=== PATIENT | female | born 1950 | race Caucasian/White ===

== ENCOUNTER 2016-07-24 15:13 | Observation (INO) | payer MEDICARE ==
[2016-07-24] VITALS (8 sets, daily range): BP systolic 108–165; BP diastolic 59–91; PULSE 78–93; RESP 14–20; TEMP 97.7–98.4; O2SAT 95–97
[~2016-07-24] VITALS: Ht 162.6 cm; Wt 77.2 kg
[~2016-07-24 15:13] MED LIST: AMAR2TAB PO; CALC1TAB30 PO; CART180C PO; CHOL50008 PO; COUM5TAB PO; CYAN50002 SL; GLIM4TAB PO; HYDR25TA5 PO; IMDU30TA PO; LANO0.1212 PO; LEVO100T5 PO; LISI-515 PO; MAGN400T2 PO; METF500T PO; OMEP20CA2 PO; PRAV20TA2 PO; SODI325T PO; SULF500T3 PO; TOVI4TAB PO; VENL150C39 PO
[2016-07-24] MEDS ORDERED: SODIUM CHLOR 0.9% 1000 ML INJ 1,000 ML IV SCH (15:36)
[2016-07-24] MEDS ORDERED: SODIUM CHLORIDE 0.9% FLUSH 10 ML FLUSH IVF PRN (15:45)
--- NOTE | 2016-07-24 15:45 | PD ---
HPI Chief Complaint: Syncope/Near-Syncope Time Seen by Provider: 15:31 Travel History International Travel<30 days: No Contact w/Intl Traveler<30days: No Traveled to known affect area: No History of Present Illness HPI 66-year-old female with history of A. fib on Coumadin, brought in by ambulance from home for evaluation after syncopal episode. The patient was using the restroom when she syncopized. She did not injure herself. She is not complaining of diffuse abdominal cramping which is intermittent. No chest pain or dyspnea. She reports having upper respiratory symptoms for last couple of weeks. No fevers. No urinary symptoms. No melena or hematochezia. History of several abdominal surgeries including hysterectomy, appendectomy, cholecystectomy. PFSH Past Medical History Hx Anticoagulant Therapy: Yes Arthritis: Yes Atrial Fibrillation: Yes Blood Disorders: No Anxiety: Yes Depression: Yes Heart Rhythm Problems: Yes (MURMUR) Cancer: No Cardiovascular Problems: Yes (AFIB) High Cholesterol: Yes Chest Pain: Yes Congestive Heart Failure: No COPD: No Cerebrovascular Accident: No Diabetes: Yes Patient Takes Glucophage: Yes Diminished Hearing: No Endocrine: Yes Gastrointestinal Disorders: Yes (COLITIS,GERD, HIATAL HERNIA, PROBLEMS WITH N/V , DIARRHEA) GERD: Yes Genitourinary: No Hepatitis: No Hiatal Hernia: Yes Hypertension: Yes Immune Disorder: No Implanted Vascular Access Dvce: Yes Musculoskeletal: Yes Neurologic: Yes Psychiatric: No Reproductive: No Respiratory: Yes Migraines: Yes Pneumonia: Yes Seizures: Yes ("PAIN SEIZURES WHEN I HAD SHINGLES ON MY RIGHT EYE") Shingles: Yes Thyroid Disease: Yes Tetanus Vaccination: < 5 Years Influenza Vaccination: Yes ?: Not Menopausal: Yes Past Surgical History Abdominal Surgery: No AICD: No Appendectomy: Yes Body Medical Devices: BLADDER SLING REPLACED 5 TIMES Cardiac Surgery: No Cholecystectomy: Yes Ear Surgery: No Endocrine Surgery: No Eye Surgery: No Genitourinary Surgery: Yes Gynecologic Surgery: Yes Hysterectomy: Yes (PARTIAL) Joint Replacement: Yes (FROILAN. KNEE) Oral Surgery: Yes (JAW REPLACEMENT) Pacemaker: No Thoracic Surgery: No Other Surgery: Yes Social History Alcohol Use: Yes (ON OCCASION) Tobacco Use: No Substance Use: No Allergies-Medications (Allergen,Severity, Reaction): Coded Allergies: No Known Allergies (Verified , 4/2/17) Reported Meds & Prescriptions Reported Meds & Active Scripts Active Metformin (Metformin HCl) 500 Mg Tab 500 Mg PO BIDPC With meals Reported Jardiance (Empagliflozin) 25 Mg Tab 25 Mg PO DAILY Isosorbide Mononitrate ER (Isosorbide Mononitrate) 30 Mg Demetrio 30 Mg PO DAILY Fibercon (Calcium Polycarbophil) 625 Mg Tab 625 Mg PO DAILY Omeprazole 20 Mg Cap 20 Mg PO BID Toviaz ER (Fesoterodine Fumarate) 4 mg Demetrio 4 Mg PO DAILY Levothyroxine (Levothyroxine Sodium) 100 Mcg Tab 100 Mcg PO DAILY Hydrochlorothiazide 25 Mg Tab 25 Mg PO DAILY Glimepiride 4 Mg Tab 4 Mg PO BID Take with breakfast or first main meal Magnesium Oxide 400 Mg Tab 800 Mg PO DAILY Lisinopril 20 Mg Tab 40 Mg PO DAILY Lanoxin (Digoxin) 0.125 Mg Tab 0.125 Mg PO DAILY Cartia Xt (Diltiazem ER 24 HR) 180 Mg Caper 360 Mg PO DAILY Calcium 600 + D (Calcium Carbonate-Cholecalciferol) 600-200 Mg-Unit Tab 1 Tab PO DAILY Coumadin (Warfarin) 5 Mg Tab 2.5 Mg PO Take 1/2 tablet (2.5mg) on daily on Monday,Monday,Monday, and Monday Coumadin (Warfarin) 5 Mg Tab 5 Mg PO Take 1 tablet (5mg) daily on Monday and Monday Vitamin D3 (Cholecalciferol) 5,000 Unit Tab 5,000 Units PO DAILY Vitamin B-12 (Cyanocobalamin) 5,000 Mcg Subl 5,000 Mcg SL DAILY Venlafaxine ER 24 HR (Venlafaxine HCl) 150 Mg Cap 150 Mg PO DAILY Sulfasalazine 500 Mg Tab 1,000 Mg PO BID Sodium Bicarbonate 325 Mg Tab 650 Mg PO DAILY Pravastatin 20 Mg Tab 20 Mg PO HS Review of Systems Except as stated in HPI: all other systems reviewed are Neg Physical Exam Narrative GENERAL: Well-developed, well-nourished, awake, alert, GCS 15, no acute distress. SKIN: Focused skin assessment warm/dry. No lacerations, abrasions, or ecchymosis. HEAD: Atraumatic. Normocephalic. EYES: Pupils equal and round. No scleral icterus. No injection or drainage. ENT: No nasal bleeding or discharge. Mucous membranes pink and moist. NECK: Trachea midline. No JVD. No midline cervical spine step-off or tenderness. CARDIOVASCULAR: Regular rate and rhythm. RESPIRATORY: No accessory muscle use. Clear to auscultation. Breath sounds equal bilaterally. GASTROINTESTINAL: Abdomen soft, non-tender, nondistended. No pulsatile mass. MUSCULOSKELETAL: No obvious deformities. No clubbing. No cyanosis. No edema. NEUROLOGICAL: Awake and alert. No obvious cranial nerve deficits. Motor grossly within normal limits. Normal speech. No focal deficit. PSYCHIATRIC: Appropriate mood and affect; insight and judgment normal. Data Data Last Documented VS Vital Signs Date Time Temp Pulse Resp B/P Pulse Ox O2 Delivery O2 Flow Rate FiO2 07/24/16 17:00 88 18 121/66 95 Room Air 07/24/16 15:18 97.7 Orders Electrocardiogram (07/24/16 ) Complete Blood Count With Diff (07/24/16 15:36) Comprehensive Metabolic Panel (07/24/16 15:36) Magnesium (Mg) (07/24/16 15:36) Ckmb (Isoenzyme) Profile (07/24/16 15:36) Troponin I (07/24/16 15:36) Act Partial Throm Time (Ptt) (07/24/16 15:36) Prothrombin Time / Inr (Pt) (07/24/16 15:36) Urinalysis - C+S If Indicated (07/24/16 15:36) Chest, Single Ap (07/24/16 15:36) Ct Brain W/O Iv Contrast(Rout) (07/24/16 15:36) Ecg Monitoring (07/24/16 15:36) Iv Access Insert/Monitor (07/24/16 15:36) Oximetry (07/24/16 15:36) Sodium Chloride 0.9% Flush (Ns Flush) (07/24/16 15:45) Ct Abd/Pel W Iv Contrast(Rout) (07/24/16 15:36) Sodium Chlor 0.9% 1000 Ml Inj (Ns 1000 M (07/24/16 15:36) Iohexol 350 Inj (Omnipaque 350 Inj) (07/24/16 17:10) Labs Laboratory Tests Test 07/24/16 07/24/16 15:45 17:25 White Blood Count 15.8 TH/MM3 Red Blood Count 4.24 MIL/MM3 Hemoglobin 13.4 GM/DL Hematocrit 39.8 % Mean Corpuscular Volume 93.8 FL Mean Corpuscular Hemoglobin 31.5 PG Mean Corpuscular Hemoglobin 33.6 % Concent Red Cell Distribution Width 13.8 % Platelet Count 397 TH/MM3 Mean Platelet Volume 8.4 FL Neutrophils (%) (Auto) 81.0 % Lymphocytes (%) (Auto) 10.3 % Monocytes (%) (Auto) 7.1 % Eosinophils (%) (Auto) 1.2 % Basophils (%) (Auto) 0.4 % Neutrophils # (Auto) 12.8 TH/MM3 Lymphocytes # (Auto) 1.6 TH/MM3 Monocytes # (Auto) 1.1 TH/MM3 Eosinophils # (Auto) 0.2 TH/MM3 Basophils # (Auto) 0.1 TH/MM3 CBC Comment DIFF FINAL Differential Comment Prothrombin Time 16.1 SEC Prothromb Time International 1.4 RATIO Ratio Activated Partial 36.2 SEC Thromboplast Time Sodium Level 138 MEQ/L Potassium Level 4.3 MEQ/L Chloride Level 104 MEQ/L Carbon Dioxide Level 25.7 MEQ/L Anion Gap 8 MEQ/L Blood Urea Nitrogen 50 MG/DL Creatinine 1.26 MG/DL Estimat Glomerular Filtration 42 ML/MIN Rate Random Glucose 110 MG/DL Calcium Level 9.1 MG/DL Magnesium Level 1.7 MG/DL Total Bilirubin 0.4 MG/DL Aspartate Amino Transf 14 U/L (AST/SGOT) Alanine Aminotransferase 17 U/L (ALT/SGPT) Alkaline Phosphatase 89 U/L Total Creatine Kinase 32 U/L Troponin I LESS THAN 0.02 NG/ML Total Protein 7.4 GM/DL Albumin 3.5 GM/DL Urine Color YELLOW Urine Turbidity CLEAR Urine pH 5.5 Urine Specific [place] 1.020 Urine Protein NEG mg/dL Urine Glucose (UA) 1000 mg/dL Urine Ketones NEG mg/dL Urine Occult Blood TRACE Urine Nitrite NEG Urine Bilirubin NEG Urine Urobilinogen LESS THAN 2.0 MG/DL Urine Leukocyte Esterase NEG Urine RBC 2 /hpf Urine WBC 1 /hpf Urine Squamous Epithelial 1 /hpf Cells Urine Hyaline Casts 2 /lpf Microscopic Urinalysis Comment CULT NOT INDICATED MDM Medical Decision Making Medical Screen Exam Complete: Yes Emergency Medical Condition: Yes Interpretation(s) EKG: A. fib, rate 74, normal axis, low voltage in precordial leads, no acute ischemic abnormality. Differential Diagnosis Syncope, dysrhythmia, metabolic abnormality, intracranial abnormality, AAA, intra-abdominal infection, UTI, cystitis Narrative Course Initial vital signs show heart rate 92, blood pressure 108/59, pulse ox 96% on room air, oral temp of 97.7F. Stool is heme negative and brown. CBC shows WBC 15.8, hemoglobin 13.4, hematocrit 39.8, platelets 297, neutrophils 81%. CMP is remarkable for BUN 50, creatinine 1.26, GFR 42, otherwise unremarkable. Cardiac enzymes are negative. INR is 1.4. UA shows 1000 glucose, trace occult blood, not suggestive of UTI. CT brain: CONCLUSION: 1. No acute intracranial abnormalities. Chest x-ray: CONCLUSION: 1. Minimal subsegmental atelectasis or scarring at the bases. No focal consolidation or significant effusion. CT abdomen pelvis: CONCLUSION: 1. Mild to moderate constipation. Colonic diverticulosis without diverticulitis. 2. Moderate coronary artery calcifications. Previous cholecystectomy and ventral hernia repair. Patient was made aware of all findings. She is resting comfortably. She states she is feeling better. She is nervous about being discharged home. Given her significant medical history, I believe she should be admitted for overnight observation for telemetry monitoring for her syncopal episode. Case discussed with [facility] hospitalist Dr. Suarez. Even though this is likely a vasovagal episode, the patient is high risk given her significant cardiac and medical history, social be admitted for overnight observation for telemetry monitoring. [facility] Point of Care Internal Pos. & Neg. Controls: Passed Fecal Specimen Occult Blood: Negative Comment Heme-negative brown stool. Diagnosis Primary Impression: Syncope Qualified Code: R55 - Syncope, unspecified syncope type Admitting Information Admitting Physician Requests: Observation Christiano Strickland MD Jul 24, 2016 15:45
[2016-07-24 16:13] LABS: AUTOMATED NEUTROPHIL # 12.8 TH/MM3 (1.8-7.7); BASOPHIL # 0.1 TH/MM3 (0-0.2); BASOPHIL % 0.4 % (0.0-2.0); EOSINOPHIL # 0.2 TH/MM3 (0-0.4); EOSINOPHIL % 1.2 % (0.0-4.0); HEMATOCRIT 39.8 % (35.0-46.0); HEMO FLAGS DIFF FINAL; LYMPH % 10.3 % (9.0-44.0); LYMPHOCYTE # 1.6 TH/MM3 (1.0-4.8); MEAN CELL VOLUME 93.8 FL (80.0-100.0); MEAN CORPUSCULAR HEMOGLOBIN 31.5 PG (27.0-34.0); MEAN CORPUSCULAR HGB CONC 33.6 % (32.0-36.0); MONO % 7.1 % (0.0-8.0); PLATELET COUNT 397 TH/MM3 (150-450); RED BLOOD COUNT 4.24 MIL/MM3 (4.00-5.30); RED CELL DISTRIBUTION WIDTH 13.8 % (11.6-17.2); WHITE BLOOD COUNT 15.8 TH/MM3 (4.0-11.0)
[2016-07-24] MEDS ORDERED: ISOS30TA3 PO (16:23)
[2016-07-24] MEDS ORDERED: FIBE625T PO (16:23)
[2016-07-24] MEDS ORDERED: EMPA1TAB3 PO (16:23)
[2016-07-24 16:26] LABS: ALT (GPT) 17 U/L (10-53); ANION GAP 8 MEQ/L (5-15); AST (GOT) 14 U/L (15-37); BICARBONATE 25.7 MEQ/L (21.0-32.0); BLOOD UREA NITROGEN 50 MG/DL (7-18); CHLORIDE 104 MEQ/L (98-107); GLOMERULAR FILTRATION RATE 42 ML/MIN (>89); MAGNESIUM 1.7 MG/DL (1.5-2.5); POTASSIUM 4.3 MEQ/L (3.5-5.1); SODIUM (NA) 138 MEQ/L (136-145)
[2016-07-24 16:28] LABS: APTT (PATIENT) 36.2 SEC (24.3-30.1); INTERNATIONAL NORMALIZED RATIO 1.4 RATIO; PROTHROMBIN TIME - PATIENT 16.1 SEC (9.8-11.6)
[2016-07-24 16:29] LABS: ALKALINE PHOSPHATASE 89 U/L (45-117); TOTAL BILIRUBIN ADULT 0.4 MG/DL (0.2-1.0)
[2016-07-24 16:30] LABS: CREATINE KINASE 32 U/L (26-192)
--- NOTE | 2016-07-24 16:51 | RADRPT ---
EXAM DATE/TIME: 07/24/2016 15:50 [facility] COMPARISON: No previous studies available for comparison. INDICATIONS : Syncope. Weakness. MEDICAL HISTORY : Diabetes mellitus type II. Atrial fibrillation. SURGICAL HISTORY : None. ENCOUNTER: Initial ACUITY: 1 day PAIN SCORE: 0/10 LOCATION: Bilateral Chest FINDINGS: A single view of the chest demonstrates the lungs to be symmetrically aerated without evidence of mas s, infiltrate or effusion. Minimal subsegmental atelectasis or scarring. The cardiomediastinal contou rs are unremarkable. Osseous structures are intact. CONCLUSION: 1. Minimal subsegmental atelectasis or scarring at the bases. No focal consolidation or significant e ffusion. Daniel Leon MD on July 24, 2016 at 16:48 Board Certified Radiologist. This report was verified electronically.
[2016-07-24] MEDS ORDERED: IOHEXOL 350 MG/ML 10 ML VIAL (for RAD DIAG) IV ONE (17:10)
--- NOTE | 2016-07-24 17:49 | RADRPT ---
EXAM DATE/TIME: 07/24/2016 16:44 [facility] COMPARISON: CT BRAIN W/O CONTRAST, March 01, 2016, 11:54. INDICATIONS : Syncope today. RADIATION DOSE: 56.35 CTDIvol (mGy) MEDICAL HISTORY : diabetes SURGICAL HISTORY : jaw surgery ENCOUNTER: Initial ACUITY: 1 day PAIN SCALE: 0/10 LOCATION: Bilateral head TECHNIQUE: Multiple contiguous axial images were obtained of the head. Using automated exposure control and adj ustment of the mA and/or kV according to patient size, radiation dose was kept as low as reasonably a chievable to obtain optimal diagnostic quality images. FINDINGS: CEREBRUM: The ventricles are normal for age. No evidence of midline shift, mass lesion, hemorrhage or acute in farction. No extra-axial fluid collections are seen. POSTERIOR FOSSA: The cerebellum and brainstem are intact. The 4th ventricle is midline. The cerebellopontine angle i s unremarkable. EXTRACRANIAL: The visualized portion of the orbits is intact. SKULL: The calvaria is intact. No evidence of skull fracture. There is postop change around the left TMJ wi th joint replacement. CONCLUSION: 1. No acute intracranial abnormalities. Daniel Leon MD on July 24, 2016 at 17:45 Board Certified Radiologist. This report was verified electronically.
[2016-07-24 17:50] LABS: BLOOD, URINE TRACE (NEG); GLUCOSE,URINE 1000 mg/dL (NEG); HYALINE CAST, URINE 2 /lpf (RARE); KETONE, URINE NEG (NEG); NITRITE,URINE NEG (NEG); PH, URINE 5.5 (5.0-8.5); SQUAMOUS EPITHELIAL CELL URINE 1 /hpf (0-5); URINE COLOR YELLOW (YELLW/STRAW)
[2016-07-24 17:51] LABS: COMMENT (UR) CULT NOT INDICATED; CULTURE IF INDICATED CULT NOT INDICATED
--- NOTE | 2016-07-24 17:53 | RADRPT ---
EXAM DATE/TIME: 07/24/2016 16:47 [facility] COMPARISON: No previous studies available for comparison. INDICATIONS : Lower abdominal pain today. IV CONTRAST: 80 cc Omnipaque 350 (iohexol) IV ORAL CONTRAST: No oral contrast ingested. RADIATION DOSE: 9.96 CTDIvol (mGy) MEDICAL HISTORY : diabetes SURGICAL HISTORY : Cholecystectomy. ENCOUNTER: Initial ACUITY: 1 day PAIN SCALE: 6/10 LOCATION: Bilateral abdomen TECHNIQUE: Volumetric scanning of the abdomen and pelvis was performed. Using automated exposure control and ad justment of the mA and/or kV according to patient size, radiation dose was kept as low as reasonably achievable to obtain optimal diagnostic quality images. FINDINGS: Lung bases are clear except minimal dependent atelectasis. Mild fatty liver. Spleen, adrenals, kidney s and pancreas unremarkable. Previous cholecystectomy. Previous ventral hernia repair. No bowel obstruction. No free air or free fluid. Mild constipation. Colonic diverticula without diver ticulitis. CONCLUSION: 1. Mild to moderate constipation. Colonic diverticulosis without diverticulitis. 2. Moderate coronary artery calcifications. Previous cholecystectomy and ventral hernia repair. Daniel Leon MD on July 24, 2016 at 17:47 Board Certified Radiologist. This report was verified electronically.
[2016-07-24] MEDS ORDERED: NALOXONE HCL 0.4 MG/ML AMP IV PRN (20:15)
[2016-07-24] MEDS ORDERED: ONDANSETRON HCL 4 MG/2 ML VIAL IVP PRN (20:15)
[2016-07-24] MEDS ORDERED: WARFARIN SOD 5 MG TAB PO SCH (20:15)
[2016-07-24] MEDS ORDERED: BISACODYL 10 MG SUPP RECTAL PRN (20:15)
[2016-07-24] MEDS ORDERED: SODIUM CHLORIDE 0.9% FLUSH 10 ML FLUSH IV FLUSH PRN (20:15)
[2016-07-24] MEDS ORDERED: ACETAMINOPHEN 325 MG TAB PO PRN (20:15)
--- NOTE | 2016-07-24 20:41 | HHI.HP ---
HPI Service [facility] Hospitalists Primary Care Physician Urban Carrera MD Admission Diagnosis syncope Chief Complaint: syncopal episode earlier today Travel History International Travel<30 Days: No Contact w/Intl Traveler <30 Da: No Traveled to Known Affected Are: No History of Present Illness HPI 66-year-old female with history of A. fib on Coumadin, brought in by ambulance from home for evaluation after syncopal episode. The patient was using the restroom when she syncopized. Patient not sure whether it was after straining or not .She did not injure herself. She is complaining of diffuse abdominal cramping which is intermittent and this symptoms she has had before . Denies chest pain SOB,diaphoresis . Work up in er showed slight elevation of WBC count and patient is on coumadin and is subtherapeutic. Review of Systems Other syncope Past Family Social History Past Medical History afib,djd,hernia,hyperlipidemia,htn,dm,shingles hypothyroid,colitis,GERD,N and V diarrhea Past Surgical History appendix gallbladder,hysterectomy,bladder suspension, sanjuanita knee surgery Reported Medications Metformin (Metformin HCl) 500 Mg Tab 500 Mg PO BIDPC With meals Reported Jardiance (Empagliflozin) 25 Mg Tab 25 Mg PO DAILY Isosorbide Mononitrate ER (Isosorbide Mononitrate) 30 Mg Demetrio 30 Mg PO DAILY Fibercon (Calcium Polycarbophil) 625 Mg Tab 625 Mg PO DAILY Omeprazole 20 Mg Cap 20 Mg PO BID Toviaz ER (Fesoterodine Fumarate) 4 mg Demetrio 4 Mg PO DAILY Levothyroxine (Levothyroxine Sodium) 100 Mcg Tab 100 Mcg PO DAILY Hydrochlorothiazide 25 Mg Tab 25 Mg PO DAILY Glimepiride 4 Mg Tab 4 Mg PO BID Take with breakfast or first main meal Magnesium Oxide 400 Mg Tab 800 Mg PO DAILY Lisinopril 20 Mg Tab 40 Mg PO DAILY Lanoxin (Digoxin) 0.125 Mg Tab 0.125 Mg PO DAILY Cartia Xt (Diltiazem ER 24 HR) 180 Mg Caper 360 Mg PO DAILY Calcium 600 + D (Calcium Carbonate-Cholecalciferol) 600-200 Mg-Unit Tab 1 Tab PO DAILY Coumadin (Warfarin) 5 Mg Tab 2.5 Mg PO SUMOWETHFR Take 1/2 tablet (2.5mg) on daily on Monday,Monday,Monday, and Monday Coumadin (Warfarin) 5 Mg Tab 5 Mg PO Take 1 tablet (5mg) daily on Monday and Monday Vitamin D3 (Cholecalciferol) 5,000 Unit Tab 5,000 Units PO DAILY Vitamin B-12 (Cyanocobalamin) 5,000 Mcg Subl 5,000 Mcg SL DAILY Venlafaxine ER 24 HR (Venlafaxine HCl) 150 Mg Cap 150 Mg PO DAILY Sulfasalazine 500 Mg Tab 1,000 Mg PO BID Sodium Bicarbonate 325 Mg Tab 650 Mg PO DAILY Pravastatin 20 Mg Tab 20 Mg P Allergies: Coded Allergies: No Known Allergies (Verified , 07/24/16) Social History occ etoh,NS Physical Exam Vital Signs Vital Signs Date Time Temp Pulse Resp B/P Pulse Ox O2 Delivery O2 Flow Rate FiO2 07/24/16 18:00 78 20 143/91 95 Room Air 07/24/16 17:00 88 18 121/66 95 Room Air 07/24/16 15:48 97 Room Air 07/24/16 15:24 20 97 Room Air 07/24/16 15:18 97.7 92 20 108/59 96 Physical Exam GENERAL: This is a well-nourished, well-developed patient, in no apparent distress. SKIN: No rashes, ecchymoses or lesions. Cool and dry. HEAD: Atraumatic. Normocephalic. No temporal or scalp tenderness. EYES: Pupils equal round and reactive. Extraocular motions intact. No scleral icterus. No injection or drainage. ENT: Nose without bleeding, purulent drainage or septal hematoma. Throat without erythema, tonsillar hypertrophy or exudate. Uvula midline. Airway patent. NECK: Trachea midline. No JVD or lymphadenopathy. Supple, nontender, no meningeal signs. CARDIOVASCULAR: IRREG rate and rhythm with 2/6 systolic murmur, gallops, or rubs. RESPIRATORY: Clear to auscultation. Breath sounds equal bilaterally. No wheezes , rales, or rhonchi. GASTROINTESTINAL: Abdomen soft, non-tender, nondistended. No hepato-splenomegaly , or palpable masses. No guarding. MUSCULOSKELETAL: Extremities without clubbing, cyanosis, or edema. No joint tenderness, effusion, or edema noted. No calf tenderness. Negative Homans sign bilaterally. NEUROLOGICAL: Awake and alert. Cranial nerves II through XII intact. Motor and sensory grossly within normal limits. Five out of 5 muscle strength in all muscle groups. Normal speech. Laboratory Laboratory Tests Test 07/24/16 07/24/16 15:45 17:25 White Blood Count 15.8 Red Blood Count 4.24 Hemoglobin 13.4 Hematocrit 39.8 Mean Corpuscular Volume 93.8 Mean Corpuscular Hemoglobin 31.5 Mean Corpuscular Hemoglobin 33.6 Concent Red Cell Distribution Width 13.8 Platelet Count 397 Mean Platelet Volume 8.4 Neutrophils (%) (Auto) 81.0 Lymphocytes (%) (Auto) 10.3 Monocytes (%) (Auto) 7.1 Eosinophils (%) (Auto) 1.2 Basophils (%) (Auto) 0.4 Neutrophils # (Auto) 12.8 Lymphocytes # (Auto) 1.6 Monocytes # (Auto) 1.1 Eosinophils # (Auto) 0.2 Basophils # (Auto) 0.1 CBC Comment DIFF FINAL Differential Comment Prothrombin Time 16.1 Prothromb Time International 1.4 Ratio Activated Partial 36.2 Thromboplast Time Sodium Level 138 Potassium Level 4.3 Chloride Level 104 Carbon Dioxide Level 25.7 Anion Gap 8 Blood Urea Nitrogen 50 Creatinine 1.26 Estimat Glomerular Filtration 42 Rate Random Glucose 110 Calcium Level 9.1 Magnesium Level 1.7 Total Bilirubin 0.4 Aspartate Amino Transf 14 (AST/SGOT) Alanine Aminotransferase 17 (ALT/SGPT) Alkaline Phosphatase 89 Total Creatine Kinase 32 Troponin I LESS THAN 0.02 Total Protein 7.4 Albumin 3.5 Urine Color YELLOW Urine Turbidity CLEAR Urine pH 5.5 Urine Specific [place] 1.020 Urine Protein NEG Urine Glucose (UA) 1000 Urine Ketones NEG Urine Occult Blood TRACE Urine Nitrite NEG Urine Bilirubin NEG Urine Urobilinogen LESS THAN 2.0 Urine Leukocyte Esterase NEG Urine RBC 2 Urine WBC 1 Urine Squamous Epithelial 1 Cells Urine Hyaline Casts 2 Microscopic Urinalysis Comment CULT NOT INDICATED Result Diagram: 07/24/16 1545 07/24/16 1545 Imaging Last [address] 07/24/16 153 Signed Impressions: Service Date/Time: Sunday, July 24, 2016 16:44 - CONCLUSION: 1. No acute intracranial abnormalities. Daniel Leon MD Chest X-Ray 07/24/16 1536 Signed Impressions: Service Date/Time: Sunday, July 24, 2016 15:50 - CONCLUSION: 1. Minimal subsegmental atelectasis or scarring at the bases. No focal consolidation or significant effusion. Daniel Leon MD Abdomen/Pelvis CT 07/24/16 1536 Signed Impressions: Service Date/Time: Sunday, July 24, 2016 16:47 - CONCLUSION: 1. Mild to moderate constipation. Colonic diverticulosis without diverticulitis. 2. Moderate coronary artery calcifications. Previous cholecystectomy and ventral hernia repair. Daniel Leon MD Course ekg a fib with controlled ventricular response Blood pressure was initially low on arrival in er given fluid and back to baseline Assessment and Plan Problem List: (1) Syncope Status: Acute Plan: most likely was vasovagal will observe in telemetry if normal probable D/ C tomorrow (2) Leukocytosis Status: Acute Plan: no signs of infection will recheck in am (3) Atrial fibrillation Status: Chronic Plan: INR was a little low was on 2.5 coumadin for monday will recheck in am and if still low will increase to 5 mg on monday. Assessment and Plan continue home meds Code Status full Discussed Condition With patient Problem Qualifiers (1) Syncope: Qualified Code: R55 - Syncope, unspecified syncope type Valeriano Sanford MD Jul 24, 2016 20:41
[2016-07-24] MEDS: DOCUSATE SODIUM 100 MG CAP PO SCH (21:00)
[2016-07-24] MEDS: SODIUM CHLORIDE 0.9% FLUSH 10 ML FLUSH IV FLUSH SCH (21:21)
[2016-07-24] MEDS: sulfaSALAzine 500 MG TAB PO SCH (22:09)
[2016-07-24] MEDS: PRAVASTATIN SOD 20 MG TAB PO SCH (22:10)
[2016-07-24] MEDS: PANTOPRAZOLE SOD 20 MG DELAYED RELEASE TAB PO SCH (22:10)
[2016-07-24] MEDS: GLIMEPIRIDE 4 MG TAB PO SCH (22:10)
[2016-07-25] VITALS (8 sets, daily range): BP systolic 99–136; BP diastolic 56–74; PULSE 54–109; RESP 16–18; TEMP 95.5–98.8; O2SAT 92–97
[2016-07-25 03:57] LABS: AUTOMATED NEUTROPHIL # 12.8 TH/MM3 (1.8-7.7); BASOPHIL # 0.1 TH/MM3 (0-0.2); BASOPHIL % 0.5 % (0.0-2.0); EOSINOPHIL # 0.2 TH/MM3 (0-0.4); EOSINOPHIL % 1.4 % (0.0-4.0); HEMATOCRIT 38.6 % (35.0-46.0); HEMO FLAGS DIFF FINAL; LYMPHOCYTE # 3.1 TH/MM3 (1.0-4.8); MEAN CELL VOLUME 94.1 FL (80.0-100.0); MEAN CORPUSCULAR HEMOGLOBIN 31.2 PG (27.0-34.0); MEAN CORPUSCULAR HGB CONC 33.1 % (32.0-36.0); NEUT % 73.1 % (16.0-70.0); PLATELET COUNT 356 TH/MM3 (150-450); RED CELL DISTRIBUTION WIDTH 13.8 % (11.6-17.2); WHITE BLOOD COUNT 17.5 TH/MM3 (4.0-11.0)
[2016-07-25 04:03] LABS: INTERNATIONAL NORMALIZED RATIO 1.3 RATIO; PROTHROMBIN TIME - PATIENT 14.7 SEC (9.8-11.6)
[2016-07-25 04:25] LABS: BICARBONATE 27.3 MEQ/L (21.0-32.0); POTASSIUM 3.8 MEQ/L (3.5-5.1)
[2016-07-25] MEDS: LEVOTHYROXINE SODIUM 100 MCG TAB PO SCH (05:50)
[2016-07-25] MEDS: metFORMIN HCL 500 MG TAB PO SCH ×2 (09:00→18:00)
[2016-07-25] MEDS ORDERED: HYDROCHLOROTHIAZIDE 25 MG TAB PO SCH (09:00)
[2016-07-25] MEDS ORDERED: FESOTERODINE 4 MG PO SCH (09:00)
[2016-07-25] MEDS: VENLAFAXINE HCL XR 75 MG CAP PO SCH (09:00)
[2016-07-25] MEDS: CYANOCOBALAMIN 1,000 MCG TAB PO SCH (09:36)
[2016-07-25] MEDS: DILTIAZEM-CD 180 MG CAP ER PO SCH (09:37)
[2016-07-25] MEDS: CALCIUM/VITAMIN D 250 MG/125 U TAB PO SCH (09:37)
[2016-07-25] MEDS: LISINOPRIL 20 MG TAB PO SCH (09:38)
--- NOTE | 2016-07-25 09:40 | HHI.PR ---
Subjective Remarks Pt reports that yesterday she was straining to have a BM on the commode and was having abd cramping and broke out into a cold sweat. After a small BM she was trying to make her way to the kitchen to get some water and became very lightheaded and dizzy and collapsed to the ground. She did not have any LOC. She was able to crawl to her room to call 911. Pt states that for the last 2years she has had issues with constipation but prior to that she had had diarrhea which began around 30 years ago. Pt reports that she has not had any further cramping since last night. Pt is very diaphoretic at the time of my exam and she reports that for the last few weeks she has been getting intermittent night sweats. For the last week and a half she has had a productive cough. She had family members who had been sick with similar symptoms as well. Pt took Amoxicillin for 6 days, which she had at home already. Pt did not find that she had much improvement with the antibiotics. Objective Vitals Vital Signs Date Time Temp Pulse Resp B/P Pulse Ox O2 Delivery O2 Flow Rate FiO2 07/25/16 07:26 97.3 85 16 134/74 94 07/25/16 06:50 16 07/25/16 05:21 97.8 109 18 119/74 92 07/25/16 01:24 98.8 87 18 136/68 93 07/24/16 22:23 83 07/24/16 22:18 98.3 84 18 137/84 97 07/24/16 22:06 98.4 89 18 165/77 97 07/24/16 21:00 93 14 129/74 95 Room Air 07/24/16 18:00 78 20 143/91 95 Room Air 07/24/16 17:00 88 18 121/66 95 Room Air 07/24/16 15:48 97 Room Air 07/24/16 15:24 20 97 Room Air 07/24/16 15:18 97.7 92 20 108/59 96 07/24/16 07/24/16 07/25/16 15:00 23:00 07:00 # Voids 1 1 # Bowel Movements 2 Result Diagram: 07/25/16 0316 07/25/16 0316 Other Results Laboratory Tests Test 07/24/16 07/24/16 07/25/16 15:45 17:25 03:16 White Blood Count 15.8 TH/MM3 17.5 TH/MM3 Red Blood Count 4.24 MIL/MM3 4.10 MIL/MM3 Hemoglobin 13.4 GM/DL 12.8 GM/DL Hematocrit 39.8 % 38.6 % Mean Corpuscular Volume 93.8 FL 94.1 FL Mean Corpuscular Hemoglobin 31.5 PG 31.2 PG Mean Corpuscular Hemoglobin 33.6 % 33.1 % Concent Red Cell Distribution Width 13.8 % 13.8 % Platelet Count 397 TH/MM3 356 TH/MM3 Mean Platelet Volume 8.4 FL 8.4 FL Neutrophils (%) (Auto) 81.0 % 73.1 % Lymphocytes (%) (Auto) 10.3 % 18.0 % Monocytes (%) (Auto) 7.1 % 7.0 % Eosinophils (%) (Auto) 1.2 % 1.4 % Basophils (%) (Auto) 0.4 % 0.5 % Neutrophils # (Auto) 12.8 TH/MM3 12.8 TH/MM3 Lymphocytes # (Auto) 1.6 TH/MM3 3.1 TH/MM3 Monocytes # (Auto) 1.1 TH/MM3 1.2 TH/MM3 Eosinophils # (Auto) 0.2 TH/MM3 0.2 TH/MM3 Basophils # (Auto) 0.1 TH/MM3 0.1 TH/MM3 CBC Comment DIFF FINAL DIFF FINAL Differential Comment Prothrombin Time 16.1 SEC 14.7 SEC Prothromb Time International 1.4 RATIO 1.3 RATIO Ratio Activated Partial 36.2 SEC Thromboplast Time Sodium Level 138 MEQ/L 137 MEQ/L Potassium Level 4.3 MEQ/L 3.8 MEQ/L Chloride Level 104 MEQ/L 104 MEQ/L Carbon Dioxide Level 25.7 MEQ/L 27.3 MEQ/L Anion Gap 8 MEQ/L 6 MEQ/L Blood Urea Nitrogen 50 MG/DL 39 MG/DL Creatinine 1.26 MG/DL 1.17 MG/DL Estimat Glomerular Filtration 42 ML/MIN 46 ML/MIN Rate Random Glucose 110 MG/DL 182 MG/DL Calcium Level 9.1 MG/DL 9.0 MG/DL Magnesium Level 1.7 MG/DL Total Bilirubin 0.4 MG/DL Aspartate Amino Transf 14 U/L (AST/SGOT) Alanine Aminotransferase 17 U/L (ALT/SGPT) Alkaline Phosphatase 89 U/L Total Creatine Kinase 32 U/L Troponin I LESS THAN 0.02 NG/ML Total Protein 7.4 GM/DL Albumin 3.5 GM/DL Urine Color YELLOW Urine Turbidity CLEAR Urine pH 5.5 Urine Specific [place] 1.020 Urine Protein NEG mg/dL Urine Glucose (UA) 1000 mg/dL Urine Ketones NEG mg/dL Urine Occult Blood TRACE Urine Nitrite NEG Urine Bilirubin NEG Urine Urobilinogen LESS THAN 2.0 MG/DL Urine Leukocyte Esterase NEG Urine RBC 2 /hpf Urine WBC 1 /hpf Urine Squamous Epithelial 1 /hpf Cells Urine Hyaline Casts 2 /lpf Microscopic Urinalysis Comment CULT NOT INDICATED Imaging Last [address] 07/24/16 1536 Signed Impressions: Service Date/Time: Sunday, July 24, 2016 16:44 - CONCLUSION: 1. No acute intracranial abnormalities. Daniel Leon MD Chest X-Ray 07/24/166 Signed Impressions: Service Date/Time: Sunday, July 24, 2016 15:50 - CONCLUSION: 1. Minimal subsegmental atelectasis or scarring at the bases. No focal consolidation or significant effusion. Daniel Leon MD Abdomen/Pelvis CT 07/24/166 Signed Impressions: Service Date/Time: Sunday, July 24, 2016 16:47 - CONCLUSION: 1. Mild to moderate constipation. Colonic diverticulosis without diverticulitis. 2. Moderate coronary artery calcifications. Previous cholecystectomy and ventral hernia repair. Daniel Leon MD Objective Remarks General: NAD, AAOx3 Chest: CTA Cardiac: Irregular Abd: +BS, soft ND/NT Ext: No edema A/P Problem List: (1) Pre-syncope Status: Acute Plan: - Pt was admitted for a presyncopal episode, likely vasovagal - Pt reports that yesterday she was straining to have a BM on the commode and was having abd cramping and broke out into a cold sweat. After a small BM she was trying to make her way to the kitchen to get some water and became very lightheaded and dizzy and collapsed to the ground. She did not have any LOC. - Pt states that for the last 2years she has had issues with constipation but prior to that she had had diarrhea which began around 30 years ago. Pt reports that she has not had any further cramping since last night. - CT Abd/pelvis noted moderate stool throughout the colon. - Given laxatives today to try to relieve the stool burden. (2) Cough Status: Acute Plan: - Pt was noted to have a leukocytosis at admission and repeat labs today with increased WBC count of 17 with left shift. - For the last week and a half she has had a productive cough. She had family members who had been sick with similar symptoms as well. Pt took Amoxicillin for 6 days, which she had at home already. Pt did not find that she had much improvement with the antibiotics. - CXR at admission noted minimal subsegmental atelectasis or scarring at the bases. No focal consolidation or significant effusion. - Pt is very diaphoretic at the time of my exam and she reports that for the last few weeks she has been getting intermittent night sweats. She was afebrile during this diaphoretic episode. No complaints of any chest pain. - She has been afebrile since admission. - Pt is noted to have lost weight since 02/2016 when she was previously admitted. - We will get an accurate weight on the pt today (3) Leukocytosis Status: Acute Plan: - See above. (4) Atrial fibrillation Status: Chronic Plan: - Pt with chronic A. fib on Coumadin. - Her INR was 1.4 at admission and repeat this morning was 1.3 - Increase dose of Coumadin to 5mg daily. - She was noted on telemetry to periodically go into RVR with HR into the 130- 140's - She is on Digoxin, check Dig level - Pt is also on Cardizem 360mg po daily (5) Acute worsening of stage 3 chronic kidney disease Status: Acute Plan: - Pts renal function was acutely worse at the time of admission, possibly secondary to dehydration. - labs improved slightly with IVF - Cont. some IVF today - Monitor labs - Encourage oral intake. (6) Hyperlipidemia Status: Chronic Plan: - Home meds continued (7) Hypothyroidism Status: Chronic Plan: - Home meds continued (8) HTN (hypertension), benign Status: Chronic Plan: - Home meds continued (9) Diabetes mellitus type 2, noninsulin dependent Status: Chronic Plan: - Metformin and Amaryl continued - Novolog SSI - Accu checks Assessment and Plan Patient examined. Assessment and plan formulated with Marlene Nuñez PA-C. I agree with the above. near syncope. cough x 2 weeks with resp infection exposure from grandkids months of "nights." poor po intake. admitted with dehydration/zane iv hydration. hold hctz. PT eval. recheck labs in AM. Marlene Nuñez Jul 25, 2016 09:40 Oscar Langford MD Jul 25, 2016 14:38
[2016-07-25] MEDS: PANTOPRAZOLE SOD 20 MG DELAYED RELEASE TAB PO SCH ×2 (09:41→19:54)
[2016-07-25] MEDS: DOCUSATE SODIUM 100 MG CAP PO SCH ×2 (09:41→19:55)
[2016-07-25] MEDS: CHOLECALCIFEROL (VIT D3) 5000 UNIT CAP PO SCH (09:42)
[2016-07-25] MEDS: ISOSORBIDE MONONITRATE 30 MG TAB PO SCH (09:42)
[2016-07-25] MEDS: MAGNESIUM OXIDE 400 MG TAB PO SCH (09:42)
[2016-07-25] MEDS: DIGOXIN 0.125 MG TAB PO SCH (09:44)
[2016-07-25] MEDS ORDERED: SODIUM CHLOR 0.9% 1000 ML INJ 1,000 ML IV SCH (09:45)
[2016-07-25] MEDS ORDERED: LACTULOSE SYRUP 20 GM/30 ML CUP PO ONE (10:00)
[2016-07-25] MEDS: CALCIUM POLYCARBOPHIL 625 MG TAB PO SCH (10:11)
[2016-07-25] MEDS: sulfaSALAzine 500 MG TAB PO SCH ×2 (10:12→19:55)
[2016-07-25] MEDS: SODIUM BICARBONATE 325 MG TAB PO SCH (10:12)
[2016-07-25] MEDS: GLIMEPIRIDE 4 MG TAB PO SCH ×2 (10:13→19:55)
[2016-07-25] MEDS: SODIUM CHLORIDE 0.9% FLUSH 10 ML FLUSH IV FLUSH SCH ×2 (10:14→19:54)
--- NOTE | 2016-07-25 10:42 | EKG ---
Date Performed: 07/24/2016 Time Performed: 15:26:27 PTAGE: 66 years EKG: ATRIAL FIBRILLATION LOW QRS VOLTAGE IN PRECORDIAL LEADS ABNORMAL RHYTHM ECG PREVIOUS TRACING : 10/02/2015 18.17 DOCTOR: Jakub Chiang Interpretating Date/Time 07/25/2016 10:37:53
[2016-07-25] MEDS: INSULIN ASPART SUPPLEMENTAL SCALE SQ SCH ×3 (12:25→19:54)
[2016-07-25] MEDS: WARFARIN SOD 5 MG TAB PO SCH (17:38)
[2016-07-25] MEDS: PRAVASTATIN SOD 20 MG TAB PO SCH (19:54)
[2016-07-26] MEDS: LEVOTHYROXINE SODIUM 100 MCG TAB PO SCH (05:08)
[2016-07-26] MEDS: INSULIN ASPART SUPPLEMENTAL SCALE SQ SCH ×2 (06:06→12:53)
[2016-07-26 06:08] VITALS: BP 122/59; PULSE 67; RESP 18; O2SAT 96
[2016-07-26 07:26] VITALS: BP 127/79; PULSE 64; RESP 18; TEMP 97.9; O2SAT 94
[2016-07-26 07:57] VITALS: PULSE 68
[2016-07-26 08:05] LABS: BASOPHIL # 0.1 TH/MM3 (0-0.2); BASOPHIL % 0.6 % (0.0-2.0); EOSINOPHIL # 0.2 TH/MM3 (0-0.4); EOSINOPHIL % 1.6 % (0.0-4.0); HEMO FLAGS DIFF FINAL; LYMPH % 18.5 % (9.0-44.0); LYMPHOCYTE # 2.6 TH/MM3 (1.0-4.8); MEAN CELL VOLUME 95.2 FL (80.0-100.0); MEAN CORPUSCULAR HEMOGLOBIN 30.2 PG (27.0-34.0); MEAN CORPUSCULAR HGB CONC 31.7 % (32.0-36.0); MONO % 7.8 % (0.0-8.0); NEUT % 71.5 % (16.0-70.0); PLATELET COUNT 319 TH/MM3 (150-450); RED BLOOD COUNT 3.89 MIL/MM3 (4.00-5.30); RED CELL DISTRIBUTION WIDTH 13.4 % (11.6-17.2); WHITE BLOOD COUNT 13.9 TH/MM3 (4.0-11.0)
[2016-07-26 08:10] LABS: INTERNATIONAL NORMALIZED RATIO 1.7 RATIO; PROTHROMBIN TIME - PATIENT 19.3 SEC (9.8-11.6)
[2016-07-26 08:35] LABS: BICARBONATE 27.1 MEQ/L (21.0-32.0); MAGNESIUM 1.7 MG/DL (1.5-2.5)
--- NOTE | 2016-07-26 08:36 | HHI.PR ---
Subjective Remarks Pt is overall feeling better today She states that she had two large BMs yesterday and denies any abd pain. She is eating and drinking well. She reports that her 50+lb weight loss since 02/2016 is secondary to dietary changes She is still having the profuse sweating periodically at night and during the day. Pt woke up this morning and her left eye was crusted over and is very itchy and irritated today Objective Vitals Vital Signs Date Time Temp Pulse Resp B/P Pulse Ox O2 Delivery O2 Flow Rate FiO2 07/26/16 07:57 68 07/26/16 07:26 97.9 64 18 127/79 94 07/26/16 06:08 67 18 122/59 96 07/25/16 19:51 97.9 54 18 112/56 97 07/25/16 19:12 70 07/25/16 15:22 95.5 66 18 99/61 93 07/25/16 11:15 95.6 90 16 108/64 94 07/25/16 08:50 88 07/25/16 07/25/16 07/26/16 15:00 23:00 07:00 Output Total 600 ml Balance -600 ml Output Urine Total 600 ml # Bowel Movements 2 Result Diagram: 07/26/16 0645 07/25/16 0316 Other Results Laboratory Tests Test 07/24/16 07/24/16 07/25/16 07/25/16 15:45 17:25 03:16 10:55 White Blood Count 15.8 TH/MM3 17.5 TH/MM3 Red Blood Count 4.24 MIL/MM3 4.10 MIL/MM3 Hemoglobin 13.4 GM/DL 12.8 GM/DL Hematocrit 39.8 % 38.6 % Mean Corpuscular Volume 93.8 FL 94.1 FL Mean Corpuscular Hemoglobin 31.5 PG 31.2 PG Mean Corpuscular Hemoglobin 33.6 % 33.1 % Concent Red Cell Distribution Width 13.8 % 13.8 % Platelet Count 397 TH/MM3 356 TH/MM3 Mean Platelet Volume 8.4 FL 8.4 FL Neutrophils (%) (Auto) 81.0 % 73.1 % Lymphocytes (%) (Auto) 10.3 % 18.0 % Monocytes (%) (Auto) 7.1 % 7.0 % Eosinophils (%) (Auto) 1.2 % 1.4 % Basophils (%) (Auto) 0.4 % 0.5 % Neutrophils # (Auto) 12.8 TH/MM3 12.8 TH/MM3 Lymphocytes # (Auto) 1.6 TH/MM3 3.1 TH/MM3 Monocytes # (Auto) 1.1 TH/MM3 1.2 TH/MM3 Eosinophils # (Auto) 0.2 TH/MM3 0.2 TH/MM3 Basophils # (Auto) 0.1 TH/MM3 0.1 TH/MM3 CBC Comment DIFF FINAL DIFF FINAL Differential Comment Prothrombin Time 16.1 SEC 14.7 SEC Prothromb Time International 1.4 RATIO 1.3 RATIO Ratio Activated Partial 36.2 SEC Thromboplast Time Sodium Level 138 MEQ/L 137 MEQ/L Potassium Level 4.3 MEQ/L 3.8 MEQ/L Chloride Level 104 MEQ/L 104 MEQ/L Carbon Dioxide Level 25.7 MEQ/L 27.3 MEQ/L Anion Gap 8 MEQ/L 6 MEQ/L Blood Urea Nitrogen 50 MG/DL 39 MG/DL Creatinine 1.26 MG/DL 1.17 MG/DL Estimat Glomerular Filtration 42 ML/MIN 46 ML/MIN Rate Random Glucose 110 MG/DL 182 MG/DL Calcium Level 9.1 MG/DL 9.0 MG/DL Magnesium Level 1.7 MG/DL Total Bilirubin 0.4 MG/DL Aspartate Amino Transf 14 U/L (AST/SGOT) Alanine Aminotransferase 17 U/L (ALT/SGPT) Alkaline Phosphatase 89 U/L Total Creatine Kinase 32 U/L Troponin I LESS THAN 0.02 NG/ML Total Protein 7.4 GM/DL Albumin 3.5 GM/DL Urine Color YELLOW Urine Turbidity CLEAR Urine pH 5.5 Urine Specific [place] 1.020 Urine Protein NEG mg/dL Urine Glucose (UA) 1000 mg/dL Urine Ketones NEG mg/dL Urine Occult Blood TRACE Urine Nitrite NEG Urine Bilirubin NEG Urine Urobilinogen LESS THAN 2.0 MG/DL Urine Leukocyte Esterase NEG Urine RBC 2 /hpf Urine WBC 1 /hpf Urine Squamous Epithelial 1 /hpf Cells Urine Hyaline Casts 2 /lpf Microscopic Urinalysis Comment CULT NOT INDICATED Digoxin Level 0.6 NG/ML Test 07/26/16 06:45 White Blood Count 13.9 TH/MM3 Red Blood Count 3.89 MIL/MM3 Hemoglobin 11.7 GM/DL Hematocrit 37.0 % Mean Corpuscular Volume 95.2 FL Mean Corpuscular Hemoglobin 30.2 PG Mean Corpuscular Hemoglobin 31.7 % Concent Red Cell Distribution Width 13.4 % Platelet Count 319 TH/MM3 Mean Platelet Volume 8.3 FL Neutrophils (%) (Auto) 71.5 % Lymphocytes (%) (Auto) 18.5 % Monocytes (%) (Auto) 7.8 % Eosinophils (%) (Auto) 1.6 % Basophils (%) (Auto) 0.6 % Neutrophils # (Auto) 10.0 TH/MM3 Lymphocytes # (Auto) 2.6 TH/MM3 Monocytes # (Auto) 1.1 TH/MM3 Eosinophils # (Auto) 0.2 TH/MM3 Basophils # (Auto) 0.1 TH/MM3 CBC Comment DIFF FINAL Differential Comment Prothrombin Time 19.3 SEC Prothromb Time International 1.7 RATIO Ratio Imaging Last Impressions Chest CT 07/26/16 0000 Signed Impressions: Service Date/Time: Tuesday, July 26, 2016 13:29 - CONCLUSION: 1. Nonspecific , 2-3 mm subpleural nodular density in the right base are probably postinflammatory. If there is no smoking history, I do not believe followup is necessary. The patient does have a smoking history, recommend repeat three- month noncontrasted CT scan of the chest. 2. Lungs are otherwise clear. 3. Postsurgical changes including cholecystectomy and probable anterior abdominal wall hernia mesh repair Prosper Wolfe MD Head CT 07/24/166 Signed Impressions: Service Date/Time: Sunday, July 24, 2016 16:44 - CONCLUSION: 1. No acute intracranial abnormalities. Daniel Leon MD Chest X-Ray 07/24/[id number] Signed Impressions: Service Date/Time: Sunday, July 24, 2016 15:50 - CONCLUSION: 1. Minimal subsegmental atelectasis or scarring at the bases. No focal consolidation or significant effusion. Daniel Leon MD Abdomen/Pelvis CT 07/24/[id number] Signed Impressions: Service Date/Time: Sunday, July 24, 2016 16:47 - CONCLUSION: 1. Mild to moderate constipation. Colonic diverticulosis without diverticulitis. 2. Moderate coronary artery calcifications. Previous cholecystectomy and ventral hernia repair. Daniel Leon MD Objective Remarks General: NAD, AAOx3 ENT: Left eye with yellow crust along the eyelashes and red/injected conjunctiva and sclera Chest: CTA Cardiac: Irregular Abd: +BS, soft ND/NT Ext: No edema A/P Problem List: (1) Pre-syncope Status: Acute Plan: - Pt was admitted for a presyncopal episode, likely vasovagal - Pt reports that prior to admission she was straining to have a BM on the commode and was having abd cramping and broke out into a cold sweat. After a small BM she was trying to make her way to the kitchen to get some water and became very lightheaded and dizzy and collapsed to the ground. She did not have any LOC. - Pt states that for the last 2years she has had issues with constipation but prior to that she had had diarrhea which began around 30 years ago. Pt reports that she has not had any further cramping since last night. - CT Abd/pelvis noted moderate stool throughout the colon. - Pt seems to be dehydrated and has not been eating as well since she has had this cough. She had similar issues with dehydration during a previous admission. - We have held her HCTZ and will not resume this at admission. Her BP has been stable. - Pt has been afebrile. - Give laxatives yesterday and did have relief of the stool burden. - Recommended that she continue on stool softeners - pt is overall feeling better and is anxious to go home. (2) Cough Status: Acute Plan: - Pt was noted to have a leukocytosis at admission and repeat labs today with increased WBC count of 17 with left shift. - For the last week and a half she has had a productive cough. She had family members who had been sick with similar symptoms as well. Pt took Amoxicillin for 6 days, which she had at home already. Pt did not find that she had much improvement with the antibiotics. - CXR at admission noted minimal subsegmental atelectasis or scarring at the bases. No focal consolidation or significant effusion. - Trial of Claritin - Pt has been afebrile. (3) Leukocytosis Status: Acute Plan: - Improving. - See above. (4) Atrial fibrillation Status: Chronic Plan: - Pt with chronic A. fib on Coumadin. - Her INR was 1.4 at admission - Coumadin increased to 5mg daily on 07/25/16 and repeat this morning was 1.7 - HR has been stable today - She is on Digoxin, Dig level is low at 0.6 - Pt is also on Cardizem 360mg po daily - Change Coumadin dose to 5mg on , , and 2.5mg on , , We, Fr - Recheck INR on Monday with results to her PCP (5) Weight loss Status: Acute Plan: - Pt was very diaphoretic at the time of my initial exam and she reports that for the last few weeks she has been getting intermittent night sweats and sweating during the day. She was afebrile during this diaphoretic episode. No complaints of any chest pain. - She has been afebrile since admission. - Pt is noted to have lost weight since 02/2016 when she was previously admitted but she states that this is due to dietary changes and her PCP is aware of this. - Chest CT (07/26/16) --> Nonspecific, 2-3 mm subpleural nodular density in the right base are probably postinflammatory. If there is no smoking history, I do not believe followup is necessary. The patient does have a smoking history, recommend repeat three-month noncontrasted CT scan of the chest. Lungs are otherwise clear. Postsurgical changes including cholecystectomy and probable anterior abdominal wall hernia mesh repair - Pt will need to followup with her PCP for any repeat imaging. (6) Acute worsening of stage 3 chronic kidney disease Status: Acute Plan: - Pts renal function was acutely worse at the time of admission, possibly secondary to dehydration. - IVF continued and renal function continues to improve. - Monitor labs - Encourage oral intake. - HCTZ held at discharge (7) Acute bacterial conjunctivitis of left eye Status: Acute Plan: - Pt woke up with morning with her eye crusted shut with yellow crust along the lashes and her conjunctiva and sclera are red/injected. - Start Ofloxacin - Discussed the importance of good hand washing and discussed that this is quite contagious. (8) Hyperlipidemia Status: Chronic Plan: - Home meds continued (9) Hypothyroidism Status: Chronic Plan: - Home meds continued (10) HTN (hypertension), benign Status: Chronic Plan: - Home meds continued (11) Diabetes mellitus type 2, noninsulin dependent Status: Chronic Plan: - Metformin geld post CT scan and Amaryl continued - Novolog SSI - Accu checks Assessment and Plan Patient examined. Assessment and plan formulated with Marlene Nuñez PA-C. I agree with the above. dehydration improved ambulating well. mild cough. bowels moving. coumadin increased with inr Monday stop hctz and pcp f/u for reeval c/o night sweat for months and pcp aware. no obvious malignancy on CT but small nodules noted and discussed ct 3 months with pcp. mammogram next month. utd on c-scope. dc home Marlene Nuñez Jul 26, 2016 08:36 Oscar Langford MD Jul 26, 2016 15:03
[2016-07-26] MEDS ORDERED: LACTULOSE SYRUP 20 GM/30 ML CUP PO SCH (09:00)
[2016-07-26] MEDS ORDERED: LORATADINE 10 MG TAB PO SCH (09:00)
[2016-07-26] MEDS: DILTIAZEM-CD 180 MG CAP ER PO SCH (09:20)
[2016-07-26] MEDS: sulfaSALAzine 500 MG TAB PO SCH (09:20)
[2016-07-26] MEDS: CALCIUM POLYCARBOPHIL 625 MG TAB PO SCH (09:20)
[2016-07-26] MEDS: ISOSORBIDE MONONITRATE 30 MG TAB PO SCH (09:20)
[2016-07-26] MEDS: metFORMIN HCL 500 MG TAB PO SCH (09:20)
[2016-07-26] MEDS: MAGNESIUM OXIDE 400 MG TAB PO SCH (09:20)
[2016-07-26] MEDS: DIGOXIN 0.125 MG TAB PO SCH (09:21)
[2016-07-26] MEDS: CYANOCOBALAMIN 1,000 MCG TAB PO SCH (09:21)
[2016-07-26] MEDS: CHOLECALCIFEROL (VIT D3) 5000 UNIT CAP PO SCH (09:21)
[2016-07-26] MEDS: DOCUSATE SODIUM 100 MG CAP PO SCH (09:22)
[2016-07-26] MEDS: VENLAFAXINE HCL XR 75 MG CAP PO SCH (09:22)
[2016-07-26] MEDS: LISINOPRIL 20 MG TAB PO SCH (09:22)
[2016-07-26] MEDS: SODIUM BICARBONATE 325 MG TAB PO SCH (09:22)
[2016-07-26] MEDS: PANTOPRAZOLE SOD 20 MG DELAYED RELEASE TAB PO SCH (09:22)
[2016-07-26] MEDS: CALCIUM/VITAMIN D 250 MG/125 U TAB PO SCH (09:22)
[2016-07-26] MEDS: GLIMEPIRIDE 4 MG TAB PO SCH (09:22)
[2016-07-26] MEDS: SODIUM CHLORIDE 0.9% FLUSH 10 ML FLUSH IV FLUSH SCH (09:23)
[2016-07-26] MEDS ORDERED: OFLOXACIN 0.3% OPTH SOLN 5 ML BTL LEFT EYE ONE (10:00)
[2016-07-26] MEDS ORDERED: OFLO0.3D5 LEFT EYE (10:08)
--- NOTE | 2016-07-26 10:09 | HHI.DCPOC ---
Discharge Care Plan Diagnosis: (1) Pre-syncope (2) Acute bacterial conjunctivitis of left eye (3) Acute worsening of stage 3 chronic kidney disease (4) Diabetes mellitus type 2, noninsulin dependent (5) HTN (hypertension), benign (6) Hypothyroidism (7) Hyperlipidemia (8) Cough Goals to Promote Your Health * To prevent worsening of your condition and complications * To maintain your health at the optimal level Directions to Meet Your Goals Take your medications as prescribed Follow your dietary instruction Follow activity as directed Keep your appointments as scheduled Take your immunizations and boosters as scheduled If your symptoms worsen call your PCP, if no PCP go to Urgent Care Center or Emergency Room Smoking is Dangerous to Your Health. Avoid second hand smoke Call the 24-hour hour crisis hotline for domestic abuse at Marlene Nuñez Jul 26, 2016 10:09
[2016-07-26 11:25] VITALS: BP 123/63; PULSE 71; RESP 18; TEMP 98.4; O2SAT 92
[2016-07-26] MEDS ORDERED: COUM5TAB PO (11:55)
[2016-07-26] MEDS ORDERED: OFLOXACIN 0.3% OPTH SOLN 5 ML BTL LEFT EYE SCH (12:00)
--- NOTE | 2016-07-26 14:15 | RADRPT ---
EXAM DATE/TIME: 07/26/2016 13:29 [facility] COMPARISON: No previous studies available for comparison. INDICATIONS : Weight loss, night sweats. Cough. RADIATION DOSE: 3.68 CTDIvol (mGy) MEDICAL HISTORY : Seizures. Cardiovascular disease Hypertension. SURGICAL HISTORY : Appendectomy. Hysterectomy.Cholecystectomy. ENCOUNTER: Initial ACUITY: 2 weeks PAIN SCALE: 0/10 LOCATION: chest TECHNIQUE: Volumetric scanning of the chest was performed. Using automated exposure control and adjustment of t he mA and/or kV according to patient size, radiation dose was kept as low as reasonably achievable to obtain optimal diagnostic quality images. FINDINGS: LUNGS: 2 punctate, less than 3 mm pleural-based nodules are seen posterolaterally in the right lung base. Christina ng bases are otherwise clear. PLEURAE: There is no pleural thickening or pleural effusion. MEDIASTINUM: The heart and great vessels demonstrate no acute abnormality. There is no mediastinal or hilar lymph adenopathy. AXILLAE: Within normal limits. No lymphadenopathy. MUSCULOSKELETAL: Within normal limits for patient age. MISCELLANEOUS: The visualized upper abdominal organs demonstrate no acute abnormality. Patient is status post cholec ystectomy. Coiled densities subjacent to the upper rectus abdominis aponeurosis suggest prior mesh an terior hernia repair CONCLUSION: 1. Nonspecific, 2-3 mm subpleural nodular density in the right base are probably postinflammatory. If there is no smoking history, I do not believe followup is necessary. The patient does have a smoking history, recommend repeat three-month noncontrasted CT scan of the chest. 2. Lungs are otherwise clear. 3. Postsurgical changes including cholecystectomy and probable anterior abdominal wall hernia mesh re pair Prosper Wolfe MD on July 26, 2016 at 14:10 Board Certified Radiologist. This report was verified electronically.
[2016-07-26] MEDS ORDERED: WARFARIN SOD 5 MG TAB PO SCH (16:00)
[2016-07-26] MEDS: WARFARIN SOD 5 MG TAB PO SCH (16:11)
== END 2016-07-26 17:04 | disposition home or self-care (01) ==
LOC: NEPA 15:13 → NEDA 18:36 → NEPHCDU 21:54
PROVIDERS: ADMIT Hospitalist; ATTEND Hospitalist
DX: R55 Syncope and collapse (principal); R05 Cough; D72.829 Elevated white blood cell count, unspecified; R61 Generalized hyperhidrosis; E86.0 Dehydration; I12.9 Hypertensive chronic kidney disease with stage 1 through stage 4 chronic kidney disease, or unspecified chronic kidney disease; N18.3 Chronic kidney disease, stage 3 (moderate); E11.22 Type 2 diabetes mellitus with diabetic chronic kidney disease; H10.89 Other conjunctivitis; I48.91 Unspecified atrial fibrillation; E78.5 Hyperlipidemia, unspecified; E03.9 Hypothyroidism, unspecified; R63.4 Abnormal weight loss; K21.9 Gastro-esophageal reflux disease without esophagitis; F41.9 Anxiety disorder, unspecified; F32.9 Major depressive disorder, single episode, unspecified; Z96.653 Presence of artificial knee joint, bilateral; Z79.84 Long term (current) use of oral hypoglycemic drugs; Z79.01 Long term (current) use of anticoagulants
CPT/HCPCS: 70450; 71010; 71250; 74177; 80048; 80053; 80162; 81001; 82550; 82948; 83735; 84484; 85025; 85610; 85730; 93005; 96360; 97162; 99285; G0378; G8987; G8988; G8989; J1815; J7030; Q9967

== ENCOUNTER 2016-11-09 06:20 | Inpatient (IN) | payer MEDICARE ==
[~2016-11-09] VITALS: Ht 167.6 cm; Wt 85.4 kg
[2016-11-09] VITALS (14 sets, daily range): BP systolic 111–137; BP diastolic 59–75; PULSE 80–123; RESP 15–22; TEMP 96–99.1; O2SAT 96–100
[~2016-11-09 06:20] MED LIST changes: -AMAR2TAB PO; +EMPA1TAB3 PO; +FIBE625T PO; -HYDR25TA5 PO; -IMDU30TA PO; +ISOS30TA3 PO; +OFLO0.3D5 LEFT EYE
[2016-11-09] MEDS ORDERED: SODIUM CHLOR 0.9% 1000 ML INJ 1,000 ML IV SCH ×2 (06:27→06:45)
--- NOTE | 2016-11-09 06:29 | PD ---
HPI Chief Complaint: Cardiac Complaint Time Seen by Provider: 06:27 Travel History International Travel<30 days: No Contact w/Intl Traveler<30days: No History of Present Illness HPI This is a 66-year-old female who presents to the emergency department having woken up in the middle the night feeling nauseous. She went to the bathroom and vomited multiple times. She felt dizzy and lightheaded and very sweaty. She laid down on the floor and subsequently she had several episodes of diarrhea. She also developed left-sided chest tightness, moderate severity, lasting for about 20 minutes and then subsiding. She denies any recent antibiotic use. She's not been sick prior to this evening. He says she used of chronic diarrhea but over the past 2 years she has had more constipation. PFSH Past Medical History Hx Anticoagulant Therapy: Yes Arthritis: Yes Atrial Fibrillation: Yes Blood Disorders: No Anxiety: Yes Depression: Yes Heart Rhythm Problems: Yes (MURMUR) Cancer: No Cardiovascular Problems: Yes (AFIB) High Cholesterol: Yes Chest Pain: Yes Congestive Heart Failure: No COPD: No Cerebrovascular Accident: No Diabetes: Yes Diminished Hearing: No Endocrine: Yes Gastrointestinal Disorders: Yes (COLITIS,GERD, HIATAL HERNIA, PROBLEMS WITH N/V , DIARRHEA) GERD: Yes Genitourinary: No Hepatitis: No Hiatal Hernia: Yes Hypertension: Yes Immune Disorder: No Implanted Vascular Access Dvce: Yes Musculoskeletal: Yes Neurologic: Yes Psychiatric: No Reproductive: No Respiratory: Yes Migraines: Yes Pneumonia: Yes Seizures: Yes ("PAIN 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 KNEE) Oral Surgery: Yes (JAW REPLACEMENT) Pacemaker: No Thoracic Surgery: No Other Surgery: Yes Social History Alcohol Use: Yes (ON OCCASION) Tobacco Use: No Substance Use: No Allergies-Medications (Allergen,Severity, Reaction): Coded Allergies: No Known Allergies (Verified , 07/24/16) Reported Meds & Prescriptions Reported Meds & Active Scripts Active Coumadin (Warfarin) 5 Mg Tab 5 Mg PO TUSA Take 1 tablet (5mg) daily on Monday, and Monday Ofloxacin Opth Drops 0.3 % Drops 1 Drop LEFT EYE Q6HR 7 Days Metformin (Metformin HCl) 500 Mg Tab 500 Mg PO BIDPC With meals Reported Jardiance (Empagliflozin) 25 Mg Tab 25 Mg PO DAILY Isosorbide Mononitrate ER (Isosorbide Mononitrate) 30 Mg Demetrio 30 Mg PO DAILY Fibercon (Calcium Polycarbophil) 625 Mg Tab 625 Mg PO DAILY Omeprazole 20 Mg Cap 20 Mg PO BID Toviaz ER (Fesoterodine Fumarate) 4 mg Demetrio 4 Mg PO DAILY Levothyroxine (Levothyroxine Sodium) 100 Mcg Tab 100 Mcg PO DAILY Glimepiride 4 Mg Tab 4 Mg PO BID Take with breakfast or first main meal Magnesium Oxide 400 Mg Tab 800 Mg PO DAILY Lisinopril 20 Mg Tab 40 Mg PO DAILY Lanoxin (Digoxin) 0.125 Mg Tab 0.125 Mg PO DAILY Cartia Xt (Diltiazem ER 24 HR) 180 Mg Caper 360 Mg PO DAILY Calcium 600 + D (Calcium Carbonate-Cholecalciferol) 600-200 Mg-Unit Tab 1 Tab PO DAILY Coumadin (Warfarin) 5 Mg Tab 2.5 Mg PO SUMOWETHFR Take 1/2 tablet (2.5mg) on daily on Monday,Monday,Monday and Monday Vitamin D3 (Cholecalciferol) 5,000 Unit Tab 5,000 Units PO DAILY Vitamin B-12 (Cyanocobalamin) 5,000 Mcg Subl 5,000 Mcg SL DAILY Venlafaxine ER 24 HR (Venlafaxine HCl) 150 Mg Cap 150 Mg PO DAILY Sulfasalazine 500 Mg Tab 1,000 Mg PO BID Sodium Bicarbonate 325 Mg Tab 650 Mg PO DAILY Pravastatin 20 Mg Tab 20 Mg PO HS Review of Systems Except as stated in HPI: all other systems reviewed are Neg Physical Exam Narrative GENERAL: Frail, unwell-appearing SKIN: Diaphoretic HEAD: Atraumatic. Normocephalic. EYES: Pupils equal and round. No injection or drainage. ENT: Dry mucous membranes. NECK: Trachea midline. CARDIOVASCULAR: Tachycardic, irregularly irregular. No murmur appreciated. RESPIRATORY: Clear to auscultation. Breath sounds equal bilaterally. GASTROINTESTINAL: Abdomen soft, tender to palpation in the lower abdomen with no rebound or guarding. Incontinent of stool. MUSCULOSKELETAL: No obvious deformities. NEUROLOGICAL: Awake and alert. No obvious cranial nerve deficits. Moving all extremities. PSYCHIATRIC: Appropriate mood and affect; insight and judgment normal. Data Data Last Documented VS Vital Signs Date Time Temp Pulse Resp B/P Pulse Ox O2 Delivery O2 Flow Rate FiO2 11/09/16 06:32 114 20 97 Room Air 11/09/16 06:26 111/67 Orders Complete Blood Count With Diff (11/09/16 06:27) Comprehensive Metabolic Panel (11/09/16 06:27) Lipase (11/09/16 06:27) Lactic Acid (11/09/16 06:27) Act Partial Throm Time (Ptt) (11/09/16 06:27) Ct Abd/Pel W Iv Contrast(Rout) (11/09/16 06:27) Iv Access Insert/Monitor (11/09/16 06:27) Ecg Monitoring (11/09/16 06:27) Oximetry (11/09/16 06:27) Sodium Chlor 0.9% 1000 Ml Inj (Ns 1000 M (11/09/16 06:27) Sodium Chloride 0.9% Flush (Ns Flush) (11/09/16 06:30) Urinalysis - C+S If Indicated (11/09/16 06:27) Electrocardiogram (11/09/16 ) Troponin I (11/09/16 06:27) C Diff Toxin Pcr (11/09/16 06:29) Blood Culture (11/09/16 06:36) Sodium Chlor 0.9% 1000 Ml Inj (Ns 1000 M (11/09/16 06:45) MDM Medical Decision Making Medical Screen Exam Complete: Yes Emergency Medical Condition: Yes Interpretation(s) Tachycardic, normotensive Differential Diagnosis Gastroenteritis, colitis, dehydration, acute coronary syndrome, sepsis Narrative Course This is a 66-year-old female who presents to the emergency department with vomiting and diarrhea that started abruptly overnight. She did have some chest discomfort in the setting of her symptoms. She is a history of atrial fibrillation. She was tachycardic in route with EMS and was incontinent of large amount of stool. She is ill-appearing and diaphoretic on exam. She is placed in a monitor and an IV was established. Labs will be obtained including cultures and a CT of the abdomen and pelvis will be ordered area and she was given 2 L of IV fluid. Case will be signed out to oncoming provider for disposition. Ariana Balbuena MD Nov 09, 2016 06:29
[2016-11-09] MEDS ORDERED: SODIUM CHLORIDE 0.9% FLUSH 10 ML FLUSH IV FLUSH PRN ×2 (06:30→09:00)
[2016-11-09 07:04] LABS: AUTOMATED NEUTROPHIL # 27.2 TH/MM3 (1.8-7.7); BASOPHIL % 0.1 % (0.0-2.0); EOSINOPHIL # 0.2 TH/MM3 (0-0.4); EOSINOPHIL % 0.8 % (0.0-4.0); HEMATOCRIT 47.9 % (35.0-46.0); HEMO FLAGS AUTO DIFF; LYMPH % 6.3 % (9.0-44.0); MEAN CELL VOLUME 83.3 FL (80.0-100.0); MEAN CORPUSCULAR HEMOGLOBIN 26.7 PG (27.0-34.0); MEAN CORPUSCULAR HGB CONC 32.1 % (32.0-36.0); MONO % 5.4 % (0.0-8.0); NEUT % 87.4 % (16.0-70.0); PLATELET COUNT 495 TH/MM3 (150-450); RED BLOOD COUNT 5.76 MIL/MM3 (4.00-5.30); RED CELL DISTRIBUTION WIDTH 15.5 % (11.6-17.2); WHITE BLOOD COUNT 31.1 TH/MM3 (4.0-11.0)
[2016-11-09 07:22] LABS: ALT (GPT) 26 U/L (10-53); ANION GAP 13 MEQ/L (5-15); APTT (PATIENT) 39.7 SEC (24.3-30.1); AST (GOT) 17 U/L (15-37); BICARBONATE 24.7 MEQ/L (21.0-32.0); BLOOD UREA NITROGEN 45 MG/DL (7-18); CHLORIDE 97 MEQ/L (98-107); GLOMERULAR FILTRATION RATE 34 ML/MIN (>89); POTASSIUM 3.8 MEQ/L (3.5-5.1); SODIUM (NA) 135 MEQ/L (136-145)
[2016-11-09 07:26] LABS: ALKALINE PHOSPHATASE 133 U/L (45-117); TOTAL BILIRUBIN ADULT 0.3 MG/DL (0.2-1.0)
[2016-11-09] MEDS ORDERED: VANCOMYCIN 500 MG VIAL (FOR ORAL USE ONLY) PO ONE (07:30)
[2016-11-09] MEDS ORDERED: metroNIDAZOLE 500 MG INJ 100 ML IV ONE (07:30)
--- NOTE | 2016-11-09 07:38 | PD ---
Physical Exam Date Seen by Provider: Nov 09, 2016 Time Seen by Provider: 07:35 Narrative 66-year-old female came to the emergency room brought in by EMS for severe diarrhea that was watery and foul smelling that started all of a sudden last night. She was seen by the previous ER physician as soon as the patient came in. Patient was signed out to me to follow-up on the blood test results. I went in and the nurses were busy cleaning her up. Patient has had multiple episodes of watery stool. She has history of atrial fibrillation and her heart rate has been going between 90 to 120s. Blood pressure however has been maintained well. Her core body temperature was 96. Patient has been put under a bear hugger. She is getting IV fluid as per the sepsis protocol. White count was significantly elevated and my suspicion is really high for C. difficile colitis. Patient says that she has had colitis many times but has never been tested for C. difficile. She has not been on antibiotics. About 2- 3 months ago she was hospitalized for dehydration. I have given her IV Flagyl and by mouth vancomycin. Patient will need to be hospitalized. Currently waiting for further hospitalist to call back. Data Data Last Documented VS Vital Signs Date Time Temp Pulse Resp B/P Pulse Ox O2 Delivery O2 Flow Rate FiO2 11/09/16 07:26 96.0 11/09/16 07:18 99 16 133/72 97 Nasal Cannula 2 Orders Complete Blood Count With Diff (11/09/16 06:27) Comprehensive Metabolic Panel (11/09/16 06:27) Lipase (11/09/16 06:27) Lactic Acid (11/09/16 06:27) Act Partial Throm Time (Ptt) (11/09/16 06:27) Ct Abd/Pel W Iv Contrast(Rout) (11/09/16 06:27) Iv Access Insert/Monitor (11/09/16 06:27) Ecg Monitoring (11/09/16 06:27) Oximetry (11/09/16 06:27) Sodium Chlor 0.9% 1000 Ml Inj (Ns 1000 M (11/09/16 06:27) Sodium Chloride 0.9% Flush (Ns Flush) (11/09/16 06:30) Urinalysis - C+S If Indicated (11/09/16 06:27) Electrocardiogram (11/09/16 ) Troponin I (11/09/16 06:27) C Diff Toxin Pcr (11/09/16 06:29) Blood Culture (11/09/16 06:36) Sodium Chlor 0.9% 1000 Ml Inj (Ns 1000 M (11/09/16 06:45) Stool Ova And Parasite Screen (11/09/16 07:10) Metronidazole 500 Mg Inj (Flagyl 500 Mg (11/09/16 07:30) Vancomycin For Oral Use Only (Vancomycin (11/09/16 07:30) Urinary Catheter Insert/Apply (11/09/16 07:34) Prothrombin Time / Inr (Pt) (11/09/16 07:38) Iohexol 350 Inj (Omnipaque 350 Inj) (11/09/16 08:38) Admit Order (Ed Use Only) (11/09/16 08:50) Labs Laboratory Tests Test 11/09/16 11/09/16 11/09/16 11/09/16 06:45 06:48 07:20 07:45 Lactic Acid Level 2.7 mmol/L White Blood Count 31.1 TH/MM3 Red Blood Count 5.76 MIL/MM3 Hemoglobin 15.4 GM/DL Hematocrit 47.9 % Mean Corpuscular Volume 83.3 FL Mean Corpuscular Hemoglobin 26.7 PG Mean Corpuscular Hemoglobin 32.1 % Concent Red Cell Distribution Width 15.5 % Platelet Count 495 TH/MM3 Mean Platelet Volume 8.1 FL Neutrophils (%) (Auto) 87.4 % Lymphocytes (%) (Auto) 6.3 % Monocytes (%) (Auto) 5.4 % Eosinophils (%) (Auto) 0.8 % Basophils (%) (Auto) 0.1 % Neutrophils # (Auto) 27.2 TH/MM3 Lymphocytes # (Auto) 2.0 TH/MM3 Monocytes # (Auto) 1.7 TH/MM3 Eosinophils # (Auto) 0.2 TH/MM3 Basophils # (Auto) 0.0 TH/MM3 CBC Comment AUTO DIFF Differential Total Cells 100 Counted Neutrophils % (Manual) 88 % Band Neutrophils % 5 % Lymphocytes % 5 % Monocytes % 2 % Neutrophils # (Manual) 28.9 TH/MM3 Differential Comment FINAL DIFF MANUAL Platelet Estimate HIGH Platelet Morphology Comment NORMAL Red Cell Morphology Comment NORMAL Prothrombin Time 26.8 SEC Prothromb Time International 2.3 RATIO Ratio Activated Partial 39.7 SEC Thromboplast Time Sodium Level 135 MEQ/L Potassium Level 3.8 MEQ/L Chloride Level 97 MEQ/L Carbon Dioxide Level 24.7 MEQ/L Anion Gap 13 MEQ/L Blood Urea Nitrogen 45 MG/DL Creatinine 1.53 MG/DL Estimat Glomerular Filtration 34 ML/MIN Rate Random Glucose 189 MG/DL Calcium Level 10.2 MG/DL Total Bilirubin 0.3 MG/DL Aspartate Amino Transf 17 U/L (AST/SGOT) Alanine Aminotransferase 26 U/L (ALT/SGPT) Alkaline Phosphatase 133 U/L Troponin I LESS THAN 0.02 NG/ML Total Protein 8.9 GM/DL Albumin 4.1 GM/DL Lipase 221 U/L Urine Color YELLOW Urine Turbidity CLEAR Urine pH 5.5 Urine Specific [place] 1.015 Urine Protein TRACE mg/dL Urine Glucose (UA) 1000 mg/dL Urine Ketones NEG mg/dL Urine Occult Blood TRACE Urine Nitrite NEG Urine Bilirubin NEG Urine Urobilinogen LESS THAN 2.0 MG/DL Urine Leukocyte Esterase NEG Urine RBC 3 /hpf Urine WBC 1 /hpf Urine Squamous Epithelial 1 /hpf Cells Urine Hyaline Casts 18 /lpf Urine Mucus FEW /lpf Microscopic Urinalysis Comment CATH-CULT NOT IND Stool C. difficile Toxin (PCR) NEGATIVE Stl C. difficile Toxin PRESUMPTIVE Epiderm 027 NEGATIVE MDM Supervised Visit with TALI: No Narrative Course 7:53 AM case was discussed with Dr. Nassar from [facility] and he preferred the patient to be admitted to the ICU under the host/hostess head care for at least the first 24 hours which I agree with him. I have put a call out for the host/hostess head. Critical Care Narrative Aggregate critical care time was 45 minutes. Time to perform other separately billable procedures was not included in the critical care time. My time did not include minutes spent treating any other patients simultaneously or on activities that did not directly contribute to the patient's treatment. The services I provided to this patient were to treat and/or prevent clinically significant deterioration that could result in: Severe sepsis, fluid resuscitation I provided critical care services requiring my management, as noted below: Chart data review, documentation time, medication orders and management, vital sign assessments/reviewing monitor data, ordering and reviewing lab tests, ordering and interpreting/reviewing x-rays and diagnostic studies, care of the patient and discussion of the patient with the admitting physicians. Diagnosis Primary Impression: Dehydration Additional Impressions: Diarrhea Qualified Code: A09 - Diarrhea of presumed infectious origin Sepsis Qualified Code: A41.9 - Sepsis, due to unspecified organism possible C. difficile colitis Atrial fibrillation Qualified Code: I48.2 - Chronic atrial fibrillation Admitting Information Admitting Physician Requests: Ramesh Orellana MD Nov 09, 2016 07:38
[2016-11-09 07:40] LABS: BLOOD, URINE TRACE (NEG); COMMENT (UR) CATH-CULT NOT IND; CULTURE IF INDICATED CATH CULTURE NOT IND; GLUCOSE,URINE 1000 mg/dL (NEG); HYALINE CAST, URINE 18 /lpf (RARE); KETONE, URINE NEG (NEG); MUCUS URINE FEW /lpf (OCC); NITRITE,URINE NEG (NEG); PH, URINE 5.5 (5.0-8.5); SQUAMOUS EPITHELIAL CELL URINE 1 /hpf (0-5); URINE COLOR YELLOW (YELLW/STRAW)
[2016-11-09 07:54] LABS: BANDS 5 % (0-6); NEUTROPHIL # MANUAL DIFF 28.9 TH/MM3 (1.8-7.7); POLYS (SEG NEUTROPHILS) 88 % (16-70); WBC DIFF SAMPLE 100
[2016-11-09 07:55] LABS: PLATELET ESTIMATE SMEAR HIGH (NORMAL); PLATELET MORPHOLOGY NORMAL (NORMAL); SCAN/DIFF FINAL DIFF MANUAL
[2016-11-09 08:01] LABS: INTERNATIONAL NORMALIZED RATIO 2.3 RATIO; PROTHROMBIN TIME - PATIENT 26.8 SEC (9.8-11.6)
--- NOTE | 2016-11-09 08:36 | EKG ---
Date Performed: 11/09/2016 Time Performed: 06:28:49 PTAGE: 66 years EKG: ATRIAL FIBRILLATION WITH RAPID VENTRICULAR RESPONSE MODERATE ST DEPRESSION ABNORMAL ECG PREVIOUS TRACING : 07/24/2016 15.26 DOCTOR: Srinivas Rodriguez Interpretating Date/Time 11/09/2016 08:35:15
[2016-11-09] MEDS ORDERED: IOHEXOL 350 MG/ML 10 ML VIAL (for RAD DIAG) IV ONE (08:38)
[2016-11-09] MEDS ORDERED: D 50CAP PO (08:47)
[2016-11-09] MEDS ORDERED: CALC1TAB87 PO (08:47)
[2016-11-09] MEDS ORDERED: GLUCAGON 1 MG/ML VIAL OTHER PRN (08:49)
[2016-11-09] MEDS ORDERED: DEXTROSE 50% IN WATER 50 ML VIAL(D50) IV PRN (08:49)
[2016-11-09] MEDS ORDERED: POTASSIUM PHOSPHATE INJ 30 MMOL in SODIUM CHLOR 0.9% 250 ML INJ 250 ML IV PRN (08:49)
[2016-11-09] MEDS ORDERED: POTASSIUM PHOSPHATE MONOBASIC 500 MG TAB PO/TUBE PRN (08:49)
[2016-11-09] MEDS ORDERED: MISCELLANEOUS NURSING INFORMATION XX SCH (09:00)
[2016-11-09] MEDS ORDERED: SODIUM BICARBONATE 325 MG TAB PO SCH (09:00)
[2016-11-09] MEDS ORDERED: POTASSIUM PHOSPHATE MONOBASIC 500 MG TAB PO PRN (09:00)
[2016-11-09] MEDS ORDERED: RESP: ALBUTEROL 2.5 MG/3 ML NEB (PRN) INH (09:00)
[2016-11-09] MEDS ORDERED: ACETAMINOPHEN 325 MG TAB PO PRN (09:00)
[2016-11-09] MEDS ORDERED: MAGNESIUM OXIDE 400 MG TAB PO PRN (09:00)
[2016-11-09] MEDS ORDERED: MAGNESIUM SULFATE INJ 4 GM in SODIUM CHLORIDE 0.9% INJ 92 ML IV PRN (09:00)
[2016-11-09] MEDS: SODIUM CHLORIDE 0.9% FLUSH 10 ML FLUSH IV FLUSH SCH ×2 (09:00→23:04)
[2016-11-09] MEDS ORDERED: POTASSIUM CHLOR 20 MEQ PREMIX 100 ML IV PRN ×2 (09:00)
[2016-11-09] MEDS ORDERED: SODIUM PHOSPHATE INJ 30 MMOL in SODIUM CHLOR 0.9% 250 ML INJ 240 ML IV PRN (09:00)
[2016-11-09] MEDS ORDERED: POTASSIUM CHLORIDE 25 MEQ EFFERVESCENT TAB PO PRN (09:00)
[2016-11-09] MEDS ORDERED: POTASSIUM CHLOR 40 MEQ PREMIX 100 ML IV PRN ×2 (09:00)
[2016-11-09] MEDS ORDERED: ONDANSETRON HCL 4 MG/2 ML VIAL IV PRN (09:00)
[2016-11-09] MEDS ORDERED: CHLORHEXIDINE GLUCONATE 2 % 1 PACK (2 CLOTHS) TOP PRN (09:00)
--- NOTE | 2016-11-09 09:07 | RADRPT ---
EXAM DATE/TIME: 11/09/2016 08:24 [facility] COMPARISON: CT ABDOMEN & PELVIS W CONTRAST, July 24, 2016, 16:47. INDICATIONS : Nausea, vomiting, and diarrhea. IV CONTRAST: 71 cc Omnipaque 350 (iohexol) IV ORAL CONTRAST: No oral contrast ingested. RADIATION DOSE: 11.09 CTDIvol (mGy) MEDICAL HISTORY : Hypertension. Cardiovascular disease Diabetes SURGICAL HISTORY : Appendectomy. Cholecystectomy.Hysterectomy. ENCOUNTER: Initial ACUITY: 1 day PAIN SCALE: 0/10 LOCATION: abdomen TECHNIQUE: Volumetric scanning of the abdomen and pelvis was performed. Using automated exposure control and adjustment of the mA and/or kV according to patient size, radiation dose was kept as low as reasonably achievable to obtain optimal diagnostic quality images. DICOM format image data is av ailable electronically for review and comparison. FINDINGS: LOWER LUNGS: Minimal bibasilar atelectasis. LIVER: Homogeneous density without lesion. There is no dilation of the biliary tree. Gallbladder is surgically absent. SPLEEN: Normal size without lesion. PANCREAS: Within normal limits. KIDNEYS: Normal in size and shape. There is no mass, stone or hydronephrosis. ADRENAL GLANDS: Within normal limits. VASCULAR: There is no aortic aneurysm. BOWEL/MESENTERY: Mild sigmoid diverticulosis and scattered descending colonic diverticula. No def initive significant inflammatory changes to suggest diverticulitis. Appendix is surgically absent. Toni wel is otherwise unremarkable. No significant bowel wall thickening or pneumatosis. ABDOMINAL WALL: Intra-abdominal wall hernia repair. RETROPERITONEUM: There is no lymphadenopathy. BLADDER: No wall thickening or mass. REPRODUCTIVE: Uterus is surgically absent. INGUINAL: There is no lymphadenopathy or hernia. MUSCULOSKELETAL: Within normal limits for patient age. CONCLUSION: 1. Colonic diverticulosis without definitive evidence for diverticulitis. 2. No acute abnormality or significant change from July CT exam. Pedro Rangel MD on November 09, 2016 at 8:59 Board Certified Radiologist. This report was verified electronically.
--- NOTE | 2016-11-09 09:08 | HHI.HP ---
[facility] Service Critical Care Medicine Primary Care Physician Unknown Admission Diagnosis sepsis, possible C. difficile colitis, sepsis Diagnosis: (1) Severe sepsis Diagnosis: Principal (2) Atrial fibrillation Diagnosis: Secondary (3) Diarrhea Diagnosis: Principal (4) Dehydration Diagnosis: Principal (5) Atrial fibrillation with RVR Diagnosis: Principal (6) Chest pain Diagnosis: Principal (7) Prerenal azotemia Diagnosis: Principal (8) Dizziness Diagnosis: Principal (9) Altered mental status Diagnosis: Principal (10) Leukocytosis Diagnosis: Principal (11) Hyperlipidemia Diagnosis: Principal (12) Hypothyroidism Diagnosis: Principal (13) HTN (hypertension), benign Diagnosis: Principal (14) Diabetes mellitus type 2, noninsulin dependent Diagnosis: Principal (15) Acute worsening of stage 3 chronic kidney disease Diagnosis: Principal (16) Lactic acidosis Diagnosis: Principal (17) Thrombocytosis Diagnosis: Principal (18) Polycythemia Diagnosis: Principal (19) Hyponatremia Diagnosis: Principal (20) Diverticulosis Diagnosis: Principal (21) Inflammatory bowel disease Diagnosis: Principal (22) Warfarin anticoagulation Diagnosis: Principal (23) Osteoarthritis Diagnosis: Principal (24) Gastroesophageal reflux disease Diagnosis: Principal (25) Depression Diagnosis: Secondary (26) Overactive bladder Diagnosis: Principal (27) Vitamin D deficiency Diagnosis: Principal Chief Complaint: Generalized weakness, chest pain, diarrhea Travel History International Travel<30 Days: No Contact w/Intl Traveler <30 Da: No Traveled to Known Affected Are: No Sepsis Criteria SIRS Criteria (2 or more): Heart rate over 90, WBC > 23568, < 4000 or > 10% bands Sepsis Criteria (SIRS+source): Infect source susp/known Severe Sepsis (+one): Lactate >2 Criteria Outcome: Meets severe sepsis criteria History of Present Illness 66-year-old female. Date of admission 11/09/2016. Past medical history includes depression/anxiety, atherosclerotic vascular disease, hepatic steatosis, hypertension, dyslipidemia, gastroesophageal reflux disease, gastroparesis, chronic inflammatory colitis/IBD, diabetes mellitus, hypothyroidism, thrombocytosis, osteoarthritis. Patient was in her normal state of health until present 4:30 AM today patient experienced chest pain and fell to the floor. She was found by her laying of substernal chest pain without radiation that was roughly 20 minutes. This was followed by copious amounts of brown liquidy stool. She is noted be somewhat confused, complaining of nausea and vomiting and tachycardic. EMS was activated patient was transported to [facility] Upon arrival, patient and interfere with RVR. Her laboratories revealed a leukocytosis of 31,000. Creatinine 1.5 previously 1.0. Lactic acidosis 2.7. Patient received crystalloid resuscitation and her heart rate was much improved. She currently denies any chest pain. CT the abdomen/cells revealed diverticulosis without diverticulitis. No acute findings. Patient currently denying abdominal pain. 9 nausea vomiting. No further diarrhea episodes. Patient initially was hypothermic is currently normothermic. Of note, patient is subselect yesterday and chicken for dinner. Patient ate this food with her and her denies any illness/side effects. Patient has not been on antibiotics at all recently. Noted C. difficile and ova and parasites have been sent. Troponins will be cycled. EKGs. Dr. Rodriguez concrete truck driver. Dr. Franco GI physician. Dr. Rutledge is her oncologist. Review of Systems Constitutional: COMPLAINS OF: Fatigue, Chills, Dizziness, DENIES: Fever, Weight gain, Weight loss Endocrine: DENIES: Polydipsia, Polyuria Eyes: DENIES: Blurred vision Ears, nose, mouth, throat: DENIES: Throat pain, Running Nose, Odynophagia Respiratory: DENIES: Apneas Cardiovascular: COMPLAINS OF: Chest pain, DENIES: Lower Extremity Edema Gastrointestinal: COMPLAINS OF: Diarrhea, Nausea, Vomiting, DENIES: Abdominal pain, Difficulty Swallowing Genitourinary: DENIES: Urinary frequency Musculoskeletal: COMPLAINS OF: Joint pain, DENIES: Joint Swelling, Back pain, Neck pain Integumentary: DENIES: Rash Hematologic/lymphatic: DENIES: Bruising Immunologic/allergic: DENIES: Eczema Neurologic: DENIES: Headache Psychiatric: DENIES: Anxiety, Confusion, Depression Past Family Social History Allergies: Coded Allergies: No Known Allergies (Verified , 07/24/16) Past Medical History Anxiety/depression Atherosclerotic vascular disease Hypertension Dyslipidemia Sigmoid diverticulosis Gastroesophageal reflux disease Gastroparesis Chronic inflammatory colitis/IBD Diabetes mellitus Hypothyroidism Osteoarthritis Thrombocytosis History of herpes zoster to the right eye Asymmetric polyarticular inflammation? Overactive bladder Past Surgical History Ventral hernia repair Breast biopsy Appendectomy Cholecystectomy Bilateral total knee arthroplasty Bladder suspension Partial hysterectomy Carpal tunnel release Reported Medications Coumadin (Warfarin) 5 Mg Tab 5 Mg PO TUSA Take 1 tablet (5mg) daily on Monday, and Monday Ofloxacin Opth Drops 0.3 % Drops 1 Drop LEFT EYE Q6HR 7 Days Metformin (Metformin HCl) 500 Mg Tab 500 Mg PO BIDPC With meals Reported Jardiance (Empagliflozin) 25 Mg Tab 25 Mg PO DAILY Isosorbide Mononitrate ER (Isosorbide Mononitrate) 30 Mg Demetrio 30 Mg PO DAILY Fibercon (Calcium Polycarbophil) 625 Mg Tab 625 Mg PO DAILY Omeprazole 20 Mg Cap 20 Mg PO BID Toviaz ER (Fesoterodine Fumarate) 4 mg Demetrio 4 Mg PO DAILY Levothyroxine (Levothyroxine Sodium) 100 Mcg Tab 100 Mcg PO DAILY Glimepiride 4 Mg Tab 4 Mg PO BID Take with breakfast or first main meal Magnesium Oxide 400 Mg Tab 800 Mg PO DAILY Lisinopril 20 Mg Tab 40 Mg PO DAILY Lanoxin (Digoxin) 0.125 Mg Tab 0.125 Mg PO DAILY Cartia Xt (Diltiazem ER 24 HR) 180 Mg Caper 360 Mg PO DAILY Calcium 600 + D (Calcium Carbonate-Cholecalciferol) 600-200 Mg-Unit Tab 1 Tab PO DAILY Coumadin (Warfarin) 5 Mg Tab 2.5 Mg PO SUMOWETHFR Take 1/2 tablet (2.5mg) on daily on Monday,Monday,Monday and Monday Vitamin D3 (Cholecalciferol) 5,000 Unit Tab 5,000 Units PO DAILY Vitamin B-12 (Cyanocobalamin) 5,000 Mcg Subl 5,000 Mcg SL DAILY Venlafaxine ER 24 HR (Venlafaxine HCl) 150 Mg Cap 150 Mg PO DAILY Sulfasalazine 500 Mg Tab 1,000 Mg PO BID Sodium Bicarbonate 325 Mg Tab 650 Mg PO DAILY Pravastatin 20 Mg Tab 20 Mg PO HS Active Ordered Medications Reviewed in EMR Family History Father unknown cause. Mother from CHF. One brother, 3 sisters and 2 children good health. Social History No tobacco, alcohol or IV drug use ever Physical Exam Vital Signs Vital Signs Date Time Temp Pulse Resp B/P Pulse Ox O2 Delivery O2 Flow Rate FiO2 11/09/16 07:26 96.0 11/09/16 07:18 96.0 99 16 133/72 97 Nasal Cannula 2 11/09/16 06:32 114 20 97 Room Air 11/09/16 06:31 16 98 Room Air 11/09/16 06:26 123 20 111/67 98 Physical Exam GENERAL: 66-year-old female, resting in bed in no acute distress SKIN: Warm and dry. No rash. HEAD: Atraumatic. Normocephalic. EYES: Pupils equal and round around 2 mm bilaterally and brisk.. No scleral icterus. No injection or drainage. ENT: No nasal bleeding or discharge. Mucous membranes pink and dry. Oropharynx without erythema access.. NECK: Trachea midline. No JVD. CARDIOVASCULAR: Tachycardia, IR. S1, S2 no S4. Without murmur, clicks, gallops or rubs RESPIRATORY: Clear to auscultation. Breath sounds equal bilaterally. No wheezing, rales or rhonchi GASTROINTESTINAL: Abdomen soft, non-tender, nondistended. Hypoactive bowel sounds are appreciated. MUSCULOSKELETAL: Extremities with trace lower extremity edema. Left fourth medial distal phalanges with ecchymosis NEUROLOGICAL: Awake and alert. No obvious cranial nerve deficits. Motor grossly within normal limits. Five out of 5 muscle strength in the arms and legs. Normal speech. PSYCHIATRIC: Appropriate mood and affect; insight and judgment normal. Laboratory Laboratory Tests Test 11/09/16 11/09/16 11/09/16 06:45 06:48 07:20 Lactic Acid Level 2.7 White Blood Count 31.1 Red Blood Count 5.76 Hemoglobin 15.4 Hematocrit 47.9 Mean Corpuscular Volume 83.3 Mean Corpuscular Hemoglobin 26.7 Mean Corpuscular Hemoglobin 32.1 Concent Red Cell Distribution Width 15.5 Platelet Count 495 Mean Platelet Volume 8.1 Neutrophils (%) (Auto) 87.4 Lymphocytes (%) (Auto) 6.3 Monocytes (%) (Auto) 5.4 Eosinophils (%) (Auto) 0.8 Basophils (%) (Auto) 0.1 Neutrophils # (Auto) 27.2 Lymphocytes # (Auto) 2.0 Monocytes # (Auto) 1.7 Eosinophils # (Auto) 0.2 Basophils # (Auto) 0.0 CBC Comment AUTO DIFF Differential Total Cells 100 Counted Neutrophils % (Manual) 88 Band Neutrophils % 5 Lymphocytes % 5 Monocytes % 2 Neutrophils # (Manual) 28.9 Differential Comment FINAL DIFF MANUAL Platelet Estimate HIGH Platelet Morphology Comment NORMAL Red Cell Morphology Comment NORMAL Prothrombin Time 26.8 Prothromb Time International 2.3 Ratio Activated Partial 39.7 Thromboplast Time Sodium Level 135 Potassium Level 3.8 Chloride Level 97 Carbon Dioxide Level 24.7 Anion Gap 13 Blood Urea Nitrogen 45 Creatinine 1.53 Estimat Glomerular Filtration 34 Rate Random Glucose 189 Calcium Level 10.2 Total Bilirubin 0.3 Aspartate Amino Transf 17 (AST/SGOT) Alanine Aminotransferase 26 (ALT/SGPT) Alkaline Phosphatase 133 Troponin I LESS THAN 0.02 Total Protein 8.9 Albumin 4.1 Lipase 221 Urine Color YELLOW Urine Turbidity CLEAR Urine pH 5.5 Urine Specific [place] 1.015 Urine Protein TRACE Urine Glucose (UA) 1000 Urine Ketones NEG Urine Occult Blood TRACE Urine Nitrite NEG Urine Bilirubin NEG Urine Urobilinogen LESS THAN 2.0 Urine Leukocyte Esterase NEG Urine RBC 3 Urine WBC 1 Urine Squamous Epithelial 1 Cells Urine Hyaline Casts 18 Urine Mucus FEW Microscopic Urinalysis Comment CATH-CULT NOT IND Date/Time Procedure Status Source Growth 11/09/16 07:45 Cryptosporidium Exam Received Stool Stool Pending 11/09/16 07:45 Giardia Antigen (KELLI) Received Stool Stool Pending 11/09/16 06:40 Aerobic Blood Culture Received Blood Peripheral Pending 11/09/16 06:40 Anaerobic Blood Culture Received Blood Peripheral Pending Result Diagram: 11/09/1648 11/09/1648 Imaging Last Impressions Abdomen/Pelvis CT 11/09/16626 Signed Impressions: Service Date/Time: Monday, November 09, 2016 08:24 - CONCLUSION: 1. Colonic diverticulosis without definitive evidence for diverticulitis. 2. No acute abnormality or significant change from July CT exam. Pedro Rangel MD Septic Shock Reassessment Heart: Irregular Lungs: Clear Skin: Warm, Moist Peripheral Pulses: Bounding Right Radial Bounding Left Radial Bounding Right Popliteal Bounding Left Popliteal Bounding Right Dorsalis Pedis Bounding Left Dorsalis Pedis Bounding Right Posterior Tibial Bounding Left Posterior Tibial Capillary Refill: Brisk, <2 seconds Assessment and Plan Assessment and Plan Neuro/Psych: Depression/anxiety Acetaminophen 650 mg by mouth every 6 hours when necessary fever [place] 5/325 one tablet every 4 hours when necessary pain 1-5, morphine sulfate 2 mg every 2 hours IV pain 6-10 Continue Venlafaxine 150 mg by mouth daily for depression CV: Atrial fibrillation with rapid ventricular response Lactic acidosis History of hypertension Chest pain NOS Dyslipidemia Initial EKG showed A. fib with RVR with ST depression throughout. No ST elevation Initial troponin 0.02. Currently denying chest pain Cycle troponins and EKGs every 6 hours 2. Next at noon Holding lisinopril 40 mg by mouth daily in light of initial presentation of hypotension and acute kidney injury. Resume when clinically indicated. Holding isosorbide mononitrate 30 mg by mouth daily for hypertension hypotension Holding pravastatin 20 mg by mouth at night for dyslipidemia. Resume when clinically indicated Patient follows with Dr. Rodriguez/cardiology Resp: Nasal cannula to maintain saturations greater than or equal to 92% Incentive spirometry while awake Chest x-ray revealed no acute cardiopulmonary findings GI: Gastroesophageal reflux disease History of gastroparesis Chronic inflammatory colitis/IBD - Dr. Franco Start on clear liquid diet Consult Dr. Franco/GI regarding diarrhea Infectious workup below Resume sulfasalazine 1000 mg by mouth twice a day for IBD Currently on pantoprazole 40 mg IV daily for gastroesophageal reflux disease/on omeprazole 20 mg daily at home. Holding calcium poly-carbophill 625 mg daily for bowel regimen : Overactive bladder Holding Fesoterodine ER 4 mg by mouth daily for overactive bladder. Resume when clinically indicated Endo: Diabetes mellitus Hypothyroidism Resume levothyroxine 100 g by mouth daily. Check TSH Hold metformin 500 mg by mouth twice a day, Glimepiride 4 milligrams by mouth twice a day and Empagliflozin 25 mg daily for diurese mellitus Sliding scale insulin acute before meals/at bedtime euglycemia/moderate regimen Renal: Acute kidney injury in the setting of chronic kidney disease stage II to 3 likely prerenal Holding sodium bicarbonate 650 mill grams by mouth daily Monitor urine output Accurate I's and O's No signs of hydronephrosis on CT abdomen/pelvis. Check urine electrolytes and eosinophils Avoid nephrotoxic drugs Heme: Thrombocytosis -follows Dr. Rutledge Polycythemia Leukocytosis Chronic warfarin use Holding warfarin 2.5 mill grams every Monday, Monday, Monday, Monday and 5 mg every Monday, and Monday for a fibrillation Follow CBC daily. Follow trends. INR currently 2.3. ID: Monitor for infection Received 250 mg vancomycin oral 1 and Flagyl 500mill grams IV 1 in ED.. Blood cultures 2, ova and parasites and C. difficile all ordered 11/09 FEN: Hyponatremia Chronic magnesium supplementation Holding magnesium oxide 400 mg by mouth daily. Resume when clinically indicated Electrolyte protocol per ICU initiated. Replace as clinically indicated Currently on normal saline at 84 cc an hour. Resume sodium bicarbonate 650 mg daily MSK: Osteoporosis/osteoarthritis Vitamin D deficiency Injury to left fourth phalanx Holding calcium carbonate/cholecalciferol 600 mg/400 units 1 tablet daily Holding cholecalciferol 5000 units by mouth daily. Resume when clinically indicated Access - Utilize peripheral IV. Central line if indicated Prophylaxis - GI - Protonix - DVT - SCD/Lovenox Critical Care: The total critical care time was 55 minutes. Time to perform other separately billable procedures was not included in the critical care time. Code Status Full code Discussed Condition With Patient. . Care plan discussed and all questions answered. Problem Qualifiers (1) Atrial fibrillation: Qualified Code: I48.2 - Chronic atrial fibrillation (2) Diarrhea: Qualified Code: R19.7 - Diarrhea, unspecified type (3) Chest pain: Qualified Code: R07.9 - Chest pain, unspecified type (4) Altered mental status: Qualified Code: R41.82 - Altered mental status, unspecified altered mental status type (5) Leukocytosis: Qualified Code: D72.829 - Leukocytosis, unspecified type (6) Hyperlipidemia: Qualified Code: E78.5 - Hyperlipidemia, unspecified hyperlipidemia type (7) Hypothyroidism: Qualified Code: E03.9 - Hypothyroidism, unspecified type (8) Diverticulosis: Qualified Code: K57.90 - Diverticulosis of intestine without bleeding, unspecified intestinal tract location (9) Osteoarthritis: Qualified Code: M19.90 - Other type of osteoarthritis, unspecified site (10) Gastroesophageal reflux disease: Qualified Code: K21.9 - Gastroesophageal reflux disease without esophagitis (11) Depression: Qualified Code: F32.9 - Depression, unspecified depression type Vitaliy Weiss MD Nov 09, 2016 09:08
[2016-11-09] MEDS ORDERED: LABETALOL HCL 100 MG/20 ML VIAL IV PUSH PRN (10:15)
[2016-11-09] MEDS ORDERED: NITROGLYCERIN 2% OINT 1 GM PACKET TOPICAL PRN (10:15)
[2016-11-09] MEDS ORDERED: hydrALAZINE HCL 20 MG/ML VIAL IV PUSH PRN (10:15)
[2016-11-09] MEDS: INSULIN NovoLIN REGULAR SUPPLEMENTAL SCALE SQ SCH ×3 (11:00→23:03)
[2016-11-09] MEDS: SODIUM CHLOR 0.9% 1000 ML INJ 1,000 ML IV SCH ×2 (11:22→23:05)
[2016-11-09] MEDS: PANTOPRAZOLE SODIUM 40 MG VIAL IV SCH (11:26)
[2016-11-09] MEDS: LEVOTHYROXINE SODIUM 100 MCG TAB PO SCH (11:26)
[2016-11-09] MEDS: VENLAFAXINE HCL XR 75 MG CAP PO SCH (11:39)
[2016-11-09] MEDS: ARTIFICIAL TEARS OPTH SOLN 15 ML BTL EACH EYE SCH ×3 (11:40→17:28)
[2016-11-09] MEDS: HEPARIN SODIUM - SQ 10,000 UNITS/ML VIAL SQ SCH ×2 (11:43→22:59)
--- NOTE | 2016-11-09 12:36 | PD.CONS ---
HPI History of Present Illness This is a 66 year old female with a history of chronic diarrhea. She reports that she was told at age 28, that she had Ulcerative Colitis. She states that she has not had active colitis in many years, but has had chronic diarrhea intermittently up until about a year ago, when she had jaw surgery. She reports that she has been on multiple medications for her diarrhea in the past. At one point she was on cholestyramine, but states she has been off of this for about a year. More recently, she has been taking Sulfasalazine, although she cannot tell me the dosage and there seems to be a discrepancy between office records and the med list here in the hospital. According to the med list here, she is taking Sulfasalazine 1,000mg po BID. According to our office records, she is only on 500mg po daily- this was last filled by our office on October 18, 2016. She has been seen by our office, last in 2014 for chronic diarrhea. She was evaluated at that time with EGD/Colonoscopy (08/14/14)----> gastritis in antrum, gastric body polyps, duodenum normal, irregular z line, large amount of bile suctioned, retroflexion revealed small hiatal hernia; diverticulosis in sigmoid, descending colon, normal colon otherwise, random biopsies from right and left colon to r/o microscopic colitis, small internal hemorrhoids, rectal exam revealed no abnormalities of the anus. Pathology with no pathologic changes of the duodenum, stomach antrum with reactive gastropathy - negative for h. pylori, distal esophagus with benign squamous epithelium with no pathologic changes, right colon biopsy with no pathologic changes (benign viable colonic mucosa with no significant inflammation). The patient tells me that she actually had chronic diarrhea up until about a year ago, at which time she started having more issues with constipation. She states for the past year , she has been having 3-4 formed bowel movements, often hard and small. She was evaluated n July with CT Abdomen and pelvis (07/24/16) mild to moderate constipation, colonic diverticulosis without diverticulitis, moderate coronary artery calcifications, previous cholecystectomy and ventral hernia repair. 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 She states she woke up and had multiple large loose stools and was not able to make it to the restroom. She also had several episodes of nausea/vomiting with nonbloody emesis. She denies any associated fevers or chills and denies any abdominal pain. She cannot quantify how many loose stools she had, but states that she had multiple and continued to have frequent episodes until she was "cleaned out. " She has not had any further episodes. Her appetite has been stable. She did loose 65 lbs after her jaw surgery about a year ago, but states that she is now eating more and has regained 10 of this over the past 1-2 months. Of note she is on Coumadin for atrial fibrillation. (Aarti Emerson) PFSH Past Medical History Anxiety Arthritis Atherosclerosis of aorta Chronic diarrhea CKD Reported hx of Ulcerative Colitis DM Diverticulosis Gastroparesis GERD HTN Hyperlipidemia Hypothyroidism Lumbar degenerative disc disease OA Colon polyps Past Surgical History Appendectomy Arthroscopic left and right knee surgery Bladder surgery Breast biopsy Cholecystectomy EGD Hernia repair Repair of ventral hernia Carpal tunnel surgery Repair for prolapse post hysterectomy Sigmoidoscopy Sinus surgery BRANDON Total knee arthroplasty Vaginal sling Jaw surgery (Aarti Emerson) Coded Allergies: No Known Allergies (Verified , 07/24/16) Medications Allergies Coded Allergies Type Severity Reaction Last Updated Verified No Known Allergies 07/24/16 Yes Active Scripts Medications Dose Route/Sig Days Date Category Dose Instructions D 5000 (Cholecalciferol) 5,000 Unit Cap 1 Cap PO DAILY 11/09/16 Reported Calcium 600 with Vitamin D (Calcium Carbonate-Cholecalciferol) 600-400 mg-Unit Tab 1 Tab PO DAILY 11/09/16 Reported Coumadin (Warfarin) 5 Mg Tab 5 Mg PO 07/26/16 Rx Take 1 tablet (5mg) daily on Monday, and Monday Ofloxacin Opth Drops 0.3 % Drops 1 Drop LEFT EYE Q6HR 7 07/26/16 Rx Jardiance (Empagliflozin) 25 Mg Tab 25 Mg PO DAILY 07/24/16 Reported Isosorbide Mononitrate ER (Isosorbide Mononitrate) 30 Mg Demetrio 30 Mg PO DAILY 07/24/16 Reported Fibercon (Calcium Polycarbophil) 625 Mg Tab 625 Mg PO DAILY 07/24/16 Reported Metformin (Metformin HCl) 500 Mg Tab 500 Mg PO BIDPC 03/05/16 Rx With meals Omeprazole 20 Mg Cap 20 Mg PO BID 03/01/16 Reported Toviaz ER (Fesoterodine Fumarate) 4 mg Demetrio 4 Mg PO DAILY 03/01/16 Reported Levothyroxine (Levothyroxine Sodium) 100 Mcg Tab 100 Mcg PO DAILY 03/01/16 Reported Glimepiride 4 Mg Tab 4 Mg PO BID 03/01/16 Reported Take with breakfast or first main meal Magnesium Oxide 400 Mg Tab 800 Mg PO DAILY 03/01/16 Reported Lisinopril 20 Mg Tab 40 Mg PO DAILY 03/01/16 Reported Coumadin (Warfarin) 5 Mg Tab 2.5 Mg PO SUMOWETHFR 03/01/16 Reported Take 1/2 tablet (2.5mg) on daily on Monday, Monday,Monday and Monday Venlafaxine ER 24 HR (Venlafaxine HCl) 150 Mg Cap 150 Mg PO DAILY 03/01/16 Reported Sulfasalazine 500 Mg Tab 1,000 Mg PO BID 03/01/16 Reported Sodium Bicarbonate 325 Mg Tab 650 Mg PO DAILY 03/01/16 Reported Pravastatin 20 Mg Tab 20 Mg PO HS 03/01/16 Reported Family History Mother had NE, Father had DM Social History Never smoked tobacco No etoh use. (Aarti Emerson) Review of Systems Constitutional: COMPLAINS OF: Fatigue, Weight loss (1 year ago, lost 65 lbs but has regained 10), DENIES: Fever, Chills Respiratory: DENIES: Cough Cardiovascular: DENIES: Chest pain Gastrointestinal: COMPLAINS OF: Constipation, Diarrhea, Nausea, Vomiting, DENIES: Abdominal pain, Black stools, Bloody stools, Swelling of Abdomen, Heartburn Musculoskeletal: COMPLAINS OF: Joint pain, Back pain Integumentary: DENIES: Abnormal pigmentation Neurologic: DENIES: Headache Psychiatric: DENIES: Confusion (Aarti Emerson) GI Exam Vitals I&O Vital Signs Date Time Temp Pulse Resp B/P Pulse Ox O2 Delivery O2 Flow Rate FiO2 11/09/16 11:00 99.1 84 16 121/59 100 Nasal Cannula 2 11/09/16 07:26 96.0 11/09/16 07:18 96.0 99 16 133/72 97 Nasal Cannula 2 11/09/16 06:32 114 20 97 Room Air 11/09/16 06:31 16 98 Room Air 11/09/16 06:26 123 20 111/67 98 Imaging Last Impressions Abdomen/Pelvis CT 11/09/16 0627 Signed Impressions: Service Date/Time: Wednesday, November 09, 2016 08:24 - CONCLUSION: 1. Colonic diverticulosis without definitive evidence for diverticulitis. 2. No acute abnormality or significant change from July CT exam. Pedro Rangel MD Laboratory Test 11/09/16 11/09/16 11/09/16 06:45 06:48 07:20 Lactic Acid Level 2.7 mmol/L White Blood Count 31.1 TH/MM3 Red Blood Count 5.76 MIL/MM3 Hemoglobin 15.4 GM/DL Hematocrit 47.9 % Mean Corpuscular Volume 83.3 FL Mean Corpuscular Hemoglobin 26.7 PG Mean Corpuscular Hemoglobin 32.1 % Concent Red Cell Distribution Width 15.5 % Platelet Count 495 TH/MM3 Mean Platelet Volume 8.1 FL Neutrophils (%) (Auto) 87.4 % Lymphocytes (%) (Auto) 6.3 % Monocytes (%) (Auto) 5.4 % Eosinophils (%) (Auto) 0.8 % Basophils (%) (Auto) 0.1 % Neutrophils # (Auto) 27.2 TH/MM3 Lymphocytes # (Auto) 2.0 TH/MM3 Monocytes # (Auto) 1.7 TH/MM3 Eosinophils # (Auto) 0.2 TH/MM3 Basophils # (Auto) 0.0 TH/MM3 CBC Comment AUTO DIFF Differential Total Cells 100 Counted Neutrophils % (Manual) 88 % Band Neutrophils % 5 % Lymphocytes % 5 % Monocytes % 2 % Neutrophils # (Manual) 28.9 TH/MM3 Differential Comment FINAL DIFF MANUAL Platelet Estimate HIGH Platelet Morphology Comment NORMAL Red Cell Morphology Comment NORMAL Prothrombin Time 26.8 SEC Prothromb Time International 2.3 RATIO Ratio Activated Partial 39.7 SEC Thromboplast Time Sodium Level 135 MEQ/L Potassium Level 3.8 MEQ/L Chloride Level 97 MEQ/L Carbon Dioxide Level 24.7 MEQ/L Anion Gap 13 MEQ/L Blood Urea Nitrogen 45 MG/DL Creatinine 1.53 MG/DL Estimat Glomerular Filtration 34 ML/MIN Rate Random Glucose 189 MG/DL Calcium Level 10.2 MG/DL Total Bilirubin 0.3 MG/DL Aspartate Amino Transf 17 U/L (AST/SGOT) Alanine Aminotransferase 26 U/L (ALT/SGPT) Alkaline Phosphatase 133 U/L Troponin I LESS THAN 0.02 NG/ML Total Protein 8.9 GM/DL Albumin 4.1 GM/DL Lipase 221 U/L Urine Color YELLOW Urine Turbidity CLEAR Urine pH 5.5 Urine Specific [place] 1.015 Urine Protein TRACE mg/dL Urine Glucose (UA) 1000 mg/dL Urine Ketones NEG mg/dL Urine Occult Blood TRACE Urine Nitrite NEG Urine Bilirubin NEG Urine Urobilinogen LESS THAN 2.0 MG/DL Urine Leukocyte Esterase NEG Urine RBC 3 /hpf Urine WBC 1 /hpf Urine Squamous Epithelial 1 /hpf Cells Urine Hyaline Casts 18 /lpf Urine Mucus FEW /lpf Microscopic Urinalysis Comment CATH-CULT NOT IND Date/Time Procedure Status Source Growth 11/09/16 07:45 Cryptosporidium Exam Received Stool Stool Pending 11/09/16 07:45 Giardia Antigen (KELLI) Received Stool Stool Pending 11/09/16 06:40 Aerobic Blood Culture Received Blood Peripheral Pending 11/09/16 06:40 Anaerobic Blood Culture Received Blood Peripheral Pending Physical Examination HEENT: Normocephalic; atraumatic; no jaundice. CHEST: CTA CARDIAC: Irregular ABDOMEN: Soft, nondistended, nontender; no hepatosplenomegaly; bowel sounds are present in all four quadrants. EXTREMITIES: No clubbing, cyanosis, or edema. SKIN: Normal; no rash; no jaundice. 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 (Aarti Emerson) Assessment and Plan Plan ASSESSMENT: - Acute onset of diarrhea. Pt reports hx of UC at age 28- states she has had issues with chronic diarrhea up until one year ago. She has been seen in our office for chronic diarrhea. Her last EGD/Colonoscopy (08/14/14)----> gastritis in antrum, gastric body polyps, duodenum normal, irregular z line, large amount of bile suctioned, retroflexion revealed small hiatal hernia; diverticulosis in sigmoid, descending colon, normal colon otherwise, random biopsies from right and left colon to r/o microscopic colitis, small internal hemorrhoids, rectal exam revealed no abnormalities of the anus. Pathology with no pathologic changes of the duodenum, stomach antrum with reactive gastropathy- negative for h. pylori, distal esophagus with benign squamous epithelium with no pathologic changes, right colon biopsy with no pathologic changes (benign viable colonic mucosa with no significant inflammation). She reports multiple meds for diarrhea- cholestyramine at one point and more recently Sulfasalazine- She cannot tell me the dosage and there seems to be a discrepancy between office records and the med list here in the hospital. According to the med list here, she is taking Sulfasalazine 1,000mg po BID. According to our office records, she is only on 500mg po daily- this was last filled by our office on October 18, 2016. She has had a change in bowels from chronic diarrhea to constipation- 3-4 small hard bowel movements after her jaw surgery one year ago. Sudden onset of diarrhea yesterday- multiple large loose bowel movements without blood or mucous. Also associated n/v. No further episodes since arrival. WBC 31.1 on admission with [facility] C[facility]. Abdomen/Pelvis CT (11/09/16)----> 1. Colonic diverticulosis without definitive evidence for diverticulitis. 2. No acute abnormality or significant change from July CT exam. No recent travel, suspicious food, sick contacts, or abx use. CDiff pending. Stool studies pending. She was given a dose of oral vanco , Flagyl, but stool studies are now pending. Will await CDiff. If positive, we will treat this. If negative, she will likely need colonoscopy to get random bx's Celiac panel. Will continue flagyl until CDiff excluded. - Leukocytosis. WBC 31.1. Add Flagyl. - Change in bowels. Long hx of diarrhea since age 28, states she has had constipation with 3-4 small hard stools daily for past year. - Gastroparesis. Not on meds for this at home - GERD, PPI - JULIO CESAR on CKD with electrolyte abnormalities. Creat 1.53. IVF - Atrial fibrillation, on coumadin at home. Heparin. WOuld recommend continuing short acting anticoagulation until it is determined if she needs colonoscopy - Anxiety, DM, HTN, Hyperlipidemia, Hypothyroidism per attending. PLAN: - Clear liquids - Await CDiff, Stool studies - Cont. PPI - Flagyl 500mg IV q8h - Please verify Sulfasalazine dose- pt is not sure and there is discrepancy between our office and hospital records - CBC, BMP in am - If CDiff positive, we will treat accordingly. If this is negative, then will likely need colonoscopy with biopsies. - Supportive care - Further recommendations to follow based on results of above - Pt seen and examined by Dr. Franco and myself and this note is written on his behalf (Aarti Emerson) Physician Comments seen, examined agree with above (Jenna Franco MD) Aarti Emerson Nov 09, 2016 12:36 Jenna Franco MD Nov 09, 2016 16:13
--- NOTE | 2016-11-09 14:57 | PD.TRANSFR ---
Transfer Summary Admission Date Nov 09, 2016 at 08:51 Transfer Date: Nov 09, 2016 Admitting Diagnosis sepsis, possible C. difficile colitis, sepsis Diagnoses: (1) Severe sepsis Diagnosis: Principal (2) Atrial fibrillation Diagnosis: Secondary (3) Diarrhea Diagnosis: Principal (4) Dehydration Diagnosis: Principal (5) Atrial fibrillation with RVR Diagnosis: Principal (6) Chest pain Diagnosis: Principal (7) Prerenal azotemia Diagnosis: Principal (8) Dizziness Diagnosis: Principal (9) Altered mental status Diagnosis: Principal (10) Leukocytosis Diagnosis: Principal (11) Hyperlipidemia Diagnosis: Principal (12) Hypothyroidism Diagnosis: Principal (13) HTN (hypertension), benign Diagnosis: Principal (14) Diabetes mellitus type 2, noninsulin dependent Diagnosis: Principal (15) Acute worsening of stage 3 chronic kidney disease Diagnosis: Principal (16) Lactic acidosis Diagnosis: Principal (17) Thrombocytosis Diagnosis: Principal (18) Polycythemia Diagnosis: Principal (19) Hyponatremia Diagnosis: Principal (20) Diverticulosis Diagnosis: Principal (21) Inflammatory bowel disease Diagnosis: Principal (22) Warfarin anticoagulation Diagnosis: Principal (23) Osteoarthritis Diagnosis: Principal (24) Gastroesophageal reflux disease Diagnosis: Principal (25) Depression Diagnosis: Secondary (26) Overactive bladder Diagnosis: Principal (27) Vitamin D deficiency Diagnosis: Principal Significant Findings Sigmoid diverticulosis/lactic acidosis Transfer Summary/Subjective See below Objective Vital Signs Date Time Temp Pulse Resp B/P Pulse Ox O2 Delivery O2 Flow Rate FiO2 11/09/16 13:37 90 16 137/63 96 2 11/09/16 12:25 Nasal Cannula 11/09/16 11:00 99.1 Result Diagram: 11/09/16 0648 11/09/16 0648 Imaging Last Impressions Abdomen/Pelvis CT 11/09/16626 Signed Impressions: Service Date/Time: Wednesday, November 09, 2016 08:24 - CONCLUSION: 1. Colonic diverticulosis without definitive evidence for diverticulitis. 2. No acute abnormality or significant change from July CT exam. Pedro Rangel MD Objective Remarks GENERAL: 66-year-old female, resting in bed in no acute distress SKIN: Warm and dry. No rash. HEAD: Atraumatic. Normocephalic. EYES: Pupils equal and round around 2 mm bilaterally and brisk.. No scleral icterus. No injection or drainage. ENT: No nasal bleeding or discharge. Mucous membranes pink and dry. Oropharynx without erythema access.. NECK: Trachea midline. No JVD. CARDIOVASCULAR: Tachycardia, IR. S1, S2 no S4. Without murmur, clicks, gallops or rubs RESPIRATORY: Clear to auscultation. Breath sounds equal bilaterally. No wheezing, rales or rhonchi GASTROINTESTINAL: Abdomen soft, non-tender, nondistended. Hypoactive bowel sounds are appreciated. MUSCULOSKELETAL: Extremities with trace lower extremity edema. Left fourth medial distal phalanges with ecchymosis NEUROLOGICAL: Awake and alert. No obvious cranial nerve deficits. Motor grossly within normal limits. Five out of 5 muscle strength in the arms and legs. Normal speech. PSYCHIATRIC: Appropriate mood and affect; insight and judgment normal. A/P Assessment and Plan Neuro/Psych: Depression/anxiety Acetaminophen 650 mg by mouth every 6 hours when necessary fever [place] 5/325 one tablet every 4 hours when necessary pain 1-5, morphine sulfate 2 mg every 2 hours IV pain 6-10 Continue Venlafaxine 150 mg by mouth daily for depression CV: Atrial fibrillation with rapid ventricular response Lactic acidosis History of hypertension Chest pain NOS Dyslipidemia Initial EKG showed A. fib with RVR with ST depression throughout. No ST elevation Initial troponin 0.02. Currently denying chest pain Cycle troponins and EKGs every 6 hours 2. Next at noon Holding lisinopril 40 mg by mouth daily in light of initial presentation of hypotension and acute kidney injury. Resume when clinically indicated. Holding isosorbide mononitrate 30 mg by mouth daily for hypertension hypotension Holding pravastatin 20 mg by mouth at night for dyslipidemia. Resume when clinically indicated Patient follows with Dr. Rodriguez/cardiology Resp: Nasal cannula to maintain saturations greater than or equal to 92% Incentive spirometry while awake Chest x-ray revealed no acute cardiopulmonary findings GI: Gastroesophageal reflux disease History of gastroparesis Chronic inflammatory colitis/IBD - Dr. Franco Start on clear liquid diet Consult Dr. Franco/GI regarding diarrhea Infectious workup below Resume sulfasalazine 1000 mg by mouth twice a day for IBD Currently on pantoprazole 40 mg IV daily for gastroesophageal reflux disease/on omeprazole 20 mg daily at home. Holding calcium poly-carbophill 625 mg daily for bowel regimen : Overactive bladder Holding Fesoterodine ER 4 mg by mouth daily for overactive bladder. Resume when clinically indicated Endo: Diabetes mellitus Hypothyroidism Resume levothyroxine 100 g by mouth daily. Check TSH Hold metformin 500 mg by mouth twice a day, Glimepiride 4 milligrams by mouth twice a day and Empagliflozin 25 mg daily for diurese mellitus Sliding scale insulin acute before meals/at bedtime euglycemia/moderate regimen Renal: Acute kidney injury in the setting of chronic kidney disease stage II to 3 likely prerenal Holding sodium bicarbonate 650 mill grams by mouth daily Monitor urine output Accurate I's and O's No signs of hydronephrosis on CT abdomen/pelvis. Check urine electrolytes and eosinophils Avoid nephrotoxic drugs Heme: Thrombocytosis -follows Dr. Rutledge Polycythemia Leukocytosis Chronic warfarin use Holding warfarin 2.5 mill grams every Monday, Monday, Monday, Monday and 5 mg every Monday, and Monday for a fibrillation Follow CBC daily. Follow trends. INR currently 2.3. ID: Monitor for infection Received 250 mg vancomycin oral 1 and Flagyl 500mill grams IV 1 in ED.. Blood cultures 2, ova and parasites and C. difficile all ordered 11/09 FEN: Hyponatremia Chronic magnesium supplementation Holding magnesium oxide 400 mg by mouth daily. Resume when clinically indicated Electrolyte protocol per ICU initiated. Replace as clinically indicated Currently on normal saline at 84 cc an hour. Resume sodium bicarbonate 650 mg daily MSK: Osteoporosis/osteoarthritis Vitamin D deficiency Injury to left fourth phalanx Holding calcium carbonate/cholecalciferol 600 mg/400 units 1 tablet daily Holding cholecalciferol 5000 units by mouth daily. Resume when clinically indicated Access - Utilize peripheral IV. Central line if indicated Prophylaxis - GI - Protonix - DVT - SCD/Lovenox Critical Care: The total critical care time was 55 minutes. Time to perform other separately billable procedures was not included in the critical care time. Vitaliy Weiss MD Nov 09, 2016 14:57
[2016-11-09 16:40] LABS: C. DIFF EPI 027 PRESUMPTIVE NEGATIVE (NEGATIVE); C. DIFF TOXIN PCR NEGATIVE (NEGATIVE)
[2016-11-09] MEDS: metroNIDAZOLE 500 MG INJ 100 ML IV SCH ×2 (17:26→23:04)
[2016-11-09] MEDS: sulfaSALAzine 500 MG TAB PO SCH (22:59)
[2016-11-10] VITALS (16 sets, daily range): BP systolic 139–170; BP diastolic 69–107; PULSE 65–89; RESP 12–23; TEMP 97.9–98.8; O2SAT 95–99
[2016-11-10] MEDS: CHLORHEXIDINE GLUCONATE 2 % 1 PACK (2 CLOTHS) TOP SCH ×2 (04:00→21:40)
[2016-11-10 04:24] LABS: AUTOMATED NEUTROPHIL # 6.7 TH/MM3 (1.8-7.7); BASOPHIL % 0.2 % (0.0-2.0); EOSINOPHIL # 0.2 TH/MM3 (0-0.4); EOSINOPHIL % 2.1 % (0.0-4.0); HEMATOCRIT 34.8 % (35.0-46.0); HEMO FLAGS DIFF FINAL; LYMPH % 24.7 % (9.0-44.0); LYMPHOCYTE # 2.6 TH/MM3 (1.0-4.8); MEAN CELL VOLUME 84.9 FL (80.0-100.0); MEAN CORPUSCULAR HEMOGLOBIN 27.4 PG (27.0-34.0); MEAN CORPUSCULAR HGB CONC 32.2 % (32.0-36.0); MONO % 8.4 % (0.0-8.0); NEUT % 64.6 % (16.0-70.0); PLATELET COUNT 288 TH/MM3 (150-450); RED BLOOD COUNT 4.09 MIL/MM3 (4.00-5.30); RED CELL DISTRIBUTION WIDTH 15.7 % (11.6-17.2); WHITE BLOOD COUNT 10.4 TH/MM3 (4.0-11.0)
[2016-11-10 04:44] LABS: APTT (PATIENT) 50.8 SEC (24.3-30.1)
[2016-11-10 05:36] LABS: ALKALINE PHOSPHATASE 84 U/L (45-117); ALT (GPT) 22 U/L (10-53); ANION GAP 7 MEQ/L (5-15); AST (GOT) 16 U/L (15-37); BICARBONATE 25.4 MEQ/L (21.0-32.0); BLOOD UREA NITROGEN 24 MG/DL (7-18); CHLORIDE 110 MEQ/L (98-107); GLOMERULAR FILTRATION RATE 66 ML/MIN (>89); MAGNESIUM 1.4 MG/DL (1.5-2.5); POTASSIUM 3.7 MEQ/L (3.5-5.1); SODIUM (NA) 142 MEQ/L (136-145); TOTAL BILIRUBIN ADULT 0.3 MG/DL (0.2-1.0)
[2016-11-10] MEDS: LEVOTHYROXINE SODIUM 100 MCG TAB PO SCH (06:06)
[2016-11-10] MEDS: INSULIN NovoLIN REGULAR SUPPLEMENTAL SCALE SQ SCH ×4 (06:07→21:00)
[2016-11-10] MEDS: SODIUM CHLOR 0.9% 1000 ML INJ 1,000 ML IV SCH ×2 (08:39→17:58)
[2016-11-10] MEDS: ARTIFICIAL TEARS OPTH SOLN 15 ML BTL EACH EYE SCH ×3 (09:00→17:57)
--- NOTE | 2016-11-10 10:49 | HHI.PR ---
Subjective Remarks Pt is a pleasant 66 y/o F admitted to [facility] ICU d/t diarrhea, dehydration, A. Fib with RVR, and hypothermia. Pt's diarrhea has improved. C.Dif PCR is negative. Pt is tolerating PO intake. HR is now controlled. Pt states that while she was having her echocardiogram, she had moderate left sided chest pain lasting approximately 5 minutes. Pt denies associated SOB, N/V, or diaphoresis. Objective Vitals Vital Signs Date Time Temp Pulse Resp B/P Pulse Ox O2 Delivery O2 Flow Rate FiO2 11/10/16 06:00 87 11/10/16 04:00 80 11/10/16 04:00 98.2 80 14 151/71 97 11/10/16 02:00 81 11/10/16 00:00 82 11/10/16 00:00 98.2 82 14 150/70 97 11/09/16 22:00 87 11/09/16 21:25 97 Nasal Cannula 2.00 11/09/16 20:00 81 11/09/16 20:00 97.7 81 15 134/70 97 11/09/16 18:00 80 11/09/16 17:17 98 Nasal Cannula 2.00 11/09/16 16:00 83 11/09/16 16:00 98.8 83 22 133/75 96 11/09/16 14:55 98.6 82 20 132/72 98 11/09/16 13:37 90 16 137/63 96 2 11/09/16 12:25 82 18 133/67 100 Nasal Cannula 2 11/09/16 11:00 99.1 84 16 121/59 100 Nasal Cannula 2 11/09/16 11/09/16 11/10/16 15:00 23:00 07:00 Intake Total 2500 ml 1643 ml 937 ml Output Total 1000 ml 1900 ml 850 ml Balance 1500 ml -257 ml 87 ml Intake Oral 900 ml 400 ml IV Total 2500 ml 743 ml 537 ml Output Urine Total 1000 ml 1900 ml 850 ml Result Diagram: 11/10/16 0400 11/10/16 0400 A/P Problem List: (1) Diarrhea Status: Acute Plan: - improved - Pt is tolerating PO intake - C. 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 Rodriguez. (6) Altered mental status Status: Acute Plan: - resolved to baseline (7) Hypothyroidism Status: Chronic Plan: - continue synthroid (8) HTN (hypertension), benign Status: Chronic (9) Diabetes mellitus type 2, noninsulin dependent Status: Chronic Plan: - stable - SSI (10) Polycythemia Status: Acute Plan: - Pt follows with Hematology (11) Hyponatremia Status: Acute (12) Diverticulosis Status: Chronic (13) Inflammatory bowel disease Status: Chronic Plan: - Sulfasalazine (14) Warfarin anticoagulation Status: Chronic Plan: - repeat INR in AM Problem Qualifiers (1) Diarrhea: Qualified Code: A09 - Diarrhea of presumed infectious origin (2) Atrial fibrillation: Qualified Code: I48.2 - Chronic atrial fibrillation (3) Chest pain: Qualified Code: R07.9 - Chest pain, unspecified type (4) Altered mental status: Qualified Code: R41.82 - Altered mental status, unspecified altered mental status type (5) Hypothyroidism: Qualified Code: E03.9 - Hypothyroidism, unspecified type (6) Diverticulosis: Qualified Code: K57.90 - Diverticulosis of intestine without bleeding, unspecified intestinal tract location Rolo Nassar DO Nov 10, 2016 10:49
[2016-11-10] MEDS: PANTOPRAZOLE SODIUM 40 MG VIAL IV SCH (11:45)
[2016-11-10] MEDS: SODIUM CHLORIDE 0.9% FLUSH 10 ML FLUSH IV FLUSH SCH ×2 (11:45→21:40)
[2016-11-10] MEDS: VENLAFAXINE HCL XR 75 MG CAP PO SCH (11:46)
[2016-11-10] MEDS: SODIUM BICARBONATE 650 MG TAB PO SCH (11:46)
[2016-11-10] MEDS: sulfaSALAzine 500 MG TAB PO SCH ×2 (11:46→21:40)
[2016-11-10] MEDS: HEPARIN SODIUM - SQ 10,000 UNITS/ML VIAL SQ SCH ×2 (11:46→21:39)
[2016-11-10] MEDS: MAGNESIUM SULFATE INJ 2 GM in SODIUM CHLORIDE 0.9% INJ 96 ML IV PRN (12:01)
--- NOTE | 2016-11-10 12:58 | MB ---
cc: RADHA AMOR DATE OF CONSULTATION 11/10/2016 INDICATION Chest pain. HISTORY OF PRESENT ILLNESS This very nice 66-year-old female who I follow in the outpatient setting. She has a history of hypertension, hyperlipidemia, diabetes, atrial fibrillation on anticoagulation. She presented on 11/09/2016 with a episode of acute mental status change. Apparently she had developed some chest pain and diaphoresis, was found lying on the floor by her in her stool. She was confused. She came in. She was in atrial fibrillation with rapid ventricular rate. She had significantly elevated white blood cell count and lactate. She was admitted to the intensive. Initial electrocardiogram as mentioned showed A-fib with some nonspecific ST abnormality. Troponin negative. GI was consulted for this patient, started on Flagyl, treated for C-diff initially but the PCR came back negative. She is now symptomatically doing well. Again she had another episode of chest pain today, seemed to be slightly worse with deep inspiration. She denies any exertional symptoms. We are consulted for further recommendations. PAST MEDICAL HISTORY 1. Hypertension. 2. Dyslipidemia. 3. Diverticulosis. 4. Gastroesophageal reflux disease. 5. Gastroparesis. 6. INFLAMMATORY BOWEL DISEASE. 7. Diabetes. 8. Hypothyroidism. 9. Osteoarthritis. REPORTED MEDICATIONS 1. Coumadin. 2. Metformin. 3. Jardiance. 4. Isosorbide. 5. FiberCon. 6. Omeprazole. 7. Toviaz. 8. Levothyroxine. 9. Glimepiride. 10. Lisinopril. 11. Lanoxin. 12. Cardiac . 13. Calcium. 14. Vitamin D. 15. Sulfasalzine. 16. Venlafaxine. 17. Pravastatin. FAMILY HISTORY Denies any family history of early coronary artery disease or sudden cardiac . SOCIAL HISTORY Denies any alcohol, tobacco or drug use. REVIEW OF SYSTEMS A 12-point review of systems was performed, negative unless otherwise noted in the History of Present Illness. PHYSICAL EXAMINATION VITAL SIGNS: Temperature 98, pulse 80, blood pressure 151/71 mmHg. GENERAL: Alert and oriented x 3, in no acute distress. HEENT: Exam shows pupils reactive to light and accommodation. Extraocular movements intact. NECK: No elevation in venous distension. No thyromegaly, no lymphadenopathy, no carotid bruits. LUNGS: Clear to auscultation bilaterally. CARDIOVASCULAR EXAM: Irregular irregular rhythm. A 1/6 systolic murmur. No rubs or gallops. ABDOMINAL EXAM: Nontender, not distended. Good bowel sounds. No hepatosplenomegaly. EXTREMITIES: No clubbing, cyanosis or edema. Good peripheral pulses. NEUROLOGIC: Cranial nerves intact. Motor and sensory grossly intact. LABORATORY DATA WBC 10.4, hemoglobin 11.2, platelet count is 288. INR is 2.3. Sodium 142, potassium 3.7. Troponin negative x 2. ELECTROCARDIOGRAM Atrial fibrillation. some ST depression anterolaterally. ASSESSMENT 1. Chest pain. 2. Atrial fibrillation. 3. Hypertension. 4. Hyperlipidemia. 5. Diabetes. PLAN Symptomatically she seems to be doing much better now. She still had some intermittent chest pain. She has typical and atypical features. Troponins has been negative. Electrocardiogram does show some subtle ST depression which is concerning. I agree with stress test in the morning. Her INR is currently therapeutic at 2.3 so we will have to see how the stress test results come back and then make a determination whether or not we need to do anything more invasive. Continue current medical therapy. MD MARK Peoples/SSB /11:51 AM /12:42 PM
--- NOTE | 2016-11-10 15:00 | EKG ---
Date Performed: 11/09/2016 Time Performed: 12:02:42 PTAGE: 66 years EKG: ATRIAL FIBRILLATION NONSPECIFIC ST & T-WAVE ABNORMALITY ABNORMAL RHYTHM ECG Compared to maria victoria or tracing no significant change PREVIOUS TRACING : 11/09/16@06:28 DOCTOR: Azalea Jeter Interpretating Date/Time 11/10/2016 14:56:48
--- NOTE | 2016-11-10 15:00 | EKG ---
Date Performed: 11/09/2016 Time Performed: 18:34:56 PTAGE: 66 years EKG: ATRIAL FIBRILLATION ABNORMAL RHYTHM ECG Compared to prior tracing no significant change PREVIOUS TRACING : 11/09/2016 12.02 DOCTOR: Azalea Jeter Interpretating Date/Time 11/10/2016 14:56:56
[2016-11-10] MEDS: metroNIDAZOLE 500 MG TAB PO SCH ×2 (15:21→21:39)
--- NOTE | 2016-11-10 17:52 | HHI.GIFU ---
Subjective Remarks Resting in bed. Feeling much better today. No further episodes of diarrhea. No pain. No n/v. Possilbe stress test tomorrow (Aarti Emerson) Objective Vitals I&O Vital Signs Date Time Temp Pulse Resp B/P Pulse Ox O2 Delivery O2 Flow Rate FiO2 11/10/16 16:00 66 11/10/16 16:00 98.2 80 23 162/107 96 11/10/16 15:00 99.1 77 14 162/88 95 11/10/16 14:00 79 11/10/16 14:00 99.0 78 16 143/79 97 11/10/16 13:00 98.8 80 17 170/89 96 11/10/16 12:00 98.6 79 17 141/79 97 11/10/16 12:00 79 11/10/16 11:00 98.4 83 17 139/79 99 11/10/16 10:00 86 11/10/16 10:00 98.4 86 18 162/78 98 11/10/16 09:01 98.1 84 16 156/69 97 11/10/16 08:00 81 11/10/16 08:00 98.8 81 12 143/72 97 11/10/16 06:00 87 11/10/16 04:00 80 11/10/16 04:00 98.2 80 14 151/71 97 11/10/16 02:00 81 11/10/16 00:00 82 11/10/16 00:00 98.2 82 14 150/70 97 11/09/16 22:00 87 11/09/16 21:25 97 Nasal Cannula 2.00 11/09/16 20:00 81 11/09/16 20:00 97.7 81 15 134/70 97 11/09/16 18:00 80 I/O 11/09/16 11/09/16 11/09/16 11/10/16 11/10/16 11/10/16 07:00 15:00 23:00 07:00 15:00 23:00 Intake Total 2500 ml 1643 ml 937 ml 1536 ml Output Total 1000 ml 1900 ml 850 ml 1600 ml Balance 1500 ml -257 ml 87 ml -64 ml Intake Oral 900 ml 400 ml 1000 ml IV Total 2500 ml 743 ml 537 ml 536 ml Output Urine Total 1000 ml 1900 ml 850 ml 1600 ml # Bowel Movements 0 Laboratory Laboratory Tests Test 11/09/16 11/10/16 18:13 04:00 Lactic Acid Level 1.5 1.2 Troponin I LESS THAN 0.02 White Blood Count 10.4 Red Blood Count 4.09 Hemoglobin 11.2 Hematocrit 34.8 Mean Corpuscular Volume 84.9 Mean Corpuscular Hemoglobin 27.4 Mean Corpuscular Hemoglobin 32.2 Concent Red Cell Distribution Width 15.7 Platelet Count 288 Mean Platelet Volume 7.8 Neutrophils (%) (Auto) 64.6 Lymphocytes (%) (Auto) 24.7 Monocytes (%) (Auto) 8.4 Eosinophils (%) (Auto) 2.1 Basophils (%) (Auto) 0.2 Neutrophils # (Auto) 6.7 Lymphocytes # (Auto) 2.6 Monocytes # (Auto) 0.9 Eosinophils # (Auto) 0.2 Basophils # (Auto) 0.0 CBC Comment DIFF FINAL Differential Comment Activated Partial 50.8 Thromboplast Time Sodium Level 142 Potassium Level 3.7 Chloride Level 110 Carbon Dioxide Level 25.4 Anion Gap 7 Blood Urea Nitrogen 24 Creatinine 0.86 Estimat Glomerular Filtration 66 Rate Random Glucose 81 Calcium Level 8.2 Phosphorus Level 2.6 Magnesium Level 1.4 Total Bilirubin 0.3 Aspartate Amino Transf 16 (AST/SGOT) Alanine Aminotransferase 22 (ALT/SGPT) Alkaline Phosphatase 84 Total Protein 5.8 Albumin 2.6 Date/Time Procedure Status Source Growth 11/09/16 07:45 Cryptosporidium Exam - Final Complete Stool Stool NEGATIVE - NO CRYPTOSPORIDIUM ANTIGEN... 11/09/16 07:45 Giardia Antigen (KELLI) - Final Complete Stool Stool NEGATIVE - NO GIARDIA ANTIGEN DETECTE... 11/09/16 07:45 - Final Complete Stool Stool NO ENTERIC PATHOGENS DETECTED BY PCR... 11/09/16 06:40 Aerobic Blood Culture - Preliminary Resulted Blood Peripheral NO GROWTH IN 1 DAY 11/09/16 06:40 Anaerobic Blood Culture - Preliminary Resulted Blood Peripheral NO GROWTH IN 1 DAY Imaging Last Impressions Abdomen/Pelvis CT 11/09/16626 Signed Impressions: Service Date/Time: Monday, November 09, 2016 08:24 - CONCLUSION: 1. Colonic diverticulosis without definitive evidence for diverticulitis. 2. No acute abnormality or significant change from July CT exam. Pedro Rangel MD Physical Exam HEENT: Normocephalic; atraumatic; no jaundice. CHEST: CTA CARDIAC: Irregular ABDOMEN: Soft, nondistended, nontender; no hepatosplenomegaly; bowel sounds are present in all four quadrants. EXTREMITIES: No clubbing, cyanosis, or edema. SKIN: Normal; no rash; no jaundice. 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 (Aarti Emerson [employer]CR[employer]E [employer]ER) Assessment and Plan Plan ASSESSMENT: - Acute onset of diarrhea. Pt reports hx of UC at age 28- states she has had issues with chronic diarrhea up until one year ago. She has been seen in our office for chronic diarrhea. Her last EGD/Colonoscopy (08/14/14)----> gastritis in antrum, gastric body polyps, duodenum normal, irregular z line, large amount of bile suctioned, retroflexion revealed small hiatal hernia; diverticulosis in sigmoid, descending colon, normal colon otherwise, random biopsies from right and left colon to r/o microscopic colitis, small internal hemorrhoids, rectal exam revealed no abnormalities of the anus. Pathology with no pathologic changes of the duodenum, stomach antrum with reactive gastropathy- negative for h. pylori, distal esophagus with benign squamous epithelium with no pathologic changes, right colon biopsy with no pathologic changes (benign viable colonic mucosa with no significant inflammation). She reports multiple meds for diarrhea- cholestyramine at one point and more recently Sulfasalazine- She cannot tell me the dosage and there seems to be a discrepancy between office records and the med list here in the hospital. According to the med list here, she is taking Sulfasalazine 1,000mg po BID. According to our office records, she is only on 500mg po daily- this was last filled by our office on October 18, 2016. She has had a change in bowels from chronic diarrhea to constipation- 3-4 small hard bowel movements after her jaw surgery one year ago. Sudden onset of diarrhea yesterday- multiple large loose bowel movements without blood or mucous. Also associated n/v. No further episodes since arrival. WBC 31.1 on admission with JULIO CESAR. Abdomen/Pelvis CT (11/09/16)----> 1. Colonic diverticulosis without definitive evidence for diverticulitis. 2. No acute abnormality or significant change from July CT exam. No recent travel, suspicious food, sick contacts, or abx use. Stool studies negative. CDiff negative. Celiac panel pending. Will need colonoscopy, but she is being followed by cardiology and they are planning for possible stress test tomorrow. - Leukocytosis. WBC 31.1---> 10.4 Flagyl. - Change in bowels. Long hx of diarrhea since age 28, states she has had constipation with 3-4 small hard stools daily for past year. - Gastroparesis. Not on meds for this at home - GERD, PPI - JULIO CESAR on CKD with electrolyte abnormalities. Improved with IVF - Atrial fibrillation, on coumadin at home. Heparin. Would recommend continuing short acting anticoagulation until it is determined if she needs colonoscopy - Anxiety, DM, HTN, Hyperlipidemia, Hypothyroidism per attending. PLAN: - Heart healthy diet today - NPO after MN for possible stress test tomorrow - Cont. PPI - Cont. Flagyl - Cont. Sulfasalazine - Monitor labs - Supportive care - Further recommendations to follow based on results of above - Pt seen and examined by Dr. Franco and myself and this note is written on his behalf (Aarti Emerson) Aarti Emerson Nov 10, 2016 17:52 Jenna Franco MD Nov 11, 2016 21:18
[2016-11-10] MEDS: metFORMIN HCL 500 MG TAB PO SCH (17:57)
[2016-11-11] VITALS (12 sets, daily range): BP systolic 111–172; BP diastolic 59–89; PULSE 78–106; RESP 15–18; TEMP 97.9–99.2; O2SAT 94–97
[2016-11-11 05:26] LABS: AUTOMATED NEUTROPHIL # 11.4 TH/MM3 (1.8-7.7); BASOPHIL % 0.1 % (0.0-2.0); EOSINOPHIL # 0.2 TH/MM3 (0-0.4); EOSINOPHIL % 1.2 % (0.0-4.0); HEMATOCRIT 36.4 % (35.0-46.0); HEMO FLAGS DIFF FINAL; LYMPH % 14.1 % (9.0-44.0); LYMPHOCYTE # 2.1 TH/MM3 (1.0-4.8); MEAN CELL VOLUME 85.5 FL (80.0-100.0); MEAN CORPUSCULAR HEMOGLOBIN 26.3 PG (27.0-34.0); MEAN CORPUSCULAR HGB CONC 30.8 % (32.0-36.0); MONO % 6.5 % (0.0-8.0); NEUT % 78.1 % (16.0-70.0); PLATELET COUNT 280 TH/MM3 (150-450); RED BLOOD COUNT 4.26 MIL/MM3 (4.00-5.30); RED CELL DISTRIBUTION WIDTH 15.2 % (11.6-17.2); WHITE BLOOD COUNT 14.6 TH/MM3 (4.0-11.0)
[2016-11-11 05:42] LABS: INTERNATIONAL NORMALIZED RATIO 1.9 RATIO; PROTHROMBIN TIME - PATIENT 21.3 SEC (9.8-11.6)
[2016-11-11 05:59] LABS: BICARBONATE 21.7 MEQ/L (21.0-32.0); MAGNESIUM 1.4 MG/DL (1.5-2.5); POTASSIUM 3.9 MEQ/L (3.5-5.1)
[2016-11-11] MEDS: LEVOTHYROXINE SODIUM 100 MCG TAB PO SCH (06:04)
[2016-11-11] MEDS: metroNIDAZOLE 500 MG TAB PO SCH ×3 (06:04→20:42)
[2016-11-11] MEDS: INSULIN NovoLIN REGULAR SUPPLEMENTAL SCALE SQ SCH ×4 (06:08→22:42)
--- NOTE | 2016-11-11 08:10 | PD.CARD.PN ---
Subjective Subjective Remarks denies any chest pain Objective Vital Signs / I&O Vital Signs Date Time Temp Pulse Resp B/P Pulse Ox O2 Delivery O2 Flow Rate FiO2 11/11/16 06:00 84 11/11/16 04:00 99.2 102 15 152/81 94 11/11/16 04:00 102 11/11/16 02:00 97 11/11/16 00:45 96 Nasal Cannula 2.00 11/11/16 00:00 98.8 88 17 162/81 97 11/11/16 00:00 88 11/10/16 22:00 89 11/10/16 20:00 97.9 82 18 164/80 97 11/10/16 20:00 82 11/10/16 18:00 65 11/10/16 16:00 66 11/10/16 16:00 98.2 80 23 162/107 96 11/10/16 15:00 99.1 77 14 162/88 95 11/10/16 14:00 79 11/10/16 14:00 99.0 78 16 143/79 97 11/10/16 13:00 98.8 80 17 170/89 96 11/10/16 12:00 98.6 79 17 141/79 97 11/10/16 12:00 79 11/10/16 11:00 98.4 83 17 139/79 99 11/10/16 10:00 86 11/10/16 10:00 98.4 86 18 162/78 98 11/10/16 09:01 98.1 84 16 156/69 97 I/O 11/10/16 11/10/16 11/10/16 11/11/16 11/11/16 11/11/16 07:00 15:00 23:00 07:00 15:00 23:00 Intake Total 937 ml 1536 ml 1511 ml 1301 ml Output Total 850 ml 1600 ml 3300 ml 2250 ml Balance 87 ml -64 ml -1789 ml -949 ml Intake Oral 400 ml 1000 ml 800 ml 600 ml IV Total 537 ml 536 ml 711 ml 701 ml Output Urine Total 850 ml 1600 ml 3300 ml 2250 ml # Bowel Movements 0 Physical Exam GENERAL: Well-nourished, well-developed patient in no apparent distress. NECK: No JVD. No carotid bruit. CARDIOVASCULAR: Regular rate and rhythm. S1/S2 no murmur, rub, or gallop. RESPIRATORY: No accessory muscle use. Clear to auscultation. Breath sounds equal bilaterally. GASTROINTESTINAL: Abdomen soft, non-tender, nondistended. MUSCULOSKELETAL: Extremities without clubbing, cyanosis, or edema. Laboratory Laboratory Tests Test 11/11/16 03:33 White Blood Count 14.6 TH/MM3 Red Blood Count 4.26 MIL/MM3 Hemoglobin 11.2 GM/DL Hematocrit 36.4 % Mean Corpuscular Volume 85.5 FL Mean Corpuscular Hemoglobin 26.3 PG Mean Corpuscular Hemoglobin 30.8 % Concent Red Cell Distribution Width 15.2 % Platelet Count 280 TH/MM3 Mean Platelet Volume 7.7 FL Neutrophils (%) (Auto) 78.1 % Lymphocytes (%) (Auto) 14.1 % Monocytes (%) (Auto) 6.5 % Eosinophils (%) (Auto) 1.2 % Basophils (%) (Auto) 0.1 % Neutrophils # (Auto) 11.4 TH/MM3 Lymphocytes # (Auto) 2.1 TH/MM3 Monocytes # (Auto) 1.0 TH/MM3 Eosinophils # (Auto) 0.2 TH/MM3 Basophils # (Auto) 0.0 TH/MM3 CBC Comment DIFF FINAL Differential Comment Prothrombin Time 21.3 SEC Prothromb Time International 1.9 RATIO Ratio Sodium Level 138 MEQ/L Potassium Level 3.9 MEQ/L Chloride Level 105 MEQ/L Carbon Dioxide Level 21.7 MEQ/L Anion Gap 11 MEQ/L Blood Urea Nitrogen 15 MG/DL Creatinine 0.89 MG/DL Estimat Glomerular Filtration 63 ML/MIN Rate Random Glucose 168 MG/DL Calcium Level 8.5 MG/DL Magnesium Level 1.4 MG/DL Assessment and Plan Problem List: (1) Syncope (2) Atrial fibrillation (3) HTN (hypertension), benign Assessment and Plan Lexiscan SPECT pending, further recommendation will depend on that outcome. Start lisinopril 10 mg daily for HTN a-fib rate control strategy, well controlled Problem Qualifiers (1) Atrial fibrillation: Qualified Code: I48.2 - Chronic atrial fibrillation Alex Mane Nov 11, 2016 08:10
[2016-11-11] MEDS: PANTOPRAZOLE SODIUM 40 MG VIAL IV SCH (08:40)
[2016-11-11] MEDS: metFORMIN HCL 500 MG TAB PO SCH ×2 (08:40→16:32)
[2016-11-11] MEDS: VENLAFAXINE HCL XR 75 MG CAP PO SCH (08:40)
[2016-11-11] MEDS: ARTIFICIAL TEARS OPTH SOLN 15 ML BTL EACH EYE SCH ×3 (08:41→16:32)
[2016-11-11] MEDS: SODIUM CHLORIDE 0.9% FLUSH 10 ML FLUSH IV FLUSH SCH ×2 (08:41→20:43)
[2016-11-11] MEDS: sulfaSALAzine 500 MG TAB PO SCH ×2 (08:41→20:42)
[2016-11-11] MEDS: SODIUM BICARBONATE 650 MG TAB PO SCH (08:41)
[2016-11-11] MEDS: LISINOPRIL 10 MG TAB PO SCH (08:41)
[2016-11-11] MEDS ORDERED: REGADENOSON INJ 0.4 MG/5 ML SYR ONE (09:59)
[2016-11-11] MEDS ORDERED: FUROSEMIDE 40 MG/4 ML VIAL IV PUSH ONE (10:00)
--- NOTE | 2016-11-11 11:15 | RADRPT ---
EXAM DATE/TIME: 11/11/2016 10:56 [facility] COMPARISON: No previous studies available for comparison. INDICATIONS : Left elbow pain for 3 days, especially posterior elbow, denies trauma, no known injury MEDICAL HISTORY : Sepsis. SURGICAL HISTORY : None. ENCOUNTER: Subsequent ACUITY: 3 days PAIN SCORE: 8/10 LOCATION: Left elbow FINDINGS: 2 views of the left elbow demonstrate no fracture or dislocation. IV tubing overlies the antecubital fossa. Small osteophyte is present on the coronoid process. No joint effusion is visualized. No soft tissue abnormality is seen. CONCLUSION: No acute abnormality is identified. Fred Mcintosh MD on November 11, 2016 at 11:11 Board Certified Radiologist. This report was verified electronically.
--- NOTE | 2016-11-11 11:19 | RADRPT ---
EXAM DATE/TIME: 11/11/2016 09:17 [facility] COMPARISON: MYOCARDIAL PERF PHARM SPECT, GATED W/EF, December 17, 2014, 16:57. INDICATIONS : Chest pain and dyspnea. Angina. Atrial fibrillation. DOSE: 25.4 mCi Tc99m Myoview at stress. 8.5 mCi Tc99m Myoview at rest. 0.4 mg Lexiscan STRESS SYMPTOMS: Lightheaded. EJECTION FRACTION: 68% MEDICAL HISTORY : Hypertension. Diabetes mellitus type 2. SURGICAL HISTORY : Total knee replacement, right. Total knee replacement, left. Hysterectomy. ENCOUNTER: Initial ACUITY: 1 day PAIN SCALE: 3/10 LOCATION: Bilateral chest TECHNIQUE: The patient underwent pharmacologic stress with infusion of prescribed dose. Continuous ECG tracing was monitored during stress. Gated SPECT imaging was performed after stress and conventional SPECT i maging was performed at rest. The examination was performed on a SPECT/CT scanner, both attenuation and non-corrected datasets were reviewed. FINDINGS: DISTRIBUTION: The maximum perfused segment at stress is in the inferolateral wall. PERFUSION STUDY: The pattern of perfusion at stress is within normal limits. No fixed or reversible perfusion defect i s identified. GATED STUDY: There is intact wall motion and thickening without hypokinetic or dyskinetic segments. CONCLUSION: 1. Left ventricle perfusion is within normal limits. No fixed or reversible perfusion defect is ident ified. 2. Normal left ventricular wall motion and ejection fraction. RISK CATEGORY: Low (<1% Annual Mortality Rate) Fred Mcintosh MD on November 11, 2016 at 11:15 Board Certified Radiologist. This report was verified electronically.
[2016-11-11] MEDS: ACETAMINOPHEN/HYDROcodone 325 MG/5 MG TAB PO PRN ×3 (11:29→20:49)
[2016-11-11] MEDS: HEPARIN SODIUM - SQ 10,000 UNITS/ML VIAL SQ SCH ×2 (11:30→20:42)
--- NOTE | 2016-11-11 12:13 | HHI.GIFU ---
Subjective Remarks C/O significant left elbow pain. S/P Xray. Nausea without vomiting. Had stress test. (+) loose stool earlier. (Aarti Emerson) Objective Vitals I&O Vital Signs Date Time Temp Pulse Resp B/P Pulse Ox O2 Delivery O2 Flow Rate FiO2 11/11/16 09:15 97 Nasal Cannula 2.00 11/11/16 08:00 98.0 83 16 172/85 97 11/11/16 08:00 80 11/11/16 06:00 84 11/11/16 04:00 99.2 102 15 152/81 94 11/11/16 04:00 102 11/11/16 02:00 97 11/11/16 00:45 96 Nasal Cannula 2.00 11/11/16 00:00 98.8 88 17 162/81 97 11/11/16 00:00 88 11/10/16 22:00 89 11/10/16 20:00 97.9 82 18 164/80 97 11/10/16 20:00 82 11/10/16 18:00 65 11/10/16 16:00 66 11/10/16 16:00 98.2 80 23 162/107 96 11/10/16 15:00 99.1 77 14 162/88 95 11/10/16 14:00 79 11/10/16 14:00 99.0 78 16 143/79 97 11/10/16 13:00 98.8 80 17 170/89 96 I/O 11/10/16 11/10/16 11/10/16 11/11/16 11/11/16 11/11/16 07:00 15:00 23:00 07:00 15:00 23:00 Intake Total 937 ml 1536 ml 1511 ml 1301 ml Output Total 850 ml 1600 ml 3300 ml 2250 ml Balance 87 ml -64 ml -1789 ml -949 ml Intake Oral 400 ml 1000 ml 800 ml 600 ml IV Total 537 ml 536 ml 711 ml 701 ml Output Urine Total 850 ml 1600 ml 3300 ml 2250 ml # Bowel Movements 0 Laboratory Laboratory Tests Test 11/11/16 03:33 White Blood Count 14.6 Red Blood Count 4.26 Hemoglobin 11.2 Hematocrit 36.4 Mean Corpuscular Volume 85.5 Mean Corpuscular Hemoglobin 26.3 Mean Corpuscular Hemoglobin 30.8 Concent Red Cell Distribution Width 15.2 Platelet Count 280 Mean Platelet Volume 7.7 Neutrophils (%) (Auto) 78.1 Lymphocytes (%) (Auto) 14.1 Monocytes (%) (Auto) 6.5 Eosinophils (%) (Auto) 1.2 Basophils (%) (Auto) 0.1 Neutrophils # (Auto) 11.4 Lymphocytes # (Auto) 2.1 Monocytes # (Auto) 1.0 Eosinophils # (Auto) 0.2 Basophils # (Auto) 0.0 CBC Comment DIFF FINAL Differential Comment Prothrombin Time 21.3 Prothromb Time International 1.9 Ratio Sodium Level 138 Potassium Level 3.9 Chloride Level 105 Carbon Dioxide Level 21.7 Anion Gap 11 Blood Urea Nitrogen 15 Creatinine 0.89 Estimat Glomerular Filtration 63 Rate Random Glucose 168 Calcium Level 8.5 Magnesium Level 1.4 Date/Time Procedure Status Source Growth 11/09/16 07:45 Cryptosporidium Exam - Final Complete Stool Stool NEGATIVE - NO CRYPTOSPORIDIUM ANTIGEN... 11/09/16 07:45 Giardia Antigen (KELLI) - Final Complete Stool Stool NEGATIVE - NO GIARDIA ANTIGEN DETECTE... 11/09/16 07:45 - Final Complete Stool Stool NO ENTERIC PATHOGENS DETECTED BY PCR... 11/09/16 06:40 Aerobic Blood Culture - Preliminary Resulted Blood Peripheral NO GROWTH IN 2 DAYS 11/09/16 06:40 Anaerobic Blood Culture - Preliminary Resulted Blood Peripheral NO GROWTH IN 2 DAYS Imaging Last Impressions Myocardial Perfusion Scan Nuc Med 11/11/16 0600 Signed Impressions: Service Date/Time: Friday, November 11, 2016 09:17 - CONCLUSION: 1. Left ventricle perfusion is within normal limits. No fixed or reversible perfusion defect is identified. 2. Normal left ventricular wall motion and ejection fraction. RISK CATEGORY: Low (<1%% Annual Mortality Rate) Fred Mcintosh MD Elbow X-Ray 11/11/16 0000 Signed Impressions: Service Date/Time: Friday, November 11, 2016 10:56 - CONCLUSION: No acute abnormality is identified. Fred Mcintosh MD Abdomen/Pelvis CT 11/09/16 0627 Signed Impressions: Service Date/Time: Wednesday, November 09, 2016 08:24 - CONCLUSION: 1. Colonic diverticulosis without definitive evidence for diverticulitis. 2. No acute abnormality or significant change from July CT exam. Pedro Rangel MD Physical Exam HEENT: Normocephalic; atraumatic; no jaundice. CHEST: CTA CARDIAC: Irregular ABDOMEN: Soft, nondistended, nontender; no hepatosplenomegaly; bowel sounds are present in all four quadrants. EXTREMITIES: Edema to LUE, significant tenderness to elbow area. SKIN: Normal; no rash; no jaundice. 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 (Aarti Emerson) Assessment and Plan Plan ASSESSMENT: - Acute onset of diarrhea. Pt reports hx of UC at age 28- states she has had issues with chronic diarrhea up until one year ago. She has been seen in our office for chronic diarrhea. Her last EGD/Colonoscopy (08/14/14)----> gastritis in antrum, gastric body polyps, duodenum normal, irregular z line, large amount of bile suctioned, retroflexion revealed small hiatal hernia; diverticulosis in sigmoid, descending colon, normal colon otherwise, random biopsies from right and left colon to r/o microscopic colitis, small internal hemorrhoids, rectal exam revealed no abnormalities of the anus. Pathology with no pathologic changes of the duodenum, stomach antrum with reactive gastropathy- negative for h. pylori, distal esophagus with benign squamous epithelium with no pathologic changes, right colon biopsy with no pathologic changes (benign viable colonic mucosa with no significant inflammation). She reports multiple meds for diarrhea- cholestyramine at one point and more recently Sulfasalazine- She cannot tell me the dosage and there seems to be a discrepancy between office records and the med list here in the hospital. According to the med list here, she is taking Sulfasalazine 1,000mg po BID. According to our office records, she is only on 500mg po daily- this was last filled by our office on October 18, 2016. She has had a change in bowels from chronic diarrhea to constipation- 3-4 small hard bowel movements after her jaw surgery one year ago. Sudden onset of diarrhea yesterday- multiple large loose bowel movements without blood or mucous. Abdomen/Pelvis CT (11/09)----> 1. Colonic diverticulosis without definitive evidence for diverticulitis. 2. No acute abnormality or significant change from July CT exam. No recent travel, suspicious food, sick contacts, or abx use. Stool studies negative. CDiff negative. Celiac panel pending. WBC 14.6. Stress test was unremarkable. 2 loose stools. Nausea without vomiting. Possible EGD/ Colonoscopy Monday. - Leukocytosis. WBC 14.6. Flagyl. - Change in bowels. Long hx of diarrhea since age 28, states she has had constipation with 3-4 small hard stools daily for past year. 2 loose stools today - Gastroparesis. Not on meds for this at home - GERD, PPI - JULIO CESAR on CKD with electrolyte abnormalities. Improved with IVF - Atrial fibrillation, on coumadin at home. Heparin. Would recommend continuing short acting anticoagulation until it is determined if she needs colonoscopy S/P Stress test, unremarkable. Cardiology following - LUE pain. Pt with significant tenderness, swelling to LUE. Xray unremarkable. Will get US. - Anxiety, DM, HTN, Hyperlipidemia, Hypothyroidism per attending. PLAN: - Heart healthy diet - Cont. PPI - Cont. Flagyl - Cont. Sulfasalazine - Monitor labs - Consider LUE Venous doppler - Supportive care - Further recommendations to follow based on results of above - Possible EGD/Colonoscopy Monday - Pt seen and examined by Dr. Franco and myself and this note is written on his behalf (Aarti Emerson) Aarti Emerson Nov 11, 2016 12:13 Jenna Franco MD Nov 11, 2016 21:18
--- NOTE | 2016-11-11 12:27 | HHI.PR ---
Subjective Remarks Pt c/o left elbow pain. Pt c/o stinging pain in feet. Objective Vitals Vital Signs Date Time Temp Pulse Resp B/P Pulse Ox O2 Delivery O2 Flow Rate FiO2 11/11/16 12:00 97.9 106 16 135/89 94 11/11/16 12:00 106 11/11/16 09:15 97 Nasal Cannula 2.00 11/11/16 08:00 98.0 83 16 172/85 97 11/11/16 08:00 80 11/11/16 06:00 84 11/11/16 04:00 99.2 102 15 152/81 94 11/11/16 04:00 102 11/11/16 02:00 97 11/11/16 00:45 96 Nasal Cannula 2.00 11/11/16 00:00 98.8 88 17 162/81 97 11/11/16 00:00 88 11/10/16 22:00 89 11/10/16 20:00 97.9 82 18 164/80 97 11/10/16 20:00 82 11/10/16 18:00 65 11/10/16 16:00 66 11/10/16 16:00 98.2 80 23 162/107 96 11/10/16 15:00 99.1 77 14 162/88 95 11/10/16 14:00 79 11/10/16 14:00 99.0 78 16 143/79 97 11/10/16 13:00 98.8 80 17 170/89 96 11/10/16 11/10/16 11/11/16 14:59 22:59 06:59 Intake Total 1536 ml 1511 ml 1301 ml Output Total 1600 ml 3300 ml 2250 ml Balance -64 ml -1789 ml -949 ml Intake Oral 1000 ml 800 ml 600 ml IV Total 536 ml 711 ml 701 ml Output Urine Total 1600 ml 3300 ml 2250 ml # Bowel Movements 0 Result Diagram: 11/11/16 0333 11/11/16 033 Imaging Last Impressions Myocardial Perfusion Scan Nuc Med 11/11/16 0600 Signed Impressions: Service Date/Time: Friday, November 11, 2016 09:17 - CONCLUSION: 1. Left ventricle perfusion is within normal limits. No fixed or reversible perfusion defect is identified. 2. Normal left ventricular wall motion and ejection fraction. RISK CATEGORY: Low (<1%% Annual Mortality Rate) Fred Mcintosh MD Elbow X-Ray 11/11/16 0000 Signed Impressions: Service Date/Time: Friday, November 11, 2016 10:56 - CONCLUSION: No acute abnormality is identified. Frde Mcintosh MD Abdomen/Pelvis CT 11/09/16 0627 Signed Impressions: Service Date/Time: Wednesday, November 09, 2016 08:24 - CONCLUSION: 1. Colonic diverticulosis without definitive evidence for diverticulitis. 2. No acute abnormality or significant change from July CT exam. Pedro Rangel MD Objective Remarks GENERAL: This is a well-nourished, well-developed patient, in no apparent distress. CARDIOVASCULAR: Regular rate and rhythm without murmurs, gallops, or rubs. RESPIRATORY: Clear to auscultation. Breath sounds equal bilaterally. No wheezes , rales, or rhonchi. GASTROINTESTINAL: Abdomen soft, non-tender, nondistended. Normal active bowel sounds MUSCULOSKELETAL: Extremities without clubbing, cyanosis, or edema. NEURO: Alert & Oriented x4 to person, place, time, situation. Moves all ext x4 A/P Problem List: (1) Diarrhea Status: Acute Plan: - improved - Pt is tolerating PO intake - C. Dif PCR is negative - stool studies negative - PO flagyl - transfer to general medical floor - repeat CBC, BMP, Mag in AM (2) Severe sepsis Status: Acute Plan: - resolved see above - continue to closely observe (3) Elbow pain, left Status: Acute Plan: - acute - obtain Left elbow x-ray series - OT (4) Atrial fibrillation Status: Chronic Plan: - now NSR - observe on telemetry (5) Dehydration Status: Acute Plan: - improved - IVF - repeat BMP in AM (6) Chest pain Status: Acute Plan: - comgmt with Cardiology - serial cardiac enzymes negative - serial EKGs showed NO acute ischemic changes - echocardiogram done, results pending - lexiscan (11/11/16) --> NO fixed or reversible perfusion defects (7) Altered mental status Status: Acute Plan: - resolved to baseline (8) Hypothyroidism Status: Chronic Plan: - continue synthroid (9) HTN (hypertension), benign Status: Chronic Plan: - lisinopril - observe (10) Diabetes mellitus type 2, noninsulin dependent Status: Chronic Plan: - stable - SSI (11) Polycythemia Status: Acute Plan: - Pt follows with Hematology (12) Diverticulosis Status: Chronic (13) Inflammatory bowel disease Status: Chronic Plan: - Sulfasalazine (14) Warfarin anticoagulation Status: Chronic Plan: - repeat INR in AM (15) Peripheral neuropathy Status: Acute Plan: - trial of gabapentin 100mg BID, titrate gradually if pt able to tolerate Problem Qualifiers (1) Diarrhea: Qualified Code: A09 - Diarrhea of presumed infectious origin (2) Atrial fibrillation: Qualified Code: I48.2 - Chronic atrial fibrillation (3) Chest pain: Qualified Code: R07.9 - Chest pain, unspecified type (4) Altered mental status: Qualified Code: R41.82 - Altered mental status, unspecified altered mental status type (5) Hypothyroidism: Qualified Code: E03.9 - Hypothyroidism, unspecified type (6) Diverticulosis: Qualified Code: K57.90 - Diverticulosis of intestine without bleeding, unspecified intestinal tract location (7) Peripheral neuropathy: Qualified Code: G62.9 - Peripheral polyneuropathy Rolo Nassar DO Nov 11, 2016 12:27
[2016-11-11] MEDS: GABAPENTIN 100 MG CAP PO SCH ×2 (13:45→20:42)
[2016-11-11] MEDS ORDERED: MAGNESIUM SULFATE 1 GM PREMIX 100 ML ONE (16:05)
[2016-11-11] MEDS: MAGNESIUM SULFATE INJ 2 GM in SODIUM CHLORIDE 0.9% INJ 96 ML IV PRN (16:08)
[2016-11-11] MEDS: MORPHINE SULFATE 4 MG/ML INJ IV PRN (19:44)
[2016-11-12] VITALS (8 sets, daily range): BP systolic 105–132; BP diastolic 56–70; PULSE 76–117; RESP 16–18; TEMP 97.7–99.9; O2SAT 90–95
[2016-11-12] MEDS: MORPHINE SULFATE 4 MG/ML INJ IV PRN ×2 (00:26→08:42)
[2016-11-12 03:51] LABS: IGA SERUM 377 mg/dL (81-463); TISSUE TRANSGLUTAMINASE AB IGG ND U/mL (())
[2016-11-12] MEDS: CHLORHEXIDINE GLUCONATE 2 % 1 PACK (2 CLOTHS) TOP SCH ×2 (04:00→19:56)
[2016-11-12 06:06] LABS: AUTOMATED NEUTROPHIL # 12.3 TH/MM3 (1.8-7.7); BASOPHIL # 0.1 TH/MM3 (0-0.2); BASOPHIL % 0.5 % (0.0-2.0); EOSINOPHIL # 0.1 TH/MM3 (0-0.4); EOSINOPHIL % 0.4 % (0.0-4.0); HEMO FLAGS DIFF FINAL; LYMPH % 13.9 % (9.0-44.0); LYMPHOCYTE # 2.3 TH/MM3 (1.0-4.8); MEAN CELL VOLUME 83.6 FL (80.0-100.0); MEAN CORPUSCULAR HEMOGLOBIN 26.2 PG (27.0-34.0); MEAN CORPUSCULAR HGB CONC 31.4 % (32.0-36.0); MONO % 10.2 % (0.0-8.0); PLATELET COUNT 315 TH/MM3 (150-450); RED BLOOD COUNT 4.43 MIL/MM3 (4.00-5.30); RED CELL DISTRIBUTION WIDTH 15.5 % (11.6-17.2); WHITE BLOOD COUNT 16.4 TH/MM3 (4.0-11.0)
[2016-11-12 06:08] LABS: INTERNATIONAL NORMALIZED RATIO 1.2 RATIO; PROTHROMBIN TIME - PATIENT 13.7 SEC (9.8-11.6)
[2016-11-12 06:13] LABS: BICARBONATE 28.9 MEQ/L (21.0-32.0); MAGNESIUM 1.4 MG/DL (1.5-2.5); POTASSIUM 3.2 MEQ/L (3.5-5.1)
[2016-11-12] MEDS: metroNIDAZOLE 500 MG TAB PO SCH ×3 (06:25→23:37)
[2016-11-12] MEDS: LEVOTHYROXINE SODIUM 100 MCG TAB PO SCH (06:25)
[2016-11-12] MEDS: ACETAMINOPHEN/HYDROcodone 325 MG/5 MG TAB PO PRN ×3 (06:26→15:15)
[2016-11-12] MEDS: INSULIN NovoLIN REGULAR SUPPLEMENTAL SCALE SQ SCH ×4 (06:33→21:00)
[2016-11-12] MEDS: GABAPENTIN 100 MG CAP PO SCH ×2 (08:39→21:15)
[2016-11-12] MEDS: SODIUM BICARBONATE 650 MG TAB PO SCH (08:39)
[2016-11-12] MEDS: sulfaSALAzine 500 MG TAB PO SCH ×2 (08:39→23:37)
[2016-11-12] MEDS: metFORMIN HCL 500 MG TAB PO SCH ×2 (08:39→17:23)
[2016-11-12] MEDS: LISINOPRIL 10 MG TAB PO SCH (08:39)
[2016-11-12] MEDS: VENLAFAXINE HCL XR 75 MG CAP PO SCH (08:40)
[2016-11-12] MEDS: PANTOPRAZOLE SODIUM 40 MG VIAL IV SCH (08:40)
[2016-11-12] MEDS: HEPARIN SODIUM - SQ 10,000 UNITS/ML VIAL SQ SCH ×3 (08:41→21:27)
[2016-11-12] MEDS: ARTIFICIAL TEARS OPTH SOLN 15 ML BTL EACH EYE SCH ×3 (08:41→17:23)
[2016-11-12] MEDS: SODIUM CHLORIDE 0.9% FLUSH 10 ML FLUSH IV FLUSH SCH ×2 (08:42→21:00)
--- NOTE | 2016-11-12 14:51 | HHI.GIFU ---
GI Follow-up Note Consult Follow-up Subjective: Patient laying in bed comfortably, feeling better.No nausea, vomiting, diarrhea.Tolerating diet well. She complains of pain if left elbow and wrist along with swelling . She also complains of pain in her feet-not new Objective: PHYSICAL EXAMINATION: Vitals signs stable No fever Vital Signs Date Time Temp Pulse Resp B/P Pulse Ox O2 Delivery O2 Flow Rate FiO2 11/12/16 12:00 98.1 98 17 123/60 93 11/12/16 09:01 92 21 11/12/16 08:00 97.7 110 16 115/58 94 HEENT: Pupils round and reactive to light; normocephalic; atraumatic; no jaundice. Throat is clear. NECK: Neck is supple, no JVD, no lymphadenopathy. CHEST: Chest is clear to auscultation and percussion. CARDIAC: Regular rate and rhythm with no murmur gallop or rubs. ABDOMEN: Soft, nondistended, nontender; no hepatosplenomegaly; bowel sounds are present in all four quadrants. EXTREMITIES: No clubbing, cyanosis, edema 1 plus, swelling of left wrist and elbow , very painful on palpation SKIN: Normal; no rash; no jaundice. [employer]: No focal deficits; alert and oriented times three. Available Data (labs, X- Rays, Procedues) : Laboratory Tests Test 11/11/16 11/12/16 03:33 05:17 White Blood Count 14.6 TH/MM3 16.4 TH/MM3 Red Blood Count 4.26 MIL/MM3 4.43 MIL/MM3 Hemoglobin 11.2 GM/DL 11.6 GM/DL Hematocrit 36.4 % 37.0 % Mean Corpuscular Volume 85.5 FL 83.6 FL Mean Corpuscular Hemoglobin 26.3 PG 26.2 PG Mean Corpuscular Hemoglobin 30.8 % 31.4 % Concent Red Cell Distribution Width 15.2 % 15.5 % Platelet Count 280 TH/MM3 315 TH/MM3 Mean Platelet Volume 7.7 FL 7.6 FL Neutrophils (%) (Auto) 78.1 % 75.0 % Lymphocytes (%) (Auto) 14.1 % 13.9 % Monocytes (%) (Auto) 6.5 % 10.2 % Eosinophils (%) (Auto) 1.2 % 0.4 % Basophils (%) (Auto) 0.1 % 0.5 % Neutrophils # (Auto) 11.4 TH/MM3 12.3 TH/MM3 Lymphocytes # (Auto) 2.1 TH/MM3 2.3 TH/MM3 Monocytes # (Auto) 1.0 TH/MM3 1.7 TH/MM3 Eosinophils # (Auto) 0.2 TH/MM3 0.1 TH/MM3 Basophils # (Auto) 0.0 TH/MM3 0.1 TH/MM3 CBC Comment DIFF FINAL DIFF FINAL Differential Comment Prothrombin Time 21.3 SEC 13.7 SEC Prothromb Time International 1.9 RATIO 1.2 RATIO Ratio Sodium Level 138 MEQ/L 137 MEQ/L Potassium Level 3.9 MEQ/L 3.2 MEQ/L Chloride Level 105 MEQ/L 98 MEQ/L Carbon Dioxide Level 21.7 MEQ/L 28.9 MEQ/L Anion Gap 11 MEQ/L 10 MEQ/L Blood Urea Nitrogen 15 MG/DL 12 MG/DL Creatinine 0.89 MG/DL 0.95 MG/DL Estimat Glomerular Filtration 63 ML/MIN 58 ML/MIN Rate Random Glucose 168 MG/DL 164 MG/DL Calcium Level 8.5 MG/DL 8.8 MG/DL Magnesium Level 1.4 MG/DL 1.4 MG/DL ASSESSMENT/PLAN: remote history of uc-chronic diarrhea patient reports that she did not take any medications fora long time as her symptoms were controlled acute diarrhea possible gastroenteritis, food poisoning-stool studies negative so far nausea, vomiting resolved Recommendations fu office as scheduled further investigations of non gi issues as per primary sed rate , c reactive protein gi will sign off It was a pleasure seeing Renay Bueno. Thank you for this consult. Entered by: Jenna Cabrera MD Nov 12, 2016 14:51
--- NOTE | 2016-11-12 16:07 | PD.CARD.PN ---
Subjective Subjective Remarks Pt c/o left arm pain Objective Medications Current Medications Medications (Trade) Dose Ordered Sig/Silvestre Route Start Time Stop Time Status Last Admin (NS Flush) 2 ml UNSCH PRN IV FLUSH 11/09/16 09:00 (NS Flush) 2 ml BID IV FLUSH 11/09/16 09:00 11/12/16 08:42 (Tylenol) 650 mg Q6H PRN PO 11/09/16 09:00 11/11/16 01:20 (Nesbit 5-325 Mg) 1 tab Q4H PRN PO 11/09/16 09:00 11/12/16 15:15 (Morphine Inj) 2 mg Q2H PRN IV 11/09/16 09:00 11/12/16 08:42 (Protonix Inj) 40 mg DAILY IV 11/09/16 09:00 11/12/16 08:40 (Tears Naturale Opth Soln) 1 drop TID EACH EYE 11/09/16 09:00 11/12/16 08:41 (Zofran Inj) 4 mg Q6H PRN IV 11/09/16 09:00 11/11/16 20:42 (Heparin Inj) 5,000 units Q12H SQ 11/09/16 10:00 11/12/16 08:41 Miscellaneous Information 1 Q361D XX 11/09/16 09:00 (Chlorhexidine 2% Cloth) 3 pack Taper DAILY@04 TOP 11/10/16 04:00 11/06/17 03:59 11/10/16 21:40 (Chlorhexidine 2% Cloth) 3 pack UNSCH PRN TOP 11/09/16 09:00 (D50w (Vial) Inj) 50 ml UNSCH PRN IV 11/09/16 08:49 (Glucagon Inj) 1 mg UNSCH PRN OTHER 11/09/16 08:49 (Synthroid) 100 mcg DAILY@06 PO 11/09/16 09:00 11/12/16 06:25 (Effexor Xr) 150 mg DAILY PO 11/09/16 09:00 11/12/16 08:40 (Azulfidine) 1,000 mg BID PO 11/09/16 21:00 11/12/16 08:39 (Nitroglycerin 2% Oint) 2 inch Q6HR PRN TOPICAL 11/09/16 10:15 (Sodium Bicarbonate) 650 mg DAILY PO 11/10/16 09:00 11/12/16 08:39 (Flagyl) 500 mg Q8HR PO 11/10/16 14:00 11/12/16 15:15 (Glucophage) 500 mg BIDPC PO 11/10/16 18:00 11/12/16 08:39 (Prinivil) 10 mg DAILY PO 11/11/16 09:00 11/12/16 08:39 (Neurontin) 100 mg BID PO 11/11/16 13:15 11/12/16 08:39 Vital Signs / I&O Vital Signs Date Time Temp Pulse Resp B/P Pulse Ox O2 Delivery O2 Flow Rate FiO2 11/12/16 12:00 98.1 98 17 123/60 93 11/12/16 09:01 92 21 11/12/16 08:00 97.7 110 16 115/58 94 11/12/16 04:00 98.5 80 18 111/56 91 11/12/16 00:00 99.9 76 18 105/59 95 11/11/16 20:37 95 Nasal Cannula 2.00 11/11/16 20:00 98.0 78 18 111/59 11/11/16 19:49 18 I/O 11/11/16 11/11/16 11/11/16 11/12/16 11/12/16 11/12/16 07:00 15:00 23:00 07:00 15:00 23:00 Intake Total 1301 ml 680 ml 120 ml 500 ml Output Total 2250 ml 2075 ml 800 ml Balance -949 ml -2075 ml -120 ml 120 ml 500 ml Intake Oral 600 ml 480 ml 120 ml 500 ml IV Total 701 ml 200 ml Output Urine Total 2250 ml 2075 ml 800 ml # Voids 2 3 3 # Bowel Movements 0 Physical Exam GENERAL: Well developed, well nourished. No acute distress. HEENT: Jugular venous pressure is normal. CHEST: Lungs clear to auscultation bilaterally. Unlabored respiratory effort. CARDIAC: irregular rate and rhythm without S3, S4, or murmur. ABDOMEN: Soft, nontender, no hepatosplenomegaly. Bowel sounds present. EXTREMITIES: No clubbing, cyanosis, or edema. Laboratory Laboratory Tests Test 11/12/16 05:17 White Blood Count 16.4 TH/MM3 Red Blood Count 4.43 MIL/MM3 Hemoglobin 11.6 GM/DL Hematocrit 37.0 % Mean Corpuscular Volume 83.6 FL Mean Corpuscular Hemoglobin 26.2 PG Mean Corpuscular Hemoglobin 31.4 % Concent Red Cell Distribution Width 15.5 % Platelet Count 315 TH/MM3 Mean Platelet Volume 7.6 FL Neutrophils (%) (Auto) 75.0 % Lymphocytes (%) (Auto) 13.9 % Monocytes (%) (Auto) 10.2 % Eosinophils (%) (Auto) 0.4 % Basophils (%) (Auto) 0.5 % Neutrophils # (Auto) 12.3 TH/MM3 Lymphocytes # (Auto) 2.3 TH/MM3 Monocytes # (Auto) 1.7 TH/MM3 Eosinophils # (Auto) 0.1 TH/MM3 Basophils # (Auto) 0.1 TH/MM3 CBC Comment DIFF FINAL Differential Comment Prothrombin Time 13.7 SEC Prothromb Time International 1.2 RATIO Ratio Sodium Level 137 MEQ/L Potassium Level 3.2 MEQ/L Chloride Level 98 MEQ/L Carbon Dioxide Level 28.9 MEQ/L Anion Gap 10 MEQ/L Blood Urea Nitrogen 12 MG/DL Creatinine 0.95 MG/DL Estimat Glomerular Filtration 58 ML/MIN Rate Random Glucose 164 MG/DL Calcium Level 8.8 MG/DL Magnesium Level 1.4 MG/DL Imaging Last 72 hours Impressions Myocardial Perfusion Scan Nuc Med 11/11/16 0600 Signed Impressions: Service Date/Time: Friday, November 11, 2016 09:17 - CONCLUSION: 1. Left ventricle perfusion is within normal limits. No fixed or reversible perfusion defect is identified. 2. Normal left ventricular wall motion and ejection fraction. RISK CATEGORY: Low (<1%% Annual Mortality Rate) Fred Mcintosh MD Elbow X-Ray 11/11/16 0000 Signed Impressions: Service Date/Time: Friday, November 11, 2016 10:56 - CONCLUSION: No acute abnormality is identified. Fred Mcintosh MD Assessment and Plan Problem List: (1) Syncope Assessment and Plan: no overt cardiac etiology (2) Atrial fibrillation Assessment and Plan: normal nuc stress- no further work up rate controlled; ok for coumadin or eliquis (3) HTN (hypertension), benign (4) Sepsis Assessment and Plan Arm pain-- nursing is contacting primary team Problem Qualifiers (1) Atrial fibrillation: Qualified Code: I48.2 - Chronic atrial fibrillation (2) Sepsis: Qualified Code: A41.9 - Sepsis, due to unspecified organism Azalea Jeter MD Nov 12, 2016 16:07
--- NOTE | 2016-11-12 18:18 | HHI.PR ---
Subjective Remarks Pt c/o pain and swelling at left arm, worse with movement. Objective Vitals Vital Signs Date Time Temp Pulse Resp B/P Pulse Ox O2 Delivery O2 Flow Rate FiO2 11/12/16 16:00 99.1 112 18 130/70 92 11/12/16 12:00 98.1 98 17 123/60 93 11/12/16 09:01 92 21 11/12/16 08:00 97.7 110 16 115/58 94 11/12/16 04:00 98.5 80 18 111/56 91 11/12/16 00:00 99.9 76 18 105/59 95 11/11/16 20:37 95 Nasal Cannula 2.00 11/11/16 20:00 98.0 78 18 111/59 11/11/16 19:49 18 11/11/16 11/11/16 11/12/16 15:00 23:00 07:00 Intake Total 680 ml 120 ml Output Total 2075 ml 800 ml Balance -2075 ml -120 ml 120 ml Intake Oral 480 ml 120 ml IV Total 200 ml Output Urine Total 2075 ml 800 ml # Voids 2 3 Result Diagram: 11/12/16 0517 11/12/16 0517 Imaging Last Impressions Myocardial Perfusion Scan Nuc Med 11/11/16 0600 Signed Impressions: Service Date/Time: Friday, November 11, 2016 09:17 - CONCLUSION: 1. Left ventricle perfusion is within normal limits. No fixed or reversible perfusion defect is identified. 2. Normal left ventricular wall motion and ejection fraction. RISK CATEGORY: Low (<1%% Annual Mortality Rate) Fred Mcintosh MD Elbow X-Ray 11/11/16 0000 Signed Impressions: Service Date/Time: Friday, November 11, 2016 10:56 - CONCLUSION: No acute abnormality is identified. Fred Mcintosh MD Abdomen/Pelvis CT 11/09/16 0627 Signed Impressions: Service Date/Time: Wednesday, November 09, 2016 08:24 - CONCLUSION: 1. Colonic diverticulosis without definitive evidence for diverticulitis. 2. No acute abnormality or significant change from July CT exam. Pedro Rangel MD Objective Remarks GENERAL: This is a well-nourished, well-developed patient, in no apparent distress. CARDIOVASCULAR: Regular rate and rhythm without murmurs, gallops, or rubs. RESPIRATORY: Clear to auscultation. Breath sounds equal bilaterally. No wheezes , rales, or rhonchi. GASTROINTESTINAL: Abdomen soft, non-tender, nondistended. Normal active bowel sounds MUSCULOSKELETAL: Extremities without clubbing, cyanosis, or edema. NEURO: Alert & Oriented x4 to person, place, time, situation. Moves all ext x4 EXT: LUE with increased warmth and edema, NO erythema. A/P Problem List: (1) Elbow pain, left Status: Acute Plan: - acute - elbow x-ray series (11/11/16) --> NO acute findings - OT - obtain UE US --> r/o DVT (2) Diarrhea Status: Acute Plan: - improved - Pt is tolerating PO intake - C. Dif PCR is negative - stool studies negative - PO flagyl - transfer to general medical floor - repeat CBC, BMP, Mag in AM (3) Severe sepsis Status: Acute Plan: - resolved see above - continue to closely observe (4) Atrial fibrillation Status: Chronic Plan: - now NSR - observe on telemetry (5) Dehydration Status: Acute Plan: - improved - IVF - repeat BMP in AM (6) Chest pain Status: Acute Plan: - comgmt with Cardiology - serial cardiac enzymes negative - serial EKGs showed NO acute ischemic changes - echocardiogram done, results pending - lexiscan (11/11/16) --> NO fixed or reversible perfusion defects (7) Altered mental status Status: Acute Plan: - resolved to baseline (8) Hypothyroidism Status: Chronic Plan: - continue synthroid (9) HTN (hypertension), benign Status: Chronic Plan: - lisinopril - observe (10) Diabetes mellitus type 2, noninsulin dependent Status: Chronic Plan: - stable - SSI (11) Polycythemia Status: Acute Plan: - Pt follows with Hematology (12) Diverticulosis Status: Chronic (13) Inflammatory bowel disease Status: Chronic Plan: - Sulfasalazine (14) Warfarin anticoagulation Status: Chronic Plan: - repeat INR in AM (15) Peripheral neuropathy Status: Acute Plan: - trial of gabapentin 100mg BID, titrate gradually if pt able to tolerate Problem Qualifiers (1) Diarrhea: Qualified Code: A09 - Diarrhea of presumed infectious origin (2) Atrial fibrillation: Qualified Code: I48.2 - Chronic atrial fibrillation (3) Chest pain: Qualified Code: R07.9 - Chest pain, unspecified type (4) Altered mental status: Qualified Code: R41.82 - Altered mental status, unspecified altered mental status type (5) Hypothyroidism: Qualified Code: E03.9 - Hypothyroidism, unspecified type (6) Diverticulosis: Qualified Code: K57.90 - Diverticulosis of intestine without bleeding, unspecified intestinal tract location (7) Peripheral neuropathy: Qualified Code: G62.9 - Peripheral polyneuropathy Rolo Nassar DO Nov 12, 2016 18:18
[2016-11-12] MEDS: MAGNESIUM SULFATE 1 GM PREMIX 100 ML IV SCH ×2 (18:52→20:58)
[2016-11-12] MEDS: HYDROmorphone HCL PF 1 MG/ML VIAL IV PUSH PRN ×2 (18:52→23:30)
--- NOTE | 2016-11-12 20:24 | RADRPT ---
EXAM DATE/TIME: 11/12/2016 19:49 [facility] COMPARISON: No previous studies available for comparison. INDICATIONS : Left arm sweliing. MEDICAL HISTORY : Hypercholesterolemia. Hypertension. Gastroesophageal reflux disease. Thyroid disease. Seizures. Dizzi ness. Migraine. Left toe numbness. A-fib. Anticoagulant therapy. Chest pain. Irregular heartbeat. Hia aviva hernia. Arthritis. Diabetes. Bladder infection. SURGICAL HISTORY : Cholecystectomy. Appendectomy. Jaw replacement. Partial hysterectomy. Bilateral knee replacement. ENCOUNTER: Initial ACUITY: 1 week PAIN SCORE: 9/10 LOCATION: Left arm. FINDINGS: There is spontaneous flow documented in the brachial, basilic, cephalic, axillary, and subclavian vei ns. The vessels are compressible and augmentation response is documented. No filling defects are se en. The flow is phasic with respiration. Direction of flow in the jugular vein is caudal. CONCLUSION: No DVT left arm. Noe Kohler MD on November 12, 2016 at 20:21 Board Certified Radiologist. This report was verified electronically.
[2016-11-13] VITALS (7 sets, daily range): BP systolic 101–159; BP diastolic 57–88; PULSE 95–110; RESP 15–19; TEMP 97.1–98.7; O2SAT 92–99
[2016-11-13] MEDS: ACETAMINOPHEN/HYDROcodone 325 MG/7.5 MG TAB PO PRN ×4 (02:53→20:21)
[2016-11-13 05:06] LABS: AUTOMATED NEUTROPHIL # 15.6 TH/MM3 (1.8-7.7); BASOPHIL % 0.2 % (0.0-2.0); EOSINOPHIL % 0.2 % (0.0-4.0); HEMATOCRIT 36.1 % (35.0-46.0); HEMO FLAGS DIFF FINAL; LYMPH % 9.2 % (9.0-44.0); LYMPHOCYTE # 1.8 TH/MM3 (1.0-4.8); MEAN CELL VOLUME 82.6 FL (80.0-100.0); MEAN CORPUSCULAR HEMOGLOBIN 26.8 PG (27.0-34.0); MEAN CORPUSCULAR HGB CONC 32.4 % (32.0-36.0); MONO % 10.5 % (0.0-8.0); NEUT % 79.9 % (16.0-70.0); PLATELET COUNT 303 TH/MM3 (150-450); RED BLOOD COUNT 4.37 MIL/MM3 (4.00-5.30); RED CELL DISTRIBUTION WIDTH 15.5 % (11.6-17.2); WHITE BLOOD COUNT 19.6 TH/MM3 (4.0-11.0)
[2016-11-13 05:29] LABS: BICARBONATE 29.4 MEQ/L (21.0-32.0); MAGNESIUM 1.7 MG/DL (1.5-2.5); POTASSIUM 3.5 MEQ/L (3.5-5.1)
[2016-11-13] MEDS: metroNIDAZOLE 500 MG TAB PO SCH ×3 (05:42→22:00)
[2016-11-13] MEDS: LEVOTHYROXINE SODIUM 100 MCG TAB PO SCH (05:42)
[2016-11-13] MEDS: HYDROmorphone HCL PF 1 MG/ML VIAL IV PUSH PRN ×3 (05:43→18:21)
[2016-11-13] MEDS: INSULIN NovoLIN REGULAR SUPPLEMENTAL SCALE SQ SCH ×4 (05:47→20:22)
[2016-11-13] MEDS: GABAPENTIN 100 MG CAP PO SCH ×2 (09:15→20:19)
[2016-11-13] MEDS: VENLAFAXINE HCL XR 75 MG CAP PO SCH (09:15)
[2016-11-13] MEDS: LISINOPRIL 10 MG TAB PO SCH (09:15)
[2016-11-13] MEDS: sulfaSALAzine 500 MG TAB PO SCH ×2 (09:15→20:19)
[2016-11-13] MEDS: ARTIFICIAL TEARS OPTH SOLN 15 ML BTL EACH EYE SCH ×3 (09:16→17:40)
[2016-11-13] MEDS: PANTOPRAZOLE SODIUM 40 MG VIAL IV SCH (09:16)
[2016-11-13] MEDS: metFORMIN HCL 500 MG TAB PO SCH ×2 (09:16→17:38)
[2016-11-13] MEDS: SODIUM BICARBONATE 650 MG TAB PO SCH (09:16)
[2016-11-13] MEDS: SODIUM CHLORIDE 0.9% FLUSH 10 ML FLUSH IV FLUSH SCH ×2 (09:18→20:26)
[2016-11-13] MEDS: CHLORHEXIDINE GLUCONATE 2 % 1 PACK (2 CLOTHS) TOP SCH (19:18)
--- NOTE | 2016-11-13 19:53 | HHI.PR ---
Subjective Remarks left arm remains swollen and painful Objective Vitals Vital Signs Date Time Temp Pulse Resp B/P Pulse Ox O2 Delivery O2 Flow Rate FiO2 11/13/16 16:00 97.1 108 19 118/72 98 11/13/16 12:00 97.3 95 18 101/57 93 11/13/16 08:00 97.1 99 17 117/74 95 11/13/16 00:00 98.6 110 18 138/88 95 11/12/16 22:40 95 Nasal Cannula 2.00 11/12/16 20:00 99.0 117 18 132/69 90 11/12/16 11/12/16 11/13/16 15:00 23:00 07:00 Intake Total 500 ml Balance 500 ml Intake Oral 500 ml # Voids 3 2 2 # Bowel Movements 0 0 Result Diagram: 11/13/16 0425 11/13/16 0425 Imaging Last Impressions Upper Extremity Ultrasound 11/12/16 0000 Signed Impressions: Service Date/Time: Saturday, November 12, 2016 19:49 - CONCLUSION: No DVT left arm. Noe Kohler MD Myocardial Perfusion Scan Nuc Med 11/11/16 0600 Signed Impressions: Service Date/Time: Friday, November 11, 2016 09:17 - CONCLUSION: 1. Left ventricle perfusion is within normal limits. No fixed or reversible perfusion defect is identified. 2. Normal left ventricular wall motion and ejection fraction. RISK CATEGORY: Low (<1%% Annual Mortality Rate) Fred Mcintosh MD Elbow X-Ray 11/11/16 0000 Signed Impressions: Service Date/Time: Friday, November 11, 2016 10:56 - CONCLUSION: No acute abnormality is identified. Fred Mcintosh MD Abdomen/Pelvis CT 11/09/16 0627 Signed Impressions: Service Date/Time: Wednesday, November 09, 2016 08:24 - CONCLUSION: 1. Colonic diverticulosis without definitive evidence for diverticulitis. 2. No acute abnormality or significant change from July CT exam. Pedro Rangel MD Objective Remarks GENERAL: This is a well-nourished, well-developed patient, in no apparent distress. CARDIOVASCULAR: Regular rate and rhythm without murmurs, gallops, or rubs. RESPIRATORY: Clear to auscultation. Breath sounds equal bilaterally. No wheezes , rales, or rhonchi. GASTROINTESTINAL: Abdomen soft, non-tender, nondistended. Normal active bowel sounds MUSCULOSKELETAL: Extremities without clubbing, cyanosis, or edema. NEURO: Alert & Oriented x4 to person, place, time, situation. Moves all ext x4 EXT: LUE with increased warmth and edema, NO erythema. A/P Problem List: (1) Elbow pain, left Status: Acute Plan: - acute - elbow x-ray series (11/11/16) --> NO acute findings - obtain UE US --> NO DVT - OT (2) Diarrhea Status: Acute Plan: - improved - Pt is tolerating PO intake - C. Dif PCR is negative - stool studies negative - PO flagyl (3) Severe sepsis Status: Acute Plan: - resolved see above - WBC remain elevated 19k (11/13/16)? - afebrile, BP readings stable - Pt denies fever, chills, cough, dysuria, or diarrhea - repeat CXR - repeat UA/Cx - continue to closely observe (4) Atrial fibrillation Status: Chronic Plan: - now NSR - observe on telemetry (5) Dehydration Status: Resolved Plan: - resolved (6) Chest pain Status: Acute Plan: - comgmt with Cardiology - serial cardiac enzymes negative - serial EKGs showed NO acute ischemic changes - echocardiogram --> pending - lexiscan (11/11/16) --> NO fixed or reversible perfusion defects (7) Altered mental status Status: Acute Plan: - resolved to baseline (8) Hypothyroidism Status: Chronic Plan: - continue synthroid (9) HTN (hypertension), benign Status: Chronic Plan: - lisinopril - observe (10) Diabetes mellitus type 2, noninsulin dependent Status: Chronic Plan: - stable - SSI (11) Polycythemia Status: Acute Plan: - Pt follows with Hematology (12) Diverticulosis Status: Chronic (13) Inflammatory bowel disease Status: Chronic Plan: - Sulfasalazine (14) Warfarin anticoagulation Status: Chronic Plan: - off coumadin (15) Peripheral neuropathy Status: Acute Plan: - trial of gabapentin 100mg BID, titrate gradually if pt able to tolerate Problem Qualifiers (1) Diarrhea: Qualified Code: A09 - Diarrhea of presumed infectious origin (2) Atrial fibrillation: Qualified Code: I48.2 - Chronic atrial fibrillation (3) Chest pain: Qualified Code: R07.9 - Chest pain, unspecified type (4) Altered mental status: Qualified Code: R41.82 - Altered mental status, unspecified altered mental status type (5) Hypothyroidism: Qualified Code: E03.9 - Hypothyroidism, unspecified type (6) Diverticulosis: Qualified Code: K57.90 - Diverticulosis of intestine without bleeding, unspecified intestinal tract location (7) Peripheral neuropathy: Qualified Code: G62.9 - Peripheral polyneuropathy Rolo Nassar DO Nov 13, 2016 19:52
--- NOTE | 2016-11-13 20:12 | RADRPT ---
EXAM DATE/TIME: 11/13/2016 19:53 [facility] COMPARISON: CHEST SINGLE AP, July 24, 2016, 15:50. INDICATIONS : Cough and left arm pain. MEDICAL HISTORY : Hypercholesterolemia. Hypertension. Gastroesophageal reflux disease. Thyroid disease. A-fib. Hiatal h ernia. SURGICAL HISTORY : None. ENCOUNTER: Initial ACUITY: 1 day PAIN SCORE: 5/10 LOCATION: Left arm. FINDINGS: A single view of the chest demonstrates the lungs to be symmetrically aerated without evidence of mas s, infiltrate or effusion. The cardiomediastinal contours are unremarkable. Osseous structures are intact. CONCLUSION: No acute disease. Noe Kohler MD on November 13, 2016 at 20:10 Board Certified Radiologist. This report was verified electronically.
[2016-11-13] MEDS: HEPARIN SODIUM - SQ 10,000 UNITS/ML VIAL SQ SCH (22:00)
[2016-11-13 22:30] LABS: BACTERIA, URINE MANY /hpf; BLOOD, URINE MOD (NEG); COMMENT (UR) CULTURE INDICATED; CULTURE IF INDICATED CULTURE INDICATED; GLUCOSE,URINE NEG (NEG); KETONE, URINE NEG (NEG); NITRITE,URINE NEG (NEG); SQUAMOUS EPITHELIAL CELL URINE 3 /hpf (0-5); URINE COLOR YELLOW (YELLW/STRAW)
[2016-11-14] VITALS (8 sets, daily range): BP systolic 103–161; BP diastolic 56–83; PULSE 80–122; RESP 16–20; TEMP 96.9–99.7; O2SAT 91–98
[2016-11-14] MEDS: ACETAMINOPHEN/HYDROcodone 325 MG/7.5 MG TAB PO PRN ×4 (03:31→22:14)
[2016-11-14 03:50] LABS: ENDOMYSIAL AB TITER ND (<1:5); TISSUE TRANSGLUTAMINASE AB LESS THAN 1 U/mL (())
[2016-11-14] MEDS: LEVOTHYROXINE SODIUM 100 MCG TAB PO SCH (06:25)
[2016-11-14] MEDS: metroNIDAZOLE 500 MG TAB PO SCH ×3 (06:25→22:14)
[2016-11-14] MEDS: INSULIN NovoLIN REGULAR SUPPLEMENTAL SCALE SQ SCH ×4 (06:36→22:19)
[2016-11-14 07:19] LABS: AUTOMATED NEUTROPHIL # 11.2 TH/MM3 (1.8-7.7); BASOPHIL % 0.3 % (0.0-2.0); EOSINOPHIL # 0.1 TH/MM3 (0-0.4); EOSINOPHIL % 0.8 % (0.0-4.0); HEMO FLAGS DIFF FINAL; LYMPH % 14.9 % (9.0-44.0); LYMPHOCYTE # 2.3 TH/MM3 (1.0-4.8); MEAN CELL VOLUME 83.4 FL (80.0-100.0); MEAN CORPUSCULAR HEMOGLOBIN 27.1 PG (27.0-34.0); MEAN CORPUSCULAR HGB CONC 32.4 % (32.0-36.0); MONO % 9.9 % (0.0-8.0); NEUT % 74.1 % (16.0-70.0); PLATELET COUNT 349 TH/MM3 (150-450); RED BLOOD COUNT 4.19 MIL/MM3 (4.00-5.30); RED CELL DISTRIBUTION WIDTH 15.8 % (11.6-17.2); WHITE BLOOD COUNT 15.2 TH/MM3 (4.0-11.0)
[2016-11-14 07:48] LABS: BICARBONATE 28.7 MEQ/L (21.0-32.0); MAGNESIUM 1.5 MG/DL (1.5-2.5); POTASSIUM 3.8 MEQ/L (3.5-5.1)
[2016-11-14] MEDS: ARTIFICIAL TEARS OPTH SOLN 15 ML BTL EACH EYE SCH ×3 (09:00→16:41)
[2016-11-14] MEDS: sulfaSALAzine 500 MG TAB PO SCH ×2 (09:33→22:13)
[2016-11-14] MEDS: GABAPENTIN 100 MG CAP PO SCH ×2 (09:33→22:13)
[2016-11-14] MEDS: SODIUM BICARBONATE 650 MG TAB PO SCH (09:34)
[2016-11-14] MEDS: VENLAFAXINE HCL XR 75 MG CAP PO SCH (09:34)
[2016-11-14] MEDS: metFORMIN HCL 500 MG TAB PO SCH ×2 (09:34→16:39)
[2016-11-14] MEDS: LISINOPRIL 10 MG TAB PO SCH (09:34)
[2016-11-14] MEDS: HEPARIN SODIUM - SQ 10,000 UNITS/ML VIAL SQ SCH ×2 (09:36→22:14)
[2016-11-14] MEDS: PANTOPRAZOLE SODIUM 40 MG VIAL IV SCH (09:38)
[2016-11-14] MEDS: SODIUM CHLORIDE 0.9% FLUSH 10 ML FLUSH IV FLUSH SCH ×2 (09:39→22:13)
--- NOTE | 2016-11-14 10:12 | ECHRPT ---
Indication: CONCLUSIONS Normal left ventricular size. Wall thickness is normal. The left ventricular systolic function is normal with an estimated ejection fraction in the range of 60-65%. No regional wall motion abnormalities are present. Left ventricular diastolic function parameters are normal. The left atrial size is mildly dilated. There is trace tricuspid valve regurgitation. Normal estimated pulmonary pressures. BP: 133 / 72 HR: Rhythm: Atrial fibrillation MEASUREMENTS (Male / Female) Normal Values Technical Quality:Technically difficult study 2D ECHO LV Diastolic Diameter PLAX 3.0 cm 4.2 - 5.9 / 3.9 - 5.3 cm LV Systolic Diameter PLAX 2.2 cm IVS Diastolic Thickness 1.0 cm 0.6 - 1.0 / 0.6 - 0.9 cm LVPW Diastolic Thickness 1.0 cm 0.6 - 1.0 / 0.6 - 0.9 cm LV Relative Wall Thickness 0.7 LVOT Diameter 1.8 cm Aortic Root Diameter 2.6 cm LA Systolic Diameter LX 3.2 cm 3.0 - 4.0 / 2.7 - 3.8 cm M-MODE AV Cusp Separation MM 1.9 cm DOPPLER AV Peak Velocity 120.0 cm/s AV Peak Gradient 5.8 mmHg AV Mean Gradient 3.3 mmHg AV Velocity Time Integral 23.9 cm LVOT Peak Velocity 73.2 cm/s LVOT Peak Gradient 2.1 mmHg LVOT Velocity Time Integral 14.2 cm AV Area Cont Eq vti 1.5 cm AV Area Cont Eq pk 1.6 cm Mitral E Point Velocity 110.0 cm/s TR Peak Velocity 194.0 cm/s TR Peak Gradient 15.1 mmHg PV Peak Velocity 72.9 cm/s PV Peak Gradient 2.1 mmHg FINDINGS LEFT VENTRICLE Normal left ventricular size. Wall thickness is normal. The left ventricular systolic function is normal with an estimated ejection fraction in the range of 60-65%. No regional wall motion abnormalities are present. Left ventricular diastolic function parameters are normal. RIGHT VENTRICLE Normal right ventricular size and systolic function. LEFT ATRIUM The left atrial size is mildly dilated. RIGHT ATRIUM The right atrial size is normal. ATRIAL SEPTUM Normal atrial septal thickness without atrial level shunting by limited color doppler interrogation. AORTA The aortic root and proximal ascending aorta are normal in size on limited imaging. MITRAL VALVE Structurally normal mitral valve. No mitral valve stenosis or regurgitation. AORTIC VALVE Trileaflet aortic valve. No aortic valve stenosis or regurgitation. TRICUSPID VALVE There is trace tricuspid valve regurgitation. Normal estimated pulmonary pressures. PULMONARY VALVE The pulmonary valve is not well visualized. VESSELS The inferior vena cava is normal in size. PERICARDIUM No pericardial effusion. Srinivas Rodriguez MD, FACC Edited by: [employer] CV Flash Drier Operator (Electronically Signed) Final Date:10 November 2016 16:16 Amended: 14 November 2016 10:11
--- NOTE | 2016-11-14 15:14 | HHI.PR ---
Subjective Remarks Pt reports that her LUE swelling and pain is slightly improved today with application of warm compress Afebrile No diarrhea. Objective Vitals Vital Signs Date Time Temp Pulse Resp B/P Pulse Ox O2 Delivery O2 Flow Rate FiO2 11/14/16 12:00 96.9 111 17 137/76 93 11/14/16 11:12 95 Nasal Cannula 2.00 11/14/16 08:00 98.0 113 20 161/83 93 11/14/16 04:41 98.7 115 16 133/73 92 11/14/16 00:00 99.7 122 16 103/56 91 11/13/16 21:57 95 Nasal Cannula 2.00 11/13/16 20:12 98 11/13/16 20:00 98.7 108 16 130/75 92 11/13/16 16:00 97.1 108 19 118/72 98 11/13/16 11/13/16 11/14/16 14:59 22:59 06:59 Intake Total 425 ml 100 ml Balance 425 ml 100 ml Intake Oral 425 ml IV Total 100 ml # Voids 2 2 1 # Bowel Movements 0 Result Diagram: 11/14/16 0620 11/14/16 06 Other Results Laboratory Tests Test 11/12/16 11/12/16 11/13/16 11/13/16 20:45 20:49 04:25 20:10 Anti-Nuclear Antibody Screen NEG Erythrocyte Sedimentation Rate 46 mm/hr White Blood Count 19.6 TH/MM3 Red Blood Count 4.37 MIL/MM3 Hemoglobin 11.7 GM/DL Hematocrit 36.1 % Mean Corpuscular Volume 82.6 FL Mean Corpuscular Hemoglobin 26.8 PG Mean Corpuscular Hemoglobin 32.4 % Concent Red Cell Distribution Width 15.5 % Platelet Count 303 TH/MM3 Mean Platelet Volume 8.0 FL Neutrophils (%) (Auto) 79.9 % Lymphocytes (%) (Auto) 9.2 % Monocytes (%) (Auto) 10.5 % Eosinophils (%) (Auto) 0.2 % Basophils (%) (Auto) 0.2 % Neutrophils # (Auto) 15.6 TH/MM3 Lymphocytes # (Auto) 1.8 TH/MM3 Monocytes # (Auto) 2.1 TH/MM3 Eosinophils # (Auto) 0.0 TH/MM3 Basophils # (Auto) 0.0 TH/MM3 CBC Comment DIFF FINAL Differential Comment Sodium Level 135 MEQ/L Potassium Level 3.5 MEQ/L Chloride Level 96 MEQ/L Carbon Dioxide Level 29.4 MEQ/L Anion Gap 10 MEQ/L Blood Urea Nitrogen 12 MG/DL Creatinine 0.95 MG/DL Estimat Glomerular Filtration 58 ML/MIN Rate Random Glucose 235 MG/DL Calcium Level 9.1 MG/DL Magnesium Level 1.7 MG/DL Urine Color YELLOW Urine Turbidity HAZY Urine pH 6.0 Urine Specific [place] 1.006 Urine Protein 30 mg/dL Urine Glucose (UA) NEG mg/dL Urine Ketones NEG mg/dL Urine Occult Blood MOD Urine Nitrite NEG Urine Bilirubin NEG Urine Urobilinogen LESS THAN 2.0 MG/DL Urine Leukocyte Esterase LARGE Urine RBC 24 /hpf Urine WBC /hpf Urine Squamous Epithelial 3 /hpf Cells Urine Amorphous Sediment RARE Urine Bacteria MANY /hpf Microscopic Urinalysis Comment CULTURE INDICATED Test 11/14/16 06:20 White Blood Count 15.2 TH/MM3 Red Blood Count 4.19 MIL/MM3 Hemoglobin 11.3 GM/DL Hematocrit 35.0 % Mean Corpuscular Volume 83.4 FL Mean Corpuscular Hemoglobin 27.1 PG Mean Corpuscular Hemoglobin 32.4 % Concent Red Cell Distribution Width 15.8 % Platelet Count 349 TH/MM3 Mean Platelet Volume 7.8 FL Neutrophils (%) (Auto) 74.1 % Lymphocytes (%) (Auto) 14.9 % Monocytes (%) (Auto) 9.9 % Eosinophils (%) (Auto) 0.8 % Basophils (%) (Auto) 0.3 % Neutrophils # (Auto) 11.2 TH/MM3 Lymphocytes # (Auto) 2.3 TH/MM3 Monocytes # (Auto) 1.5 TH/MM3 Eosinophils # (Auto) 0.1 TH/MM3 Basophils # (Auto) 0.0 TH/MM3 CBC Comment DIFF FINAL Differential Comment Sodium Level 134 MEQ/L Potassium Level 3.8 MEQ/L Chloride Level 96 MEQ/L Carbon Dioxide Level 28.7 MEQ/L Anion Gap 9 MEQ/L Blood Urea Nitrogen 15 MG/DL Creatinine 0.92 MG/DL Estimat Glomerular Filtration 61 ML/MIN Rate Random Glucose 219 MG/DL Calcium Level 9.1 MG/DL Magnesium Level 1.5 MG/DL Imaging Last Impressions Upper Extremity Ultrasound 11/12/16 0000 Signed Impressions: Service Date/Time: Saturday, November 12, 2016 19:49 - CONCLUSION: No DVT left arm. Noe Kohler MD Myocardial Perfusion Scan Nuc Med 11/11/16 0600 Signed Impressions: Service Date/Time: Friday, November 11, 2016 09:17 - CONCLUSION: 1. Left ventricle perfusion is within normal limits. No fixed or reversible perfusion defect is identified. 2. Normal left ventricular wall motion and ejection fraction. RISK CATEGORY: Low (<1%% Annual Mortality Rate) Fred Mcintosh MD Elbow X-Ray 11/11/16 0000 Signed Impressions: Service Date/Time: Friday, November 11, 2016 10:56 - CONCLUSION: No acute abnormality is identified. Fred Mcintosh MD Abdomen/Pelvis CT 11/09/16 0627 Signed Impressions: Service Date/Time: Wednesday, November 09, 2016 08:24 - CONCLUSION: 1. Colonic diverticulosis without definitive evidence for diverticulitis. 2. No acute abnormality or significant change from July CT exam. Pedro Rangel MD Objective Remarks General: NAD, AAOx3 Chest: CTA Cardiac: Regular Abd: +BS, soft ND/NT EXT: LUE with increased warmth and edema from elbow to hand, NO erythema. A/P Problem List: (1) Elbow pain, left Status: Acute Plan: - acute, ?thrombophlebitis from previous IV site in left antecubital fossa. - elbow x-ray series (11/11/16) --> NO acute findings - UE US --> NO DVT - OT - Apply K-thermia and elevate arm (2) Diarrhea Status: Acute Plan: - improved - Pt is tolerating PO intake - C. Dif PCR is negative - stool studies negative - PO Flagyl (3) Severe sepsis Status: Acute Plan: - resolved see above - WBC remain elevated 15k (11/14/16) - afebrile, BP readings stable - Pt denies fever, chills, cough, dysuria, or diarrhea - CXR (11/13) --> negative. - UA/Cx (11/13) --> GNR, await final cultures - Start Rocephin - continue to closely observe (4) Atrial fibrillation Status: Chronic Plan: - now NSR - observe on telemetry (5) Dehydration Status: Resolved Plan: - resolved (6) Chest pain Status: Acute Plan: - comgmt with Cardiology - serial cardiac enzymes negative - serial EKGs showed NO acute ischemic changes - echocardiogram --> pending - lexiscan (11/11/16) --> NO fixed or reversible perfusion defects (7) Altered mental status Status: Acute Plan: - resolved to baseline (8) Hypothyroidism Status: Chronic Plan: - continue synthroid (9) HTN (hypertension), benign Status: Chronic Plan: - lisinopril - observe (10) Diabetes mellitus type 2, noninsulin dependent Status: Chronic Plan: - stable - SSI (11) Polycythemia Status: Acute Plan: - Pt follows with Hematology (12) Diverticulosis Status: Chronic (13) Inflammatory bowel disease Status: Chronic Plan: - Sulfasalazine (14) Warfarin anticoagulation Status: Chronic Plan: - off coumadin (15) Peripheral neuropathy Status: Acute Plan: - trial of gabapentin 100mg BID, titrate gradually if pt able to tolerate Assessment and Plan Patient examined. Assessment and plan formulated with Marlene Nuñez PA-C. I agree with the above. no diarrhea. no confusion uti gnr noted. abx started resume anticoagulation c/o left elbow to hand swelling/pain. somewhat better. she had a left antecubital iv at one point. no dvt or fx on imaging could be some thrombophlebitis. place k thermia pad and elevate. reevaluate tomorrow. if no better then will ct the LUE. Problem Qualifiers (1) Diarrhea: Qualified Code: A09 - Diarrhea of presumed infectious origin (2) Atrial fibrillation: Qualified Code: I48.2 - Chronic atrial fibrillation (3) Chest pain: Qualified Code: R07.9 - Chest pain, unspecified type (4) Altered mental status: Qualified Code: R41.82 - Altered mental status, unspecified altered mental status type (5) Hypothyroidism: Qualified Code: E03.9 - Hypothyroidism, unspecified type (6) Diverticulosis: Qualified Code: K57.90 - Diverticulosis of intestine without bleeding, unspecified intestinal tract location (7) Peripheral neuropathy: Qualified Code: G62.9 - Peripheral polyneuropathy Marlene Nuñez Nov 14, 2016 15:14 Oscar Langford MD Nov 14, 2016 21:27
[2016-11-14] MEDS ORDERED: WARFARIN SOD 5 MG TAB PO SCH (16:20)
[2016-11-14] MEDS ORDERED: cefTRIAXone INJ 1,000 MG in SODIUM CHLORIDE 0.9% INJ 100 ML IV SCH (17:00)
[2016-11-14] MEDS: INSULIN DETEMIR 100 UNITS/ML VIAL SQ SCH (22:18)
[2016-11-15] VITALS (7 sets, daily range): BP systolic 120–158; BP diastolic 71–79; PULSE 86–113; RESP 17–20; TEMP 96.3–98.4; O2SAT 91–96
[2016-11-15] MEDS: CHLORHEXIDINE GLUCONATE 2 % 1 PACK (2 CLOTHS) TOP SCH (04:00)
[2016-11-15] MEDS: metroNIDAZOLE 500 MG TAB PO SCH ×3 (05:53→22:43)
[2016-11-15] MEDS: LEVOTHYROXINE SODIUM 100 MCG TAB PO SCH (05:53)
[2016-11-15] MEDS: INSULIN NovoLIN REGULAR SUPPLEMENTAL SCALE SQ SCH ×4 (07:00→21:00)
[2016-11-15 07:40] LABS: AUTOMATED NEUTROPHIL # 8.2 TH/MM3 (1.8-7.7); BASOPHIL # 0.1 TH/MM3 (0-0.2); BASOPHIL % 0.7 % (0.0-2.0); EOSINOPHIL # 0.2 TH/MM3 (0-0.4); EOSINOPHIL % 1.6 % (0.0-4.0); HEMATOCRIT 35.6 % (35.0-46.0); HEMO FLAGS DIFF FINAL; LYMPH % 18.6 % (9.0-44.0); LYMPHOCYTE # 2.2 TH/MM3 (1.0-4.8); MEAN CELL VOLUME 83.6 FL (80.0-100.0); MEAN CORPUSCULAR HEMOGLOBIN 26.6 PG (27.0-34.0); MEAN CORPUSCULAR HGB CONC 31.9 % (32.0-36.0); MONO % 9.6 % (0.0-8.0); NEUT % 69.5 % (16.0-70.0); PLATELET COUNT 339 TH/MM3 (150-450); RED BLOOD COUNT 4.26 MIL/MM3 (4.00-5.30); RED CELL DISTRIBUTION WIDTH 15.8 % (11.6-17.2); WHITE BLOOD COUNT 11.9 TH/MM3 (4.0-11.0)
[2016-11-15 07:50] LABS: PROTHROMBIN TIME - PATIENT 11.6 SEC (9.8-11.6)
[2016-11-15] MEDS: ARTIFICIAL TEARS OPTH SOLN 15 ML BTL EACH EYE SCH ×3 (09:00→16:23)
[2016-11-15] MEDS: SODIUM BICARBONATE 650 MG TAB PO SCH (09:21)
[2016-11-15] MEDS: metFORMIN HCL 500 MG TAB PO SCH ×2 (09:21→16:23)
[2016-11-15] MEDS: VENLAFAXINE HCL XR 75 MG CAP PO SCH (09:22)
[2016-11-15] MEDS: SODIUM CHLORIDE 0.9% FLUSH 10 ML FLUSH IV FLUSH SCH ×2 (09:22→22:44)
[2016-11-15] MEDS: PANTOPRAZOLE SODIUM 40 MG VIAL IV SCH (09:22)
[2016-11-15] MEDS: LISINOPRIL 10 MG TAB PO SCH (09:22)
[2016-11-15] MEDS: GABAPENTIN 100 MG CAP PO SCH ×2 (09:22→22:44)
[2016-11-15] MEDS: HEPARIN SODIUM - SQ 10,000 UNITS/ML VIAL SQ SCH ×2 (09:26→22:43)
[2016-11-15] MEDS: sulfaSALAzine 500 MG TAB PO SCH ×2 (11:09→22:44)
--- NOTE | 2016-11-15 12:10 | HHI.PR ---
Subjective Remarks Pt has been using the heating pad and elevating her arm with improvement in the pain and swelling. Afebrile Pt reports some suprapubic cramping when urinating. Objective Vitals Vital Signs Date Time Temp Pulse Resp B/P Pulse Ox O2 Delivery O2 Flow Rate FiO2 11/15/16 08:00 98.1 111 17 120/78 92 11/15/16 04:00 98.2 92 18 158/71 94 11/15/16 00:00 96.4 104 18 132/79 94 11/14/16 22:29 95 Nasal Cannula 2.00 11/14/16 20:00 98.8 80 19 131/75 98 11/14/16 16:00 97.5 105 20 123/63 95 11/14/16 11/14/16 11/15/16 15:00 23:00 07:00 Intake Total 1000 ml 240 ml 240 ml Output Total 750 ml 400 ml 300 ml Balance 250 ml -160 ml -60 ml Intake Oral 1000 ml 240 ml 240 ml IV Total 0 ml 0 ml Output Urine Total 750 ml 400 ml 300 ml # Voids 2 2 # Bowel Movements 0 0 0 Result Diagram: 11/15/16 0715 11/14/16 0620 Other Results Laboratory Tests Test 11/13/16 11/14/16 11/15/16 20:10 06:20 07:15 Urine Color YELLOW Urine Turbidity HAZY Urine pH 6.0 Urine Specific [place] 1.006 Urine Protein 30 mg/dL Urine Glucose (UA) NEG mg/dL Urine Ketones NEG mg/dL Urine Occult Blood MOD Urine Nitrite NEG Urine Bilirubin NEG Urine Urobilinogen LESS THAN 2.0 MG/DL Urine Leukocyte Esterase LARGE Urine RBC 24 /hpf Urine WBC /hpf Urine Squamous Epithelial 3 /hpf Cells Urine Amorphous Sediment RARE Urine Bacteria MANY /hpf Microscopic Urinalysis Comment CULTURE INDICATED White Blood Count 15.2 TH/MM3 11.9 TH/MM3 Red Blood Count 4.19 MIL/MM3 4.26 MIL/MM3 Hemoglobin 11.3 GM/DL 11.3 GM/DL Hematocrit 35.0 % 35.6 % Mean Corpuscular Volume 83.4 FL 83.6 FL Mean Corpuscular Hemoglobin 27.1 PG 26.6 PG Mean Corpuscular Hemoglobin 32.4 % 31.9 % Concent Red Cell Distribution Width 15.8 % 15.8 % Platelet Count 349 TH/MM3 339 TH/MM3 Mean Platelet Volume 7.8 FL 7.4 FL Neutrophils (%) (Auto) 74.1 % 69.5 % Lymphocytes (%) (Auto) 14.9 % 18.6 % Monocytes (%) (Auto) 9.9 % 9.6 % Eosinophils (%) (Auto) 0.8 % 1.6 % Basophils (%) (Auto) 0.3 % 0.7 % Neutrophils # (Auto) 11.2 TH/MM3 8.2 TH/MM3 Lymphocytes # (Auto) 2.3 TH/MM3 2.2 TH/MM3 Monocytes # (Auto) 1.5 TH/MM3 1.1 TH/MM3 Eosinophils # (Auto) 0.1 TH/MM3 0.2 TH/MM3 Basophils # (Auto) 0.0 TH/MM3 0.1 TH/MM3 CBC Comment DIFF FINAL DIFF FINAL Differential Comment Sodium Level 134 MEQ/L Potassium Level 3.8 MEQ/L Chloride Level 96 MEQ/L Carbon Dioxide Level 28.7 MEQ/L Anion Gap 9 MEQ/L Blood Urea Nitrogen 15 MG/DL Creatinine 0.92 MG/DL Estimat Glomerular Filtration 61 ML/MIN Rate Random Glucose 219 MG/DL Calcium Level 9.1 MG/DL Magnesium Level 1.5 MG/DL Prothrombin Time 11.6 SEC Prothromb Time International 1.0 RATIO Ratio Imaging Last Impressions Upper Extremity Ultrasound 11/12/16 0000 Signed Impressions: Service Date/Time: Saturday, November 12, 2016 19:49 - CONCLUSION: No DVT left arm. Noe Kohler MD Myocardial Perfusion Scan Nuc Med 11/11/16 0600 Signed Impressions: Service Date/Time: Friday, November 11, 2016 09:17 - CONCLUSION: 1. Left ventricle perfusion is within normal limits. No fixed or reversible perfusion defect is identified. 2. Normal left ventricular wall motion and ejection fraction. RISK CATEGORY: Low (<1%% Annual Mortality Rate) Fred Mcintosh MD Elbow X-Ray 11/11/16 0000 Signed Impressions: Service Date/Time: Friday, November 11, 2016 10:56 - CONCLUSION: No acute abnormality is identified. Fred Mcintosh MD Abdomen/Pelvis CT 11/09/16 0627 Signed Impressions: Service Date/Time: Wednesday, November 09, 2016 08:24 - CONCLUSION: 1. Colonic diverticulosis without definitive evidence for diverticulitis. 2. No acute abnormality or significant change from July CT exam. Pedro Rangel MD Objective Remarks General: NAD, AAOx3 Chest: CTA Cardiac: Regular Abd: +BS, soft ND/NT EXT: LUE edema and tenderness from elbow to hand improving, NO erythema. A/P Problem List: (1) Elbow pain, left Status: Acute Plan: - acute, ?thrombophlebitis from previous IV site in left antecubital fossa. - elbow x-ray series (11/11/16) --> NO acute findings - UE US --> NO DVT - OT - Application of K-thermia and elevating the arm has helped the symptoms (2) Diarrhea Status: Acute Plan: - improved - Pt is tolerating PO intake - C. Dif PCR is negative - stool studies negative - Celiac panel negative - PO Flagyl - Pt will need outpt workup with GI for possible EGD/colonoscopy (3) Severe sepsis Status: Acute Plan: - WBC improving to 11k (11/15/16) - afebrile, BP readings stable - Pt denies fever, chills, cough, dysuria, or diarrhea - CXR (11/13) --> negative. - UA/Cx (11/13) --> Klebsiella pneumonia - Pt was started on Rocephin on 11/14, will change to oral Cipro - continue to closely observe (4) Atrial fibrillation Status: Chronic Plan: - now NSR - observe on telemetry (5) Dehydration Status: Resolved Plan: - resolved (6) Chest pain Status: Acute Plan: - comgmt with Cardiology - serial cardiac enzymes negative - serial EKGs showed NO acute ischemic changes - echocardiogram --> pending - Lexiscan (11/11/16) --> NO fixed or reversible perfusion defects (7) Altered mental status Status: Acute Plan: - resolved to baseline (8) Hypothyroidism Status: Chronic Plan: - continue synthroid (9) HTN (hypertension), benign Status: Chronic Plan: - lisinopril - observe (10) Diabetes mellitus type 2, noninsulin dependent Status: Chronic Plan: - stable - SSI (11) Polycythemia Status: Acute Plan: - Pt follows with Hematology (12) Diverticulosis Status: Chronic (13) Inflammatory bowel disease Status: Chronic Plan: - Sulfasalazine (14) Warfarin anticoagulation Status: Chronic Plan: - off coumadin (15) Peripheral neuropathy Status: Acute Plan: - Pt was started on Gabapentin 100mg BID on 11/11, titrate gradually if pt able to tolerate Assessment and Plan Patient examined. Assessment and plan formulated with Marlene Nuñez PA-C. I agree with the above. lue swelling better. cont heating pad and elevation. uti. cont abx if stable and improving then d/c tomorrow. if not the image lue. Problem Qualifiers (1) Diarrhea: Qualified Code: A09 - Diarrhea of presumed infectious origin (2) Atrial fibrillation: Qualified Code: I48.2 - Chronic atrial fibrillation (3) Chest pain: Qualified Code: R07.9 - Chest pain, unspecified type (4) Altered mental status: Qualified Code: R41.82 - Altered mental status, unspecified altered mental status type (5) Hypothyroidism: Qualified Code: E03.9 - Hypothyroidism, unspecified type (6) Diverticulosis: Qualified Code: K57.90 - Diverticulosis of intestine without bleeding, unspecified intestinal tract location (7) Peripheral neuropathy: Qualified Code: G62.9 - Peripheral polyneuropathy Marlene Nuñez Nov 15, 2016 12:10 Oscar Langford MD Nov 15, 2016 15:18
[2016-11-15] MEDS: CIPROFLOXACIN 500 MG TAB PO SCH ×2 (13:20→22:43)
[2016-11-15] MEDS ORDERED: WARFARIN SOD 5 MG TAB PO SCH (16:00)
[2016-11-15] MEDS: ACETAMINOPHEN/HYDROcodone 325 MG/7.5 MG TAB PO PRN (22:44)
[2016-11-15] MEDS: INSULIN DETEMIR 100 UNITS/ML VIAL SQ SCH (22:48)
[2016-11-16] VITALS: BP 128/82; PULSE 101; RESP 19; TEMP 98.6; O2SAT 94
[2016-11-16] MEDS: ACETAMINOPHEN/HYDROcodone 325 MG/7.5 MG TAB PO PRN ×3 (03:46→15:25)
[2016-11-16 04:00] VITALS: BP 126/74; PULSE 104; RESP 18; TEMP 97.4; O2SAT 94
[2016-11-16] MEDS: CHLORHEXIDINE GLUCONATE 2 % 1 PACK (2 CLOTHS) TOP SCH (04:00)
[2016-11-16] MEDS: metroNIDAZOLE 500 MG TAB PO SCH ×2 (05:08→14:34)
[2016-11-16] MEDS: LEVOTHYROXINE SODIUM 100 MCG TAB PO SCH (05:08)
[2016-11-16] MEDS: INSULIN NovoLIN REGULAR SUPPLEMENTAL SCALE SQ SCH ×2 (07:00→11:00)
[2016-11-16 07:15] LABS: AUTOMATED NEUTROPHIL # 7.3 TH/MM3 (1.8-7.7); BASOPHIL # 0.1 TH/MM3 (0-0.2); BASOPHIL % 0.7 % (0.0-2.0); EOSINOPHIL # 0.2 TH/MM3 (0-0.4); EOSINOPHIL % 2.1 % (0.0-4.0); HEMATOCRIT 35.7 % (35.0-46.0); HEMO FLAGS DIFF FINAL; LYMPH % 25.3 % (9.0-44.0); LYMPHOCYTE # 2.9 TH/MM3 (1.0-4.8); MEAN CELL VOLUME 82.7 FL (80.0-100.0); MEAN CORPUSCULAR HEMOGLOBIN 26.9 PG (27.0-34.0); MEAN CORPUSCULAR HGB CONC 32.5 % (32.0-36.0); MONO % 8.8 % (0.0-8.0); NEUT % 63.1 % (16.0-70.0); PLATELET COUNT 362 TH/MM3 (150-450); RED BLOOD COUNT 4.31 MIL/MM3 (4.00-5.30); WHITE BLOOD COUNT 11.6 TH/MM3 (4.0-11.0)
[2016-11-16 07:26] LABS: INTERNATIONAL NORMALIZED RATIO 1.2 RATIO; PROTHROMBIN TIME - PATIENT 13.6 SEC (9.8-11.6)
[2016-11-16 08:00] VITALS: BP 119/71; PULSE 104; RESP 18; TEMP 97; O2SAT 92
[2016-11-16 08:20] VITALS: PULSE 95
[2016-11-16] MEDS: ARTIFICIAL TEARS OPTH SOLN 15 ML BTL EACH EYE SCH ×2 (08:42→12:39)
[2016-11-16] MEDS: VENLAFAXINE HCL XR 75 MG CAP PO SCH (08:43)
[2016-11-16] MEDS: SODIUM CHLORIDE 0.9% FLUSH 10 ML FLUSH IV FLUSH SCH (08:43)
[2016-11-16] MEDS: CIPROFLOXACIN 500 MG TAB PO SCH (08:43)
[2016-11-16] MEDS: SODIUM BICARBONATE 650 MG TAB PO SCH (08:43)
[2016-11-16] MEDS: GABAPENTIN 100 MG CAP PO SCH (08:44)
[2016-11-16] MEDS: sulfaSALAzine 500 MG TAB PO SCH (08:44)
[2016-11-16] MEDS: metFORMIN HCL 500 MG TAB PO SCH (08:44)
[2016-11-16] MEDS: LISINOPRIL 10 MG TAB PO SCH (08:44)
[2016-11-16] MEDS: PANTOPRAZOLE SODIUM 40 MG VIAL IV SCH (08:44)
[2016-11-16 09:52] VITALS: O2SAT 95
[2016-11-16] MEDS: HEPARIN SODIUM - SQ 10,000 UNITS/ML VIAL SQ SCH (10:04)
[2016-11-16] MEDS ORDERED: LISI-515 PO (10:42)
[2016-11-16] MEDS ORDERED: CIPR-9 PO (10:42)
--- NOTE | 2016-11-16 10:46 | HHI.FF ---
Face to Face Verification Diagnosis: (1) Atrial fibrillation with RVR (2) Acute worsening of stage 3 chronic kidney disease (3) Diabetes mellitus type 2, noninsulin dependent (4) HTN (hypertension), benign (5) Thrombocytosis (6) Sepsis (7) Dehydration (8) Inflammatory bowel disease (9) UTI (urinary tract infection) (10) Elbow pain, left Physical Therapy Order: Evaluate and Treat, Improve ambulation, Strength and gait training Home Health Nursing Order: Medical education Nursing assessment with vital signs I have seen patient Renay Bueno on 11/16/16. My clinical findings support the need for the requested home health care services because: Deconditioned w/ increased weakness I certify that my clinical findings support that this patient is homebound because: Unsteady gait/balance Marlene Nuñez Nov 16, 2016 10:46
--- NOTE | 2016-11-16 10:46 | HHI.DCPOC ---
Discharge Care Plan Diagnosis: (1) Elbow pain, left (2) UTI (urinary tract infection) (3) Inflammatory bowel disease (4) Atrial fibrillation (5) Dehydration (6) Sepsis (7) Acute worsening of stage 3 chronic kidney disease (8) Diabetes mellitus type 2, noninsulin dependent (9) HTN (hypertension), benign Goals to Promote Your Health - Continue with heat application to the left arm, 20 minutes on/20 minutes off - Elevate left upper extremity - Followup with her PCP, Dr. Urban Carrera, in 1 week, call for an appt - Followup with GI is scheduled on 11/28/16 @ 2:30PM with Dr. Linares at the Office - Patient will need to followup with Dr. Rodriguez in 2 weeks, call for appt. Directions to Meet Your Goals Take your medications as prescribed Follow your dietary instruction Follow activity as directed Keep your appointments as scheduled Take your immunizations and boosters as scheduled If your symptoms worsen call your PCP, if no PCP go to Urgent Care Center or Emergency Room Smoking is Dangerous to Your Health. Avoid second hand smoke Call the 24-hour hour crisis hotline for domestic abuse at Marlene Nuñez Nov 16, 2016 10:46
--- NOTE | 2016-11-16 11:07 | HHI.DS ---
Discharge Summary Admission Date Nov 09, 2016 at 08:51 Discharge Date: Nov 16, 2016 Admitting Diagnosis sepsis, possible C. difficile colitis, sepsis (1) Elbow pain, left Diagnosis: Secondary (2) Diarrhea Diagnosis: Secondary (3) Severe sepsis Diagnosis: Principal (4) Atrial fibrillation Diagnosis: Secondary (5) Dehydration Diagnosis: Secondary (6) Chest pain Diagnosis: Secondary (7) Altered mental status Diagnosis: Secondary (8) Hypothyroidism Diagnosis: Secondary (9) HTN (hypertension), benign Diagnosis: Secondary (10) Diabetes mellitus type 2, noninsulin dependent Diagnosis: Secondary (11) Polycythemia Diagnosis: Secondary (12) Diverticulosis Diagnosis: Secondary (13) Inflammatory bowel disease Diagnosis: Secondary (14) Warfarin anticoagulation Diagnosis: Secondary (15) Peripheral neuropathy Diagnosis: Secondary Consultants Dr. Jenna Franco - GI Dr. Srinivas Rodriguez - Cardiology Brief History Pt is a 66-year-old female with depression/anxiety, atherosclerotic vascular disease, hepatic steatosis, hypertension, dyslipidemia, gastroesophageal reflux disease, gastroparesis, chronic inflammatory colitis/IBD , diabetes mellitus, hypothyroidism, thrombocytosis, osteoarthritis. She presented to the ED on 11/09/2016 with chest pain around 4:3-AM on the day of admission and was found by her laying on the ground complaining of substernal chest pain without radiation that lasted roughly 20 minutes. This was followed by copious amounts of brown liquid stool. She is noted be somewhat confused, complaining of nausea and vomiting and tachycardia. EMS was called and the pt was transported to [facility]. CBC/BMP: 11/16/16 0647 11/14/16 0620 Significant Findings Laboratory Tests Test 11/13/16 11/14/16 11/15/16 11/16/16 20:10 06:20 07:15 06:47 Urine Turbidity HAZY (CLEAR) Urine Protein 30 mg/dL (NEG-TRACE) Urine Occult Blood MOD (NEG) Urine Leukocyte Esterase LARGE (NEG) Urine RBC 24 /hpf (0-3) Urine Bacteria MANY /hpf (NONE) White Blood Count 15.2 TH/MM3 11.9 TH/MM3 11.6 TH/MM3 (4.0-11.0) (4.0-11.0) (4.0-11.0) Hemoglobin 11.3 GM/DL 11.3 GM/DL (11.6-15.3) (11.6-15.3) Neutrophils (%) (Auto) 74.1 % (16.0-70.0) Monocytes (%) (Auto) 9.9 % (0.0-8.0) 9.6 % (0.0-8.0) 8.8 % (0.0-8.0) Neutrophils # (Auto) 11.2 TH/MM3 8.2 TH/MM3 (1.8-7.7) (1.8-7.7) Monocytes # (Auto) 1.5 TH/MM3 1.1 TH/MM3 1.0 TH/MM3 (0-0.9) (0-0.9) (0-0.9) Sodium Level 134 MEQ/L (136-145) Chloride Level 96 MEQ/L (98-107) Estimat Glomerular Filtration 61 ML/MIN (>89) Rate Random Glucose 219 MG/DL (74-106) Mean Corpuscular Hemoglobin 26.6 PG 26.9 PG (27.0-34.0) (27.0-34.0) Mean Corpuscular Hemoglobin 31.9 % Concent (32.0-36.0) Prothrombin Time 13.6 SEC (9.8-11.6) Imaging Last Impressions Chest X-Ray 11/13/16 0000 Signed Impressions: Service Date/Time: Sunday, November 13, 2016 19:53 - CONCLUSION: No acute disease. Noe Kohler MD Upper Extremity Ultrasound 11/12/16 0000 Signed Impressions: Service Date/Time: Saturday, November 12, 2016 19:49 - CONCLUSION: No DVT left arm. Noe Kohler MD Myocardial Perfusion Scan Nuc Med 11/11/16 0600 Signed Impressions: Service Date/Time: Friday, November 11, 2016 09:17 - CONCLUSION: 1. Left ventricle perfusion is within normal limits. No fixed or reversible perfusion defect is identified. 2. Normal left ventricular wall motion and ejection fraction. RISK CATEGORY: Low (<1%% Annual Mortality Rate) Fred Mcintosh MD Elbow X-Ray 11/11/16 0000 Signed Impressions: Service Date/Time: Friday, November 11, 2016 10:56 - CONCLUSION: No acute abnormality is identified. Fred Mcintosh MD Abdomen/Pelvis CT 11/09/16 0627 Signed Impressions: Service Date/Time: Wednesday, November 09, 2016 08:24 - CONCLUSION: 1. Colonic diverticulosis without definitive evidence for diverticulitis. 2. No acute abnormality or significant change from July CT exam. Pedro Rangel MD PE at Discharge General: NAD, AAOx3 Chest: CTA Cardiac: Regular Abd: +BS, soft ND/NT EXT: LUE edema and tenderness from elbow to hand improving, NO erythema. Hospital Course Upon arrival to the ED she was found to be in A. fib with RVR. Her labs revealed a leukocytosis of 31,000, JULIO CESAR with creatinine 1.5 and Lactic acidosis. Patient received crystalloid resuscitation and her heart rate was much improved. She was admitted to the ICU under the care of the intensivists. CT the abdomen/pelvis revealed diverticulosis without diverticulitis, otherwise no acute findings. GI and Cardiology were consulted at admission. Pt denied fever, chills, cough, dysuria, or diarrhea. Stool for C. difficile, ova and parasites, and culture were all negative. Pt was started on Flagyl and continued on her Sulfasalazine which she takes at home. Celiac panel negative. Pts GI symptoms improved. She will need outpt workup with GI for possible EGD/colonoscopy. CXR (11/13) --> negative. UA/Cx (11/13) --> Klebsiella pneumonia. Pt was started on Rocephin on 11/14, was changed to oral Cipro 500mg BID on 11/15. She will complete 3 more days of Cipro upon discharge. Pt complained of left elbow pain and swelling of the left forearm and hand, felt to possibly be secondary to thrombophlebitis from previous IV site in left antecubital fossa. Elbow x-ray series (11/11/16) --> NO acute findings. UE US --> NO DVT. Pt received OT and application of K-thermia and elevating the arm has helped the symptoms. With regards to her complaints of chest pain prior to admission serial cardiac enzymes were negative, serial EKGs showed NO acute ischemic changes. 2D echocardiogram with EF 60-65%, normal diastolic function, LA mildly dilated, trace tricuspid regurg, normal estimated PA pressure. Lexiscan (11/11/16) --> NO fixed or reversible perfusion defects. Pt with a hx of A. fib and was in RVR at admission but this converted to NSR with IVF resuscitation. Pt takes Coumadin at home and this was held in case any procedures were to be done. Pt was on Heparin SQ during admission. No GI procedures or cardiac procedures performed so home dose of Coumadin was resumed on 11/14/16. INR subtherapeutic at the time of discharge at 1.2. Her Lisinopril dose was decreased to 10mg po daily during this admission and BP remained stable. This medication will be dose adjusted to 10mg po daily at discharge. Pt had complained of tingling/pressure sensation in the bottoms of both feet during admission felt to likely be related to peripheral neuropathy. She was started on Gabapentin 100mg BID on 11/11, she did not feel that this helped at all and did not wish to continue this upon discharge. Pt will need to followup with her PCP, Dr. Urban Carrera, in 1 week She will need to followup with GI on 11/28/16 @ 2:30PM with Dr. Linares at the PO Office She will need to followup with Dr. Rodriguez in 2 weeks. Pt Condition on Discharge: Stable Discharge Disposition: Disch w/ Home Health Serv Discharge Instructions DIET: Follow Instructions for: Heart Healthy Diet, Diabetic Diet Activities you can perform: Regular-No Restrictions Follow up Referrals: Cardiology - [address] Srinivas Rodriguez Gastroenterology - 11/28/16 with Jenna Franco MD PCP Follow-up - [address] Urban Carrera New Medications: Ciprofloxacin (Cipro) 500 Mg Tab 500 MG PO Q12HR UTI #5 TAB Changed Medications: Lisinopril (Lisinopril) 20 Mg Tab 10 MG PO DAILY #30 Ref 0 TAB (Changed from: 40 MG) Continued Medications: Calcium Carbonate-Cholecalciferol (Calcium 600 with Vitamin D) 600-400 mg-Unit Tab 1 TAB PO DAILY Calcium Supplement Ref 0 TAB Calcium Polycarbophil (Fibercon) 625 Mg Tab 625 MG PO DAILY Constipation Ref 0 TAB Cholecalciferol (D 5000) 5,000 Unit Cap 1 CAP PO DAILY Nutritional Supplement Empagliflozin (Jardiance) 25 Mg Tab 25 MG PO DAILY Blood Sugar Management #30 Ref 0 TAB Fesoterodine ER (Toviaz ER) 4 mg Demetrio 4 MG PO DAILY Overactive bladder #30 Ref 0 TAB Glimepiride (Glimepiride) 4 Mg Tab 4 MG PO BID Take with breakfast or first main meal Blood Sugar Management #30 Ref 0 TAB Levothyroxine (Levothyroxine) 100 Mcg Tab 100 MCG PO DAILY Thyroid #30 Ref 0 TAB Magnesium Oxide (Magnesium Oxide) 400 Mg Tab 800 MG PO DAILY Nutritional Supplement Ref 0 TAB Metformin (Metformin) 500 Mg Tab 500 MG PO BIDPC With meals Blood Sugar Management #60 Ref 0 TAB Omeprazole (Omeprazole) 20 Mg Cap 20 MG PO BID Pravastatin (Pravastatin) 20 Mg Tab 20 MG PO HS Cholesterol Management #30 Ref 0 TAB Sodium Bicarbonate (Sodium Bicarbonate) 325 Mg Tab 650 MG PO DAILY #60 Ref 0 TAB Sulfasalazine (Sulfasalazine) 500 Mg Tab 1000 MG PO BID #240 Ref 0 TAB Venlafaxine ER 24 HR (Venlafaxine ER 24 HR) 150 Mg Cap 150 MG PO DAILY #30 Ref 0 CAP Warfarin (Coumadin) 5 Mg Tab 2.5 MG PO SUMOWETHFR Take 1/2 tablet (2.5mg) on daily on Monday,Monday, Monday and Monday Blood Clot Prevention #30 Ref 0 TAB Warfarin (Coumadin) 5 Mg Tab 5 MG PO Take 1 tablet (5mg) daily on Monday, and Monday Blood Clot Prevention #30 Ref 0 TAB Discontinued Medications: Isosorbide Mononitrate ER (Isosorbide Mononitrate ER) 30 Mg Demetrio 30 MG PO DAILY Prevent Chest Pain #30 Ref 0 TAB Ofloxacin Opth Drops (Ofloxacin Opth Drops) 0.3 % Drops 1 DROP LEFT EYE Q6HR conjunctivitis Days 7 BOTTLE Marlene Nuñez Nov 16, 2016 11:07 Oscar Langford MD Nov 16, 2016 22:11
[2016-11-16 12:00] VITALS: BP 109/67; PULSE 97; RESP 17; TEMP 96.8; O2SAT 94
[2016-11-16] MEDS ORDERED: HYDR-3580 PO (13:45)
== END 2016-11-16 15:35 | disposition home or self-care (01) | DRG 872 ==
LOC: NEPE 06:20 → NEDA 08:51 → HIMW 14:05 → N07A 11-11 17:59
PROVIDERS: ADMIT Internal Medicine Critical Care Medicine; ATTEND Internal Medicine Critical Care Medicine
PROC: 0T9B70Z Drainage of Bladder with Drainage Device, Via Natural or Artificial Opening (ICD-10-PCS; principal; 2016-11-09)
DX: A41.9 Sepsis, unspecified organism (principal); N17.9 Acute kidney failure, unspecified; E87.2 Acidosis; E11.22 Type 2 diabetes mellitus with diabetic chronic kidney disease; I80.8 Phlebitis and thrombophlebitis of other sites; E11.43 Type 2 diabetes mellitus with diabetic autonomic (poly)neuropathy; D75.1 Secondary polycythemia; I48.2 Chronic atrial fibrillation; G62.9 Polyneuropathy, unspecified; I12.9 Hypertensive chronic kidney disease with stage 1 through stage 4 chronic kidney disease, or unspecified chronic kidney disease; E87.1 Hypo-osmolality and hyponatremia; A09 Infectious gastroenteritis and colitis, unspecified; N39.0 Urinary tract infection, site not specified; K31.84 Gastroparesis; E86.0 Dehydration; F32.9 Major depressive disorder, single episode, unspecified; R15.9 Full incontinence of feces; G43.909 Migraine, unspecified, not intractable, without status migrainosus; N18.3 Chronic kidney disease, stage 3 (moderate); R00.0 Tachycardia, unspecified; M19.90 Unspecified osteoarthritis, unspecified site; F41.9 Anxiety disorder, unspecified; E78.00 Pure hypercholesterolemia, unspecified; K21.9 Gastro-esophageal reflux disease without esophagitis; K44.9 Diaphragmatic hernia without obstruction or gangrene; E78.5 Hyperlipidemia, unspecified; E03.9 Hypothyroidism, unspecified; D75.89 Other specified diseases of blood and blood-forming organs; K57.30 Diverticulosis of large intestine without perforation or abscess without bleeding; N32.81 Overactive bladder; E55.9 Vitamin D deficiency, unspecified; M81.0 Age-related osteoporosis without current pathological fracture; A41.51 Sepsis due to Escherichia coli [E. coli]; R65.20 Severe sepsis without septic shock; K64.8 Other hemorrhoids; I70.0 Atherosclerosis of aorta; Z86.010 Personal history of colon polyps; M51.36 Other intervertebral disc degeneration, lumbar region; Z79.01 Long term (current) use of anticoagulants; Z96.653 Presence of artificial knee joint, bilateral; M25.522 Pain in left elbow; K76.0 Fatty (change of) liver, not elsewhere classified
CPT/HCPCS: 51702; 71010; 73070; 74177; 76937; 78452; 80048; 80053; 81001; 82784; 82948; 83516; 83605; 83690; 83735; 84100; 84484; 85007; 85025; 85027; 85610; 85652; 85730; 86038; 87040; 87077; 87086; 87186; 87328; 87329; 87493; 87506; 87641; 93005; 93017; 93306; 93971; 94150; 96374; A9502; C9113; J0360; J0696; J1170; J1644; J1940; J2270; J2405; J2785; J3475; J7030; Q9967

== ENCOUNTER 2016-12-10 12:41 | Emergency (ER) | payer MEDICARE ==
[~2016-12-10] VITALS: Ht 162.6 cm; Wt 72.4 kg
[~2016-12-10 12:41] MED LIST changes: -CALC1TAB30 PO; +CALC1TAB87 PO; -CART180C PO; -CHOL50008 PO; +CIPR-9 PO; -CYAN50002 SL; +D 50CAP PO; +HYDR-3580 PO; -ISOS30TA3 PO; -LANO0.1212 PO; -OFLO0.3D5 LEFT EYE
[2016-12-10 12:53] VITALS: BP 154/87; PULSE 90; RESP 18; TEMP 97.5; O2SAT 97
[2016-12-10] MEDS ORDERED: ROSU1TAB8 PO (13:40)
[2016-12-10] MEDS ORDERED: BETH50TA2 PO (13:41)
--- NOTE | 2016-12-10 14:20 | PD ---
HPI Chief Complaint: General Weakness Time Seen by Provider: 14:16 Travel History International Travel<30 days: No Contact w/Intl Traveler<30days: No Traveled to known affect area: No History of Present Illness HPI Patient presents with general weakness. Reports a recent history of urosepsis which she was admitted for. Went to urgent care center today who directed her here to rule out recurrent sepsis. Denies fever. Denies nausea or vomiting. Reports some difficulty with constipation which she is controlled with Maalox. Denies any chest pain or shortness of breath. Denies cough. PFSH Past Medical History Hx Anticoagulant Therapy: Yes Arthritis: Yes Atrial Fibrillation: Yes Blood Disorders: No Anxiety: Yes Depression: Yes Heart Rhythm Problems: Yes (MURMUR) Cancer: No Cardiovascular Problems: Yes (AFIB) High Cholesterol: Yes Chest Pain: Yes Congestive Heart Failure: No COPD: No Cerebrovascular Accident: Yes (A Fib) Diabetes: Yes Patient Takes Glucophage: No Diminished Hearing: No Endocrine: Yes Gastrointestinal Disorders: Yes (COLITIS,GERD, HIATAL HERNIA, PROBLEMS WITH N/V , DIARRHEA) GERD: Yes Genitourinary: No Hepatitis: No Hiatal Hernia: Yes Hypertension: Yes Immune Disorder: No Implanted Vascular Access Dvce: Yes Musculoskeletal: Yes Neurologic: Yes Psychiatric: No Reproductive: No Respiratory: Yes Migraines: Yes Pneumonia: Yes Seizures: Yes ("PAIN SEIZURES WHEN I HAD SHINGLES ON MY RIGHT EYE") Shingles: Yes Thyroid Disease: Yes Tetanus Vaccination: < 5 Years ?: Not Menopausal: Yes Past Surgical History Abdominal Surgery: No AICD: No Appendectomy: Yes Body Medical Devices: BLADDER SLING REPLACED 5 TIMES Cardiac Surgery: No Cholecystectomy: Yes Ear Surgery: No Endocrine Surgery: No Eye Surgery: No Genitourinary Surgery: Yes Gynecologic Surgery: Yes Hysterectomy: Yes (PARTIAL) Joint Replacement: Yes (FROILAN. KNEE) Oral Surgery: Yes (JAW REPLACEMENT) Pacemaker: No Thoracic Surgery: No Other Surgery: Yes Social History Alcohol Use: Yes (ON OCCASION) Tobacco Use: No Substance Use: No Allergies-Medications (Allergen,Severity, Reaction): Coded Allergies: No Known Allergies (Verified , 07/24/16) Reported Meds & Prescriptions Reported Meds & Active Scripts Active Lisinopril 20 Mg Tab 10 Mg PO DAILY Coumadin (Warfarin) 5 Mg Tab 5 Mg PO TUSA Take 1 tablet (5mg) daily on Monday, and Monday Metformin (Metformin HCl) 500 Mg Tab 500 Mg PO BIDPC With meals Reported Bethanechol 50 Mg Tab 50 Mg PO Q8HR Rosuvastatin (Rosuvastatin Calcium) 20 Mg Tab 20 Mg PO DAILY D 5000 (Cholecalciferol) 5,000 Unit Cap 1 Cap PO DAILY Calcium 600 with Vitamin D (Calcium Carbonate-Cholecalciferol) 600-400 mg-Unit Tab 1 Tab PO DAILY Jardiance (Empagliflozin) 25 Mg Tab 25 Mg PO DAILY Fibercon (Calcium Polycarbophil) 625 Mg Tab 625 Mg PO DAILY Omeprazole 20 Mg Cap 20 Mg PO BID Levothyroxine (Levothyroxine Sodium) 100 Mcg Tab 100 Mcg PO DAILY Glimepiride 4 Mg Tab 4 Mg PO BID Take with breakfast or first main meal Magnesium Oxide 400 Mg Tab 800 Mg PO DAILY Coumadin (Warfarin) 5 Mg Tab 2.5 Mg PO SUMOWETHFR Take 1/2 tablet (2.5mg) on daily on Monday,Monday,Monday and Monday Venlafaxine ER 24 HR (Venlafaxine HCl) 150 Mg Cap 150 Mg PO DAILY Sulfasalazine 500 Mg Tab 1,000 Mg PO BID Sodium Bicarbonate 325 Mg Tab 650 Mg PO DAILY Review of Systems General / Constitutional: No: Fever Eyes: No: Visual changes HENT: No: Headaches Cardiovascular: No: Chest Pain or Discomfort Respiratory: No: Shortness of Breath Gastrointestinal: No: Abdominal Pain Genitourinary: No: Dysuria Musculoskeletal: No: Pain Skin: No Rash Neurologic: No: Weakness Psychiatric: No: Depression Endocrine: No: Polydipsia Hematologic/Lymphatic: No: Easy Bruising Physical Exam Narrative GENERAL: Well-nourished, well-developed patient. SKIN: Focused skin assessment warm/dry. HEAD: Normocephalic. EYES: No scleral icterus. No injection or drainage. NECK: Supple, trachea midline. No JVD or lymphadenopathy. CARDIOVASCULAR: Regular rate and rhythm without murmurs, gallops, or rubs. RESPIRATORY: Breath sounds equal bilaterally. No accessory muscle use. GASTROINTESTINAL: Abdomen soft, non-tender, nondistended. MUSCULOSKELETAL: No cyanosis, or edema. BACK: Nontender without obvious deformity. No CVA tenderness. Data Data Last Documented VS Vital Signs Date Time Temp Pulse Resp B/P Pulse Ox O2 Delivery O2 Flow Rate FiO2 8/19/17 12:53 97.5 90 18 154/87 97 Orders Complete Blood Count With Diff (12/10/16 14:16) Urinalysis - C+S If Indicated (12/10/16 14:16) Ceftriaxone Inj (Rocephin Inj) (12/10/16 15:15) Lidocaine 1% Inj (50 Ml) (Xylocaine 1% I (12/10/16 15:15) Labs Laboratory Tests Test 12/10/16 12/10/16 14:29 14:45 Urine Collection Type CLEAN CATCH Urine Color YELLOW Urine Turbidity CLEAR Urine pH 5.5 Urine Specific [place] 1.032 Urine Protein NEG mg/dL Urine Glucose (UA) 1000 OR GREATER mg/dL Urine Ketones TRACE mg/dL Urine Occult Blood MOD Urine Nitrite NEG Urine Bilirubin NEG Urine Leukocyte Esterase NEG Urine RBC 20-24 /hpf Urine WBC 3-5 /hpf Urine Squamous Epithelial 6-8 /hpf Cells Urine Bacteria OCC /hpf Microscopic Urinalysis Comment CULT NOT INDICATED Urine Collection Time 14:29 White Blood Count 17.4 TH/MM3 Red Blood Count 5.02 MIL/MM3 Hemoglobin 13.1 GM/DL Hematocrit 41.0 % Mean Corpuscular Volume 81.7 FL Mean Corpuscular Hemoglobin 26.1 PG Mean Corpuscular Hemoglobin 32.0 % Concent Red Cell Distribution Width 16.0 % Platelet Count 405 TH/MM3 Mean Platelet Volume 7.6 FL Neutrophils (%) (Auto) 72.8 % Lymphocytes (%) (Auto) 16.6 % Monocytes (%) (Auto) 8.2 % Eosinophils (%) (Auto) 1.2 % Basophils (%) (Auto) 1.2 % Neutrophils # (Auto) 12.7 TH/MM3 Lymphocytes # (Auto) 2.9 TH/MM3 Monocytes # (Auto) 1.4 TH/MM3 Eosinophils # (Auto) 0.2 TH/MM3 Basophils # (Auto) 0.2 TH/MM3 CBC Comment DIFF FINAL Differential Comment MDM Medical Decision Making Medical Screen Exam Complete: Yes Emergency Medical Condition: Yes Differential Diagnosis UTI, urosepsis, constipation, generalized weakness Narrative Course Assessment and plan discussed with patient and friend at bedside. Diagnosis Primary Impression: Leukocytosis Qualified Code: D72.829 - Leukocytosis, unspecified type Additional Instructions: Encouraged rest fluids and Motrin, encouraged citrus to acidify the urine. Follow-up with PCP to assess elevated white count. Encouraged to return to emergency room with any onset of new symptoms. Med/Other Pt SpecificInfo: Prescription(s) given Scripts Levofloxacin (Levaquin)500 Mg Fozinx040 Mg PO DAILY #7 TAB Prov:Jesse Garza MD 12/10/16 Disposition: 01 DISCHARGE HOME Condition: Good Jesse Garza MD Dec 10, 2016 14:20
[2016-12-10 14:35] LABS: KETONE, URINE TRACE mg/dL (NEG); NITRITE,URINE NEG (NEG); PH, URINE 5.5 (5.0-8.5)
[2016-12-10 14:41] LABS: BLOOD, URINE MOD (NEG); GLUCOSE,URINE 1000 OR GREATER mg/dL (NEG)
[2016-12-10 14:43] LABS: BACTERIA, URINE OCC /hpf; METHOD OF COLLECTION CLEAN CATCH; URINE COLOR YELLOW (YELLW/STRAW)
[2016-12-10 14:44] LABS: COMMENT (UR) CULT NOT INDICATED; CULTURE IF INDICATED CULT NOT INDICATED
[2016-12-10 14:58] LABS: AUTOMATED NEUTROPHIL # 12.7 TH/MM3 (1.8-7.7); BASOPHIL # 0.2 TH/MM3 (0-0.2); BASOPHIL % 1.2 % (0.0-2.0); EOSINOPHIL # 0.2 TH/MM3 (0-0.4); EOSINOPHIL % 1.2 % (0.0-4.0); LYMPH % 16.6 % (9.0-44.0); LYMPHOCYTE # 2.9 TH/MM3 (1.0-4.8); MEAN CELL VOLUME 81.7 FL (80.0-100.0); MEAN CORPUSCULAR HEMOGLOBIN 26.1 PG (27.0-34.0); MONO % 8.2 % (0.0-8.0); NEUT % 72.8 % (16.0-70.0); PLATELET COUNT 405 TH/MM3 (150-450); RED BLOOD COUNT 5.02 MIL/MM3 (4.00-5.30); WHITE BLOOD COUNT 17.4 TH/MM3 (4.0-11.0)
[2016-12-10 15:00] LABS: HEMO FLAGS DIFF FINAL
[2016-12-10] MEDS ORDERED: LIDOCAINE HCL 1% 50 ML VIAL XX ONE (15:15)
[2016-12-10] MEDS ORDERED: LEVA500T20 PO (15:23)
[2016-12-10 15:39] VITALS: BP 164/84; PULSE 90; O2SAT 94
== END 2016-12-10 16:21 | disposition home or self-care (01) ==
LOC: PHED 12:41
DX: D72.829 Elevated white blood cell count, unspecified (principal)
CPT/HCPCS: 81001; 85025; 96372; 99284; J0696

== ENCOUNTER 2016-12-18 07:12 | Inpatient (IN) | payer MEDICARE ==
[2016-12-18] VITALS (15 sets, daily range): BP systolic 134–170; BP diastolic 65–87; PULSE 96–120; RESP 18–24; TEMP 97.1–99.6; O2SAT 90–98
[~2016-12-18] VITALS: Ht 162.6 cm; Wt 86.3 kg
[~2016-12-18 07:12] MED LIST changes: +BETH50TA2 PO; -CIPR-9 PO; -HYDR-3580 PO; +LEVA500T20 PO; -PRAV20TA2 PO; +ROSU1TAB8 PO; -TOVI4TAB PO
[2016-12-18] MEDS ORDERED: METF500T PO (07:52)
[2016-12-18] MEDS ORDERED: GABA600T PO (07:52)
[2016-12-18] MEDS ORDERED: COUM5TAB PO (07:52)
--- NOTE | 2016-12-18 08:03 | RADRPT ---
EXAM DATE/TIME: 12/18/2016 07:55 [facility] COMPARISON: No previous studies available for comparison. INDICATIONS : Left wrist pain, denies injury MEDICAL HISTORY : Sepsis. SURGICAL HISTORY : None. ENCOUNTER: Initial ACUITY: 1 month PAIN SCORE: 10/10 LOCATION: Left Wrist FINDINGS: Three view examination of the left wrist demonstrates no soft tissue swelling, dislocation, or fractu re. The carpal bones are in normal alignment. The joint spaces are maintained. Bony mineralization is normal. CONCLUSION: Unremarkable examination of the left wrist. Lucia John MD on December 18, 2016 at 8:01 Board Certified Radiologist. This report was verified electronically.
--- NOTE | 2016-12-18 08:04 | RADRPT ---
EXAM DATE/TIME: 12/18/2016 07:54 [facility] COMPARISON: No previous studies available for comparison. INDICATIONS : Left distal forearm pain, denies injury MEDICAL HISTORY : Sepsis. SURGICAL HISTORY : None. ENCOUNTER: Initial ACUITY: 1 month PAIN SCORE: 10/10 LOCATION: Left Forearm FINDINGS: Two view examination of the left forearm demonstrates no evidence of fracture or dislocation. Bony m ineralization is normal. The soft tissue structures are intact. CONCLUSION: Unremarkable examination of the left forearm. Lucia John MD on December 18, 2016 at 8:02 Board Certified Radiologist. This report was verified electronically.
--- NOTE | 2016-12-18 08:27 | RADRPT ---
EXAM DATE/TIME: 12/18/2016 08:16 [facility] COMPARISON: CT BRAIN W/O CONTRAST, July 24, 2016, 16:44. INDICATIONS : Cephalgia for two days. RADIATION DOSE: 33.12 CTDIvol (mGy) MEDICAL HISTORY : Hypertension. Stroke Cardiovascular diseasediabetes SURGICAL HISTORY : Hysterectomy. jaw replacement ENCOUNTER: Initial ACUITY: 2 days PAIN SCALE: 8/10 LOCATION: Bilateral head TECHNIQUE: Multiple contiguous axial images were obtained of the head. Using automated exposure control and adj ustment of the mA and/or kV according to patient size, radiation dose was kept as low as reasonably a chievable to obtain optimal diagnostic quality images. DICOM format image data is available electro nically for review and comparison. FINDINGS: CEREBRUM: The ventricles are normal for age. No evidence of midline shift, mass lesion, hemorrhage or acute in farction. No extra-axial fluid collections are seen. POSTERIOR FOSSA: The cerebellum and brainstem are intact. The 4th ventricle is midline. The cerebellopontine angle i s unremarkable. EXTRACRANIAL: The visualized portion of the orbits is intact. SKULL: The calvaria is intact. No evidence of skull fracture. Partially imaged surgical plate and screws in volving the left mandible. CONCLUSION: No acute disease. Lucia John MD on December 18, 2016 at 8:24 Board Certified Radiologist. This report was verified electronically.
--- NOTE | 2016-12-18 08:47 | PD ---
HPI Chief Complaint: Headache Time Seen by Provider: 07:32 Travel History International Travel<30 days: No Contact w/Intl Traveler<30days: No Traveled to known affect area: No History of Present Illness HPI This is a 66-year-old female who presents to the emergency department with headache that's been going on for 2 days described as pain all over the back of her head and neck, constant, worse with moving her head, severe. She says that over the weekend she was told her INR was supratherapeutic and she's been holding her Coumadin for 3 days. She is on Coumadin for atrial fibrillation. She says she has a history of migraines but she's never had a headache like this before. She denies any fevers or chills and denies any vomiting. She has chronic pain due to diabetic neuropathy. She's also been increasingly weak and lethargic. PFSH Past Medical History Hx Anticoagulant Therapy: Yes (WARFARIN) Arthritis: Yes Atrial Fibrillation: Yes Blood Disorders: No Anxiety: Yes Depression: Yes Heart Rhythm Problems: Yes (MURMUR) Cancer: No Cardiovascular Problems: Yes (AFIB) High Cholesterol: Yes Chest Pain: Yes Congestive Heart Failure: No COPD: No Cerebrovascular Accident: Yes (A Fib) Diabetes: Yes Patient Takes Glucophage: Yes Diminished Hearing: No Endocrine: Yes Gastrointestinal Disorders: Yes (COLITIS,GERD, HIATAL HERNIA, PROBLEMS WITH N/V , DIARRHEA) GERD: Yes Genitourinary: No Hepatitis: No Hiatal Hernia: Yes Hypertension: Yes Immune Disorder: No Implanted Vascular Access Dvce: Yes Musculoskeletal: Yes Neurologic: Yes Psychiatric: No Reproductive: No Respiratory: Yes Migraines: Yes Pneumonia: Yes Seizures: Yes ("PAIN SEIZURES WHEN I HAD SHINGLES ON MY RIGHT EYE") Shingles: Yes Thyroid Disease: Yes ?: Not Menopausal: Yes Past Surgical History Abdominal Surgery: No AICD: No Appendectomy: Yes Body Medical Devices: BLADDER SLING REPLACED 5 TIMES Cardiac Surgery: No Cholecystectomy: Yes Ear Surgery: No Endocrine Surgery: No Eye Surgery: No Genitourinary Surgery: Yes Gynecologic Surgery: Yes Hysterectomy: Yes (PARTIAL) Joint Replacement: Yes (FROILAN. KNEE) Oral Surgery: Yes (JAW REPLACEMENT) Pacemaker: No Thoracic Surgery: No Other Surgery: Yes Social History Alcohol Use: Yes (ON OCCASION) Tobacco Use: No Substance Use: No Allergies-Medications (Allergen,Severity, Reaction): Coded Allergies: No Known Allergies (Verified , 12/18/16) Reported Meds & Prescriptions Reported Meds & Active Scripts Active Lisinopril 20 Mg Tab 10 Mg PO DAILY Reported Coumadin (Warfarin) 5 Mg Tab 5 Mg PO DAILY Gabapentin 600 Mg Tab 600 Mg PO TID Metformin (Metformin HCl) 500 Mg Tab 500 Mg PO HS With a meal Bethanechol 50 Mg Tab 50 Mg PO Q8HR Rosuvastatin (Rosuvastatin Calcium) 20 Mg Tab 20 Mg PO DAILY D 5000 (Cholecalciferol) 5,000 Unit Cap 1 Cap PO DAILY Calcium 600 with Vitamin D (Calcium Carbonate-Cholecalciferol) 600-400 mg-Unit Tab 300 Tab PO DAILY Jardiance (Empagliflozin) 25 Mg Tab 25 Mg PO DAILY Fibercon (Calcium Polycarbophil) 625 Mg Tab 625 Mg PO DAILY Omeprazole 20 Mg Cap 20 Mg PO BID Levothyroxine (Levothyroxine Sodium) 100 Mcg Tab 100 Mcg PO DAILY Glimepiride 4 Mg Tab 4 Mg PO BID Take with breakfast or first main meal Magnesium Oxide 400 Mg Tab 800 Mg PO DAILY Venlafaxine ER 24 HR (Venlafaxine HCl) 150 Mg Cap 150 Mg PO DAILY Sulfasalazine 500 Mg Tab 1,000 Mg PO BID Sodium Bicarbonate 325 Mg Tab 650 Mg PO DAILY Review of Systems Except as stated in HPI: all other systems reviewed are Neg Physical Exam Narrative GENERAL: Unwell-appearing, but awake and answering questions SKIN: Focused skin assessment warm and dry. HEAD: Atraumatic. Normocephalic. EYES: Pupils equal and round. No injection or drainage. ENT: Moist mucous membranes NECK: Trachea midline. Unable to move her neck slightly without severe pain CARDIOVASCULAR: Regular rate and rhythm. No murmur appreciated. RESPIRATORY: Clear to auscultation. Breath sounds equal bilaterally. GASTROINTESTINAL: Abdomen soft, non-tender, nondistended. MUSCULOSKELETAL: Some warmth and erythema around the distal left forearm and wrist with no joint effusion, exquisitely tender to touch NEUROLOGICAL: Awake and alert. No obvious cranial nerve deficits. Moving all extremities. PSYCHIATRIC: Appropriate mood and affect; insight and judgment normal. Data Data Last Documented VS Vital Signs Date Time Temp Pulse Resp B/P (MAP) Pulse Ox O2 Delivery O2 Flow Rate FiO2 12/18/16 10:09 97.8 12/18/16 10:00 18 12/18/16 09:57 100 94 Room Air Orders Orders Vascular Access Team Consult/P PRN (12/18/16 07:36) Vascular Poc Ultrasound (12/18/16 ) Ct Brain W/O Iv Contrast(Rout) (12/18/16 ) Complete Blood Count With Diff (12/18/16 07:41) Comprehensive Metabolic Panel (12/18/16 07:41) Prothrombin Time / Inr (Pt) (12/18/16 07:41) Act Partial Throm Time (Ptt) (12/18/16 07:41) Wrist, Complete ([id number]) (12/18/16 ) Forearm (2vws) (12/18/16 ) Blood Culture (12/18/16 09:22) Lactic Acid (12/18/16 09:22) Vancomycin Inj (Vancomycin Inj) (12/18/16 09:30) Ceftriaxone Inj (Rocephin Inj) (12/18/16 09:30) Ampicillin Inj (Ampicillin Inj) (12/18/16 09:30) Urinalysis - C+S If Indicated (12/18/16 09:29) Chest, Single Ap (12/18/16 ) Lactic Acid Sepsis Protocol (12/18/16 09:29) Morphine Inj (Morphine Inj) (12/18/16 09:45) Admit Order (Ed Use Only) (12/18/16 10:24) Labs Laboratory Tests Test 12/18/16 08:40 12/18/16 10:00 White Blood Count 20.8 TH/MM3 Red Blood Count 4.86 MIL/MM3 Hemoglobin 12.5 GM/DL Hematocrit 40.8 % Mean Corpuscular Volume 84.0 FL Mean Corpuscular Hemoglobin 25.7 PG Mean Corpuscular Hemoglobin Concent 30.6 % Red Cell Distribution Width 17.7 % Platelet Count 507 TH/MM3 Mean Platelet Volume 7.3 FL Neutrophils (%) (Auto) 84.3 % Lymphocytes (%) (Auto) 8.0 % Monocytes (%) (Auto) 7.0 % Eosinophils (%) (Auto) 0.2 % Basophils (%) (Auto) 0.5 % Neutrophils # (Auto) 17.5 TH/MM3 Lymphocytes # (Auto) 1.7 TH/MM3 Monocytes # (Auto) 1.5 TH/MM3 Eosinophils # (Auto) 0.1 TH/MM3 Basophils # (Auto) 0.1 TH/MM3 CBC Comment DIFF FINAL Differential Comment Prothrombin Time 31.1 SEC Prothromb Time International Ratio 2.7 RATIO Activated Partial Thromboplast Time 67.4 SEC Blood Urea Nitrogen 25 MG/DL Creatinine 1.24 MG/DL Random Glucose 254 MG/DL Total Protein 8.0 GM/DL Albumin 3.3 GM/DL Calcium Level 8.9 MG/DL Alkaline Phosphatase 117 U/L Aspartate Amino Transf (AST/SGOT) 7 U/L Alanine Aminotransferase (ALT/SGPT) 19 U/L Total Bilirubin 0.5 MG/DL Sodium Level 133 MEQ/L Potassium Level 4.3 MEQ/L Chloride Level 96 MEQ/L Carbon Dioxide Level 28.2 MEQ/L Anion Gap 9 MEQ/L Estimat Glomerular Filtration Rate 43 ML/MIN Urine Color YELLOW Urine Turbidity CLEAR Urine pH 5.0 Urine Specific [place] 1.028 Urine Protein NEG mg/dL Urine Glucose (UA) 1000 mg/dL Urine Ketones 10 mg/dL Urine Occult Blood MOD Urine Nitrite NEG Urine Bilirubin NEG Urine Urobilinogen LESS THAN 2.0 MG/DL Urine Leukocyte Esterase NEG Urine RBC 16 /hpf Urine WBC LESS THAN 1 /hpf Urine Squamous Epithelial Cells 1 /hpf Microscopic Urinalysis Comment CULT NOT INDICATED Lactic Acid Level 1.0 mmol/L MDM Medical Decision Making Medical Screen Exam Complete: Yes Emergency Medical Condition: Yes Medical Record Reviewed: Yes (patient had an admission in October of this year in the setting of sepsis and copious diarrhea) Interpretation(s) Mild tachycardia, normotensive, afebrile Leukocytosis 84% neutrophils Hyponatremia Hyperglycemia Urinalysis: Hematuria INR is 2.7 Last 24 hours Impressions Wrist X-Ray 12/18/16 0000 Signed Impressions: Service Date/Time: Sunday, December 18, 2016 07:55 - CONCLUSION: Unremarkable examination of the left wrist. Lucia John MD Radius/Ulna X-Ray 12/18/16 0000 Signed Impressions: Service Date/Time: Sunday, December 18, 2016 07:54 - CONCLUSION: Unremarkable examination of the left forearm. Lucia John MD Head CT 12/18/16 0000 Signed Impressions: Service Date/Time: Sunday, December 18, 2016 08:16 - CONCLUSION: No acute disease. Lucia John MD Chest X-Ray 12/18/16 0000 Signed Impressions: Service Date/Time: Sunday, December 18, 2016 09:41 - CONCLUSION: No acute disease. Lucia John MD Differential Diagnosis Intracranial hemorrhage, meningitis, migraine headache, urinary tract infection , pneumonia Narrative Course This is a 66-year-old female who presents to the emergency department reporting severe headache and neck pain. She is placed on a monitor and an IV was established. Labs are obtained which demonstrated a leukocytosis of 20 as well as an INR of 2.7. Urinalysis was negative for infection and chest x-ray is negative for pneumonia. She's recently been supratherapeutic on her INR so CT was obtained of the head which was negative for intracranial hemorrhage. Given the patient's marked leukocytosis and significant headache and neck pain and concern for meningitis. She was started on ampicillin, vancomycin and ceftriaxone. Lumbar puncture will be deferred until anticoagulation is reversed. Patient will be admitted for IV antibiotics. Physician Communication Physician Communication Discussed with Dr. Langford Diagnosis Primary Impression: Sepsis Qualified Codes: A41.9 - Sepsis, unspecified organism Additional Impression: Headache Qualified Codes: R51 - Headache Admitting Information Admitting Physician Requests: Admit Ariana Balbuena MD Dec 18, 2016 08:47
[2016-12-18 09:13] LABS: AUTOMATED NEUTROPHIL # 17.5 TH/MM3 (1.8-7.7); BASOPHIL # 0.1 TH/MM3 (0-0.2); BASOPHIL % 0.5 % (0.0-2.0); EOSINOPHIL # 0.1 TH/MM3 (0-0.4); EOSINOPHIL % 0.2 % (0.0-4.0); HEMATOCRIT 40.8 % (35.0-46.0); HEMO FLAGS DIFF FINAL; LYMPHOCYTE # 1.7 TH/MM3 (1.0-4.8); MEAN CORPUSCULAR HEMOGLOBIN 25.7 PG (27.0-34.0); MEAN CORPUSCULAR HGB CONC 30.6 % (32.0-36.0); NEUT % 84.3 % (16.0-70.0); PLATELET COUNT 507 TH/MM3 (150-450); RED BLOOD COUNT 4.86 MIL/MM3 (4.00-5.30); RED CELL DISTRIBUTION WIDTH 17.7 % (11.6-17.2); WHITE BLOOD COUNT 20.8 TH/MM3 (4.0-11.0)
[2016-12-18 09:22] LABS: APTT (PATIENT) 67.4 SEC (24.3-30.1); INTERNATIONAL NORMALIZED RATIO 2.7 RATIO; PROTHROMBIN TIME - PATIENT 31.1 SEC (9.8-11.6)
[2016-12-18 09:28] LABS: ANION GAP 9 MEQ/L (5-15); AST (GOT) 7 U/L (15-37); BICARBONATE 28.2 MEQ/L (21.0-32.0); BLOOD UREA NITROGEN 25 MG/DL (7-18); CHLORIDE 96 MEQ/L (98-107); GLOMERULAR FILTRATION RATE 43 ML/MIN (>89); POTASSIUM 4.3 MEQ/L (3.5-5.1); SODIUM (NA) 133 MEQ/L (136-145)
[2016-12-18 09:29] LABS: ALT (GPT) 19 U/L (10-53)
[2016-12-18] MEDS ORDERED: VANCOMYCIN INJ 1,150 MG in SODIUM CHLOR 0.9% 250 ML INJ 250 ML IV ONE (09:30)
[2016-12-18] MEDS ORDERED: cefTRIAXone INJ 2,000 MG in SODIUM CHLORIDE 0.9% INJ 100 ML IV ONE (09:30)
[2016-12-18] MEDS ORDERED: AMPICILLIN INJ 2,000 MG in SODIUM CHLORIDE 0.9% INJ 100 ML IV ONE (09:30)
[2016-12-18 09:32] LABS: ALKALINE PHOSPHATASE 117 U/L (45-117); TOTAL BILIRUBIN ADULT 0.5 MG/DL (0.2-1.0)
--- NOTE | 2016-12-18 09:44 | RADRPT ---
EXAM DATE/TIME: 12/18/2016 09:41 [facility] COMPARISON: CHEST SINGLE AP, November 13, 2016, 19:53. INDICATIONS : Fever MEDICAL HISTORY : None. SURGICAL HISTORY : None. ENCOUNTER: Initial ACUITY: 2 days PAIN SCORE: 0/10 LOCATION: chest FINDINGS: A single view of the chest demonstrates the lungs to be symmetrically aerated without evidence of mas s, infiltrate or effusion. The cardiomediastinal contours are unremarkable. Osseous structures are intact. CONCLUSION: No acute disease. Lucia John MD on December 18, 2016 at 9:41 Board Certified Radiologist. This report was verified electronically.
[2016-12-18] MEDS ORDERED: MORPHINE SULFATE 4 MG/ML INJ IV PUSH ONE ×2 (09:45→10:30)
[2016-12-18 10:24] LABS: BLOOD, URINE MOD (NEG); COMMENT (UR) CULT NOT INDICATED; CULTURE IF INDICATED CULT NOT INDICATED; GLUCOSE,URINE 1000 mg/dL (NEG); KETONE, URINE 10 mg/dL (NEG); NITRITE,URINE NEG (NEG); SQUAMOUS EPITHELIAL CELL URINE 1 /hpf (0-5); URINE COLOR YELLOW (YELLW/STRAW)
--- NOTE | 2016-12-18 14:05 | HHI.HP ---
HPI Service [facility] Hospitalists Primary Care Physician Urban Carrera MD Admission Diagnosis severe headache. Chief Complaint: severe h/a Travel History International Travel<30 Days: No Contact w/Intl Traveler <30 Da: No Traveled to Known Affected Are: No History of Present Illness Pt is 66 yo with dm2 and htn who presents with 2 day hx of severe headache and pain in posterior neck with difficulty moving it. Denies any photophobia. No fevers noted. She had been on levaquin from urgent care for possible recurrent uti She finished the abx 2 days ago. But near the end of the abx course it was noted her inr was supratherapeutic on and Monday this past week from [facility]. pt says the machine just read "high" and then it was checked by her picture frames inspector and he told her to hold it..I don't have that inr number. She was admitted last month and treated for afib/rvr, uti, left forearm thrombophlebitis, diarrhea, In ED pt had wbc of 20k and there was some concern for meningitis. She is on coumadin and unable to do LP. She was given rocephin/vanco/ampicillin emperically. CT head neg for acute bleed. Review of Systems Other severe h/a, neck pains still with left wrist pain. Past Family Social History Past Medical History HTN Atrial fibrillation Hyperlipidemia Diabetes, Hgb A1C 7.7% on 02/15 Atherosclerosis of the aorta Fatty liver CKD, stage 3 Thrombocytosis GERD Gastroparesis Hypothyroidism Anxiety/Depression Osteoarthritis Colitis Asymmetric polyarticular inflammation TMJ surgery 03/09 Appendectomy Bilateral knee arthroplasties in 2008 Bladder surgery Breast biopsy Cholecystectomy Ventral hernia repair Carpal tunnel release BRANODN EGD/colonoscopies - Reported Medications Lisinopril 20 Mg Tab 10 Mg PO DAILY Coumadin (Warfarin) 5 Mg Tab 5 Mg PO DAILY Gabapentin 600 Mg Tab 600 Mg PO TID Metformin (Metformin HCl) 500 Mg Tab 500 Mg PO HS With a meal Bethanechol 50 Mg Tab 50 Mg PO Q8HR Rosuvastatin (Rosuvastatin Calcium) 20 Mg Tab 20 Mg PO DAILY D 5000 (Cholecalciferol) 5,000 Unit Cap 1 Cap PO DAILY Calcium 600 with Vitamin D (Calcium Carbonate-Cholecalciferol) 600-400 mg-Unit Tab 300 Tab PO DAILY Jardiance (Empagliflozin) 25 Mg Tab 25 Mg PO DAILY Fibercon (Calcium Polycarbophil) 625 Mg Tab 625 Mg PO DAILY Omeprazole 20 Mg Cap 20 Mg PO BID Levothyroxine (Levothyroxine Sodium) 100 Mcg Tab 100 Mcg PO DAILY Glimepiride 4 Mg Tab 4 Mg PO BID Take with breakfast or first main meal Magnesium Oxide 400 Mg Tab 800 Mg PO DAILY Venlafaxine ER 24 HR (Venlafaxine HCl) 150 Mg Cap 150 Mg PO DAILY Sulfasalazine 500 Mg Tab 1,000 Mg PO BID Sodium Bicarbonate 325 Mg Tab 650 Mg PO DAILY Allergies: Coded Allergies: No Known Allergies (Verified , 12/18/16) Family History nc Social History no etoh/tob Physical Exam Vital Signs oriented no photophobia very tender over post neck even with light touch or mvmt. difficulty bending the neck in flex/ext or laterally. no rash heart reg lung cta abd s/nt ext no edema. left wrist swollen and tender. Laboratory Laboratory Tests Test 12/18/16 08:40 12/18/16 10:00 White Blood Count 20.8 Red Blood Count 4.86 Hemoglobin 12.5 Hematocrit 40.8 Mean Corpuscular Volume 84.0 Mean Corpuscular Hemoglobin 25.7 Mean Corpuscular Hemoglobin Concent 30.6 Red Cell Distribution Width 17.7 Platelet Count 507 Mean Platelet Volume 7.3 Neutrophils (%) (Auto) 84.3 Lymphocytes (%) (Auto) 8.0 Monocytes (%) (Auto) 7.0 Eosinophils (%) (Auto) 0.2 Basophils (%) (Auto) 0.5 Neutrophils # (Auto) 17.5 Lymphocytes # (Auto) 1.7 Monocytes # (Auto) 1.5 Eosinophils # (Auto) 0.1 Basophils # (Auto) 0.1 CBC Comment DIFF FINAL Differential Comment Prothrombin Time 31.1 Prothromb Time International Ratio 2.7 Activated Partial Thromboplast Time 67.4 Blood Urea Nitrogen 25 Creatinine 1.24 Random Glucose 254 Total Protein 8.0 Albumin 3.3 Calcium Level 8.9 Alkaline Phosphatase 117 Aspartate Amino Transf (AST/SGOT) 7 Alanine Aminotransferase (ALT/SGPT) 19 Total Bilirubin 0.5 Sodium Level 133 Potassium Level 4.3 Chloride Level 96 Carbon Dioxide Level 28.2 Anion Gap 9 Estimat Glomerular Filtration Rate 43 Urine Color YELLOW Urine Turbidity CLEAR Urine pH 5.0 Urine Specific [place] 1.028 Urine Protein NEG Urine Glucose (UA) 1000 Urine Ketones 10 Urine Occult Blood MOD Urine Nitrite NEG Urine Bilirubin NEG Urine Urobilinogen LESS THAN 2.0 Urine Leukocyte Esterase NEG Urine RBC 16 Urine WBC LESS THAN 1 Urine Squamous Epithelial Cells 1 Microscopic Urinalysis Comment CULT NOT INDICATED Lactic Acid Level 1.0 Date/Time Source Procedure Growth Status 12/18/16 10:08 Blood Peripheral Aerobic Blood Culture Pending Received 12/18/16 10:08 Blood Peripheral Anaerobic Blood Culture Pending Received Result Diagram: 12/18/1640 12/18/16839 Caprini VTE Risk Assessment Caprini VTE Risk Assessment: Mod/High Risk (score >= 2) Caprini Risk Assessment Model Point Value = 1 Point Value = 2 Point Value = 3 Point Value = 5 Age 41-60 Minor surgery BMI > 25 kg/m2 Swollen legs Varicose veins or History of unexplained or recurrent spontaneous Oral contraceptives or hormone replacement Sepsis (< 1 month) Serious lung disease, including pneumonia (< 1 month) Abnormal pulmonary function Acute myocardial infarction Congestive heart failure (< 1 month) History of inflammatory bowel disease Medical patient at bed rest Age 61-74 Arthroscopic surgery Major open surgery (> 45 min) Laparoscopic surgery (> 45 min) Malignancy Confined to bed (> 72 hours) Immobilizing plaster cast Central venous access Age >= 75 History of VTE Family history of VTE Factor V Leiden Prothrombin [id number] Lupus anticoagulant Anticardiolipin antibodies Elevated serum homocysteine Heparin-induced thrombocytopenia Other congenital or acquired thrombophilia Stroke (< 1 month) Elective arthroplasty Hip, pelvis, or leg fracture Acute spinal cord injury (< 1 month) Prophylaxis Regimen Total Risk Factor Score Risk Level Prophylaxis Regimen 0-1 Low Early ambulation 2 Moderate Order ONE of the following: *Sequential Compression Device (SCD) *Heparin 5000 units SQ BID 3-4 Higher Order ONE of the following medications: *Heparin 5000 units SQ TID *Enoxaparin/Lovenox 40 mg SQ daily (WT < 150 kg, CrCl > 30 mL/min) *Enoxaparin/Lovenox 30 mg SQ daily (WT < 150 kg, CrCl > 10-29 mL/min) *Enoxaparin/Lovenox 30 mg SQ BID (WT < 150 kg, CrCl > 30 mL/min) AND/OR *Sequential Compression Device (SCD) 5 or more Highest Order ONE of the following medications: *Heparin 5000 units SQ TID (Preferred with Epidurals) *Enoxaparin/Lovenox 40 mg SQ daily (WT < 150 kg, CrCl > 30 mL/min) *Enoxaparin/Lovenox 30 mg SQ daily (WT < 150 kg, CrCl > 10-29 mL/min) *Enoxaparin/Lovenox 30 mg SQ BID (WT < 150 kg, CrCl > 30 mL/min) AND *Sequential Compression Device (SCD) Assessment and Plan Problem List: (1) Headache ICD Codes: R51 - Headache Status: Acute Plan: Pt is 66 yo with dm2,ckd 3, htn Present with severe h/a, neck pain/stiffness, wbc 20k ..r/o meningitis. recent coumadin toxicity. r/o sah. ct head neg. persistent swelling in the area of left wrist...unclear etiology reverse coumadin with vit k and ffp will order the LP and studies for tomorrow morning. recheck inr is ordered to determine if inr is low enough to proceed. cont emperic abx coverage for possible meningitis MRI brain. IVF. recheck labs in AM IV prn pain control SSI and resume oha as tolerated. PT. dvt prophyhlaxis She might need an MRI of the left wrist. start with u/s. xray neg. f/u blood cx's (2) Atrial fibrillation ICD Codes: I48.91 - Unspecified atrial fibrillation Status: Chronic (3) HTN (hypertension), benign ICD Codes: I10 - Benign hypertension Status: Chronic (4) Hypothyroidism ICD Codes: E03.9 - Hypothyroidism Status: Chronic (5) Depression ICD Codes: F32.9 - Major depressive disorder, single episode, unspecified Status: Chronic (6) DM2 (diabetes mellitus, type 2) ICD Codes: E11.9 - Type 2 diabetes mellitus without complications Status: Chronic (7) CKD (chronic kidney disease) stage 3, GFR 30-59 ml/min ICD Codes: N18.3 - Chronic kidney disease, stage 3 (moderate) Status: Chronic Physician Certification 2 Midnight Certification Type: Admission for Inpatient Services Order for Inpatient Services 3The services are ordered in accordance with Medicare regulations or non- Medicare payer requirements, as applicable. In the case of services not specified as inpatient-only, they are appropriately provided as inpatient services in accordance with the 2-midnight benchmark. Estimated LOS (days): 3 3 days is the estimated time the patient will need to remain in the hospital, assuming treatment plan goals are met and no additional complications. Post-Hospital Plan: Not yet determined Problem Qualifiers (1) Headache: Qualified Codes: R51 - Headache Oscar Langford MD Dec 18, 2016 14:05
[2016-12-18] MEDS ORDERED: ONDANSETRON HCL 4 MG/2 ML VIAL IV PUSH PRN (14:15)
[2016-12-18] MEDS: HYDROmorphone HCL PF 1 MG/ML VIAL IV PUSH PRN ×3 (14:48→22:33)
[2016-12-18] MEDS ORDERED: PHYTONADIONE 5 MG TAB PO ONE (15:00)
--- NOTE | 2016-12-18 15:10 | RADRPT ---
EXAM DATE/TIME: 12/18/2016 14:37 [facility] COMPARISON: No previous studies available for comparison. INDICATIONS : Left arm swelling. MEDICAL HISTORY : Hypercholesterol. Hypertension. GERD. Thyroid disease. Seizures. Afib. Irregular heart beat. Hiatel hernia. Diabetic. SURGICAL HISTORY : Cholecystectomy. Appendectomy. Jaw replacement. Partial hysterectomy. Bilateral knee replacement. ENCOUNTER: Subsequent ACUITY: 2 day PAIN SCORE: 10/10 LOCATION: Left arm. FINDINGS: There is spontaneous flow documented in the brachial, basilic, cephalic, axillary, and subclavian vei ns. The vessels are compressible and augmentation response is documented. No filling defects are se en. The flow is phasic with respiration. Direction of flow in the jugular vein is caudal. CONCLUSION: No DVT of the left upper extremity. Fred Calixto MD on December 18, 2016 at 15:08 Board Certified Radiologist. This report was verified electronically.
[2016-12-18] MEDS ORDERED: Vancomycin Consult Pharmacy 1 EA OTHER SCH (17:45)
[2016-12-18] MEDS: INSULIN ASPART SUPPLEMENTAL SCALE SQ SCH ×2 (18:40→21:00)
[2016-12-18] MEDS: SODIUM CHLOR 0.9% 1000 ML INJ 1,000 ML IV SCH (18:50)
[2016-12-18] MEDS ORDERED: NON-FORMULARY DRUG (Omeprazole 20 MG) PO SCH (21:00)
[2016-12-18] MEDS: sulfaSALAzine 500 MG TAB PO SCH (21:00)
[2016-12-18] MEDS: cefTRIAXone INJ 2,000 MG in SODIUM CHLORIDE 0.9% INJ 100 ML IV SCH (21:09)
[2016-12-18] MEDS: BETHANECHOL CHL 25 MG TAB PO SCH (21:10)
[2016-12-18] MEDS: PANTOPRAZOLE SOD 20 MG DELAYED RELEASE TAB PO SCH (21:10)
[2016-12-18] MEDS: GLIMEPIRIDE 4 MG TAB PO SCH (21:10)
[2016-12-18] MEDS: GABAPENTIN 300 MG CAP PO SCH (21:10)
[2016-12-19] VITALS (9 sets, daily range): BP systolic 152–182; BP diastolic 70–92; PULSE 89–119; RESP 16–20; TEMP 97.6–99; O2SAT 90–100
[2016-12-19] MEDS: SODIUM CHLOR 0.9% 1000 ML INJ 1,000 ML IV SCH ×2 (02:10→14:05)
[2016-12-19] MEDS: HYDROmorphone HCL PF 1 MG/ML VIAL IV PUSH PRN ×4 (02:22→21:51)
[2016-12-19] MEDS: BETHANECHOL CHL 25 MG TAB PO SCH ×3 (06:00→21:50)
[2016-12-19] MEDS: LEVOTHYROXINE SODIUM 100 MCG TAB PO SCH (06:03)
[2016-12-19] MEDS: INSULIN ASPART SUPPLEMENTAL SCALE SQ SCH ×4 (06:05→21:00)
[2016-12-19 06:19] LABS: INTERNATIONAL NORMALIZED RATIO 1.2 RATIO; PROTHROMBIN TIME - PATIENT 13.9 SEC (9.8-11.6)
[2016-12-19 06:28] LABS: AUTOMATED NEUTROPHIL # 11.5 TH/MM3 (1.8-7.7); BASOPHIL # 0.1 TH/MM3 (0-0.2); BASOPHIL % 0.7 % (0.0-2.0); EOSINOPHIL # 0.1 TH/MM3 (0-0.4); EOSINOPHIL % 0.8 % (0.0-4.0); HEMATOCRIT 36.8 % (35.0-46.0); HEMO FLAGS DIFF FINAL; LYMPH % 12.7 % (9.0-44.0); LYMPHOCYTE # 1.9 TH/MM3 (1.0-4.8); MEAN CELL VOLUME 83.7 FL (80.0-100.0); MEAN CORPUSCULAR HEMOGLOBIN 26.8 PG (27.0-34.0); MONO % 9.7 % (0.0-8.0); NEUT % 76.1 % (16.0-70.0); PLATELET COUNT 422 TH/MM3 (150-450); RED CELL DISTRIBUTION WIDTH 17.6 % (11.6-17.2); WHITE BLOOD COUNT 15.2 TH/MM3 (4.0-11.0)
[2016-12-19 06:52] LABS: BICARBONATE 28.6 MEQ/L (21.0-32.0); POTASSIUM 3.7 MEQ/L (3.5-5.1)
[2016-12-19] MEDS: VANCOMYCIN INJ 1,400 MG in SODIUM CHLORID 0.9% 500 ML INJ 500 ML IV SCH (07:45)
[2016-12-19] MEDS: GABAPENTIN 300 MG CAP PO SCH ×2 (07:49→21:49)
[2016-12-19] MEDS: VENLAFAXINE HCL XR 75 MG CAP PO SCH (07:50)
[2016-12-19] MEDS: GLIMEPIRIDE 4 MG TAB PO SCH ×2 (09:00→21:50)
[2016-12-19] MEDS: MAGNESIUM OXIDE 400 MG TAB PO SCH (09:00)
[2016-12-19] MEDS ORDERED: NON-FORMULARY DRUG (Rosuvastatin 20 MG) PO SCH (09:00)
--- NOTE | 2016-12-19 12:24 | PD.RAD ---
Post Procedure Progress Note Pre Procedure Diagnosis: (1) Fever (2) Dizziness (3) Altered mental status (4) Headache Post Procedure Diagnosis: (1) Dizziness (2) Fever (3) Headache (4) Altered mental status Procedure Date: Dec 19, 2016 Supervising Radiologist: Fred Torres Proceduralist/Assist: Robinson Broderick, RT(R), RT Lul(R)() Anesthesia: Local Plan of Activity Patient to Unit: ROPU Patient Condition: Good See PACS Report for procedural detail/treatment Spinal Procedure Lumbar Puncture L4-L5 Fluid Removal (CCs): 18 Fluid Description: Clear Puncture Time: 10:56 Additional Detail: opening pressure 17cm H2O Fred Torres MD Dec 19, 2016 12:24
[2016-12-19 12:40] LABS: SUPERNATE COLOR TUBE #1 CLEAR (CLEAR); VOLUME TUBE # 1 2.3 ML
[2016-12-19 12:41] LABS: CSF LYMPHOCYTES 80 %; CSF MONOCYTES 20 %; CSF NEUTROPHILS 0 %; GROSS BLOOD TUBE #1 0 (0); GROSS BLOOD TUBE #2 0 (0); GROSS BLOOD TUBE #3 0 (0); GROSS BLOOD TUBE #4 0 (0); SUPERNATE COLOR TUBE #2 CLEAR (CLEAR); SUPERNATE COLOR TUBE #3 CLEAR (CLEAR); SUPERNATE COLOR TUBE #4 CLEAR (CLEAR); VOLUME TUBE # 3 3.9 ML; VOLUME TUBE # 4 6.5 ML; WBC TUBE #4 7 /MM3 (0-10)
[2016-12-19] MEDS: SODIUM BICARBONATE 650 MG TAB PO SCH (13:54)
[2016-12-19] MEDS: cefTRIAXone INJ 2,000 MG in SODIUM CHLORIDE 0.9% INJ 100 ML IV SCH (13:54)
[2016-12-19] MEDS: PANTOPRAZOLE SOD 20 MG DELAYED RELEASE TAB PO SCH ×2 (13:55→21:49)
[2016-12-19] MEDS: ATORVASTATIN 40 MG TAB PO SCH (13:55)
[2016-12-19] MEDS: sulfaSALAzine 500 MG TAB PO SCH ×2 (13:55→21:49)
[2016-12-19] MEDS: LISINOPRIL 10 MG TAB PO SCH (13:55)
--- NOTE | 2016-12-19 14:24 | RADRPT ---
EXAM DATE/TIME: 12/19/2016 11:44 [facility] COMPARISON: MRI BRAIN W & W/O CONTRAST, March 02, 2016, 16:00. INDICATIONS : Severe head pain radiating down to neck. CONTRAST: 16 cc Omniscan (gadodiamide) IV MEDICAL HISTORY : Hypertension. Diabetes mellitus type 2. SURGICAL HISTORY : Hysterectomy. Cholecystectomy. Appendectomy. jaw surgery, bilat knee ENCOUNTER: Subsequent ACUITY: 1 week PAIN SCORE: 6/10 LOCATION: cranial TECHNIQUE: Multiplanar, multisequence MRI of the brain was performed both prior to and following the administrat ion of paramagnetic contrast. FINDINGS: CEREBRUM: The ventricles are normal for age. No evidence of midline shift, mass lesion, hemorrhage or acute in farction. No extraaxial fluid collections are seen. The pituitary gland and suprasellar cistern are normal in configuration. WHITE MATTER: Scattered foci of high flair signal involving the periventricular white matter of both cerebral hemis pheres. This is stable. POSTERIOR FOSSA: The cerebellum and brainstem are intact. The 4th ventricle is midline. The cerebellopontine angle is unremarkable. The cerebellar tonsils are normal in position. DIFFUSION IMAGING: No focal areas of restricted diffusion are seen. No evidence of acute infarction. EXTRACRANIAL: The visualized portions of the orbits and paranasal sinuses are unremarkable. POST-CONTRAST: No abnormal areas of parenchymal or dural enhancement. No evidence of blood-brain barrier breakdown. CONCLUSION: 1. No acute intracranial abnormality. 2. Mild chronic small vessel ischemic change. Basim Eller Jr., MD on December 19, 2016 at 14:19 Board Certified Radiologist. This report was verified electronically.
--- NOTE | 2016-12-19 15:31 | RADRPT ---
EXAM DATE/TIME: 12/19/2016 11:05 [facility] COMPARISON: No previous studies available for comparison. INDICATIONS : Patient with recent migraines in need of lumbar puncture with opening pressures. MEDICAL HISTORY : HTN Atrial fibrillation Hyperlipidemia Diabetes, Hgb A1C 7.7% on 02/15 Atherosclerosis of the aorta Fatty liver CKD, stage 3 Thrombocytosis GERD Gastroparesis Hypothyroidism Anxiety/Depression Osteoarthritis Colitis Asymmetric polyarticular inflammation SURGICAL HISTORY : TMJ surgery 03/09 Appendectomy Bilateral knee arthroplasties in 2008 Bladder surgery Breast biopsy Cholecystectomy Ventral hernia repair Carpal tunnel release BRANDON EGD/colonoscopies ENCOUNTER: Initial ACUITY: 4 - 6 days PAIN SCORE: 7/10 Cranial LUMBAR PUNCTURE TIME: 1056 hours FLUORO TIME: 0.53 minutes ACCESS LEVEL: L3-4 OPENING PRESSURE: 17 cm of water CLOSING PRESSURE: Not requested. FLUID: 17.5 cc of clear CSF was collected and sent to the laboratory for analysis. PROCEDURE : 1. Fluoroscopic guided lumbar puncture. 2. Recording of opening pressure. The risks, benefits and alternatives to the procedure were explained and verbal and written consent w as obtained. The site was prepped in sterile fashion. Full sterile technique was used, including ca p, mask, sterile gloves and gown and a large sterile sheet. Hand hygiene and 2% chlorhexidine and/or betadine/alcohol prep was utilized per protocol for cutaneous antisepsis. The skin and subcutaneous tissues were infiltrated with local anesthetic solution. With fluoroscopic guidance the lumbar thecal sac was punctured at the above level described above and the opening pressure was recorded. The above described fluid was removed without difficulty. The patient tolerated the procedure well and there were no complications. CONCLUSION: Uncomplicated fluoroscopically guided lumbar puncture with pressures as above. Fred Torres MD on December 19, 2016 at 15:29 Board Certified Radiologist. This report was verified electronically.
--- NOTE | 2016-12-19 15:51 | EKG ---
Date Performed: 12/18/2016 Time Performed: 11:08:10 PTAGE: 66 years EKG: ATRIAL FIBRILLATION WITH RAPID VENTRICULAR RESPONSE NONSPECIFIC ST & T-WAVE ABNORMALITY Whe n compared to previous tracing, ventricular response atrial Fibrillation is slightly faster. Nonspeci fic ST-T changes are slightly more prominant. ABNORMAL RHYTHM ECG PREVIOUS TRACING : 11/09/2016 18.34 DOCTOR: Ian Pardo Interpretating Date/Time 12/19/2016 15:51:22
--- NOTE | 2016-12-19 16:42 | HHI.PR ---
Subjective Remarks Pt had LP today She states that her headache is less and less pain in the neck but the neck is still quite stiff and with limited ROM Afebrile Pt complains of difficulty with having a BM today Objective Vitals Vital Signs Date Time Temp Pulse Resp B/P (MAP) Pulse Ox O2 Delivery O2 Flow Rate FiO2 12/19/16 12:05 98.6 100 18 158/70 (99) 90 12/19/16 08:05 98.9 109 18 168/77 (107) 92 12/19/16 04:00 97.6 94 20 176/92 (120) 92 12/19/16 03:46 Room Air 12/19/16 00:35 99.0 96 18 152/78 92 12/19/16 00:00 Room Air 12/19/16 00:00 98.3 92 20 182/85 (117) 12/18/16 22:52 99.4 106 18 168/85 92 12/18/16 22:47 99.4 106 18 168/85 92 12/18/16 22:22 99.6 105 18 169/83 92 12/18/16 20:02 96 12/18/16 20:00 Room Air 12/18/16 20:00 98.8 107 20 162/80 (107) 92 12/18/16 18:55 98.4 103 20 141/65 92 Result Diagram: 12/19/16 0537 12/19/16 0537 Other Results Laboratory Tests Test 12/18/16 08:40 12/18/16 10:00 12/19/16 05:37 12/19/16 10:56 White Blood Count 20.8 TH/MM3 15.2 TH/MM3 Red Blood Count 4.86 MIL/MM3 4.40 MIL/MM3 Hemoglobin 12.5 GM/DL 11.8 GM/DL Hematocrit 40.8 % 36.8 % Mean Corpuscular Volume 84.0 FL 83.7 FL Mean Corpuscular Hemoglobin 25.7 PG 26.8 PG Mean Corpuscular Hemoglobin Concent 30.6 % 32.0 % Red Cell Distribution Width 17.7 % 17.6 % Platelet Count 507 TH/MM3 422 TH/MM3 Mean Platelet Volume 7.3 FL 7.7 FL Neutrophils (%) (Auto) 84.3 % 76.1 % Lymphocytes (%) (Auto) 8.0 % 12.7 % Monocytes (%) (Auto) 7.0 % 9.7 % Eosinophils (%) (Auto) 0.2 % 0.8 % Basophils (%) (Auto) 0.5 % 0.7 % Neutrophils # (Auto) 17.5 TH/MM3 11.5 TH/MM3 Lymphocytes # (Auto) 1.7 TH/MM3 1.9 TH/MM3 Monocytes # (Auto) 1.5 TH/MM3 1.5 TH/MM3 Eosinophils # (Auto) 0.1 TH/MM3 0.1 TH/MM3 Basophils # (Auto) 0.1 TH/MM3 0.1 TH/MM3 CBC Comment DIFF FINAL DIFF FINAL Differential Comment Prothrombin Time 31.1 SEC 13.9 SEC Prothromb Time International Ratio 2.7 RATIO 1.2 RATIO Activated Partial Thromboplast Time 67.4 SEC Blood Urea Nitrogen 25 MG/DL 20 MG/DL Creatinine 1.24 MG/DL 0.89 MG/DL Random Glucose 254 MG/DL 162 MG/DL Total Protein 8.0 GM/DL Albumin 3.3 GM/DL Calcium Level 8.9 MG/DL 9.3 MG/DL Alkaline Phosphatase 117 U/L Aspartate Amino Transf (AST/SGOT) 7 U/L Alanine Aminotransferase (ALT/SGPT) 19 U/L Total Bilirubin 0.5 MG/DL Sodium Level 133 MEQ/L 137 MEQ/L Potassium Level 4.3 MEQ/L 3.7 MEQ/L Chloride Level 96 MEQ/L 98 MEQ/L Carbon Dioxide Level 28.2 MEQ/L 28.6 MEQ/L Anion Gap 9 MEQ/L 10 MEQ/L Estimat Glomerular Filtration Rate 43 ML/MIN 63 ML/MIN Urine Color YELLOW Urine Turbidity CLEAR Urine pH 5.0 Urine Specific [place] 1.028 Urine Protein NEG mg/dL Urine Glucose (UA) 1000 mg/dL Urine Ketones 10 mg/dL Urine Occult Blood MOD Urine Nitrite NEG Urine Bilirubin NEG Urine Urobilinogen LESS THAN 2.0 MG/DL Urine Leukocyte Esterase NEG Urine RBC 16 /hpf Urine WBC LESS THAN 1 /hpf Urine Squamous Epithelial Cells 1 /hpf Microscopic Urinalysis Comment CULT NOT INDICATED Lactic Acid Level 1.0 mmol/L CSF Volume (Tube 1) 2.3 ML CSF Supernatant Color (tube 1) CLEAR CSF Gross Blood (Tube 1) 0 CSF Volume (Tube 2) 3.0 ML CSF Supernatant Color (tube 2) CLEAR CSF Gross Blood (Tube 2) 0 CSF Volume (Tube 3) 3.9 ML CSF Supernatant Color (tube 3) CLEAR CSF Gross Blood (Tube 3) 0 CSF Volume (Tube 4) 6.5 ML CSF Supernatant Color (tube 4) CLEAR CSF Gross Blood (Tube 4) 0 CSF WBC (Tube 4) 7 /MM3 CSF RBC (Tube 4) 0 /MM3 CSF Neutrophils 0 % CSF Lymphocytes 80 % CSF Monocytes 20 % CSF Glucose 102 MG/DL CSF Total Protein 45.4 MG/DL Imaging Last Impressions Lumbar Puncture Fluoroscopy 12/19/16 0600 Signed Impressions: Service Date/Time: Monday, December 19, 2016 11:05 - CONCLUSION: Uncomplicated fluoroscopically guided lumbar puncture with pressures as above. Fred Torres MD Brain MRI 12/19/16 0000 Signed Impressions: Service Date/Time: Monday, December 19, 2016 11:44 - CONCLUSION: 1. No acute intracranial abnormality. 2. Mild chronic small vessel ischemic change. Basim Eller Jr., MD Wrist X-Ray 12/18/16 0000 Signed Impressions: Service Date/Time: Sunday, December 18, 2016 07:55 - CONCLUSION: Unremarkable examination of the left wrist. Lucia John MD Upper Extremity Ultrasound 12/18/16 0000 Signed Impressions: Service Date/Time: Sunday, December 18, 2016 14:37 - CONCLUSION: No DVT of the left upper extremity. Fred Calixto MD Radius/Ulna X-Ray 12/18/16 0000 Signed Impressions: Service Date/Time: Sunday, December 18, 2016 07:54 - CONCLUSION: Unremarkable examination of the left forearm. Lucia John MD Head CT 12/18/16 0000 Signed Impressions: Service Date/Time: Sunday, December 18, 2016 08:16 - CONCLUSION: No acute disease. Lucia John MD Chest X-Ray 12/18/16 0000 Signed Impressions: Service Date/Time: Sunday, December 18, 2016 09:41 - CONCLUSION: No acute disease. Lucia John MD Objective Remarks General: NAD, AAOx3 Neck: Tender over post neck or mvmt but improved from yesterday Pt has difficulty flex/ext or lateral movement. Chest: CTA Cardiac: Regular Abd: +BS, soft ND/NT Ext: No edema, moves all extremities spontaneously. Left wrist is swollen A/P Problem List: (1) Headache ICD Codes: R51 - Headache Status: Acute Plan: - Pt is 66 yo with DM type 2, CKD stage 3, and HTN who presented with severe headache, neck pain/stiffness, and was found to have a WBC count of 20,000 - Pt was admitted to r/o meningitis. - Pt had a recent Coumadin toxicity as well but was r/o for SAH with negative Head CT. - During previous admission pt was treated for swelling in the left wrist which was thought to be related to a thrombophlebitis that improved with K-thermia and elevation but she has had persistent swelling in the area of left wrist - MRI Brain (12/19) --> No acute intracranial abnormality with mild chronic small vessel ischemic change - Pts Coumadin was reversed with vit k and ffp - She had LP today with removal of 18cc of clear fluid with opening pressure of 17cm H2O - CSF culture is pending - CSF WBC were 7, RBC were 0 - CSF glucose was elevated at 102 - CSF protein was elevated at 45.4 - CSF Cryptococcus Ag is pending. - HSV PCR is pending - Blood cultures with no growth x 1 day - Wrist MRI is pending. - Pt is on empiric abx coverage for possible meningitis with Vancomycin and Ceftriaxone - Consult ID - Cont. IVF - IV prn pain control - SSI and resume oha as tolerated. - Constipation precautions - PT. - DVT prophylaxis (2) Atrial fibrillation ICD Codes: I48.91 - Unspecified atrial fibrillation Status: Chronic (3) HTN (hypertension), benign ICD Codes: I10 - Benign hypertension Status: Chronic Plan: - Home meds continued - Monitor (4) Hypothyroidism ICD Codes: E03.9 - Hypothyroidism Status: Chronic (5) Depression ICD Codes: F32.9 - Major depressive disorder, single episode, unspecified Status: Chronic Plan: - Home meds continued (6) DM2 (diabetes mellitus, type 2) ICD Codes: E11.9 - Type 2 diabetes mellitus without complications Status: Chronic Plan: - OHA continued - Accu checks (7) CKD (chronic kidney disease) stage 3, GFR 30-59 ml/min ICD Codes: N18.3 - Chronic kidney disease, stage 3 (moderate) Status: Chronic Assessment and Plan Patient examined. Assessment and plan formulated with Marlene Nuñez PA-C. I agree with the above. Problem Qualifiers (1) Headache: Qualified Codes: R51 - Headache (2) Atrial fibrillation: Qualified Codes: I48.2 - Chronic atrial fibrillation Marlene Nuñez Dec 19, 2016 16:41 Rolo Nassar DO Dec 22, 2016 00:48
[2016-12-19] MEDS ORDERED: GADODIAMIDE PF 287 MG/ML 20 ML VIAL (for RAD MRI) IV PUSH ONE (16:46)
[2016-12-19] MEDS ORDERED: SOD PHOSPHATE/SOD BIPHOSPHATE (ADULT) ENEMA 133ML RECTAL PRN (17:00)
[2016-12-19] MEDS ORDERED: MAGNESIUM HYDROXIDE SUSP 30 ML CUP PO PRN (17:00)
--- NOTE | 2016-12-19 17:02 | RADRPT ---
EXAM DATE/TIME: 12/19/2016 11:59 [facility] COMPARISON: No previous studies available for comparison. INDICATIONS : Left wrist pain and swelling post hospital IV last week. CONTRAST: 16 cc Omniscan (gadodiamide) IV MEDICAL HISTORY : Hypertension. Diabetes mellitus type 2. SURGICAL HISTORY : Hysterectomy. Cholecystectomy. Appendectomy. jaw surgery, bilat knees ENCOUNTER: Subsequent ACUITY: 1 week PAIN SCORE: 4/10 LOCATION: Left wrist TECHNIQUE: Multiplanar multisequence MRI examination of the wrist was performed with and without contrast. FINDINGS: Intense enhancing inflammatory changes are seen involving both the dorsal and ventral surfaces o f the wrist. Fluid is seen in the proximal pole mid and distal carpal rows. There is marrow signal alteration in the capitate and scaphoid bed could be indicative of osteomyelitis. Similar changes ar e seen in the ulnar styloid. There are no abnormal areas of enhancement on the post-contrast images. CONCLUSION: Markedly abnormal dorsal and ventral sides of the carpus including all 3 carpal rows and the radiocarpal joint. Inflammatory process is suspected given the history. Danielito Rodriguez MD FACR on December 19, 2016 at 16:42 Board Certified Radiologist. This report was verified electronically.
[2016-12-19] MEDS ORDERED: SOD PHOSPHATE/SOD BIPHOSPHATE (ADULT) ENEMA 133ML RECTAL ONE (19:00)
[2016-12-19] MEDS: DOCUSATE SODIUM 100 MG CAP PO SCH (21:00)
[2016-12-20] VITALS (7 sets, daily range): BP systolic 134–176; BP diastolic 70–85; PULSE 80–117; RESP 16–20; TEMP 96.6–97.8; O2SAT 95–96
[2016-12-20] MEDS: cefTRIAXone INJ 2,000 MG in SODIUM CHLORIDE 0.9% INJ 100 ML IV SCH ×2 (02:10→13:19)
[2016-12-20] MEDS: SODIUM CHLOR 0.9% 1000 ML INJ 1,000 ML IV SCH (02:19)
[2016-12-20] MEDS: HYDROmorphone HCL PF 1 MG/ML VIAL IV PUSH PRN ×5 (02:20→22:37)
[2016-12-20] MEDS: LEVOTHYROXINE SODIUM 100 MCG TAB PO SCH (05:33)
[2016-12-20] MEDS: BETHANECHOL CHL 25 MG TAB PO SCH ×3 (05:33→21:43)
[2016-12-20] MEDS: INSULIN ASPART SUPPLEMENTAL SCALE SQ SCH ×4 (06:27→20:34)
[2016-12-20] MEDS: VANCOMYCIN INJ 1,400 MG in SODIUM CHLORID 0.9% 500 ML INJ 500 ML IV SCH (07:56)
[2016-12-20] MEDS: VENLAFAXINE HCL XR 75 MG CAP PO SCH (07:56)
[2016-12-20] MEDS: SODIUM BICARBONATE 650 MG TAB PO SCH (07:57)
[2016-12-20] MEDS: DOCUSATE SODIUM 100 MG CAP PO SCH ×2 (07:57→21:00)
[2016-12-20] MEDS: PANTOPRAZOLE SOD 20 MG DELAYED RELEASE TAB PO SCH ×2 (07:57→21:44)
[2016-12-20] MEDS: GABAPENTIN 300 MG CAP PO SCH ×2 (07:57→21:43)
[2016-12-20] MEDS: ATORVASTATIN 40 MG TAB PO SCH (07:57)
[2016-12-20] MEDS: GLIMEPIRIDE 4 MG TAB PO SCH ×2 (07:57→21:44)
[2016-12-20] MEDS: MAGNESIUM OXIDE 400 MG TAB PO SCH (07:58)
[2016-12-20] MEDS: sulfaSALAzine 500 MG TAB PO SCH ×2 (07:58→21:43)
[2016-12-20] MEDS: LISINOPRIL 10 MG TAB PO SCH (07:58)
--- NOTE | 2016-12-20 08:49 | MB ---
cc: CHETNA HAYWARD MD DATE OF CONSULTATION: 12/19/2016 REASON FOR CONSULTATION Septic arthritis, left wrist. HISTORY OF PRESENT ILLNESS The patient is a 66-year-old [id number] female with a history of diabetes and hypertension, admitted for severe headache and pain in the neck with possible meningitis. She was found to have pain over the left wrist. She had an MRI scan, suspicious for septic arthritis and hand surgery was consulted for the same. The patient states she has been having pain involving the left wrist for the past 2-3 months. Initially the pain over the left wrist started about 3 months ago during a hospital admission. She has had pain and swelling involving the left wrist since then. The pain does decrease in intensity on an intermittent basis. She also complains of stiffness of the fingers for the past several weeks involving the left hand. Denies any injury. Denies any constant throbbing pain. The patient states the pain over the left wrist region has come down considerably over the past day or two since hospital admission. Denies any tingling or numbness. The patient had a lumbar puncture today to rule out meningitis. PAST MEDICAL HISTORY 1. Diabetes. 2. Hypertension. 3. Atrial fibrillation. 4. Chronic kidney disease. The patient denies any history of gout. PHYSICAL EXAMINATION GENERAL: The patient is alert and oriented x3. LEFT UPPER EXTREMITY: Examination of the left upper extremity reveals mild swelling around the wrist joint. No evidence of increased warmth or redness noted around the wrist joint. She does have tenderness over the dorsal aspect of the radiocarpal joint and distal radioulnar joint. Forearm rotations, terminal degrees of pronation and supination are painful. Wrist range of motion terminal degrees of flexion and extension is painful. The patient has stiffness of the fingers of the MP joints with limited flexion. She has full flexion of the PIP and DIP joints. She has intact sensation distally. She has intact distal radial and ulnar pulses. She has good capillary refill. LABORATORY Her lab work was reviewed. She had a white count of 20 yesterday and is trending down to 15 today. IMAGING X-rays of the left wrist show no evidence of joint lesion. The carpal joints appear to be well-aligned. MRI scan of the left wrist done today shows evidence of inflammatory changes involving the wrist joint with fluid within the radiocarpal and metacarpal joints. There is also marrow signal alteration involving the capitate and scaphoid. ASSESSMENT A 66-year-old female with a history of diabetes, hypertension and atrial fibrillation with left wrist pain. PLAN I do not see any clinical evidence of septic arthritis. The patient likely has inflammatory arthritis, non-septic, may be gout versus CPPD. Her symptoms are better compared to yesterday which is unlikely with septic arthritis. She would benefit from resting the wrist joint with a removable wrist brace. She will also benefit from hand therapy for MP joint stiffness. Will obtain serum uric acid levels. Consider anti-inflammatory medications if not contraindicated. Hand surgery will follow. Chetna Hayward MD SE/LIDYA /8:29 PM /8:30 AM SANJAY
[2016-12-20 09:09] LABS: HSV 1,PCR Negative (Negative)
[2016-12-20] MEDS ORDERED: METOPROLOL TARTRATE 25 MG TAB PO SCH ×2 (11:15→21:00)
--- NOTE | 2016-12-20 11:31 | HHI.PR ---
Subjective Remarks Less pain in the neck today She complains mostly of back pain/spams She has had some palpitations today and her HR on telemetry has been varying between 100-140's Objective Vitals Vital Signs Date Time Temp Pulse Resp B/P (MAP) Pulse Ox O2 Delivery O2 Flow Rate FiO2 12/20/16 08:05 96.6 98 19 171/77 (108) 96 12/20/16 06:26 97.8 88 16 136/80 (98) 96 12/20/16 01:20 97.7 88 16 134/85 (101) 96 12/19/16 21:49 97.8 89 16 176/81 (112) 97 12/19/16 20:00 Room Air 12/19/16 20:00 119 12/19/16 16:05 98.9 111 18 180/85 (116) 100 12/19/16 12:05 98.6 100 18 158/70 (99) 90 Result Diagram: 12/19/16 0537 12/19/16 0537 Other Results Laboratory Tests Test 12/19/16 05:37 12/19/16 10:56 White Blood Count 15.2 TH/MM3 Red Blood Count 4.40 MIL/MM3 Hemoglobin 11.8 GM/DL Hematocrit 36.8 % Mean Corpuscular Volume 83.7 FL Mean Corpuscular Hemoglobin 26.8 PG Mean Corpuscular Hemoglobin Concent 32.0 % Red Cell Distribution Width 17.6 % Platelet Count 422 TH/MM3 Mean Platelet Volume 7.7 FL Neutrophils (%) (Auto) 76.1 % Lymphocytes (%) (Auto) 12.7 % Monocytes (%) (Auto) 9.7 % Eosinophils (%) (Auto) 0.8 % Basophils (%) (Auto) 0.7 % Neutrophils # (Auto) 11.5 TH/MM3 Lymphocytes # (Auto) 1.9 TH/MM3 Monocytes # (Auto) 1.5 TH/MM3 Eosinophils # (Auto) 0.1 TH/MM3 Basophils # (Auto) 0.1 TH/MM3 CBC Comment DIFF FINAL Differential Comment Prothrombin Time 13.9 SEC Prothromb Time International Ratio 1.2 RATIO Blood Urea Nitrogen 20 MG/DL Creatinine 0.89 MG/DL Random Glucose 162 MG/DL Calcium Level 9.3 MG/DL Sodium Level 137 MEQ/L Potassium Level 3.7 MEQ/L Chloride Level 98 MEQ/L Carbon Dioxide Level 28.6 MEQ/L Anion Gap 10 MEQ/L Estimat Glomerular Filtration Rate 63 ML/MIN CSF Volume (Tube 1) 2.3 ML CSF Supernatant Color (tube 1) CLEAR CSF Gross Blood (Tube 1) 0 CSF Volume (Tube 2) 3.0 ML CSF Supernatant Color (tube 2) CLEAR CSF Gross Blood (Tube 2) 0 CSF Volume (Tube 3) 3.9 ML CSF Supernatant Color (tube 3) CLEAR CSF Gross Blood (Tube 3) 0 CSF Volume (Tube 4) 6.5 ML CSF Supernatant Color (tube 4) CLEAR CSF Gross Blood (Tube 4) 0 CSF WBC (Tube 4) 7 /MM3 CSF RBC (Tube 4) 0 /MM3 CSF Neutrophils 0 % CSF Lymphocytes 80 % CSF Monocytes 20 % CSF Glucose 102 MG/DL CSF Total Protein 45.4 MG/DL Herpes Simplex Virus I DNA (PCR) Negative Herpes Simplex Virus II DNA (PCR) Negative Imaging Last Impressions Lumbar Puncture Fluoroscopy 12/19/16 0600 Signed Impressions: Service Date/Time: Monday, December 19, 2016 11:05 - CONCLUSION: Uncomplicated fluoroscopically guided lumbar puncture with pressures as above. Fred Torres MD Wrist MRI 12/19/16 0000 Signed Impressions: Service Date/Time: Monday, December 19, 2016 11:59 - CONCLUSION: Markedly abnormal dorsal and ventral sides of the carpus including all 3 carpal rows and the radiocarpal joint. Inflammatory process is suspected given the history. Danielito Rodriguez MD FACR Brain MRI 12/19/16 0000 Signed Impressions: Service Date/Time: Monday, December 19, 2016 11:44 - CONCLUSION: 1. No acute intracranial abnormality. 2. Mild chronic small vessel ischemic change. Basim Eller Jr., MD Wrist X-Ray 12/18/16 0000 Signed Impressions: Service Date/Time: Sunday, December 18, 2016 07:55 - CONCLUSION: Unremarkable examination of the left wrist. Lucia John MD Upper Extremity Ultrasound 12/18/16 0000 Signed Impressions: Service Date/Time: Sunday, December 18, 2016 14:37 - CONCLUSION: No DVT of the left upper extremity. Fred Calixto MD Radius/Ulna X-Ray 12/18/16 0000 Signed Impressions: Service Date/Time: Sunday, December 18, 2016 07:54 - CONCLUSION: Unremarkable examination of the left forearm. Lucia John MD Head CT 12/18/16 0000 Signed Impressions: Service Date/Time: Sunday, December 18, 2016 08:16 - CONCLUSION: No acute disease. Lucia John MD Chest X-Ray 12/18/16 0000 Signed Impressions: Service Date/Time: Sunday, December 18, 2016 09:41 - CONCLUSION: No acute disease. Lucia John MD Objective Remarks General: NAD, AAOx3 Neck: Tender over post neck or mvmt but improved from yesterday Pt has difficulty flex/ext or lateral movement. Chest: CTA Cardiac: Regular Abd: +BS, soft ND/NT Ext: Moves all extremities spontaneously. Left wrist is slightly swollen. No erythema A/P Problem List: (1) Headache ICD Codes: R51 - Headache Status: Acute Plan: - Pt is 66 yo with DM type 2, CKD stage 3, and HTN who presented with severe headache, neck pain/stiffness, and was found to have a WBC count of 20,000 - Pt was admitted to r/o meningitis. - Pt had a recent Coumadin toxicity as well but was r/o for SAH with negative Head CT. - MRI Brain (12/19) --> No acute intracranial abnormality with mild chronic small vessel ischemic change - Pts Coumadin was reversed with vit k and ffp - She had LP today with removal of 18cc of clear fluid with opening pressure of 17cm H2O - CSF culture with no growth in 24 hours - CSF WBC were 7, RBC were 0 - CSF glucose was elevated at 102 - CSF protein was elevated at 45.4 - CSF Cryptococcus Ag is pending. - HSV PCR is negative - Blood cultures with no growth x 1 day - Pt is on empiric abx coverage for possible meningitis with Vancomycin and Ceftriaxone - ID consult pending. - Cont. IVF - IV prn pain control - SSI and resume oha as tolerated. - Constipation precautions - PT. - DVT prophylaxis (2) Wrist pain, left ICD Codes: M25.532 - Pain in left wrist Plan: - During previous admission pt was treated for swelling in the left wrist which was thought to be related to a thrombophlebitis that improved with K-thermia and elevation but she has had persistent swelling in the area of left wrist - MRI of the Wrist (12/19) --> Markedly abnormal dorsal and ventral sides of the carpus including all 3 carpal rows and the radiocarpal joint. Inflammatory process is suspected given the history. - Hand surgery was consulted for concern for possible septic arthritis - It was not felt by the surgeon that she has septic arthritis more likely an inflammatory arthritis - Labs ordered for Uric acid, RA, GERRY, ESR, CRP which are pending. (3) Atrial fibrillation ICD Codes: I48.91 - Unspecified atrial fibrillation Status: Chronic Plan: - Pt normally rate controlled off medication - Her Coumadin was held at admission. - HR over the last 24 hours has been more elevated into the 120-160's - We will start Metoprolol 25mg Q12H and monitor on telemetry - Parameters placed on the Lisinopril - We will resume Coumadin (4) HTN (hypertension), benign ICD Codes: I10 - Benign hypertension Status: Chronic Plan: - Home meds continued - Monitor (5) Hypothyroidism ICD Codes: E03.9 - Hypothyroidism Status: Chronic (6) Depression ICD Codes: F32.9 - Major depressive disorder, single episode, unspecified Status: Chronic Plan: - Home meds continued (7) DM2 (diabetes mellitus, type 2) ICD Codes: E11.9 - Type 2 diabetes mellitus without complications Status: Chronic Plan: - OHA continued - Accu checks (8) CKD (chronic kidney disease) stage 3, GFR 30-59 ml/min ICD Codes: N18.3 - Chronic kidney disease, stage 3 (moderate) Status: Chronic Assessment and Plan Patient examined. Assessment and plan formulated with Marlene Nuñez PA-C. I agree with the above. Problem Qualifiers (1) Headache: Qualified Codes: R51 - Headache (2) Atrial fibrillation: Qualified Codes: I48.2 - Chronic atrial fibrillation Marlene Nuñez Dec 20, 2016 11:31 Rolo Nassar DO Dec 22, 2016 00:49
[2016-12-20] MEDS ORDERED: PILL SPLITTER OTHER PRN (12:45)
[2016-12-20] MEDS: METOPROLOL TARTRATE 25 MG TAB PO SCH ×2 (13:17→21:43)
[2016-12-20] MEDS: CYCLOBENZAPRINE HCL 10 MG TAB PO PRN (13:24)
[2016-12-20 15:57] LABS: BASOPHIL # 0.1 TH/MM3 (0-0.2); BASOPHIL % 0.4 % (0.0-2.0); EOSINOPHIL % 0.2 % (0.0-4.0); HEMATOCRIT 36.8 % (35.0-46.0); HEMO FLAGS DIFF FINAL; LYMPH % 10.9 % (9.0-44.0); LYMPHOCYTE # 2.5 TH/MM3 (1.0-4.8); MEAN CELL VOLUME 83.8 FL (80.0-100.0); MEAN CORPUSCULAR HEMOGLOBIN 26.3 PG (27.0-34.0); MEAN CORPUSCULAR HGB CONC 31.4 % (32.0-36.0); MONO % 8.9 % (0.0-8.0); NEUT % 79.6 % (16.0-70.0); PLATELET COUNT 554 TH/MM3 (150-450); RED BLOOD COUNT 4.39 MIL/MM3 (4.00-5.30); RED CELL DISTRIBUTION WIDTH 17.6 % (11.6-17.2); WHITE BLOOD COUNT 22.6 TH/MM3 (4.0-11.0)
[2016-12-20] MEDS: WARFARIN SOD 5 MG TAB PO SCH (16:00)
[2016-12-20 16:16] LABS: BICARBONATE 23.5 MEQ/L (21.0-32.0); MAGNESIUM 1.5 MG/DL (1.5-2.5); POTASSIUM 3.5 MEQ/L (3.5-5.1)
[2016-12-20 16:25] LABS: RHEUMATOID FACTOR TRIGGER LESS THAN 10.0 IU/ML (0.0-14.9)
[2016-12-20 16:27] LABS: URIC ACID 6.5 MG/DL (2.6-6.0)
--- NOTE | 2016-12-20 17:16 | PD.ID.CON ---
History of Present Illness Service ID Consult Requested By Dr Nassar Reason for Consult meningitis Primary Care Physician Urban Carrera MD Diagnoses: History of Present Illness 66 yo female with fairly unremarkable past med history developped sever back and neck pain 2-4 weeks ago, and headach x 1 week Denies fever, chillc, phiotopholia, URI smx, cough, nausea, vioomiitn Endorses weight loss, (65 lbs), sweats LP was done and showed mild lymphocytic pleotytosis (7 WNC) and elevated protein , neg gstain and no growth on CSF clx x 1 day Pt is on broad spectrum abx Brain MRI was negative Pt was noted to have marked leukocytosis Review of Systems Constitutional: COMPLAINS OF: Weight loss, Night Sweats Musculoskeletal: COMPLAINS OF: Back pain, Neck pain Except as stated in HPI: all other systems reviewed are Neg Past Family Social History Allergies: Coded Allergies: No Known Allergies (Verified , 12/18/16) Past Medical History HTN Atrial fibrillation Hyperlipidemia Diabetes, Hgb A1C 7.7% on 02/15 Atherosclerosis of the aorta Fatty liver CKD, stage 3 Thrombocytosis GERD Gastroparesis Hypothyroidism Anxiety/Depression Osteoarthritis Colitis Asymmetric polyarticular inflammation Past Surgical History TMJ surgery 03/09 Appendectomy Bilateral knee arthroplasties in 2008 Bladder surgery Breast biopsy Cholecystectomy Ventral hernia repair Carpal tunnel release BRANDON EGD/colonoscopies Active Ordered Medications Medications where reviewed in EMR Antibiotics Include: rocephin vancomycin Family History reviewed Non-Contributory. Social History No Tobacco. No ETOH. No Illicit Drugs. Physical Exam Vital Signs Vital Signs Date Time Temp Pulse Resp B/P (MAP) Pulse Ox O2 Delivery O2 Flow Rate FiO2 12/20/16 12:06 97.6 95 18 166/70 (102) 96 12/20/16 08:05 96.6 98 19 171/77 (108) 96 12/20/16 08:00 96 Room Air 12/20/16 08:00 112 12/20/16 06:26 97.8 88 16 136/80 (98) 96 12/20/16 01:20 97.7 88 16 134/85 (101) 96 12/19/16 21:49 97.8 89 16 176/81 (112) 97 12/19/16 20:00 Room Air 12/19/16 20:00 119 Physical Exam CONSTITUTIONAL/GENERAL: This is an adequately nourished patient, in no apparent distress. TUBES/LINES/DRAINS: SKIN: No jaundice, rashes, or lesions. Skin temperature appropriate. Profusely diaphoretic. HEAD: Atraumatic. Normocephalic. EYES: Pupils equal and round and reactive. Extraocular motions intact. No scleral icterus. No injection or drainage. Fundi not examined. ENT: Hearing grossly normal. Nose without bleeding or purulent drainage. Oral mucosae without visible erythema, exudates, masses, or lesions. NECK: Trachea midline. Rigid, tender. Unable to move her neck 2/2 pain CARDIOVASCULAR: Regular rate and rhythm without murmurs, gallops, or rubs. No JVD. Peripheral pulses symmetric. RESPIRATORY/CHEST: Symmetric, unlabored respirations. Clear to auscultation. Breath sounds equal bilaterally. No wheezes, rales, or rhonchi. GASTROINTESTINAL: Abdomen soft, non-tender, nondistended. No hepato-splenomegaly , or palpable masses. No guarding. Bowel sounds present. GENITOURINARY: Without palpable bladder distension. MUSCULOSKELETAL: Extremities without clubbing, cyanosis, or edema. No joint tenderness or effusion noted. No calf tenderness. No mottling or clubbing. BACK : pt refused to sit up or fully roll to a side 2/2 severe pain Back was tender to palpation from neck to mid back region LYMPHATICS: No palpable cervical or supraclavicular adenopathy. NEUROLOGICAL: Awake and alert. Motor and sensory grossly within normal limits. Follows commands. Clear speech. Moves all extremities. PSYCHIATRIC: No obvious anxiety/depression. no apparent hallucinations or other psychotic thought process. Laboratory Laboratory Tests Test 12/20/16 15:15 White Blood Count 22.6 Red Blood Count 4.39 Hemoglobin 11.6 Hematocrit 36.8 Mean Corpuscular Volume 83.8 Mean Corpuscular Hemoglobin 26.3 Mean Corpuscular Hemoglobin Concent 31.4 Red Cell Distribution Width 17.6 Platelet Count 554 Mean Platelet Volume 7.5 Neutrophils (%) (Auto) 79.6 Lymphocytes (%) (Auto) 10.9 Monocytes (%) (Auto) 8.9 Eosinophils (%) (Auto) 0.2 Basophils (%) (Auto) 0.4 Neutrophils # (Auto) 18.0 Lymphocytes # (Auto) 2.5 Monocytes # (Auto) 2.0 Eosinophils # (Auto) 0.0 Basophils # (Auto) 0.1 CBC Comment DIFF FINAL Differential Comment Blood Urea Nitrogen 19 Creatinine 0.91 Random Glucose 157 Calcium Level 9.0 Magnesium Level 1.5 Sodium Level 136 Potassium Level 3.5 Chloride Level 97 Carbon Dioxide Level 23.5 Anion Gap 16 Estimat Glomerular Filtration Rate 61 Uric Acid 6.5 C-Reactive Protein 28.20 Rheumatoid Factor Screen NEGATIVE Rheumatoid Factor Titer Date/Time Source Procedure Growth Status 12/18/16 10:08 Blood Peripheral Aerobic Blood Culture - Preliminary NO GROWTH IN 2 DAYS Resulted 12/18/16 10:08 Blood Peripheral Anaerobic Blood Culture - Preliminary NO GROWTH IN 2 DAYS Resulted 12/19/16 10:56 Cerebral Spinal Fluid Lumbar Puncture Gram Stain - Final Resulted 12/19/16 10:56 Cerebral Spinal Fluid Lumbar Puncture CSF Culture - Preliminary NO GROWTH IN 24 HOURS. Resulted Result Diagram: 12/20/16 1515 12/20/16 1515 Imaging Last Impressions Lumbar Puncture Fluoroscopy 12/19/16 0600 Signed Impressions: Service Date/Time: Monday, December 19, 2016 11:05 - CONCLUSION: Uncomplicated fluoroscopically guided lumbar puncture with pressures as above. Fred Torres MD Wrist MRI 12/19/16 0000 Signed Impressions: Service Date/Time: Monday, December 19, 2016 11:59 - CONCLUSION: Markedly abnormal dorsal and ventral sides of the carpus including all 3 carpal rows and the radiocarpal joint. Inflammatory process is suspected given the history. Danielito Rodriguez MD FACR Brain MRI 12/19/16 0000 Signed Impressions: Service Date/Time: Monday, December 19, 2016 11:44 - CONCLUSION: 1. No acute intracranial abnormality. 2. Mild chronic small vessel ischemic change. Basim Eller Jr., MD Wrist X-Ray 12/18/16 0000 Signed Impressions: Service Date/Time: Sunday, December 18, 2016 07:55 - CONCLUSION: Unremarkable examination of the left wrist. Lucia John MD Upper Extremity Ultrasound 12/18/16 0000 Signed Impressions: Service Date/Time: Sunday, December 18, 2016 14:37 - CONCLUSION: No DVT of the left upper extremity. Fred Calixto MD Radius/Ulna X-Ray 12/18/16 0000 Signed Impressions: Service Date/Time: Sunday, December 18, 2016 07:54 - CONCLUSION: Unremarkable examination of the left forearm. Lucia John MD Head CT 12/18/16 0000 Signed Impressions: Service Date/Time: Sunday, December 18, 2016 08:16 - CONCLUSION: No acute disease. Lucia John MD Chest X-Ray 12/18/16 0000 Signed Impressions: Service Date/Time: Sunday, December 18, 2016 09:41 - CONCLUSION: No acute disease. Lucia John MD Assessment and Plan Assessment and Plan Lymphacytic pleucytosis in CSF, r/o meningitis Leukocytosis Severe back pain - cont current abx for now MRI T spine and C spine fu CSF studies untill final -serum RPR, CSF VDRL Discussed Condition With Dagmar Hart MD Dec 20, 2016 17:16
[2016-12-20] MEDS ORDERED: GADODIAMIDE PF 287 MG/ML 5 ML VIAL (for RAD MRI) IVCONTRAST ONE (19:14)
--- NOTE | 2016-12-20 20:12 | RADRPT ---
EXAM DATE/TIME: 12/20/2016 19:02 [facility] COMPARISON: No previous studies available for comparison. INDICATIONS : Pain. CONTRAST: 16 cc Omniscan (gadodiamide) IV MEDICAL HISTORY : Hypertension. Diabetes mellitus type 2. SURGICAL HISTORY : Hysterectomy. Cholecystectomy. Appendectomy. Jaw surgery. Bilat knees. ENCOUNTER: Subsequent ACUITY: 3 day PAIN SCORE: 5/10 LOCATION: neck TECHNIQUE: Multiplanar, multisequence MRI examination of the cervical spine was performed. FINDINGS: VERTEBRAE: Normal vertebral body height. Homogeneous marrow signal. There are primary degenerative changes note d throughout the cervical spine. No compression fractures are demonstrated. ALIGNMENT: No evidence of subluxation. CORD: Normal configuration and signal. POST FOSSA: The cerebellar tonsils are normal in position. POST-CONTRAST: No abnormal areas of enhancement are seen. C2-C3: The thecal sac has a normal configuration. There is no evidence of disc herniation or spinal canal stenosis. The neural foramina are patent bilaterally. C3-C4: Broad-based bulging. The neural foramina are patent bilaterally. C4-C5: Broad-based bulging disc osteophyte complex. The neural foramina are patent bilaterally. C5-C6: Broad-based and central bulging disc osteophyte complex. There is narrowing of the right neural priscilla nay. The left appears to be patent. C6-C7: Central and right paracentral bulging/protrusion. Mild narrowing of the right neural foramina. The le ft neuroforamina is patent. C7-T1: The thecal sac has a normal configuration. There is no evidence of disc herniation or spinal canal s tenosis. The neural foramina are patent bilaterally. CONCLUSION: 1. There is primary degenerative changes noted throughout the cervical spine. 2. Broad-based bulging at C3-4, C4-5 and C5-6 3. Central and right paracentral bulging/protrusion at C6-7 Domingo Raines MD on December 20, 2016 at 20:06 Board Certified Radiologist. This report was verified electronically.
--- NOTE | 2016-12-20 20:38 | RADRPT ---
EXAM DATE/TIME: 12/20/2016 19:02 [facility] COMPARISON: No previous studies available for comparison. INDICATIONS : Pain. CONTRAST: 16 cc Omniscan (gadodiamide) IV MEDICAL HISTORY : Hypertension. Diabetes mellitus type 2. SURGICAL HISTORY : Hysterectomy. Cholecystectomy. Appendectomy. Jaw surgery. Bilat knees. ENCOUNTER: Subsequent ACUITY: 3 day PAIN SCORE: 5/10 LOCATION: Lower back. TECHNIQUE: Multiplanar multisequence MRI of the thoracic spine was performed. FINDINGS: VERTEBRA: Normal vertebral body height. Homogeneous marrow signal. ALIGNMENT: Normal. CORD: Normal position and configuration. POST CONTRAST: No abnormal areas of contrast enhancement seen. T1-T2: Normal. T2-T3: The thecal sac has a normal diameter. No evidence of disc bulge or protrusion. T3-T4: The thecal sac has a normal diameter. No evidence of disc bulge or protrusion. T4-T5: The thecal sac has a normal diameter. No evidence of disc bulge or protrusion. T5-T6: The thecal sac has a normal diameter. No evidence of disc bulge or protrusion. T6-T7: The thecal sac has a normal diameter. No evidence of disc bulge or protrusion. T7-T8: The thecal sac has a normal diameter. No evidence of disc bulge or protrusion. T8-T9: The thecal sac has a normal diameter. No evidence of disc bulge or protrusion. T9-T10: The thecal sac has a normal diameter. No evidence of disc bulge or protrusion. T10-T11: Mild broad-based bulging. The neural foramina are patent bilaterally. T11-T12: Mild broad-based bulging. The neural foramina are patent bilaterally. T12-L1: Mild broad-based bulging. The neural foramina are patent bilaterally. CONCLUSION: 1. Mild broad-based bulging at T10-T11, T11-T12 and T12-L1 2. Otherwise, unremarkable exam for patient's age. Domingo Raines MD on December 20, 2016 at 20:34 Board Certified Radiologist. This report was verified electronically.
[2016-12-21] VITALS: BP 158/81; PULSE 90; RESP 20; TEMP 98.9; O2SAT 95
[2016-12-21] MEDS: cefTRIAXone INJ 2,000 MG in SODIUM CHLORIDE 0.9% INJ 100 ML IV SCH ×2 (01:38→13:48)
[2016-12-21] MEDS: HYDROmorphone HCL PF 1 MG/ML VIAL IV PUSH PRN ×4 (02:40→13:31)
[2016-12-21] MEDS: SODIUM CHLOR 0.9% 1000 ML INJ 1,000 ML IV SCH ×3 (02:41→13:45)
[2016-12-21] MEDS ORDERED: VANCOMYCIN INJ 1,250 MG in SODIUM CHLOR 0.9% 250 ML INJ 250 ML IV SCH (03:00)
[2016-12-21 04:00] VITALS: BP 169/77; PULSE 94; RESP 19; TEMP 98.7; O2SAT 95
[2016-12-21] MEDS: LEVOTHYROXINE SODIUM 100 MCG TAB PO SCH (06:01)
[2016-12-21] MEDS: BETHANECHOL CHL 25 MG TAB PO SCH ×3 (06:01→21:19)
[2016-12-21] MEDS: INSULIN ASPART SUPPLEMENTAL SCALE SQ SCH ×3 (06:03→21:17)
[2016-12-21] MEDS ORDERED: PHARMACY ORDERED LAB ONE (07:45)
[2016-12-21 08:00] VITALS: BP 166/89; PULSE 115; RESP 17; TEMP 98; O2SAT 95
[2016-12-21 08:54] LABS: INTERNATIONAL NORMALIZED RATIO 1.2 RATIO; PROTHROMBIN TIME - PATIENT 13.7 SEC (9.8-11.6)
[2016-12-21 09:22] LABS: BICARBONATE 23.6 MEQ/L (21.0-32.0); MAGNESIUM 1.4 MG/DL (1.5-2.5); POTASSIUM 3.5 MEQ/L (3.5-5.1)
[2016-12-21] MEDS: PANTOPRAZOLE SOD 20 MG DELAYED RELEASE TAB PO SCH ×2 (10:06→21:18)
[2016-12-21] MEDS: LISINOPRIL 10 MG TAB PO SCH (10:06)
[2016-12-21] MEDS: sulfaSALAzine 500 MG TAB PO SCH ×2 (10:06→21:18)
[2016-12-21] MEDS: MAGNESIUM OXIDE 400 MG TAB PO SCH (10:07)
[2016-12-21] MEDS: METOPROLOL TARTRATE 25 MG TAB PO SCH ×2 (10:07→21:19)
[2016-12-21] MEDS: GABAPENTIN 300 MG CAP PO SCH ×2 (10:08→21:19)
[2016-12-21] MEDS: DOCUSATE SODIUM 100 MG CAP PO SCH ×2 (10:08→21:19)
[2016-12-21] MEDS: ATORVASTATIN 40 MG TAB PO SCH (10:08)
[2016-12-21] MEDS: GLIMEPIRIDE 4 MG TAB PO SCH ×2 (10:08→21:19)
[2016-12-21] MEDS: SODIUM BICARBONATE 650 MG TAB PO SCH (10:09)
[2016-12-21] MEDS: VENLAFAXINE HCL XR 75 MG CAP PO SCH (10:09)
[2016-12-21] MEDS: VANCOMYCIN INJ 1,400 MG in SODIUM CHLORID 0.9% 500 ML INJ 500 ML IV SCH (10:10)
[2016-12-21 12:00] VITALS: BP 132/86; PULSE 86; RESP 17; TEMP 97.7; O2SAT 95
[2016-12-21] MEDS: CYCLOBENZAPRINE HCL 10 MG TAB PO PRN ×2 (13:28→22:29)
[2016-12-21 14:00] LABS: ANA SCREEN POS (NEG)
--- NOTE | 2016-12-21 15:51 | HHI.PR ---
Subjective Remarks Pt still having significant pain in the neck and down the arms No nausea/vomiting Afebrile Objective Vitals Vital Signs Date Time Temp Pulse Resp B/P (MAP) Pulse Ox O2 Delivery O2 Flow Rate FiO2 12/21/16 12:00 97.7 86 17 132/86 (101) 95 12/21/16 08:00 98.0 115 17 166/89 (114) 95 12/21/16 04:00 98.7 94 19 169/77 (107) 95 12/21/16 00:00 98.9 90 20 158/81 (106) 95 12/20/16 20:00 97.7 80 20 176/85 (115) 95 12/20/16 20:00 117 12/20/16 20:00 Room Air 12/20/16 16:04 96.8 95 18 166/70 (102) 96 Result Diagram: 12/20/16 1515 12/21/16 0838 Other Results Laboratory Tests Test 12/20/16 15:15 12/21/16 08:38 White Blood Count 22.6 TH/MM3 Red Blood Count 4.39 MIL/MM3 Hemoglobin 11.6 GM/DL Hematocrit 36.8 % Mean Corpuscular Volume 83.8 FL Mean Corpuscular Hemoglobin 26.3 PG Mean Corpuscular Hemoglobin Concent 31.4 % Red Cell Distribution Width 17.6 % Platelet Count 554 TH/MM3 Mean Platelet Volume 7.5 FL Neutrophils (%) (Auto) 79.6 % Lymphocytes (%) (Auto) 10.9 % Monocytes (%) (Auto) 8.9 % Eosinophils (%) (Auto) 0.2 % Basophils (%) (Auto) 0.4 % Neutrophils # (Auto) 18.0 TH/MM3 Lymphocytes # (Auto) 2.5 TH/MM3 Monocytes # (Auto) 2.0 TH/MM3 Eosinophils # (Auto) 0.0 TH/MM3 Basophils # (Auto) 0.1 TH/MM3 CBC Comment DIFF FINAL Differential Comment Erythrocyte Sedimentation Rate 64 mm/hr Blood Urea Nitrogen 19 MG/DL 19 MG/DL Creatinine 0.91 MG/DL 0.83 MG/DL Random Glucose 157 MG/DL 197 MG/DL Calcium Level 9.0 MG/DL 9.3 MG/DL Magnesium Level 1.5 MG/DL 1.4 MG/DL Sodium Level 136 MEQ/L 136 MEQ/L Potassium Level 3.5 MEQ/L 3.5 MEQ/L Chloride Level 97 MEQ/L 100 MEQ/L Carbon Dioxide Level 23.5 MEQ/L 23.6 MEQ/L Anion Gap 16 MEQ/L 12 MEQ/L Estimat Glomerular Filtration Rate 61 ML/MIN 68 ML/MIN Uric Acid 6.5 MG/DL C-Reactive Protein 28.20 MG/DL Rheumatoid Factor Screen NEGATIVE Rheumatoid Factor Titer IU/ML Anti-Nuclear Antibody Screen POS Rapid Plasma Reagin NON-REACTIVE Prothrombin Time 13.7 SEC Prothromb Time International Ratio 1.2 RATIO Vancomycin Level Trough 8.3 MCG/ML Imaging Last Impressions Thoracic Spine MRI 12/20/16 0000 Signed Impressions: Service Date/Time: Tuesday, December 20, 2016 19:02 - CONCLUSION: 1. Mild broad-based bulging at T10-T11, T11-T12 and T12-L1 2. Otherwise, unremarkable exam for patient's age. Domingo Raines MD Cervical Spine MRI 12/20/16 0000 Signed Impressions: Service Date/Time: Tuesday, December 20, 2016 19:02 - CONCLUSION: 1. There is primary degenerative changes noted throughout the cervical spine. 2. Broad- based bulging at C3-4, C4-5 and C5-6 3. Central and right paracentral bulging/protrusion at C6-7 Domingo Raines MD Lumbar Puncture Fluoroscopy 12/19/16 0600 Signed Impressions: Service Date/Time: Monday, December 19, 2016 11:05 - CONCLUSION: Uncomplicated fluoroscopically guided lumbar puncture with pressures as above. Fred Torres MD Wrist MRI 12/19/16 0000 Signed Impressions: Service Date/Time: Monday, December 19, 2016 11:59 - CONCLUSION: Markedly abnormal dorsal and ventral sides of the carpus including all 3 carpal rows and the radiocarpal joint. Inflammatory process is suspected given the history. Danielito Rodriguez MD FACR Brain MRI 12/19/16 0000 Signed Impressions: Service Date/Time: Monday, December 19, 2016 11:44 - CONCLUSION: 1. No acute intracranial abnormality. 2. Mild chronic small vessel ischemic change. Basim Eller Jr., MD Wrist X-Ray 12/18/16 0000 Signed Impressions: Service Date/Time: Sunday, December 18, 2016 07:55 - CONCLUSION: Unremarkable examination of the left wrist. Lucia John MD Upper Extremity Ultrasound 12/18/16 0000 Signed Impressions: Service Date/Time: Sunday, December 18, 2016 14:37 - CONCLUSION: No DVT of the left upper extremity. Fred Calixto MD Radius/Ulna X-Ray 12/18/16 0000 Signed Impressions: Service Date/Time: Sunday, December 18, 2016 07:54 - CONCLUSION: Unremarkable examination of the left forearm. Lucia John MD Head CT 12/18/16 0000 Signed Impressions: Service Date/Time: Sunday, December 18, 2016 08:16 - CONCLUSION: No acute disease. Lucia John MD Chest X-Ray 12/18/16 0000 Signed Impressions: Service Date/Time: Sunday, December 18, 2016 09:41 - CONCLUSION: No acute disease. Lucia John MD Last Impressions Lumbar Puncture Fluoroscopy 12/19/16 0600 Signed Impressions: Service Date/Time: Monday, December 19, 2016 11:05 - CONCLUSION: Uncomplicated fluoroscopically guided lumbar puncture with pressures as above. Fred Torres MD Wrist MRI 12/19/16 0000 Signed Impressions: Service Date/Time: Monday, December 19, 2016 11:59 - CONCLUSION: Markedly abnormal dorsal and ventral sides of the carpus including all 3 carpal rows and the radiocarpal joint. Inflammatory process is suspected given the history. Danielito Rodriguez MD FACR Brain MRI 12/19/16 0000 Signed Impressions: Service Date/Time: Monday, December 19, 2016 11:44 - CONCLUSION: 1. No acute intracranial abnormality. 2. Mild chronic small vessel ischemic change. Basim Eller Jr., MD Wrist X-Ray 12/18/16 0000 Signed Impressions: Service Date/Time: Sunday, December 18, 2016 07:55 - CONCLUSION: Unremarkable examination of the left wrist. Lucia John MD Upper Extremity Ultrasound 12/18/16 0000 Signed Impressions: Service Date/Time: Sunday, December 18, 2016 14:37 - CONCLUSION: No DVT of the left upper extremity. Fred Calixto MD Radius/Ulna X-Ray 12/18/16 0000 Signed Impressions: Service Date/Time: Sunday, December 18, 2016 07:54 - CONCLUSION: Unremarkable examination of the left forearm. Lucia John MD Head CT 12/18/16 0000 Signed Impressions: Service Date/Time: Sunday, December 18, 2016 08:16 - CONCLUSION: No acute disease. Lucia John MD Chest X-Ray 12/18/16 0000 Signed Impressions: Service Date/Time: Sunday, December 18, 2016 09:41 - CONCLUSION: No acute disease. Lucia John MD Objective Remarks General: NAD, AAOx3 Neck: Tender over post neck or mvmt but improved from yesterday Pt has difficulty flex/ext or lateral movement. Chest: CTA Cardiac: Regular Abd: +BS, soft ND/NT Ext: Moves all extremities spontaneously. Left wrist is slightly swollen. No erythema A/P Problem List: (1) Headache ICD Codes: R51 - Headache Status: Acute Plan: - Pt is 66 yo with DM type 2, CKD stage 3, and HTN who presented with severe headache, neck pain/stiffness, and was found to have a WBC count of 20,000 - Pt was admitted to r/o meningitis. - Pt had a recent Coumadin toxicity as well but was r/o for SAH with negative Head CT. - MRI Brain (12/19) --> No acute intracranial abnormality with mild chronic small vessel ischemic change - Pts Coumadin was reversed with vit k and ffp - She had LP on 12/19 with removal of 18cc of clear fluid with opening pressure of 17cm H2O - CSF culture with no growth in 24 hours - CSF WBC were 7, RBC were 0 - CSF glucose was elevated at 102 - CSF protein was elevated at 45.4 - CSF Cryptococcus Ag is pending. - HSV PCR is negative - VDRL PCR is pending - RPR is negative - HSV I & II DNA PCR are negative - GERRY is positive, titer is pending - CRP 28.20 - ESR 64 - Blood cultures with no growth x 3 day - Pt is on empiric abx coverage for possible meningitis with Vancomycin and Ceftriaxone - Appreciate ID consultation - MRI Cervical spine (12/20) --> There is primary degenerative changes noted throughout the cervical spine. Broad-based bulging at C3-4, C4-5 and C5-6 3. Central and right paracentral bulging/ protrusion at C6-7 - MRI Thoracic spine (12/20) --> Mild broad-based bulging at T10-T11, T11-T12 and T12-L1 2. Otherwise, unremarkable exam for patient's age. - Consult Neurosurgery as pt has had continued pain in the neck/shoulders and down her arms and given above MRI findings. - IV and PO prn pain control - Constipation precautions - PT. - DVT prophylaxis (2) Wrist pain, left ICD Codes: M25.532 - Pain in left wrist Plan: - During previous admission pt was treated for swelling in the left wrist which was thought to be related to a thrombophlebitis that improved with K-thermia and elevation but she has had persistent swelling in the area of left wrist - MRI of the Wrist (12/19) --> Markedly abnormal dorsal and ventral sides of the carpus including all 3 carpal rows and the radiocarpal joint. Inflammatory process is suspected given the history. - Hand surgery was consulted for concern for possible septic arthritis - It was not felt by the surgeon that she has septic arthritis more likely an inflammatory arthritis - Uric acid elevated at 6.5 - RF is negative. - GERRY is positive, titer is pending - CRP 28.20 - ESR 64 (3) Atrial fibrillation ICD Codes: I48.91 - Unspecified atrial fibrillation Status: Chronic Plan: - Pt normally rate controlled off medication - Her Coumadin was held at admission. - HR better controlled on Metoprolol 25mg Q12H - Telemetry - Parameters placed on the Lisinopril - Coumadin 5mg po daily resumed on 12/20 - INR 1.2 on 12/21 - Monitor INR daily (4) HTN (hypertension), benign ICD Codes: I10 - Benign hypertension Status: Chronic Plan: - Home meds continued - Monitor (5) Hypothyroidism ICD Codes: E03.9 - Hypothyroidism Status: Chronic (6) Depression ICD Codes: F32.9 - Major depressive disorder, single episode, unspecified Status: Chronic Plan: - Home meds continued (7) DM2 (diabetes mellitus, type 2) ICD Codes: E11.9 - Type 2 diabetes mellitus without complications Status: Chronic Plan: - OHA continued - Accu checks (8) CKD (chronic kidney disease) stage 3, GFR 30-59 ml/min ICD Codes: N18.3 - Chronic kidney disease, stage 3 (moderate) Status: Chronic Assessment and Plan Patient examined. Assessment and plan formulated with Marlene Nuñez PA-C. I agree with the above. - appreciate input from Hand Surgeon, ID, and Neurosurgery - No neurosurgical intervention at this time - findings NOT c/w bct meningitis. Possible aseptic meningitis - ABX stopped per ID - worsening leukocytosis, elevated ESR, elevated CRP - repeat CBC, BMP in AM - supportive care Problem Qualifiers (1) Headache: Qualified Codes: R51 - Headache (2) Atrial fibrillation: Qualified Codes: I48.2 - Chronic atrial fibrillation Marlene Nuñez Dec 21, 2016 15:51 Rolo Nassar DO Dec 22, 2016 00:57
[2016-12-21 16:00] VITALS: BP 163/70; PULSE 98; RESP 17; TEMP 97.8; O2SAT 96
[2016-12-21] MEDS ORDERED: ACETAMINOPHEN/HYDROcodone 325 MG/5 MG TAB PO PRN (16:00)
[2016-12-21] MEDS ORDERED: MAGNESIUM SULFATE 1 GM PREMIX 100 ML IV SCH (16:00)
--- NOTE | 2016-12-21 16:46 | HHI.IDPN ---
Subjective Subjective Remarks pt is doing OK mostly con back pain also co L wrist pain headach improved no new problem Antibiotics CFTX, vanco Allergies: Coded Allergies: No Known Allergies (Verified , 12/18/16) Objective . Vital Signs Date Time Temp Pulse Resp B/P (MAP) Pulse Ox O2 Delivery O2 Flow Rate FiO2 12/21/16 12:00 97.7 86 17 132/86 (101) 95 12/21/16 08:00 98.0 115 17 166/89 (114) 95 12/21/16 04:00 98.7 94 19 169/77 (107) 95 12/21/16 00:00 98.9 90 20 158/81 (106) 95 12/20/16 20:00 97.7 80 20 176/85 (115) 95 12/20/16 20:00 117 12/20/16 20:00 Room Air . Laboratory Tests Test 12/20/16 15:15 12/21/16 16:09 White Blood Count 22.6 TH/MM3 Red Blood Count 4.39 MIL/MM3 Hemoglobin 11.6 GM/DL Hematocrit 36.8 % Mean Corpuscular Volume 83.8 FL Mean Corpuscular Hemoglobin 26.3 PG Mean Corpuscular Hemoglobin Concent 31.4 % Red Cell Distribution Width 17.6 % Platelet Count 554 TH/MM3 Mean Platelet Volume 7.5 FL Neutrophils (%) (Auto) 79.6 % Lymphocytes (%) (Auto) 10.9 % Monocytes (%) (Auto) 8.9 % Eosinophils (%) (Auto) 0.2 % Basophils (%) (Auto) 0.4 % Neutrophils # (Auto) 18.0 TH/MM3 Lymphocytes # (Auto) 2.5 TH/MM3 Monocytes # (Auto) 2.0 TH/MM3 Eosinophils # (Auto) 0.0 TH/MM3 Basophils # (Auto) 0.1 TH/MM3 CBC Comment DIFF FINAL Differential Comment Erythrocyte Sedimentation Rate 64 mm/hr Laboratory Tests Test 12/20/16 15:15 12/21/16 08:38 Blood Urea Nitrogen 19 MG/DL 19 MG/DL Creatinine 0.91 MG/DL 0.83 MG/DL Random Glucose 157 MG/DL 197 MG/DL Calcium Level 9.0 MG/DL 9.3 MG/DL Magnesium Level 1.5 MG/DL 1.4 MG/DL Sodium Level 136 MEQ/L 136 MEQ/L Potassium Level 3.5 MEQ/L 3.5 MEQ/L Chloride Level 97 MEQ/L 100 MEQ/L Carbon Dioxide Level 23.5 MEQ/L 23.6 MEQ/L Anion Gap 16 MEQ/L 12 MEQ/L Estimat Glomerular Filtration Rate 61 ML/MIN 68 ML/MIN Uric Acid 6.5 MG/DL C-Reactive Protein 28.20 MG/DL Microbiology Date/Time Source Procedure Growth Status 12/19/16 10:56 Cerebral Spinal Fluid Lumbar Puncture Gram Stain - Final Resulted 12/19/16 10:56 Cerebral Spinal Fluid Lumbar Puncture CSF Culture - Preliminary NO GROWTH IN 48 HOURS. Resulted Imaging Last Impressions Thoracic Spine MRI 12/20/16 0000 Signed Impressions: Service Date/Time: Tuesday, December 20, 2016 19:02 - CONCLUSION: 1. Mild broad-based bulging at T10-T11, T11-T12 and T12-L1 2. Otherwise, unremarkable exam for patient's age. Domingo Raines MD Cervical Spine MRI 12/20/16 0000 Signed Impressions: Service Date/Time: Tuesday, December 20, 2016 19:02 - CONCLUSION: 1. There is primary degenerative changes noted throughout the cervical spine. 2. Broad- based bulging at C3-4, C4-5 and C5-6 3. Central and right paracentral bulging/protrusion at C6-7 Domingo Raines MD Lumbar Puncture Fluoroscopy 12/19/16 0600 Signed Impressions: Service Date/Time: Monday, December 19, 2016 11:05 - CONCLUSION: Uncomplicated fluoroscopically guided lumbar puncture with pressures as above. Fred Torres MD Wrist MRI 12/19/16 0000 Signed Impressions: Service Date/Time: Monday, December 19, 2016 11:59 - CONCLUSION: Markedly abnormal dorsal and ventral sides of the carpus including all 3 carpal rows and the radiocarpal joint. Inflammatory process is suspected given the history. Danielito Rodriguez MD FACR Brain MRI 12/19/16 0000 Signed Impressions: Service Date/Time: Monday, December 19, 2016 11:44 - CONCLUSION: 1. No acute intracranial abnormality. 2. Mild chronic small vessel ischemic change. Basim Eller Jr., MD Wrist X-Ray 12/18/16 0000 Signed Impressions: Service Date/Time: Sunday, December 18, 2016 07:55 - CONCLUSION: Unremarkable examination of the left wrist. Lucia John MD Upper Extremity Ultrasound 12/18/16 Signed Impressions: Service Date/Time: Sunday, December 18, 2016 14:37 - CONCLUSION: No DVT of the left upper extremity. Fred Calixto MD Radius/Ulna X-Ray 12/18/16 Signed Impressions: Service Date/Time: Sunday, December 18, 2016 07:54 - CONCLUSION: Unremarkable examination of the left forearm. Lucia John MD Head CT 12/18/16 Signed Impressions: Service Date/Time: Sunday, December 18, 2016 08:16 - CONCLUSION: No acute disease. Lucia John MD Chest X-Ray 12/18/16 Signed Impressions: Service Date/Time: Sunday, December 18, 2016 09:41 - CONCLUSION: No acute disease. Lucia John MD Physical Exam CONSTITUTIONAL/GENERAL: This is an adequately nourished patient, in no apparent distress. TUBES/LINES/DRAINS: SKIN: No jaundice, rashes, or lesions. Skin temperature appropriate. Profusely diaphoretic. HEAD: Atraumatic. Normocephalic. EYES: Pupils equal and round and reactive. Extraocular motions intact. No scleral icterus. No injection or drainage. Fundi not examined. ENT: Hearing grossly normal. Nose without bleeding or purulent drainage. Oral mucosae without visible erythema, exudates, masses, or lesions. NECK: Trachea midline. Rigid, tender. Unable to move her neck 2/2 pain CARDIOVASCULAR: Regular rate and rhythm without murmurs, gallops, or rubs. No JVD. Peripheral pulses symmetric. RESPIRATORY/CHEST: Symmetric, unlabored respirations. Clear to auscultation. Breath sounds equal bilaterally. No wheezes, rales, or rhonchi. GASTROINTESTINAL: Abdomen soft, non-tender, nondistended. No hepato-splenomegaly , or palpable masses. No guarding. Bowel sounds present. MUSCULOSKELETAL: Extremities without clubbing, cyanosis, or edema. No joint tenderness or effusion noted. No calf tenderness. No mottling or clubbing. L wrist with very mild borderline edema, mild to moderate pain with ROM NO erythema, no clinically apparent effusion LYMPHATICS: No palpable cervical or supraclavicular adenopathy. NEUROLOGICAL: Awake and alert. Motor and sensory grossly within normal limits. Follows commands. Clear speech. Moves all extremities. PSYCHIATRIC: No obvious anxiety/depression. no apparent hallucinations or other psychotic thought process. Assessment & Plan Remarks Lymphacytic pleucytosis, maybe aseptic meningoitis, but definetely not cw bactermial meningitis - RPR neg VDRL P Leukocytosis - even worse ? source ESR, CRp, platelates are also very high Severe back pain MRI T spine and C spine negative except for DJD L wrist pain x 3 mos, clinically favoring non infectious inflammatory arthropathy - no e/o effusion, clinically or radiologically ? gout dc abx monitor WBC fu CSF studies untill final Discussed Condition With Dr Jose L Schwartz,Dagmar Johnson MD Dec 21, 2016 16:46
[2016-12-21] MEDS: WARFARIN SOD 5 MG TAB PO SCH (17:17)
--- NOTE | 2016-12-21 17:37 | HHI.PR ---
Subjective Remarks complains of mild pain over the left wrist region still complains of neck pain no fever denies any tingling or numbness Objective Vital Signs Date Time Temp Pulse Resp B/P (MAP) Pulse Ox O2 Delivery O2 Flow Rate FiO2 12/21/16 16:00 97.8 98 17 163/70 (101) 96 12/21/16 12:00 97.7 86 17 132/86 (101) 95 12/21/16 08:00 98.0 115 17 166/89 (114) 95 12/21/16 04:00 98.7 94 19 169/77 (107) 95 12/21/16 00:00 98.9 90 20 158/81 (106) 95 12/20/16 20:00 97.7 80 20 176/85 (115) 95 12/20/16 20:00 117 12/20/16 20:00 Room Air I/O 12/20/16 12/20/16 12/20/16 12/21/16 12/21/16 12/21/16 07:00 15:00 23:00 07:00 15:00 23:00 Intake Total 1180 ml 894 ml 1090 ml 802 ml 1440 ml Output Total 200 ml Balance 1180 ml 894 ml 890 ml 802 ml 1440 ml Intake Oral 480 ml 280 ml 300 ml 240 ml 1440 ml IV Total 700 ml 614 ml 790 ml 562 ml Output Urine Total 200 ml # Voids 3 7 2 6 # Bowel Movements 1 0 1 left wrist: swelling noted mild increased warmth noted tenderness noted on deep palpation range of motion wrist, terminal degrees of flexion and extension painful able to make a fist intact sensation distally Laboratory Tests Test 12/19/16 05:37 12/19/16 10:56 12/20/16 15:15 12/21/16 08:38 White Blood Count 15.2 TH/MM3 (4.0-11.0) 22.6 TH/MM3 (4.0-11.0) Mean Corpuscular Hemoglobin 26.8 PG (27.0-34.0) 26.3 PG (27.0-34.0) Red Cell Distribution Width 17.6 % (11.6-17.2) 17.6 % (11.6-17.2) Neutrophils (%) (Auto) 76.1 % (16.0-70.0) 79.6 % (16.0-70.0) Monocytes (%) (Auto) 9.7 % (0.0-8.0) 8.9 % (0.0-8.0) Neutrophils # (Auto) 11.5 TH/MM3 (1.8-7.7) 18.0 TH/MM3 (1.8-7.7) Monocytes # (Auto) 1.5 TH/MM3 (0-0.9) 2.0 TH/MM3 (0-0.9) Prothrombin Time 13.9 SEC (9.8-11.6) 13.7 SEC (9.8-11.6) Blood Urea Nitrogen 20 MG/DL (7-18) 19 MG/DL (7-18) 19 MG/DL (7-18) Random Glucose 162 MG/DL (74-106) 157 MG/DL (74-106) 197 MG/DL (74-106) Estimat Glomerular Filtration Rate 63 ML/MIN (>89) 61 ML/MIN (>89) 68 ML/MIN (>89) CSF Glucose 102 MG/DL (40-80) CSF Total Protein 45.4 MG/DL (15.0-45.0) Mean Corpuscular Hemoglobin Concent 31.4 % (32.0-36.0) Platelet Count 554 TH/MM3 (150-450) Erythrocyte Sedimentation Rate 64 mm/hr (0-30) Chloride Level 97 MEQ/L (98-107) Anion Gap 16 MEQ/L (5-15) Uric Acid 6.5 MG/DL (2.6-6.0) C-Reactive Protein 28.20 MG/DL (0.00-0.30) Anti-Nuclear Antibody Screen POS (NEG) Magnesium Level 1.4 MG/DL (1.5-2.5) Test 12/21/16 16:09 Result Diagram: 12/20/16 1515 12/21/16 0838 Assessment and Plan Assessment and Plan 66 year old female with neck pain and left wrist pain Plan: Do not suspect septic arthritis clinically consider inflammatory arthropathy as differential diagnosis wrist brace for comfort limb elevation hand surgery will follow. Cody Keating MD Dec 21, 2016 17:37
[2016-12-21 20:00] VITALS: BP 139/79; PULSE 108; RESP 20; TEMP 99; O2SAT 96
[2016-12-21] MEDS: ACETAMINOPHEN/HYDROcodone 325 MG/10 MG TAB PO PRN (22:29)
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
[2016-12-22] VITALS (8 sets, daily range): BP systolic 116–138; BP diastolic 52–75; PULSE 60–113; RESP 18–20; TEMP 98.1–98.9; O2SAT 92–98
[2016-12-22] MEDS: SODIUM CHLOR 0.9% 1000 ML INJ 1,000 ML IV SCH ×2 (03:43→15:24)
[2016-12-22] MEDS: INSULIN ASPART SUPPLEMENTAL SCALE SQ SCH ×4 (05:39→21:29)
[2016-12-22] MEDS: LEVOTHYROXINE SODIUM 100 MCG TAB PO SCH (05:40)
[2016-12-22] MEDS: CYCLOBENZAPRINE HCL 10 MG TAB PO PRN ×2 (05:40→15:24)
[2016-12-22] MEDS: BETHANECHOL CHL 25 MG TAB PO SCH ×3 (05:40→21:25)
[2016-12-22] MEDS: ACETAMINOPHEN/HYDROcodone 325 MG/10 MG TAB PO PRN ×4 (05:40→21:25)
[2016-12-22 08:35] LABS: AUTOMATED NEUTROPHIL # 12.4 TH/MM3 (1.8-7.7); BASOPHIL % 0.2 % (0.0-2.0); EOSINOPHIL # 0.1 TH/MM3 (0-0.4); EOSINOPHIL % 0.7 % (0.0-4.0); HEMATOCRIT 31.1 % (35.0-46.0); HEMO FLAGS DIFF FINAL; LYMPH % 9.2 % (9.0-44.0); LYMPHOCYTE # 1.4 TH/MM3 (1.0-4.8); MEAN CELL VOLUME 83.3 FL (80.0-100.0); MEAN CORPUSCULAR HGB CONC 32.4 % (32.0-36.0); MONO % 10.2 % (0.0-8.0); NEUT % 79.7 % (16.0-70.0); PLATELET COUNT 394 TH/MM3 (150-450); RED BLOOD COUNT 3.74 MIL/MM3 (4.00-5.30); RED CELL DISTRIBUTION WIDTH 17.6 % (11.6-17.2); WHITE BLOOD COUNT 15.5 TH/MM3 (4.0-11.0)
[2016-12-22 08:41] LABS: INTERNATIONAL NORMALIZED RATIO 1.9 RATIO; PROTHROMBIN TIME - PATIENT 22.1 SEC (9.8-11.6)
[2016-12-22 09:00] LABS: BICARBONATE 23.8 MEQ/L (21.0-32.0); MAGNESIUM 1.6 MG/DL (1.5-2.5); POTASSIUM 3.1 MEQ/L (3.5-5.1)
[2016-12-22] MEDS: LISINOPRIL 10 MG TAB PO SCH (10:58)
[2016-12-22] MEDS: sulfaSALAzine 500 MG TAB PO SCH ×2 (10:58→21:24)
[2016-12-22] MEDS: VENLAFAXINE HCL XR 75 MG CAP PO SCH (10:58)
[2016-12-22] MEDS: ATORVASTATIN 40 MG TAB PO SCH (10:59)
[2016-12-22] MEDS: METOPROLOL TARTRATE 25 MG TAB PO SCH ×2 (10:59→21:25)
[2016-12-22] MEDS: PANTOPRAZOLE SOD 20 MG DELAYED RELEASE TAB PO SCH ×2 (10:59→21:25)
[2016-12-22] MEDS: MAGNESIUM OXIDE 400 MG TAB PO SCH (10:59)
[2016-12-22] MEDS: SODIUM BICARBONATE 650 MG TAB PO SCH (10:59)
[2016-12-22] MEDS: GABAPENTIN 300 MG CAP PO SCH ×2 (11:00→21:25)
[2016-12-22] MEDS: DOCUSATE SODIUM 100 MG CAP PO SCH ×2 (11:00→21:24)
[2016-12-22] MEDS: GLIMEPIRIDE 4 MG TAB PO SCH ×2 (11:00→21:24)
[2016-12-22 11:31] LABS: CSF CRYPTOCOCCUS AG CONF ND (NOT DETECTD)
--- NOTE | 2016-12-22 14:43 | HHI.PR ---
Subjective Remarks Pt seems to be having less neck pain today and is moving her head and neck better. Pt has been afebrile Objective Vitals Vital Signs Date Time Temp Pulse Resp B/P (MAP) Pulse Ox O2 Delivery O2 Flow Rate FiO2 12/22/16 12:00 98.4 78 18 124/52 (76) 96 12/22/16 12:00 98.5 94 18 125/62 (83) 93 12/22/16 09:20 95 Room Air 12/22/16 08:00 98.3 107 18 138/74 (95) 95 12/22/16 08:00 98.1 77 20 127/58 (81) 98 12/22/16 04:00 98.9 60 18 116/75 (89) 92 12/22/16 04:00 Room Air 12/22/16 00:00 98.7 113 18 137/68 (91) 96 12/22/16 00:00 Room Air 12/21/16 20:00 108 12/21/16 20:00 99.0 108 20 139/79 (99) 96 12/21/16 20:00 Room Air 12/21/16 16:00 97.8 98 17 163/70 (101) 96 Result Diagram: 12/22/16 0812 12/22/16 0812 Other Results Laboratory Tests Test 12/20/16 15:15 12/21/16 08:38 12/22/16 08:12 White Blood Count 22.6 TH/MM3 15.5 TH/MM3 Red Blood Count 4.39 MIL/MM3 3.74 MIL/MM3 Hemoglobin 11.6 GM/DL 10.1 GM/DL Hematocrit 36.8 % 31.1 % Mean Corpuscular Volume 83.8 FL 83.3 FL Mean Corpuscular Hemoglobin 26.3 PG 27.0 PG Mean Corpuscular Hemoglobin Concent 31.4 % 32.4 % Red Cell Distribution Width 17.6 % 17.6 % Platelet Count 554 TH/MM3 394 TH/MM3 Mean Platelet Volume 7.5 FL 7.4 FL Neutrophils (%) (Auto) 79.6 % 79.7 % Lymphocytes (%) (Auto) 10.9 % 9.2 % Monocytes (%) (Auto) 8.9 % 10.2 % Eosinophils (%) (Auto) 0.2 % 0.7 % Basophils (%) (Auto) 0.4 % 0.2 % Neutrophils # (Auto) 18.0 TH/MM3 12.4 TH/MM3 Lymphocytes # (Auto) 2.5 TH/MM3 1.4 TH/MM3 Monocytes # (Auto) 2.0 TH/MM3 1.6 TH/MM3 Eosinophils # (Auto) 0.0 TH/MM3 0.1 TH/MM3 Basophils # (Auto) 0.1 TH/MM3 0.0 TH/MM3 CBC Comment DIFF FINAL DIFF FINAL Differential Comment Erythrocyte Sedimentation Rate 64 mm/hr Blood Urea Nitrogen 19 MG/DL 19 MG/DL 20 MG/DL Creatinine 0.91 MG/DL 0.83 MG/DL 0.74 MG/DL Random Glucose 157 MG/DL 197 MG/DL 192 MG/DL Calcium Level 9.0 MG/DL 9.3 MG/DL 9.0 MG/DL Magnesium Level 1.5 MG/DL 1.4 MG/DL 1.6 MG/DL Sodium Level 136 MEQ/L 136 MEQ/L 136 MEQ/L Potassium Level 3.5 MEQ/L 3.5 MEQ/L 3.1 MEQ/L Chloride Level 97 MEQ/L 100 MEQ/L 103 MEQ/L Carbon Dioxide Level 23.5 MEQ/L 23.6 MEQ/L 23.8 MEQ/L Anion Gap 16 MEQ/L 12 MEQ/L 9 MEQ/L Estimat Glomerular Filtration Rate 61 ML/MIN 68 ML/MIN 78 ML/MIN Uric Acid 6.5 MG/DL C-Reactive Protein 28.20 MG/DL Rheumatoid Factor Screen NEGATIVE Rheumatoid Factor Titer IU/ML Anti-Nuclear Antibody Screen POS Rapid Plasma Reagin NON-REACTIVE Prothrombin Time 13.7 SEC 22.1 SEC Prothromb Time International Ratio 1.2 RATIO 1.9 RATIO Vancomycin Level Trough 8.3 MCG/ML Imaging Last Impressions Thoracic Spine MRI 12/20/16 0000 Signed Impressions: Service Date/Time: Tuesday, December 20, 2016 19:02 - CONCLUSION: 1. Mild broad-based bulging at T10-T11, T11-T12 and T12-L1 2. Otherwise, unremarkable exam for patient's age. Domingo Raines MD Cervical Spine MRI 12/20/16 0000 Signed Impressions: Service Date/Time: Tuesday, December 20, 2016 19:02 - CONCLUSION: 1. There is primary degenerative changes noted throughout the cervical spine. 2. Broad- based bulging at C3-4, C4-5 and C5-6 3. Central and right paracentral bulging/protrusion at C6-7 Domingo Raines MD Lumbar Puncture Fluoroscopy 12/19/16 0600 Signed Impressions: Service Date/Time: Monday, December 19, 2016 11:05 - CONCLUSION: Uncomplicated fluoroscopically guided lumbar puncture with pressures as above. Fred Torres MD Wrist MRI 12/19/16 0000 Signed Impressions: Service Date/Time: Monday, December 19, 2016 11:59 - CONCLUSION: Markedly abnormal dorsal and ventral sides of the carpus including all 3 carpal rows and the radiocarpal joint. Inflammatory process is suspected given the history. Danielito Rodriguez MD FACR Brain MRI 12/19/16 0000 Signed Impressions: Service Date/Time: Monday, December 19, 2016 11:44 - CONCLUSION: 1. No acute intracranial abnormality. 2. Mild chronic small vessel ischemic change. Basim Eller Jr., MD Wrist X-Ray 12/18/16 0000 Signed Impressions: Service Date/Time: Sunday, December 18, 2016 07:55 - CONCLUSION: Unremarkable examination of the left wrist. Lucia John MD Upper Extremity Ultrasound 12/18/16 0000 Signed Impressions: Service Date/Time: Sunday, December 18, 2016 14:37 - CONCLUSION: No DVT of the left upper extremity. Fred Calixto MD Radius/Ulna X-Ray 12/18/16 0000 Signed Impressions: Service Date/Time: Sunday, December 18, 2016 07:54 - CONCLUSION: Unremarkable examination of the left forearm. Lucia John MD Head CT 12/18/16 0000 Signed Impressions: Service Date/Time: Sunday, December 18, 2016 08:16 - CONCLUSION: No acute disease. Lucia John MD Chest X-Ray 12/18/16 0000 Signed Impressions: Service Date/Time: Sunday, December 18, 2016 09:41 - CONCLUSION: No acute disease. Lucia John MD Last Impressions Lumbar Puncture Fluoroscopy 12/19/16 0600 Signed Impressions: Service Date/Time: Monday, December 19, 2016 11:05 - CONCLUSION: Uncomplicated fluoroscopically guided lumbar puncture with pressures as above. Fred Torres MD Wrist MRI 12/19/16 Signed Impressions: Service Date/Time: Monday, December 19, 2016 11:59 - CONCLUSION: Markedly abnormal dorsal and ventral sides of the carpus including all 3 carpal rows and the radiocarpal joint. Inflammatory process is suspected given the history. Danielito Rodriguez MD FACR Brain MRI 12/19/16 Signed Impressions: Service Date/Time: Monday, December 19, 2016 11:44 - CONCLUSION: 1. No acute intracranial abnormality. 2. Mild chronic small vessel ischemic change. Basim Eller Jr., MD Wrist X-Ray 12/18/16 Signed Impressions: Service Date/Time: Sunday, December 18, 2016 07:55 - CONCLUSION: Unremarkable examination of the left wrist. Lucia John MD Upper Extremity Ultrasound 12/18/16 Signed Impressions: Service Date/Time: Sunday, December 18, 2016 14:37 - CONCLUSION: No DVT of the left upper extremity. Fred Calixto MD Radius/Ulna X-Ray 12/18/16 Signed Impressions: Service Date/Time: Sunday, December 18, 2016 07:54 - CONCLUSION: Unremarkable examination of the left forearm. Lucia John MD Head CT 12/18/16 Signed Impressions: Service Date/Time: Sunday, December 18, 2016 08:16 - CONCLUSION: No acute disease. Lucia John MD Chest X-Ray 12/18/16 Signed Impressions: Service Date/Time: Sunday, December 18, 2016 09:41 - CONCLUSION: No acute disease. Lucia John MD Objective Remarks General: NAD, AAOx3 Neck: Tender over post neck or mvmt but improving Chest: CTA Cardiac: Regular Abd: +BS, soft ND/NT Ext: Moves all extremities spontaneously. Left wrist is slightly swollen. No erythema A/P Problem List: (1) Headache ICD Codes: R51 - Headache Status: Acute Plan: - Pt is 66 yo with DM type 2, CKD stage 3, and HTN who presented with severe headache, neck pain/stiffness, and was found to have a WBC count of 20,000 - Pt was admitted to r/o meningitis. - Pt had a recent Coumadin toxicity as well but was r/o for SAH with negative Head CT. - MRI Brain (12/19) --> No acute intracranial abnormality with mild chronic small vessel ischemic change - Pts Coumadin was reversed with vit k and ffp - She had LP on 12/19 with removal of 18cc of clear fluid with opening pressure of 17cm H2O - CSF culture negative with no growth in 72 hours - CSF WBC were 7, RBC were 0 - CSF glucose was elevated at 102 - CSF protein was elevated at 45.4 - CSF Cryptococcus Ag is NOT detected - HSV PCR is negative - VDRL PCR is pending - RPR is negative - HSV I & II DNA PCR are negative - GERRY is positive, titer is pending - CRP 28.20 - ESR 64 - Blood cultures with no growth x 4 days - Appreciate ID consultation - Pt was on empiric abx coverage for possible meningitis with Vancomycin and Ceftriaxone which was stopped on 12/21 - MRI Cervical spine (12/20) --> There is primary degenerative changes noted throughout the cervical spine. Broad-based bulging at C3-4, C4-5 and C5-6 3. Central and right paracentral bulging/ protrusion at C6-7 - MRI Thoracic spine (12/20) --> Mild broad-based bulging at T10-T11, T11-T12 and T12-L1 2. Otherwise, unremarkable exam for patient's age. - Appreciate consult from Neurosurgery. No surgical intervention felt to be necessary at this time. - IV and PO prn pain control - Constipation precautions - PT evaluation - DVT prophylaxis (2) Wrist pain, left ICD Codes: M25.532 - Pain in left wrist Plan: - During previous admission pt was treated for swelling in the left wrist which was thought to be related to a thrombophlebitis that improved with K-thermia and elevation but she has had persistent swelling in the area of left wrist - MRI of the Wrist (12/19) --> Markedly abnormal dorsal and ventral sides of the carpus including all 3 carpal rows and the radiocarpal joint. Inflammatory process is suspected given the history. - Hand surgery was consulted for concern for possible septic arthritis - It was not felt by the surgeon that she has septic arthritis more likely an inflammatory arthritis - Uric acid elevated at 6.5 - RF is negative. - GERRY is positive, titer is pending - CRP 28.20 - ESR 64 (3) Atrial fibrillation ICD Codes: I48.91 - Unspecified atrial fibrillation Status: Chronic Plan: - Pt normally rate controlled off medication - Her Coumadin was held at admission. - HR better controlled on Metoprolol 25mg Q12H - Telemetry - Parameters placed on the Lisinopril - Coumadin 5mg po daily resumed on 12/20 - INR 1.9 on 12/22 - Monitor INR daily (4) HTN (hypertension), benign ICD Codes: I10 - Benign hypertension Status: Chronic Plan: - Home meds continued - Monitor (5) Hypothyroidism ICD Codes: E03.9 - Hypothyroidism Status: Chronic (6) Depression ICD Codes: F32.9 - Major depressive disorder, single episode, unspecified Status: Chronic Plan: - Home meds continued (7) DM2 (diabetes mellitus, type 2) ICD Codes: E11.9 - Type 2 diabetes mellitus without complications Status: Chronic Plan: - OHA continued - Accu checks (8) CKD (chronic kidney disease) stage 3, GFR 30-59 ml/min ICD Codes: N18.3 - Chronic kidney disease, stage 3 (moderate) Status: Chronic Assessment and Plan Patient examined. Assessment and plan formulated with Marlene Nuñez PA-C. I agree with the above. Problem Qualifiers (1) Headache: Qualified Codes: R51 - Headache (2) Atrial fibrillation: Qualified Codes: I48.2 - Chronic atrial fibrillation Marlene Nuñez Dec 22, 2016 14:43 Rolo Nassar DO Dec 24, 2016 00:38
--- NOTE | 2016-12-22 15:03 | HHI.PR ---
Subjective Remarks complains of mild pain over the left wrist region denies any fever denies any numbness Objective Vital Signs Date Time Temp Pulse Resp B/P (MAP) Pulse Ox O2 Delivery O2 Flow Rate FiO2 12/22/16 12:00 98.4 78 18 124/52 (76) 96 12/22/16 12:00 98.5 94 18 125/62 (83) 93 12/22/16 09:20 95 Room Air 12/22/16 08:00 98.3 107 18 138/74 (95) 95 12/22/16 08:00 98.1 77 20 127/58 (81) 98 12/22/16 07:52 103 12/22/16 04:00 98.9 60 18 116/75 (89) 92 12/22/16 04:00 Room Air 12/22/16 00:00 98.7 113 18 137/68 (91) 96 12/22/16 00:00 Room Air 12/21/16 20:00 108 12/21/16 20:00 99.0 108 20 139/79 (99) 96 12/21/16 20:00 Room Air 12/21/16 16:00 97.8 98 17 163/70 (101) 96 I/O 12/21/16 12/21/16 12/21/16 12/22/16 12/22/16 12/22/16 07:00 15:00 23:00 07:00 15:00 23:00 Intake Total 802 ml 1440 ml 1240 ml Balance 802 ml 1440 ml 1240 ml Intake Oral 240 ml 1440 ml 240 ml IV Total 562 ml 1000 ml # Voids 2 6 3 # Bowel Movements 1 0 left wrist: decreased swelling mild tenderness on deep palpation range of motion painless intact sensation wbc down to 15 today Result Diagram: 12/22/16 0812 12/22/16 0812 Assessment and Plan Assessment and Plan 66 year old female with neck pain and left wrist pain Plan: Do not suspect septic arthritis clinically consider inflammatory arthropathy wrist brace for comfort consider anti infammatory medications if not contraindicated limb elevation hand surgery will follow. Cody Keating MD Dec 22, 2016 15:02
[2016-12-22] MEDS: POTASSIUM CHLORIDE 20 MEQ CONTROLLED RELEASE TAB PO SCH ×2 (15:25→18:07)
[2016-12-22] MEDS: WARFARIN SOD 5 MG TAB PO SCH (15:25)
[2016-12-23] VITALS: BP 116/59; PULSE 97; RESP 17; TEMP 98.8; O2SAT 94
[2016-12-23] MEDS: CYCLOBENZAPRINE HCL 10 MG TAB PO PRN (00:55)
[2016-12-23] MEDS: ACETAMINOPHEN/HYDROcodone 325 MG/10 MG TAB PO PRN ×4 (00:55→21:32)
[2016-12-23] MEDS: SODIUM CHLOR 0.9% 1000 ML INJ 1,000 ML IV SCH ×2 (01:30→06:11)
[2016-12-23 04:00] VITALS: BP 132/80; PULSE 98; RESP 16; TEMP 98.6; O2SAT 86
[2016-12-23] MEDS: LEVOTHYROXINE SODIUM 100 MCG TAB PO SCH (06:11)
[2016-12-23] MEDS: BETHANECHOL CHL 25 MG TAB PO SCH ×3 (06:11→21:17)
[2016-12-23] MEDS: INSULIN ASPART SUPPLEMENTAL SCALE SQ SCH ×4 (06:11→21:35)
[2016-12-23 08:00] VITALS: BP 121/82; PULSE 94; RESP 20; TEMP 98.5; O2SAT 93
[2016-12-23] MEDS ORDERED: PHARMACY ORDERED LAB ONE (08:45)
[2016-12-23] MEDS: sulfaSALAzine 500 MG TAB PO SCH ×2 (08:48→21:17)
[2016-12-23] MEDS: SODIUM BICARBONATE 650 MG TAB PO SCH (08:48)
[2016-12-23] MEDS: VENLAFAXINE HCL XR 75 MG CAP PO SCH (08:48)
[2016-12-23] MEDS: ATORVASTATIN 40 MG TAB PO SCH (08:48)
[2016-12-23] MEDS: PANTOPRAZOLE SOD 20 MG DELAYED RELEASE TAB PO SCH ×2 (08:48→21:15)
[2016-12-23] MEDS: GLIMEPIRIDE 4 MG TAB PO SCH ×2 (08:48→21:16)
[2016-12-23] MEDS: MAGNESIUM OXIDE 400 MG TAB PO SCH (08:48)
[2016-12-23] MEDS: DOCUSATE SODIUM 100 MG CAP PO SCH ×2 (08:48→21:17)
[2016-12-23] MEDS: METOPROLOL TARTRATE 25 MG TAB PO SCH ×2 (08:49→21:16)
[2016-12-23] MEDS: GABAPENTIN 300 MG CAP PO SCH ×2 (08:49→21:16)
[2016-12-23] MEDS: LISINOPRIL 10 MG TAB PO SCH (08:53)
[2016-12-23 10:44] LABS: BICARBONATE 25.2 MEQ/L (21.0-32.0); MAGNESIUM 1.4 MG/DL (1.5-2.5); POTASSIUM 4.2 MEQ/L (3.5-5.1)
[2016-12-23 10:48] LABS: AUTOMATED NEUTROPHIL # 9.4 TH/MM3 (1.8-7.7); BASOPHIL # 0.1 TH/MM3 (0-0.2); BASOPHIL % 0.5 % (0.0-2.0); EOSINOPHIL # 0.3 TH/MM3 (0-0.4); EOSINOPHIL % 2.5 % (0.0-4.0); HEMATOCRIT 35.2 % (35.0-46.0); HEMO FLAGS DIFF FINAL; LYMPH % 13.7 % (9.0-44.0); LYMPHOCYTE # 1.7 TH/MM3 (1.0-4.8); MEAN CELL VOLUME 85.7 FL (80.0-100.0); MEAN CORPUSCULAR HEMOGLOBIN 26.9 PG (27.0-34.0); MEAN CORPUSCULAR HGB CONC 31.4 % (32.0-36.0); MONO % 9.4 % (0.0-8.0); NEUT % 73.9 % (16.0-70.0); PLATELET COUNT 430 TH/MM3 (150-450); RED BLOOD COUNT 4.11 MIL/MM3 (4.00-5.30); RED CELL DISTRIBUTION WIDTH 17.8 % (11.6-17.2); WHITE BLOOD COUNT 12.7 TH/MM3 (4.0-11.0)
[2016-12-23 12:00] VITALS: BP 145/87; PULSE 96; RESP 18; TEMP 97.3; O2SAT 96
--- NOTE | 2016-12-23 12:26 | HHI.PR ---
Subjective Remarks No new complaints. Less neck and shoulder pain today. Objective Vitals Vital Signs Date Time Temp Pulse Resp B/P (MAP) Pulse Ox O2 Delivery O2 Flow Rate FiO2 12/23/16 08:00 98.5 94 20 121/82 (95) 93 12/23/16 08:00 94 12/23/16 04:00 98.6 98 16 132/80 (97) 86 12/23/16 04:00 Room Air 12/23/16 00:00 Room Air 12/23/16 00:00 98.8 97 17 116/59 (78) 94 12/22/16 20:42 98.7 98 18 121/66 (84) 95 12/22/16 20:00 103 12/22/16 20:00 Room Air 12/22/16 16:00 98.7 93 18 132/67 (88) 96 12/22/16 16:00 94 Room Air Result Diagram: 12/23/16 0946 12/23/16 0946 Other Results Laboratory Tests Test 12/22/16 08:12 12/23/16 09:46 White Blood Count 15.5 TH/MM3 12.7 TH/MM3 Red Blood Count 3.74 MIL/MM3 4.11 MIL/MM3 Hemoglobin 10.1 GM/DL 11.0 GM/DL Hematocrit 31.1 % 35.2 % Mean Corpuscular Volume 83.3 FL 85.7 FL Mean Corpuscular Hemoglobin 27.0 PG 26.9 PG Mean Corpuscular Hemoglobin Concent 32.4 % 31.4 % Red Cell Distribution Width 17.6 % 17.8 % Platelet Count 394 TH/MM3 430 TH/MM3 Mean Platelet Volume 7.4 FL 8.0 FL Neutrophils (%) (Auto) 79.7 % 73.9 % Lymphocytes (%) (Auto) 9.2 % 13.7 % Monocytes (%) (Auto) 10.2 % 9.4 % Eosinophils (%) (Auto) 0.7 % 2.5 % Basophils (%) (Auto) 0.2 % 0.5 % Neutrophils # (Auto) 12.4 TH/MM3 9.4 TH/MM3 Lymphocytes # (Auto) 1.4 TH/MM3 1.7 TH/MM3 Monocytes # (Auto) 1.6 TH/MM3 1.2 TH/MM3 Eosinophils # (Auto) 0.1 TH/MM3 0.3 TH/MM3 Basophils # (Auto) 0.0 TH/MM3 0.1 TH/MM3 CBC Comment DIFF FINAL DIFF FINAL Differential Comment Prothrombin Time 22.1 SEC Prothromb Time International Ratio 1.9 RATIO Blood Urea Nitrogen 20 MG/DL 19 MG/DL Creatinine 0.74 MG/DL 0.74 MG/DL Random Glucose 192 MG/DL 162 MG/DL Calcium Level 9.0 MG/DL 9.0 MG/DL Magnesium Level 1.6 MG/DL 1.4 MG/DL Sodium Level 136 MEQ/L 137 MEQ/L Potassium Level 3.1 MEQ/L 4.2 MEQ/L Chloride Level 103 MEQ/L 104 MEQ/L Carbon Dioxide Level 23.8 MEQ/L 25.2 MEQ/L Anion Gap 9 MEQ/L 8 MEQ/L Estimat Glomerular Filtration Rate 78 ML/MIN 78 ML/MIN Imaging Last Impressions Thoracic Spine MRI 12/20/16 0000 Signed Impressions: Service Date/Time: Tuesday, December 20, 2016 19:02 - CONCLUSION: 1. Mild broad-based bulging at T10-T11, T11-T12 and T12-L1 2. Otherwise, unremarkable exam for patient's age. Domingo Raines MD Cervical Spine MRI 12/20/16 0000 Signed Impressions: Service Date/Time: Tuesday, December 20, 2016 19:02 - CONCLUSION: 1. There is primary degenerative changes noted throughout the cervical spine. 2. Broad- based bulging at C3-4, C4-5 and C5-6 3. Central and right paracentral bulging/protrusion at C6-7 Domingo Raines MD Lumbar Puncture Fluoroscopy 12/19/16 0600 Signed Impressions: Service Date/Time: Monday, December 19, 2016 11:05 - CONCLUSION: Uncomplicated fluoroscopically guided lumbar puncture with pressures as above. Fred Torres MD Wrist MRI 12/19/16 0000 Signed Impressions: Service Date/Time: Monday, December 19, 2016 11:59 - CONCLUSION: Markedly abnormal dorsal and ventral sides of the carpus including all 3 carpal rows and the radiocarpal joint. Inflammatory process is suspected given the history. Danielito Rodriguez MD FACR Brain MRI 12/19/16 0000 Signed Impressions: Service Date/Time: Monday, December 19, 2016 11:44 - CONCLUSION: 1. No acute intracranial abnormality. 2. Mild chronic small vessel ischemic change. Basim Eller Jr., MD Wrist X-Ray 12/18/16 Signed Impressions: Service Date/Time: Sunday, December 18, 2016 07:55 - CONCLUSION: Unremarkable examination of the left wrist. Lucia John MD Upper Extremity Ultrasound 12/18/16 Signed Impressions: Service Date/Time: Sunday, December 18, 2016 14:37 - CONCLUSION: No DVT of the left upper extremity. Fred Calixto MD Radius/Ulna X-Ray 12/18/16 Signed Impressions: Service Date/Time: Sunday, December 18, 2016 07:54 - CONCLUSION: Unremarkable examination of the left forearm. Lucia John MD Head CT 12/18/16 Signed Impressions: Service Date/Time: Sunday, December 18, 2016 08:16 - CONCLUSION: No acute disease. Lucia John MD Chest X-Ray 12/18/16 Signed Impressions: Service Date/Time: Sunday, December 18, 2016 09:41 - CONCLUSION: No acute disease. Lucia John MD Last Impressions Lumbar Puncture Fluoroscopy 12/19/16 0600 Signed Impressions: Service Date/Time: Monday, December 19, 2016 11:05 - CONCLUSION: Uncomplicated fluoroscopically guided lumbar puncture with pressures as above. Fred Torres MD Wrist MRI 12/19/16 0000 Signed Impressions: Service Date/Time: Monday, December 19, 2016 11:59 - CONCLUSION: Markedly abnormal dorsal and ventral sides of the carpus including all 3 carpal rows and the radiocarpal joint. Inflammatory process is suspected given the history. Danielito Rodriguez MD FACR Brain MRI 12/19/16 0000 Signed Impressions: Service Date/Time: Monday, December 19, 2016 11:44 - CONCLUSION: 1. No acute intracranial abnormality. 2. Mild chronic small vessel ischemic change. Basim Eller Jr., MD Wrist X-Ray 12/18/16 0000 Signed Impressions: Service Date/Time: Sunday, December 18, 2016 07:55 - CONCLUSION: Unremarkable examination of the left wrist. Lucia John MD Upper Extremity Ultrasound 12/18/16 Signed Impressions: Service Date/Time: Sunday, December 18, 2016 14:37 - CONCLUSION: No DVT of the left upper extremity. Fred Calixto MD Radius/Ulna X-Ray 12/18/16 0000 Signed Impressions: Service Date/Time: Sunday, December 18, 2016 07:54 - CONCLUSION: Unremarkable examination of the left forearm. Lucia John MD Head CT 12/18/16 0000 Signed Impressions: Service Date/Time: Sunday, December 18, 2016 08:16 - CONCLUSION: No acute disease. Lucia John MD Chest X-Ray 12/18/16 0000 Signed Impressions: Service Date/Time: Sunday, December 18, 2016 09:41 - CONCLUSION: No acute disease. Lucai John MD Objective Remarks General: NAD, AAOx3 Neck: Tender over post neck or mvmt but improving Chest: CTA Cardiac: Regular Abd: +BS, soft ND/NT Ext: Moves all extremities spontaneously. Left wrist is slightly swollen. No erythema A/P Problem List: (1) Headache ICD Codes: R51 - Headache Status: Acute Plan: - Pt is 66 yo with DM type 2, CKD stage 3, and HTN who presented with severe headache, neck pain/stiffness, and was found to have a WBC count of 20,000 - Pt was admitted to r/o meningitis. - Pt had a recent Coumadin toxicity as well but was r/o for SAH with negative Head CT. - MRI Brain (12/19) --> No acute intracranial abnormality with mild chronic small vessel ischemic change - Pts Coumadin was reversed with vit k and ffp - She had LP on 12/19 with removal of 18cc of clear fluid with opening pressure of 17cm H2O - CSF culture negative with no growth in 72 hours - CSF WBC were 7, RBC were 0 - CSF glucose was elevated at 102 - CSF protein was elevated at 45.4 - CSF Cryptococcus Ag is NOT detected - HSV PCR is negative - VDRL PCR is pending - RPR is negative - HSV I & II DNA PCR are negative - GERRY is positive, titer is pending - CRP 28.20 - ESR 64 - Blood cultures with no growth x 5 days - Appreciate ID consultation - Pt was on empiric abx coverage for possible meningitis with Vancomycin and Ceftriaxone which was stopped on 12/21, ID considering possible aseptic meningitis. - MRI Cervical spine (12/20) --> There is primary degenerative changes noted throughout the cervical spine. Broad-based bulging at C3-4, C4-5 and C5-6 3. Central and right paracentral bulging/ protrusion at C6-7 - MRI Thoracic spine (12/20) --> Mild broad-based bulging at T10-T11, T11-T12 and T12-L1 2. Otherwise, unremarkable exam for patient's age. - Appreciate consult from Neurosurgery. No surgical intervention felt to be necessary at this time. - Case discussed further with ID today and it is not felt that the patient has meningitis. Suspect more rheumatological abnormality - Trial of steroids, Solu-Medrol 40mg Q12H - PT and OT evaluation - IV and PO prn pain control - Constipation precautions - PT evaluation - DVT prophylaxis (2) Wrist pain, left ICD Codes: M25.532 - Pain in left wrist Plan: - During previous admission pt was treated for swelling in the left wrist which was thought to be related to a thrombophlebitis that improved with K-thermia and elevation but she has had persistent swelling in the area of left wrist - MRI of the Wrist (12/19) --> Markedly abnormal dorsal and ventral sides of the carpus including all 3 carpal rows and the radiocarpal joint. Inflammatory process is suspected given the history. - Hand surgery was consulted for concern for possible septic arthritis - It was not felt by the surgeon that she has septic arthritis more likely an inflammatory arthritis - Uric acid elevated at 6.5 - RF is negative. - GERRY is positive, titer is pending - CRP 28.20 - ESR 64 (3) Atrial fibrillation ICD Codes: I48.91 - Unspecified atrial fibrillation Status: Chronic Plan: - Pt normally rate controlled off medication - Her Coumadin was held at admission. - HR had been better controlled on Metoprolol 25mg Q12H - Telemetry - Telemetry readings this morning with patient periodically trending up into the 140's, currently rate controlled in the 80's. Will monitor. - Parameters placed on the Lisinopril - Coumadin 5mg po daily resumed on 12/20 - INR 1.9 on 12/22, awaiting repeat labs for today - Monitor INR daily (4) HTN (hypertension), benign ICD Codes: I10 - Benign hypertension Status: Chronic Plan: - Home meds continued - Monitor (5) Hypothyroidism ICD Codes: E03.9 - Hypothyroidism Status: Chronic (6) Depression ICD Codes: F32.9 - Major depressive disorder, single episode, unspecified Status: Chronic Plan: - Home meds continued (7) DM2 (diabetes mellitus, type 2) ICD Codes: E11.9 - Type 2 diabetes mellitus without complications Status: Chronic Plan: - OHA continued - Accu checks (8) CKD (chronic kidney disease) stage 3, GFR 30-59 ml/min ICD Codes: N18.3 - Chronic kidney disease, stage 3 (moderate) Status: Chronic Assessment and Plan Patient examined. Assessment and plan formulated with Marlene Nuñez PA-C. I agree with the above. - Case d/w ID, Dr. Schwartz (12/23/16) - No evidence of meningitis - ABX stopped. - Possible rheumatologic disease - GERRY positive, minimal elevation of pt's uric acid level - continue neurontin, prn norco - trial of solumedrol - watch blood sugars. Problem Qualifiers (1) Headache: Qualified Codes: R51 - Headache (2) Atrial fibrillation: Qualified Codes: I48.2 - Chronic atrial fibrillation Marlene Nuñez Dec 23, 2016 12:26 Rolo Nassar DO Dec 24, 2016 00:41
--- NOTE | 2016-12-23 13:25 | HHI.PR ---
Subjective Remarks complains of mild pain over the left wrist region denies any fever denies any numbness on wrist brace Objective Vital Signs Date Time Temp Pulse Resp B/P (MAP) Pulse Ox O2 Delivery O2 Flow Rate FiO2 12/23/16 12:00 97.3 96 18 145/87 (106) 96 12/23/16 08:00 98.5 94 20 121/82 (95) 93 12/23/16 08:00 94 12/23/16 04:00 98.6 98 16 132/80 (97) 86 12/23/16 04:00 Room Air 12/23/16 00:00 Room Air 12/23/16 00:00 98.8 97 17 116/59 (78) 94 12/22/16 20:42 98.7 98 18 121/66 (84) 95 12/22/16 20:00 103 12/22/16 20:00 Room Air 12/22/16 16:00 98.7 93 18 132/67 (88) 96 12/22/16 16:00 94 Room Air I/O 12/22/16 12/22/16 12/22/16 12/23/16 12/23/16 12/23/16 07:00 15:00 23:00 07:00 15:00 23:00 Intake Total 1240 ml 1440 ml 1000 ml Balance 1240 ml 1440 ml 1000 ml Intake Oral 240 ml 1440 ml IV Total 1000 ml 1000 ml # Voids 3 6 2 # Bowel Movements 0 left wrist: swelling noted over the wrist and dorsal aspect of the distal forearm mild tenderness on deep palpation range of motion limited, terminal degrees of flexion limited and painful no increased warmth stiffness of the fingers noted wbc 12 GERRY positive screen Result Diagram: 12/23/1646 12/23/1646 Assessment and Plan Assessment and Plan 66 year old female with neck pain and left wrist pain Plan: Do not suspect septic arthritis clinically consider inflammatory arthropathy as differential diagnosis wrist brace for comfort limb elevation No active intervention needed at present time Cody Keating MD Dec 23, 2016 13:25
[2016-12-23 16:00] VITALS: BP 158/70; PULSE 102; RESP 20; TEMP 97.9; O2SAT 95
[2016-12-23] MEDS: methylPREDNISolone SOD SUCC 40 MG/1 ML VIAL IV PUSH SCH ×2 (16:24→21:15)
--- NOTE | 2016-12-23 18:14 | HHI.IDPN ---
Subjective Subjective Remarks doing well WBC significantly down, now @ 12+K cont to haven neck pain CSF neg + GERRY 1:80 Antibiotics none Allergies: Coded Allergies: No Known Allergies (Verified , 12/18/16) Objective . Vital Signs Date Time Temp Pulse Resp B/P (MAP) Pulse Ox O2 Delivery O2 Flow Rate FiO2 12/23/16 12:00 97.3 96 18 145/87 (106) 96 12/23/16 08:00 98.5 94 20 121/82 (95) 93 12/23/16 08:00 94 12/23/16 04:00 98.6 98 16 132/80 (97) 86 12/23/16 04:00 Room Air 12/23/16 00:00 Room Air 12/23/16 00:00 98.8 97 17 116/59 (78) 94 12/22/16 20:42 98.7 98 18 121/66 (84) 95 12/22/16 20:00 103 12/22/16 20:00 Room Air . Laboratory Tests Test 12/22/16 08:12 12/23/16 09:46 White Blood Count 15.5 TH/MM3 12.7 TH/MM3 Red Blood Count 3.74 MIL/MM3 4.11 MIL/MM3 Hemoglobin 10.1 GM/DL 11.0 GM/DL Hematocrit 31.1 % 35.2 % Mean Corpuscular Volume 83.3 FL 85.7 FL Mean Corpuscular Hemoglobin 27.0 PG 26.9 PG Mean Corpuscular Hemoglobin Concent 32.4 % 31.4 % Red Cell Distribution Width 17.6 % 17.8 % Platelet Count 394 TH/MM3 430 TH/MM3 Mean Platelet Volume 7.4 FL 8.0 FL Neutrophils (%) (Auto) 79.7 % 73.9 % Lymphocytes (%) (Auto) 9.2 % 13.7 % Monocytes (%) (Auto) 10.2 % 9.4 % Eosinophils (%) (Auto) 0.7 % 2.5 % Basophils (%) (Auto) 0.2 % 0.5 % Neutrophils # (Auto) 12.4 TH/MM3 9.4 TH/MM3 Lymphocytes # (Auto) 1.4 TH/MM3 1.7 TH/MM3 Monocytes # (Auto) 1.6 TH/MM3 1.2 TH/MM3 Eosinophils # (Auto) 0.1 TH/MM3 0.3 TH/MM3 Basophils # (Auto) 0.0 TH/MM3 0.1 TH/MM3 CBC Comment DIFF FINAL DIFF FINAL Differential Comment Laboratory Tests Test 12/22/16 08:12 12/23/16 09:46 Blood Urea Nitrogen 20 MG/DL 19 MG/DL Creatinine 0.74 MG/DL 0.74 MG/DL Random Glucose 192 MG/DL 162 MG/DL Calcium Level 9.0 MG/DL 9.0 MG/DL Magnesium Level 1.6 MG/DL 1.4 MG/DL Sodium Level 136 MEQ/L 137 MEQ/L Potassium Level 3.1 MEQ/L 4.2 MEQ/L Chloride Level 103 MEQ/L 104 MEQ/L Carbon Dioxide Level 23.8 MEQ/L 25.2 MEQ/L Anion Gap 9 MEQ/L 8 MEQ/L Estimat Glomerular Filtration Rate 78 ML/MIN 78 ML/MIN Imaging Last Impressions Thoracic Spine MRI 12/20/16 0000 Signed Impressions: Service Date/Time: Tuesday, December 20, 2016 19:02 - CONCLUSION: 1. Mild broad-based bulging at T10-T11, T11-T12 and T12-L1 2. Otherwise, unremarkable exam for patient's age. Domingo Raines MD Cervical Spine MRI 12/20/16 0000 Signed Impressions: Service Date/Time: Tuesday, December 20, 2016 19:02 - CONCLUSION: 1. There is primary degenerative changes noted throughout the cervical spine. 2. Broad- based bulging at C3-4, C4-5 and C5-6 3. Central and right paracentral bulging/protrusion at C6-7 Domingo Raines MD Lumbar Puncture Fluoroscopy 12/19/16 0600 Signed Impressions: Service Date/Time: Monday, December 19, 2016 11:05 - CONCLUSION: Uncomplicated fluoroscopically guided lumbar puncture with pressures as above. Fred Torres MD Wrist MRI 12/19/16 0000 Signed Impressions: Service Date/Time: Monday, December 19, 2016 11:59 - CONCLUSION: Markedly abnormal dorsal and ventral sides of the carpus including all 3 carpal rows and the radiocarpal joint. Inflammatory process is suspected given the history. Danielito Rodriguez MD FACR Brain MRI 12/19/16 0000 Signed Impressions: Service Date/Time: Monday, December 19, 2016 11:44 - CONCLUSION: 1. No acute intracranial abnormality. 2. Mild chronic small vessel ischemic change. Basim Eller Jr., MD Wrist X-Ray 12/18/16 Signed Impressions: Service Date/Time: Sunday, December 18, 2016 07:55 - CONCLUSION: Unremarkable examination of the left wrist. Lucia John MD Upper Extremity Ultrasound 12/18/16 Signed Impressions: Service Date/Time: Sunday, December 18, 2016 14:37 - CONCLUSION: No DVT of the left upper extremity. Fred Calixto MD Radius/Ulna X-Ray 12/18/16 Signed Impressions: Service Date/Time: Sunday, December 18, 2016 07:54 - CONCLUSION: Unremarkable examination of the left forearm. Lucia John MD Head CT 12/18/16 Signed Impressions: Service Date/Time: Sunday, December 18, 2016 08:16 - CONCLUSION: No acute disease. Lucia John MD Chest X-Ray 12/18/16 Signed Impressions: Service Date/Time: Sunday, December 18, 2016 09:41 - CONCLUSION: No acute disease. Lucia John MD Physical Exam CONSTITUTIONAL/GENERAL: This is an adequately nourished patient, in no apparent distress. TUBES/LINES/DRAINS: SKIN: No jaundice, rashes, or lesions. Skin temperature appropriate. Profusely diaphoretic. EYES: Pupils equal and round and reactive. Extraocular motions intact. No scleral icterus. No injection or drainage. Fundi not examined. ENT: Hearing grossly normal. Nose without bleeding or purulent drainage. Oral mucosae without visible erythema, exudates, masses, or lesions. NECK: Trachea midline. Rigid, tender. Limited ROM in the neck 2/2 pain CARDIOVASCULAR: Regular rate and rhythm without murmurs, gallops, or rubs. No JVD. Peripheral pulses symmetric. RESPIRATORY/CHEST: Symmetric, unlabored respirations. Clear to auscultation. Breath sounds equal bilaterally. No wheezes, rales, or rhonchi. GASTROINTESTINAL: Abdomen soft, non-tender, nondistended. No hepato-splenomegaly , or palpable masses. No guarding. Bowel sounds present. MUSCULOSKELETAL: Extremities without clubbing, cyanosis, or edema. L wrist with brce in place NO erythema, no clinically apparent effusion NEUROLOGICAL: Awake and alert. Motor and sensory grossly within normal limits. Follows commands. Clear speech. Moves all extremities. PSYCHIATRIC: No obvious anxiety/depression. no apparent hallucinations or other psychotic thought process. Assessment & Plan Remarks Lymphacytic pleucytosis, maybe aseptic meningoitis, but definetely not cw bactermial meningitis - RPR neg VDRL P Leukocytosis - rapidly improving ESR, CRp, platelates are also very high Severe back pain MRI T spine and C spine negative except for DJD L wrist pain x 3 mos, clinically favoring non infectious inflammatory arthropathy - no e/o effusion, clinically or radiologically ? gout Doubtfull of any infectious process, consider CTD - ? lupus OK to dc the pt consider referral to skin toggler as o/p monitor WBC will s/o - reconsult if needed Discussed Condition With Dr Cesario Schwartz,Dagmar Johnson MD Dec 23, 2016 18:14
[2016-12-23] MEDS: WARFARIN SOD 5 MG TAB PO SCH (18:46)
[2016-12-23 20:00] VITALS: BP 162/80; PULSE 106; RESP 18; TEMP 96.5; O2SAT 97
[2016-12-23 20:55] LABS: INTERNATIONAL NORMALIZED RATIO 3.3 RATIO
[2016-12-23 21:05] LABS: PROTHROMBIN TIME - PATIENT 38.1 SEC (9.8-11.6)
[2016-12-24 00:14] VITALS: BP 137/78; PULSE 100; RESP 18; TEMP 96.3; O2SAT 95
[2016-12-24] MEDS: SODIUM CHLOR 0.9% 1000 ML INJ 1,000 ML IV SCH ×2 (01:20→13:15)
[2016-12-24 04:00] VITALS: BP 153/80; PULSE 91; RESP 18; TEMP 97.7; O2SAT 95
[2016-12-24] MEDS: BETHANECHOL CHL 25 MG TAB PO SCH ×3 (05:05→22:18)
[2016-12-24] MEDS: ACETAMINOPHEN/HYDROcodone 325 MG/10 MG TAB PO PRN ×4 (05:05→22:19)
[2016-12-24] MEDS: LEVOTHYROXINE SODIUM 100 MCG TAB PO SCH (05:05)
[2016-12-24] MEDS: INSULIN ASPART SUPPLEMENTAL SCALE SQ SCH ×3 (05:14→21:00)
[2016-12-24 08:00] VITALS: BP 140/77; PULSE 84; RESP 18; TEMP 97; O2SAT 98
[2016-12-24] MEDS: GABAPENTIN 300 MG CAP PO SCH ×2 (09:00→22:19)
[2016-12-24] MEDS: SODIUM BICARBONATE 650 MG TAB PO SCH (09:00)
[2016-12-24] MEDS: MAGNESIUM OXIDE 400 MG TAB PO SCH (09:01)
[2016-12-24] MEDS: sulfaSALAzine 500 MG TAB PO SCH ×2 (09:02→22:18)
[2016-12-24] MEDS: ATORVASTATIN 40 MG TAB PO SCH (09:03)
[2016-12-24] MEDS: GLIMEPIRIDE 4 MG TAB PO SCH ×2 (09:03→22:18)
[2016-12-24] MEDS: PANTOPRAZOLE SOD 20 MG DELAYED RELEASE TAB PO SCH ×2 (09:03→22:19)
[2016-12-24] MEDS: DOCUSATE SODIUM 100 MG CAP PO SCH ×2 (09:03→22:18)
[2016-12-24] MEDS: VENLAFAXINE HCL XR 75 MG CAP PO SCH (09:03)
[2016-12-24] MEDS: METOPROLOL TARTRATE 25 MG TAB PO SCH ×2 (09:04→22:18)
[2016-12-24] MEDS: LISINOPRIL 10 MG TAB PO SCH (09:04)
[2016-12-24] MEDS: methylPREDNISolone SOD SUCC 40 MG/1 ML VIAL IV PUSH SCH (09:04)
[2016-12-24 12:00] VITALS: BP 144/74; PULSE 89; RESP 18; TEMP 97.7; O2SAT 96
[2016-12-24 16:00] VITALS: BP 142/83; PULSE 110; RESP 18; TEMP 97.7; O2SAT 98
--- NOTE | 2016-12-24 16:25 | HHI.PR ---
Subjective Remarks Neck pain is much improved since starting IV steroids. Objective Vitals Vital Signs Date Time Temp Pulse Resp B/P (MAP) Pulse Ox O2 Delivery O2 Flow Rate FiO2 12/24/16 15:12 Room Air 12/24/16 12:00 97.7 89 18 144/74 (97) 96 12/24/16 08:00 97.0 84 18 140/77 (98) 98 12/24/16 04:00 97.7 91 18 153/80 (104) 95 12/24/16 00:14 96.3 100 18 137/78 (97) 95 12/23/16 21:20 Room Air 12/23/16 20:00 96.5 106 18 162/80 (107) 97 Result Diagram: 12/23/16 0946 12/23/16 0946 Imaging Last Impressions Thoracic Spine MRI 12/20/16 0000 Signed Impressions: Service Date/Time: Tuesday, December 20, 2016 19:02 - CONCLUSION: 1. Mild broad-based bulging at T10-T11, T11-T12 and T12-L1 2. Otherwise, unremarkable exam for patient's age. Domingo Raines MD Cervical Spine MRI 12/20/16 0000 Signed Impressions: Service Date/Time: Tuesday, December 20, 2016 19:02 - CONCLUSION: 1. There is primary degenerative changes noted throughout the cervical spine. 2. Broad- based bulging at C3-4, C4-5 and C5-6 3. Central and right paracentral bulging/protrusion at C6-7 Domingo Raines MD Lumbar Puncture Fluoroscopy 12/19/16 0600 Signed Impressions: Service Date/Time: Monday, December 19, 2016 11:05 - CONCLUSION: Uncomplicated fluoroscopically guided lumbar puncture with pressures as above. Fred Torres MD Wrist MRI 12/19/16 0000 Signed Impressions: Service Date/Time: Monday, December 19, 2016 11:59 - CONCLUSION: Markedly abnormal dorsal and ventral sides of the carpus including all 3 carpal rows and the radiocarpal joint. Inflammatory process is suspected given the history. Danielito Rodriguez MD FACR Brain MRI 12/19/16 0000 Signed Impressions: Service Date/Time: Monday, December 19, 2016 11:44 - CONCLUSION: 1. No acute intracranial abnormality. 2. Mild chronic small vessel ischemic change. Basim Eller Jr., MD Wrist X-Ray 12/18/16 0000 Signed Impressions: Service Date/Time: Sunday, December 18, 2016 07:55 - CONCLUSION: Unremarkable examination of the left wrist. Lucia John MD Upper Extremity Ultrasound 12/18/16 Signed Impressions: Service Date/Time: Sunday, December 18, 2016 14:37 - CONCLUSION: No DVT of the left upper extremity. Fred Calixto MD Radius/Ulna X-Ray 12/18/16 Signed Impressions: Service Date/Time: Sunday, December 18, 2016 07:54 - CONCLUSION: Unremarkable examination of the left forearm. Lucia John MD Head CT 12/18/16 Signed Impressions: Service Date/Time: Sunday, December 18, 2016 08:16 - CONCLUSION: No acute disease. Lucia John MD Chest X-Ray 12/18/16 Signed Impressions: Service Date/Time: Sunday, December 18, 2016 09:41 - CONCLUSION: No acute disease. Lucia John MD Last Impressions Lumbar Puncture Fluoroscopy 12/19/16 0600 Signed Impressions: Service Date/Time: Monday, December 19, 2016 11:05 - CONCLUSION: Uncomplicated fluoroscopically guided lumbar puncture with pressures as above. Fred Torres MD Wrist MRI 12/19/16 0000 Signed Impressions: Service Date/Time: Monday, December 19, 2016 11:59 - CONCLUSION: Markedly abnormal dorsal and ventral sides of the carpus including all 3 carpal rows and the radiocarpal joint. Inflammatory process is suspected given the history. Danielito Rodriguez MD FACR Brain MRI 12/19/16 0000 Signed Impressions: Service Date/Time: Monday, December 19, 2016 11:44 - CONCLUSION: 1. No acute intracranial abnormality. 2. Mild chronic small vessel ischemic change. Basim Eller Jr., MD Wrist X-Ray 12/18/16 0000 Signed Impressions: Service Date/Time: Sunday, December 18, 2016 07:55 - CONCLUSION: Unremarkable examination of the left wrist. Lucia John MD Upper Extremity Ultrasound 12/18/16 Signed Impressions: Service Date/Time: Sunday, December 18, 2016 14:37 - CONCLUSION: No DVT of the left upper extremity. Fred Calixto MD Radius/Ulna X-Ray 12/18/16 0000 Signed Impressions: Service Date/Time: Sunday, December 18, 2016 07:54 - CONCLUSION: Unremarkable examination of the left forearm. Lucia John MD Head CT 12/18/16 0000 Signed Impressions: Service Date/Time: Sunday, December 18, 2016 08:16 - CONCLUSION: No acute disease. Lucia John MD Chest X-Ray 12/18/16 0000 Signed Impressions: Service Date/Time: Sunday, December 18, 2016 09:41 - CONCLUSION: No acute disease. Lucia oJhn MD Objective Remarks General: NAD, AAOx3 Neck: Tender over post neck or mvmt but improving Chest: CTA Cardiac: Regular Abd: +BS, soft ND/NT Ext: Moves all extremities spontaneously. Left wrist is slightly swollen. No erythema A/P Problem List: (1) Headache ICD Codes: R51 - Headache Status: Acute Plan: - Pt is 66 yo with DM type 2, CKD stage 3, and HTN who presented with severe headache, neck pain/stiffness, and was found to have a WBC count of 20,000 - Pt was admitted to r/o meningitis. - Pt had a recent Coumadin toxicity as well but was r/o for SAH with negative Head CT. - MRI Brain (12/19) --> No acute intracranial abnormality with mild chronic small vessel ischemic change - Pts Coumadin was reversed with vit k and ffp - She had LP on 12/19 with removal of 18cc of clear fluid with opening pressure of 17cm H2O - CSF culture negative with no growth in 72 hours - CSF WBC were 7, RBC were 0 - CSF glucose was elevated at 102 - CSF protein was elevated at 45.4 - CSF Cryptococcus Ag is NOT detected - HSV PCR is negative - VDRL PCR is pending - RPR is negative - HSV I & II DNA PCR are negative - GERRY is positive, titer is pending - CRP 28.20 - ESR 64 - Blood cultures with no growth x 5 days - Appreciate ID consultation - Pt was on empiric abx coverage for possible meningitis with Vancomycin and Ceftriaxone which was stopped on 12/21, ID considering possible aseptic meningitis. - MRI Cervical spine (12/20) --> There is primary degenerative changes noted throughout the cervical spine. Broad-based bulging at C3-4, C4-5 and C5-6 3. Central and right paracentral bulging/ protrusion at C6-7 - MRI Thoracic spine (12/20) --> Mild broad-based bulging at T10-T11, T11-T12 and T12-L1 2. Otherwise, unremarkable exam for patient's age. - Appreciate consult from Neurosurgery. No surgical intervention felt to be necessary at this time. - Case discussed further with ID today and it is not felt that the patient has meningitis. Suspect more rheumatological abnormality - clinical improvement with solumedrol - change solumedrol to PO prednisone - blood sugar elevated with solumedrol - obtain HgA1C - change SSI to medium dose - INR high, hold coumadin today, repeat INR in AM - PT and OT evaluation - IV and PO prn pain control - Constipation precautions - PT evaluation - anticipate d/c to SNF in 1-2 days - DVT prophylaxis (2) Wrist pain, left ICD Codes: M25.532 - Pain in left wrist Plan: - During previous admission pt was treated for swelling in the left wrist which was thought to be related to a thrombophlebitis that improved with K-thermia and elevation but she has had persistent swelling in the area of left wrist - MRI of the Wrist (12/19) --> Markedly abnormal dorsal and ventral sides of the carpus including all 3 carpal rows and the radiocarpal joint. Inflammatory process is suspected given the history. - Hand surgery was consulted for concern for possible septic arthritis - It was not felt by the surgeon that she has septic arthritis more likely an inflammatory arthritis - Uric acid elevated at 6.5 - RF is negative. - GERRY is positive, titer is pending - CRP 28.20 - ESR 64 (3) Atrial fibrillation ICD Codes: I48.91 - Unspecified atrial fibrillation Status: Chronic Plan: - Pt normally rate controlled off medication - Her Coumadin was held at admission. - HR had been better controlled on Metoprolol 25mg Q12H - Telemetry - Telemetry readings this morning with patient periodically trending up into the 140's, currently rate controlled in the 80's. Will monitor. - Parameters placed on the Lisinopril - Coumadin 5mg po daily resumed on 12/20 - INR 1.9 on 12/22, awaiting repeat labs for today - Monitor INR daily (4) HTN (hypertension), benign ICD Codes: I10 - Benign hypertension Status: Chronic Plan: - Home meds continued - Monitor (5) Hypothyroidism ICD Codes: E03.9 - Hypothyroidism Status: Chronic (6) Depression ICD Codes: F32.9 - Major depressive disorder, single episode, unspecified Status: Chronic Plan: - Home meds continued (7) DM2 (diabetes mellitus, type 2) ICD Codes: E11.9 - Type 2 diabetes mellitus without complications Status: Chronic Plan: - OHA continued - Accu checks (8) CKD (chronic kidney disease) stage 3, GFR 30-59 ml/min ICD Codes: N18.3 - Chronic kidney disease, stage 3 (moderate) Status: Chronic Assessment and Plan Patient examined. Assessment and plan formulated with Marlene Nuñez PA-C. I agree with the above. - Case d/w ID, Dr. Schwartz (12/23/16) - No evidence of meningitis - ABX stopped. - Possible rheumatologic disease - GERRY positive, minimal elevation of pt's uric acid level - continue neurontin, prn norco - trial of solumedrol - watch blood sugars. Problem Qualifiers (1) Headache: Qualified Codes: R51 - Headache (2) Atrial fibrillation: Qualified Codes: I48.2 - Chronic atrial fibrillation Rolo Nassar DO Dec 24, 2016 16:25
[2016-12-24 20:00] VITALS: BP 126/75; PULSE 85; RESP 19; TEMP 98.2; O2SAT 94
[2016-12-24] MEDS ORDERED: INSULIN ASPART 1,000 UNITS/10 ML VIAL SQ ONE (21:45)
[2016-12-25] VITALS: BP 134/70; PULSE 80; RESP 19; TEMP 97.6; O2SAT 95
[2016-12-25] MEDS: SODIUM CHLOR 0.9% 1000 ML INJ 1,000 ML IV SCH (01:10)
[2016-12-25 04:00] VITALS: BP 136/82; PULSE 90; RESP 18; TEMP 97.4; O2SAT 97
[2016-12-25] MEDS: ACETAMINOPHEN/HYDROcodone 325 MG/10 MG TAB PO PRN (05:40)
[2016-12-25] MEDS: INSULIN ASPART SUPPLEMENTAL SCALE SQ SCH ×3 (05:41→16:00)
[2016-12-25] MEDS: LEVOTHYROXINE SODIUM 100 MCG TAB PO SCH (05:41)
[2016-12-25] MEDS: BETHANECHOL CHL 25 MG TAB PO SCH ×2 (05:41→13:31)
[2016-12-25 08:00] VITALS: BP 132/89; PULSE 79; RESP 18; TEMP 97.3; O2SAT 97
[2016-12-25] MEDS ORDERED: METO25TA3 PO (08:57)
[2016-12-25] MEDS ORDERED: ATOR40TA16 PO (08:57)
[2016-12-25] MEDS ORDERED: predniSONE 20 MG TAB PO SCH (09:00)
[2016-12-25] MEDS: GABAPENTIN 300 MG CAP PO SCH (09:32)
[2016-12-25] MEDS: DOCUSATE SODIUM 100 MG CAP PO SCH (09:32)
[2016-12-25] MEDS: MAGNESIUM OXIDE 400 MG TAB PO SCH (09:32)
[2016-12-25] MEDS: SODIUM BICARBONATE 650 MG TAB PO SCH (09:32)
[2016-12-25] MEDS: ATORVASTATIN 40 MG TAB PO SCH (09:32)
[2016-12-25] MEDS: GLIMEPIRIDE 4 MG TAB PO SCH (09:33)
[2016-12-25] MEDS: LISINOPRIL 10 MG TAB PO SCH (09:33)
[2016-12-25] MEDS: VENLAFAXINE HCL XR 75 MG CAP PO SCH (09:33)
[2016-12-25] MEDS: sulfaSALAzine 500 MG TAB PO SCH (09:33)
[2016-12-25] MEDS: PANTOPRAZOLE SOD 20 MG DELAYED RELEASE TAB PO SCH (09:33)
[2016-12-25] MEDS: METOPROLOL TARTRATE 25 MG TAB PO SCH (09:33)
--- NOTE | 2016-12-25 10:03 | HHI.DS ---
Discharge Summary Admission Date Dec 18, 2016 at 10:25 Discharge Date: Dec 25, 2016 Admitting Diagnosis severe headache. (1) Headache ICD Codes: R51 - Headache Status: Acute (2) Wrist pain, left ICD Codes: M25.532 - Pain in left wrist (3) Atrial fibrillation ICD Codes: I48.91 - Unspecified atrial fibrillation Status: Chronic (4) HTN (hypertension), benign ICD Codes: I10 - Benign hypertension Status: Chronic (5) Hypothyroidism ICD Codes: E03.9 - Hypothyroidism Status: Chronic (6) Depression ICD Codes: F32.9 - Major depressive disorder, single episode, unspecified Status: Chronic (7) DM2 (diabetes mellitus, type 2) ICD Codes: E11.9 - Type 2 diabetes mellitus without complications Status: Chronic (8) CKD (chronic kidney disease) stage 3, GFR 30-59 ml/min ICD Codes: N18.3 - Chronic kidney disease, stage 3 (moderate) Status: Chronic Consultants Dr. Bay orthopedic surgery Dr. Keating hand surgery Dr. Schwartz ID Dr. Sosa Neurosurgery Procedures 12/19/16 Lum[address] P[address] IR Dr. Torres Brief History Pt is 66 yo with dm2 and htn who presents with 2 day hx of severe headache and pain in posterior neck with difficulty moving it. Denies any photophobia. No fevers noted. She had been on levaquin from urgent care for possible recurrent uti She finished the abx 2 days ago. But near the end of the abx course it was noted her inr was supratherapeutic on and Monday this past week from [facility]. pt says the machine just read "high" and then it was checked by her awning installer and he told her to hold it..I don't have that inr number. She was admitted last month and treated for afib/rvr, uti, left forearm thrombophlebitis, diarrhea, In ED pt had wbc of 20k and there was some concern for meningitis. She is on coumadin and unable to do LP. She was given rocephin/vanco/ampicillin emperically. CT head neg for acute bleed. CBC/BMP: 12/23/16 0946 12/23/16 0946 Significant Findings Laboratory Tests Test 12/23/16 09:46 12/23/16 20:06 White Blood Count 12.7 TH/MM3 (4.0-11.0) Hemoglobin 11.0 GM/DL (11.6-15.3) Mean Corpuscular Hemoglobin 26.9 PG (27.0-34.0) Mean Corpuscular Hemoglobin Concent 31.4 % (32.0-36.0) Red Cell Distribution Width 17.8 % (11.6-17.2) Neutrophils (%) (Auto) 73.9 % (16.0-70.0) Monocytes (%) (Auto) 9.4 % (0.0-8.0) Neutrophils # (Auto) 9.4 TH/MM3 (1.8-7.7) Monocytes # (Auto) 1.2 TH/MM3 (0-0.9) Blood Urea Nitrogen 19 MG/DL (7-18) Random Glucose 162 MG/DL (74-106) Magnesium Level 1.4 MG/DL (1.5-2.5) Estimat Glomerular Filtration Rate 78 ML/MIN (>89) Prothrombin Time 38.1 SEC (9.8-11.6) Imaging Last Impressions Thoracic Spine MRI 12/20/16 0000 Signed Impressions: Service Date/Time: Tuesday, December 20, 2016 19:02 - CONCLUSION: 1. Mild broad-based bulging at T10-T11, T11-T12 and T12-L1 2. Otherwise, unremarkable exam for patient's age. Domingo Raines MD Cervical Spine MRI 12/20/16 0000 Signed Impressions: Service Date/Time: Tuesday, December 20, 2016 19:02 - CONCLUSION: 1. There is primary degenerative changes noted throughout the cervical spine. 2. Broad- based bulging at C3-4, C4-5 and C5-6 3. Central and right paracentral bulging/protrusion at C6-7 Domingo Raines MD Lumbar Puncture Fluoroscopy 12/19/16 0600 Signed Impressions: Service Date/Time: Monday, December 19, 2016 11:05 - CONCLUSION: Uncomplicated fluoroscopically guided lumbar puncture with pressures as above. Fred Torres MD Wrist MRI 12/19/16 0000 Signed Impressions: Service Date/Time: Monday, December 19, 2016 11:59 - CONCLUSION: Markedly abnormal dorsal and ventral sides of the carpus including all 3 carpal rows and the radiocarpal joint. Inflammatory process is suspected given the history. Danielito Rodriguez MD FACR Brain MRI 12/19/16 Signed Impressions: Service Date/Time: Monday, December 19, 2016 11:44 - CONCLUSION: 1. No acute intracranial abnormality. 2. Mild chronic small vessel ischemic change. Basim Eller Jr., MD Wrist X-Ray 12/18/16 Signed Impressions: Service Date/Time: Sunday, December 18, 2016 07:55 - CONCLUSION: Unremarkable examination of the left wrist. Lucia John MD Upper Extremity Ultrasound 12/18/16 Signed Impressions: Service Date/Time: Sunday, December 18, 2016 14:37 - CONCLUSION: No DVT of the left upper extremity. Fred Calixto MD Radius/Ulna X-Ray 12/18/16 Signed Impressions: Service Date/Time: Sunday, December 18, 2016 07:54 - CONCLUSION: Unremarkable examination of the left forearm. Lucia John MD Head CT 12/18/16 Signed Impressions: Service Date/Time: Sunday, December 18, 2016 08:16 - CONCLUSION: No acute disease. Lucia John MD Chest X-Ray 12/18/16 Signed Impressions: Service Date/Time: Sunday, December 18, 2016 09:41 - CONCLUSION: No acute disease. Lucia John MD PE at Discharge General: NAD, AAOx3 Neck: Tender over post neck or mvmt but improving Chest: CTA Cardiac: Regular Abd: +BS, soft ND/NT Ext: Moves all extremities spontaneously. Left wrist is slightly swollen. No erythema Hospital Course Headache - Pt is 66 yo with DM type 2, CKD stage 3, and HTN who presented with severe headache, neck pain/stiffness, and was found to have a WBC count of 20,000 - Pt was admitted to r/o meningitis. - Pt had a recent Coumadin toxicity as well but was r/o for SAH with negative Head CT. - MRI Brain (12/19) --> No acute intracranial abnormality with mild chronic small vessel ischemic change - Pts Coumadin was reversed with vit k and ffp - She had LP on 12/19 with removal of 18cc of clear fluid with opening pressure of 17cm H2O - CSF culture negative with no growth in 72 hours - CSF WBC were 7, RBC were 0 - CSF glucose was elevated at 102 - CSF protein was elevated at 45.4 - CSF Cryptococcus Ag is NOT detected - HSV PCR is negative - VDRL PCR is pending - RPR is negative - HSV I & II DNA PCR are negative - GERRY is positive, titer is pending - CRP 28.20 - ESR 64 - Blood cultures with no growth x 5 days - Appreciate ID consultation - Pt was on empiric abx coverage for possible meningitis with Vancomycin and Ceftriaxone which was stopped on 12/21, ID considering possible aseptic meningitis. - MRI Cervical spine (12/20) --> There is primary degenerative changes noted throughout the cervical spine. Broad-based bulging at C3-4, C4-5 and C5-6 3. Central and right paracentral bulging/ protrusion at C6-7 - MRI Thoracic spine (12/20) --> Mild broad-based bulging at T10-T11, T11-T12 and T12-L1 2. Otherwise, unremarkable exam for patient's age. - Appreciate consult from Neurosurgery. No surgical intervention felt to be necessary at this time. - Case discussed further with ID and it is not felt that the patient has meningitis. Suspect rheumatological abnormality - clinical improvement with solumedrol - change solumedrol to PO prednisone - blood sugar elevated with solumedrol - change SSI to medium dose - INR high, hold Coumadin 12/24/16, repeat INR 12/25/16 remains elevated 4.5 give Vitamin K 2.5 mg PO x 1 prior to DC, continue to hold Coumadin and recheck PT/ INR tomorrow - PT and OT evaluation- recommending rehab - IV and PO prn pain control - Constipation precautions - DVT prophylaxis Wrist pain, left - During previous admission pt was treated for swelling in the left wrist which was thought to be related to a thrombophlebitis that improved with K-thermia and elevation but she has had persistent swelling in the area of left wrist - MRI of the Wrist (12/19) --> Markedly abnormal dorsal and ventral sides of the carpus including all 3 carpal rows and the radiocarpal joint. Inflammatory process is suspected given the history. - Hand surgery was consulted for concern for possible septic arthritis - It was not felt by the surgeon that she has septic arthritis more likely an inflammatory arthritis - Uric acid elevated at 6.5 - RF is negative. - GERRY is positive, titer is pending - CRP 28.20 - ESR 64 Atrial fibrillation - Pt normally rate controlled off medication - Her Coumadin was held at admission. - HR had been better controlled on Metoprolol 25mg Q12H - Telemetry - Telemetry readings this morning with patient periodically trending up into the 140's, currently rate controlled in the 80's. Will monitor. - Parameters placed on the Lisinopril - Coumadin 5mg po daily on hold - Monitor INR daily HTN (hypertension), benign - Home lisinopril continued with the addition of metoprolol 25 mg PO BID Hypothyroidism continue home medication Depression - Home meds continued DM2 (diabetes mellitus, type 2) - OHA continued - Accu checks CKD (chronic kidney disease) stage 3, GFR 30-59 ml/min Chronic Pt Condition on Discharge: Stable Discharge Disposition: Discharge to SNF Discharge Instructions DIET: Follow Instructions for: Diabetic Diet Activities you can perform: Regular-No Restrictions Follow up Referrals: Appointment for Follow Up - [address] Foster PCP Follow-up - [address] Urban Carrera New Medications: Atorvastatin (Atorvastatin) 40 Mg Tab 40 MG PO DAILY for cholesterol, #30 TAB Hydrocodone-Acetaminophen (Hydrocodone-Acetaminophen) 10-325 mg Tab 1 TAB PO Q4H PRN for pain, #30 TAB Metoprolol Tartrate (Metoprolol Tartrate) 25 Mg Tab 25 MG PO Q12HR for blood pressure, #30 TAB Prednisone (Prednisone) 20 Mg Tab 20 MG PO DAILY for arthralgia, #10 TAB 0 Refills 20mg daily x 3 days, then 10mg daily x 3 days, then stop Continued Medications: Bethanechol (Bethanechol) 50 Mg Tab 50 MG PO Q8HR for Urinary Symptom Managemen, TAB 0 Refills Calcium Carbonate-Cholecalciferol (Calcium 600 with Vitamin D) 600-400 mg-Unit Tab 300 TAB PO DAILY for Calcium Supplement, TAB 0 Refills Calcium Polycarbophil (Fibercon) 625 Mg Tab 625 MG PO DAILY for Constipation, TAB 0 Refills Cholecalciferol (D 5000) 5,000 Unit Cap 1 CAP PO DAILY for Nutritional Supplement Empagliflozin (Jardiance) 25 Mg Tab 25 MG PO DAILY for Blood Sugar Management, #30 TAB 0 Refills Gabapentin (Gabapentin) 600 Mg Tab 600 MG PO TID, #90 TAB 0 Refills Glimepiride (Glimepiride) 4 Mg Tab 4 MG PO BID for Blood Sugar Management, #30 TAB 0 Refills Take with breakfast or first main meal Levothyroxine (Levothyroxine) 100 Mcg Tab 100 MCG PO DAILY for Thyroid, #30 TAB 0 Refills Lisinopril (Lisinopril) 20 Mg Tab 10 MG PO DAILY, #30 TAB 0 Refills Magnesium Oxide (Magnesium Oxide) 400 Mg Tab 800 MG PO DAILY for Nutritional Supplement, TAB 0 Refills Metformin (Metformin) 500 Mg Tab 500 MG PO HS for Blood Sugar Management, #30 TAB 0 Refills With a meal Omeprazole (Omeprazole) 20 Mg Cap 20 MG PO BID Sodium Bicarbonate (Sodium Bicarbonate) 325 Mg Tab 650 MG PO DAILY, #60 TAB 0 Refills Sulfasalazine (Sulfasalazine) 500 Mg Tab 1000 MG PO BID, #240 TAB 0 Refills Venlafaxine ER 24 HR (Venlafaxine ER 24 HR) 150 Mg Cap 150 MG PO DAILY, #30 CAP 0 Refills Discontinued Medications: Rosuvastatin (Rosuvastatin) 20 Mg Tab 20 MG PO DAILY for Cholesterol Management, #30 TAB 0 Refills Warfarin (Coumadin) 5 Mg Tab 5 MG PO DAILY for Blood Clot Prevention, #30 TAB 0 Refills Phoebe Hathaway Dec 25, 2016 10:03 Rolo Nassar DO Dec 26, 2016 00:20
[2016-12-25 12:00] VITALS: BP 141/78; PULSE 78; RESP 18; TEMP 98.5; O2SAT 97
[2016-12-25] MEDS ORDERED: PRED20 PO (14:05)
[2016-12-25] MEDS ORDERED: HYDR-3583 PO (14:05)
[2016-12-25 16:00] VITALS: BP 135/80; PULSE 70; RESP 18; TEMP 98; O2SAT 97
[2016-12-25 16:27] LABS: INTERNATIONAL NORMALIZED RATIO 4.5 RATIO; PROTHROMBIN TIME - PATIENT 53.3 SEC (9.8-11.6)
--- NOTE | 2016-12-25 16:43 | HHI.DCPOC ---
Discharge Care Plan Diagnosis: (1) Headache (2) DM2 (diabetes mellitus, type 2) (3) CKD (chronic kidney disease) stage 3, GFR 30-59 ml/min (4) HTN (hypertension), benign Goals to Promote Your Health * To prevent worsening of your condition and complications * To maintain your health at the optimal level Directions to Meet Your Goals Take your medications as prescribed Follow your dietary instruction Follow activity as directed Keep your appointments as scheduled Take your immunizations and boosters as scheduled If your symptoms worsen call your PCP, if no PCP go to Urgent Care Center or Emergency Room Smoking is Dangerous to Your Health. Avoid second hand smoke Call the 24-hour hour crisis hotline for domestic abuse at Phoebe Hathaway Dec 25, 2016 16:43 Rolo Nassar DO Dec 26, 2016 00:21
[2016-12-25] MEDS ORDERED: PHYTONADIONE 5 MG TAB PO STA (17:19)
[2016-12-25] MEDS ORDERED: metFORMIN HCL 500 MG TAB PO SCH (21:00)
== END 2016-12-25 17:54 | DRG 99 ==
LOC: NEPC 07:12 → NEDH 10:25 → N04A 14:27
PROVIDERS: ADMIT Hospitalist; ATTEND Hospitalist
PROC: 30233K1 Transfusion of Nonautologous Frozen Plasma into Peripheral Vein, Percutaneous Approach (ICD-10-PCS; 2016-12-18)
PROC: 009U3ZX Drainage of Spinal Canal, Percutaneous Approach, Diagnostic (ICD-10-PCS; principal; 2016-12-19)
DX: G03.0 Nonpyogenic meningitis (principal); E11.22 Type 2 diabetes mellitus with diabetic chronic kidney disease; I48.2 Chronic atrial fibrillation; K31.84 Gastroparesis; E11.65 Type 2 diabetes mellitus with hyperglycemia; E11.43 Type 2 diabetes mellitus with diabetic autonomic (poly)neuropathy; I12.9 Hypertensive chronic kidney disease with stage 1 through stage 4 chronic kidney disease, or unspecified chronic kidney disease; E03.9 Hypothyroidism, unspecified; M50.223 Other cervical disc displacement at C6-C7 level; F32.9 Major depressive disorder, single episode, unspecified; M47.812 Spondylosis without myelopathy or radiculopathy, cervical region; M48.02 Spinal stenosis, cervical region; M25.532 Pain in left wrist; E78.5 Hyperlipidemia, unspecified; G89.29 Other chronic pain; K21.9 Gastro-esophageal reflux disease without esophagitis; N18.3 Chronic kidney disease, stage 3 (moderate); M50.30 Other cervical disc degeneration, unspecified cervical region; Z79.01 Long term (current) use of anticoagulants; Z79.84 Long term (current) use of oral hypoglycemic drugs
CPT/HCPCS: 36430; 62270; 70450; 70553; 71010; 72156; 72157; 73090; 73110; 73223; 76937; 77003; 80048; 80053; 80202; 81001; 82945; 82948; 83605; 83735; 84157; 84550; 85025; 85610; 85652; 85730; 86038; 86039; 86140; 86403; 86430; 86592; 86927; 87040; 87070; 87205; 87529; 89051; 93005; 93971; 96365; 96375; A9579; J0290; J0696; J1170; J1815; J2270; J2920; J3370; J3475; J7030; J7040; J7050; J7512; L3908; P9017

== ENCOUNTER 2018-02-11 16:41 | Inpatient (IN) ==
[2018-02-11] MEDS ORDERED: HYDROmorphone PF Inj 2 MG/ML Vial IV.PUSH ONE ×4 (17:01→20:34)
[2018-02-11] MEDS ORDERED: Sod Chloride 0.9% Inj 1,000 ML IV.CONT SCH (17:15)
--- NOTE | 2018-02-11 17:16 | ED ---
HPI General Chief Complaint: Fall Stated Complaint: fall Time Seen by Provider: 02/11/18 17:01 Source: patient and EMS Mode of arrival: EMS Limitations: physical limitation History of Present Illness HPI Narrative: 68-year-old female complains of right knee pain. Patient states that she is status post bilateral knee replacement in the past by Dr. Hughes. Patient states that she was walking at home and the right knee gave out. Patient fell down subsequently. Patient states that the right leg was angulated at the knee. EMS was called. Patient was put on a right leg splint prior to transport to the ED for evaluation. Patient has history of atrial fibrillation and on Eliquis. Patient also has history of hypothyroidism, hypertension, GERD, anxiety, diabetes. Related Data Home Medications Medication Instructions Recorded Confirmed apixaban [Eliquis] 5 mg PO BID 02/11/18 02/11/18 ascorbic acid (vitamin C) [Vitamin 500 mg PO BID 02/11/18 02/11/18 C] biotin 1,000 mcg PO DAILY 02/11/18 02/11/18 calcium carbonate-vitamin D3 1 tab PO BID 02/11/18 02/11/18 [Calcium 600 + D(3)] cholecalciferol (vitamin D3) 2,000 unit PO DAILY 02/11/18 02/11/18 [Vitamin D3] cholestyramine-aspartame 4 g PO BID 02/11/18 02/11/18 [Cholestyramine Light] diazepam 10 mg PO DAILY PRN 02/11/18 02/11/18 digoxin [Digox] 0.125 mg PO DAILY 02/11/18 02/11/18 diltiazem HCl 360 mg PO DAILY 02/11/18 02/11/18 diphenoxylate-atropine 1 tab PO Q6-8H PRN 02/11/18 02/11/18 fesoterodine [Toviaz] 4 mg PO DAILY 02/11/18 02/11/18 folic acid 1 mg PO DAILY 02/11/18 02/11/18 furosemide 20 mg PO DAILY 02/11/18 02/11/18 gabapentin 300 mg PO BID 02/11/18 02/11/18 glimepiride 2 mg PO QPM 02/11/18 02/11/18 glimepiride 4 mg PO QAM 02/11/18 02/11/18 hydrochlorothiazide 25 mg PO DAILY 02/11/18 02/11/18 hydrocodone-acetaminophen 1 tab PO Q12H PRN 02/11/18 02/11/18 levothyroxine 100 mcg PO DAILY 02/11/18 02/11/18 levothyroxine [Levoxyl] 88 mcg PO DAILY 02/11/18 02/11/18 lisinopril 20 mg PO DAILY 02/11/18 02/11/18 magnesium oxide 400 mg PO BID 02/11/18 02/11/18 metformin 1,000 mg PO BID 02/11/18 02/11/18 metoprolol tartrate 50 mg PO BID 02/11/18 02/11/18 omeprazole 20 mg PO BID 02/11/18 02/11/18 potassium 99 mg PO DAILY 02/11/18 02/11/18 pravastatin 20 mg PO DAILY 02/11/18 02/11/18 sodium bicarbonate 650 mg PO BID 02/11/18 02/11/18 sucralfate 1 g PO BID 02/11/18 02/11/18 sulfasalazine 1 g PO BID 02/11/18 02/11/18 venlafaxine [Effexor XR] 150 mg PO DAILY 02/11/18 02/11/18 Allergies Allergy/AdvReac Type Severity Reaction Status Date / Time No Known Allergies Allergy Uncoded 12/18/16 07:18 Review of Systems ROS: all other systems reviewed are negative [facility] Medical History Medical History Afib (Acute) Afib (Acute) Anxiety (Acute) Colitis (Acute) Diabetes (Acute) Edema (Acute) GERD (gastroesophageal reflux disease) (Acute) H/O: hysterectomy (Acute) Hypertension (Acute) Hypothyroid (Acute) Surgical History Surgical History H/O knee surgery (Acute) History of mandibular surgery (Acute) Social History Social History Substance History: No History of Abuse Second Hand Smoke Exposure: No Smoking Status: Never smoker How Often Do You Have a Drink Containing Alcohol: Never Recent Travel in [facility] within the Last 8 Weeks: No Recent Out of Country Travel within the Last 8 Weeks: No Immunization History Tetanus Immunization: Unsure Exam Narrative Exam Narrative: GENERAL: Well-nourished, well-developed patient. SKIN: Focused skin assessment warm/dry. HEAD: Normocephalic. EYES: No scleral icterus. No injection or drainage. NECK: Supple, trachea midline. No JVD or lymphadenopathy. CARDIOVASCULAR: Regular rate and rhythm without murmurs, gallops, or rubs. RESPIRATORY: Breath sounds equal bilaterally. No accessory muscle use. GASTROINTESTINAL: Abdomen soft, non-tender, nondistended. MUSCULOSKELETAL: Patient has soft tissue swelling tenderness diffuse over the right knee joint. Sensory motor function distally intact. BACK: Nontender without obvious deformity. No CVA tenderness. Neurologic exam normal Course Initial Documented Vital Signs Temperature 97.8 F 02/11/18 16:50 Pulse Rate 104 H 02/11/18 16:50 Respiratory Rate 18 02/11/18 16:50 Blood Pressure 141/94 H 02/11/18 16:50 Pulse Oximetry 97 02/11/18 16:50 Last Documented Vital Signs Temperature 97 F L 02/11/18 16:56 Pulse Rate 87 02/11/18 16:56 Respiratory Rate 18 02/11/18 16:56 Blood Pressure 141/90 H 02/11/18 16:56 Pulse Oximetry 99 02/11/18 16:56 Medical Decision Making MDM Narrative Medical decision making narrative: 68-year-old female with right knee injury. Status post right knee replacement in the past. Normal saline solution 125 cc an hour. Patient was given morphine 10 mg IV by EMS prior to arrival. Dilaudid 1 mg IV given. Zofran 4 mg IV. Medical Screen Exam Complete: Yes Emergency Medical Condition: Yes Lab Data Lab results reviewed: Yes I reviewed the patient's lab results. Result diagrams: 02/11/18 17:37 02/11/18 17:37 Lab Results 02/11/18 02/11/18 02/11/18 Range/Units 17:37 17:37 17:37 WBC 17.6 H (4.0-11.0) th/mm3 RBC 4.26 (4.00-5.30) mil/mm3 Hgb 12.4 (11.6-15.3) gm/dL Hct 38.0 (35.0-46.0) % MCV 89.1 (80.0-100.0) fL MCH 29.1 (27.0-34.0) pg MCHC 32.6 (32.0-36.0) % RDW 16.7 (11.6-17.2) % Plt Count 308 (150-450) th/mm3 MPV 7.1 (7.0-11.0) fL Neut % (Auto) 85.5 H (16.0-70.0) % Lymph % (Auto) 8.1 L (9.0-44.0) % [place] % (Auto) 5.2 (0.0-8.0) % Eos % (Auto) 1.1 (0.0-4.0) % Baso % (Auto) 0.1 (0.0-2.0) % Neut # (Auto) 15.0 H (1.8-7.7) th/mm3 Lymph # (Auto) 1.4 (1.0-4.8) th/mm3 [place] # (Auto) 0.9 (0.0-0.9) th/mm3 Eos # (Auto) 0.2 (0.0-0.4) th/mm3 Baso # (Auto) 0.0 (0.0-0.2) th/mm3 WBC Differential . Differential Comment Auto diff final PT 9.6 L (9.8-11.6) sec INR 0.9 Ratio APTT 26.6 (24.3-30.1) sec Sodium 140 (136-145) meq/L Potassium 3.6 (3.5-5.1) meq/L Chloride 103 (98-107) meq/L Carbon Dioxide 30.3 (21.0-32.0) meq/L Anion Gap 7 (5-15) meq/L BUN 30 H (7-18) mg/dL Creatinine 1.11 H (0.50-1.00) mg/dL Estimated GFR 49 L (>89) mL/min POC Glucose (68-110) mg/dl Random Glucose 125 H (74-106) mg/dL Calcium 8.2 L (8.5-10.1) mg/dL Total Bilirubin 0.3 (0.2-1.0) mg/dL AST 19 (15-37) U/L ALT 37 (10-53) U/L Alkaline Phosphatase 130 H (45-117) U/L Total Protein 7.1 (6.4-8.2) g/dL Albumin 3.2 L (3.4-5.0) g/dL Blood Type Antibody Screen 02/11/18 02/11/18 Range/Units 17:37 18:28 WBC (4.0-11.0) th/mm3 RBC (4.00-5.30) mil/mm3 Hgb (11.6-15.3) gm/dL Hct (35.0-46.0) % MCV (80.0-100.0) fL MCH (27.0-34.0) pg MCHC (32.0-36.0) % RDW (11.6-17.2) % Plt Count (150-450) th/mm3 MPV (7.0-11.0) fL Neut % (Auto) (16.0-70.0) % Lymph % (Auto) (9.0-44.0) % [place] % (Auto) (0.0-8.0) % Eos % (Auto) (0.0-4.0) % Baso % (Auto) (0.0-2.0) % Neut # (Auto) (1.8-7.7) th/mm3 Lymph # (Auto) (1.0-4.8) th/mm3 [place] # (Auto) (0.0-0.9) th/mm3 Eos # (Auto) (0.0-0.4) th/mm3 Baso # (Auto) (0.0-0.2) th/mm3 WBC Differential Differential Comment PT (9.8-11.6) sec INR Ratio APTT (24.3-30.1) sec Sodium (136-145) meq/L Potassium (3.5-5.1) meq/L Chloride (98-107) meq/L Carbon Dioxide (21.0-32.0) meq/L Anion Gap (5-15) meq/L BUN (7-18) mg/dL Creatinine (0.50-1.00) mg/dL Estimated GFR (>89) mL/min POC Glucose 133 H (68-110) mg/dl Random Glucose (74-106) mg/dL Calcium (8.5-10.1) mg/dL Total Bilirubin (0.2-1.0) mg/dL AST (15-37) U/L ALT (10-53) U/L Alkaline Phosphatase (45-117) U/L Total Protein (6.4-8.2) g/dL Albumin (3.4-5.0) g/dL Blood Type O Positive Antibody Screen Negative Imaging Data Attestation: I personally reviewed and interpreted this imaging study as follows : Radiologist's impression: Chest X-Ray 02/11/18 17:02 CONCLUSION: 1. No acute abnormality or significant interval change. Knee X-Ray 02/11/18 17:02 CONCLUSION: 1. Right knee arthroplasty with complex impacted comminuted fracture of the distal femur extending to the femoral component, as above. Discharge Plan Discharge Disposition Patient Disposition: 30 Still Patient Discharge Details Diagnosis: Fracture of femur, right, closed Physicians Team ED Provider: Michael Martinez Primary Care Provider: Urban Carrera Rxs /Orders / Referrals /Forms Prescriptions: No Action hydrocodone-acetaminophen 5-325 mg Tablet 1 tab PO Q12H PRN (Reason: Pain) RF: 0 sucralfate 1 gram Tablet 1 g PO BID RF: 0 lisinopril 20 mg Tablet 20 mg PO DAILY RF: 0 sulfasalazine 500 mg Tablet,Delayed Release (Dr/Ec) 1 g PO BID RF: 0 venlafaxine [Effexor XR] 150 mg Capsule,Extended Release 24hr 150 mg PO DAILY RF: 0 diphenoxylate-atropine 2.5-0.025 mg Tablet 1 tab PO Q6-8H PRN (Reason: Diarrhea) RF: 0 diltiazem HCl 360 mg Capsule,Extended Release 24 Hr 360 mg PO DAILY RF: 0 calcium carbonate-vitamin D3 [Calcium 600 + D(3)] 600 mg(1,500mg) -200 unit Tablet 1 tab PO BID RF: 0 glimepiride 2 mg Tablet 2 mg PO QPM RF: 0 levothyroxine 100 mcg Tablet 100 mcg PO DAILY RF: 0 levothyroxine [Levoxyl] 88 mcg Tablet 88 mcg PO DAILY RF: 0 potassium 99 mg Tablet 99 mg PO DAILY RF: 0 ascorbic acid (vitamin C) [Vitamin C] 500 mg Tablet 500 mg PO BID RF: 0 sodium bicarbonate 650 mg Tablet 650 mg PO BID RF: 0 metformin 1,000 mg Tablet 1,000 mg PO BID RF: 0 glimepiride 4 mg Tablet 4 mg PO QAM RF: 0 metoprolol tartrate 50 mg Tablet 50 mg PO BID RF: 0 gabapentin 300 mg Capsule 300 mg PO BID RF: 0 omeprazole 20 mg Capsule,Delayed Release(Dr/Ec) 20 mg PO BID RF: 0 folic acid 1 mg Tablet 1 mg PO DAILY RF: 0 pravastatin 20 mg Tablet 20 mg PO DAILY RF: 0 hydrochlorothiazide 25 mg Tablet 25 mg PO DAILY RF: 0 digoxin [Digox] 125 mcg Tablet 0.125 mg PO DAILY RF: 0 furosemide 20 mg Tablet 20 mg PO DAILY RF: 0 diazepam 10 mg Tablet 10 mg PO DAILY PRN (Reason: Anxiety) RF: 0 cholestyramine-aspartame [Cholestyramine Light] 4 gram Powder In Packet 4 g PO BID RF: 0 cholecalciferol (vitamin D3) [Vitamin D3] 2,000 unit Capsule 2,000 unit PO DAILY RF: 0 fesoterodine [Toviaz] 4 mg Tablet Extended Release 24 Hr 4 mg PO DAILY RF: 0 magnesium oxide 400 mg Capsule 400 mg PO BID RF: 0 apixaban [Eliquis] 5 mg Tablet 5 mg PO BID RF: 0 biotin 1,000 mcg Tablet,Chewable 1,000 mcg PO DAILY RF: 0 Discharge Interventions Interventions: Vital Signs Last Done: 02/11/18 16:56 Status ED Status: With Doctor
--- NOTE | 2018-02-11 17:31 | XR ---
EXAM DATE: 02/11/2018 5:02 PM EDT AGE/SEX: 68 years / Female INDICATIONS: Fall, complains of right knee pain. CLINICAL DATA: This is the patient's initial encounter. Patient reports that signs and symptoms have been present for 1 day and indicates a pain score of 10/10. MEDICAL/SURGICAL HISTORY: None. Total knee replacement, left. Total knee replacement, right. COMPARISON: [facility], CT CHEST W/O CONTRAST, 10/10/2017. . FINDINGS: No significant new focal pleural or parenchymal opacities. The cardiomediastinal contours are unremar kable. Osseous structures are intact. CONCLUSION: 1. No acute abnormality or significant interval change. Electronically signed by: Pedro Rangel MD 02/11/2018 5:30 PM EDT
--- NOTE | 2018-02-11 17:34 | XR ---
EXAM DATE: 02/11/2018 5:02 PM EDT AGE/SEX: 68 years / Female INDICATIONS: Fall, complains of right knee pain. CLINICAL DATA: This is the patient's initial encounter. Patient reports that signs and symptoms have been present for 1 day and indicates a pain score of 10/10. MEDICAL/SURGICAL HISTORY: None. Total knee replacement, left. Total knee replacement, right. COMPARISON: [facility], KNEE RIGHT COMPLETE (4VWS), 06/13/2010. . FINDINGS: There is a right knee arthroplasty in place. Impacted complex comminuted fracture of the distal femur extending to the femoral component. There is fullness shaft length anterior displacement of the prox imal fragment. CONCLUSION: 1. Right knee arthroplasty with complex impacted comminuted fracture of the distal femur extending t o the femoral component, as above. Electronically signed by: Pedro Rangel MD 02/11/2018 5:33 PM EDT
[2018-02-11 17:58] LABS: Baso % (Auto) 0.1 % (0.0-2.0); Eos # (Auto) 0.2 th/mm3 (0.0-0.4); Eos % (Auto) 1.1 % (0.0-4.0); Hemoglobin 12.4 gm/dL (11.6-15.3); Lymph # (Auto) 1.4 th/mm3 (1.0-4.8); Lymph % (Auto) 8.1 % (9.0-44.0); Mean Corpuscular HGB Conc 32.6 % (32.0-36.0); Mean Corpuscular Hemoglobin 29.1 pg (27.0-34.0); Mean Corpuscular Volume 89.1 fL (80.0-100.0); Mean Platelet Volume 7.1 fL (7.0-11.0); Mono # (Auto) 0.9 th/mm3 (0.0-0.9); Mono % (Auto) 5.2 % (0.0-8.0); Neut % (Auto) 85.5 % (16.0-70.0); Platelet Count 308 th/mm3 (150-450); Red Blood Count 4.26 mil/mm3 (4.00-5.30); Red Cell Distribution Width 16.7 % (11.6-17.2); White Blood Count 17.6 th/mm3 (4.0-11.0)
[2018-02-11 18:07] LABS: Activated Partial Thrombo Time 26.6 sec (24.3-30.1); INR 0.9 Ratio; Prothrombin Time 9.6 sec (9.8-11.6)
[2018-02-11 18:18] LABS: Albumin 3.2 g/dL (3.4-5.0); Anion Gap 7 meq/L (5-15); Aspartate Aminotransferase 19 U/L (15-37); Blood Urea Nitrogen 30 mg/dL (7-18); Calcium 8.2 mg/dL (8.5-10.1); Carbon Dioxide 30.3 meq/L (21.0-32.0); Chloride 103 meq/L (98-107); Glomerular Filtration Rate 49 mL/min (>89); Glucose,Random 125 mg/dL (74-106); Potassium 3.6 meq/L (3.5-5.1); Sodium 140 meq/L (136-145)
[2018-02-11 18:19] LABS: Alanine Aminotransferase 37 U/L (10-53)
[2018-02-11 18:22] LABS: Alkaline Phosphatase 130 U/L (45-117); Total Protein 7.1 g/dL (6.4-8.2)
[2018-02-11] MEDS ORDERED: Bisacodyl 10 MG Supp RECTAL PRN ×2 (20:57→21:00)
[2018-02-11] MEDS ORDERED: Acetaminophen 325 MG Tablet PO PRN ×2 (21:00→21:06)
[2018-02-11] MEDS ORDERED: Senna/Docusate Sodium 8.6/50 MG Tablet PO SCH (21:00)
[2018-02-11] MEDS ORDERED: Temazepam 15 MG Capsule PO PRN (21:00)
[2018-02-11] MEDS ORDERED: Naloxone Inj 0.4 MG/ML Vial IV.PUSH PRN (21:06)
[2018-02-11] MEDS ORDERED: Morphine Inj 4 MG/ML Vial IV.PUSH PRN (21:06)
[2018-02-11] MEDS ORDERED: Diphenoxylate/Atropine 2.5/0.025 MG Tablet PO PRN (21:13)
[2018-02-11] MEDS ORDERED: Dextrose 50% in Water 50 ML Vial IV.PUSH PRN (21:26)
[2018-02-11] MEDS: Senna/Docusate Sodium 8.6/50 MG Tablet PO SCH (22:19)
--- NOTE | 2018-02-11 22:21 | P.CONOP ---
[facility] Orthopedics Consult Note - [facility] Consult date: 02/11/18 Requesting physician: Michael Martinez Consult reason: fracture Chief complaint: Fracture right femur Narrative: 68 year old female s/p bilateral TKA [place] [address] Hughes presents to the ED today after a fall at home. She states she heard a "pop" in the knee and then fell to the ground. Imaging revealed a distal femur fracture. She reports hearing the knee pop several times in the past, and recently saw Dr. Hughes a month ago for this. She denies any pain with the popping sound in the past. Currently only complains of pain in the right knee. Denies numbness, tingling or other pain. She is on Eliquis for a-fib, last dose this morning. Review of Systems All other systems reviewed negative except as stated in [facility] PMFSH - History History Provided By: Patient - Medical History Medical History: Medical History (Last Reviewed 02/11/18 @ 22:14 by Macrina Mendes MD) Afib Afib Anxiety Colitis Diabetes Edema GERD (gastroesophageal reflux disease) H/O: hysterectomy Hypertension Hypothyroid - Surgical History Surgical History: Surgical History (Last Reviewed 02/11/18 @ 22:14 by Macrina Mendes MD) H/O knee surgery History of mandibular surgery - Social History I have reviewed the patient's Social History: Yes - Tobacco History Second Hand Smoke Exposure: No Smoking Status: Never smoker - Alcohol History How Often Do You Have a Drink Containing Alcohol: Monthly or less - Substance Use History Substance History: No History of Abuse - Travel History Recent Travel in the [place] Within the Last 8 Weeks: No Recent Travel Out of the Country Within the Last 8 Weeks: No - Immunization History Tetanus Immunization: Unsure Hx Influenza Vaccine This Season: Yes Medications and Allergies Active Medications: Active Medications Acetaminophen (Tylenol) 650 mg PO Q4H PRN PRN Reason: Temp > 100.4 Acetaminophen (Tylenol) 650 mg PO Q6HR PRN PRN Reason: PAIN SCALE 1 TO 2 Al Hydroxide/Mg Hydroxide (Milk Of Magnesia Liq) 30 ml PO Q12H PRN PRN Reason: Mild Constipation Ascorbic Acid (Vitamin C) 500 mg PO BID [place] Bisacodyl (Dulcolax Supp) 10 mg RECTAL DAILY PRN PRN Reason: SEVERE CONSITIPATION Cholestyramine Resin (Questran Light 4 Gm Pkt) 4 gm PO BID [facility] Dextrose (D50w Vial) 50 ml IV.PUSH UNSCH PRN PRN Reason: PER HYPOGLYCEMIA PROTOCOL Diazepam (Valium) 10 mg PO DAILY PRN PRN Reason: Anxiety Digoxin (Lanoxin) 125 mcg PO DAILY [facility] Diltiazem HCl (Cardizem Cd 24hr) 360 mg PO DAILY [facility] Diphenoxylate HCl/Atropine (Lomotil) 1 tab PO Q6H PRN PRN Reason: Diarrhea Folic Acid (Folic Acid) 1 mg PO DAILY [facility] Glucagon (Glucagon Inj) 1 mg OTHER PRN PRN PRN Reason: for Hypoglycemia Protocol Hydrochlorothiazide (Hydrodiuril) 25 mg PO DAILY [facility] Hydromorphone HCl (Dilaudid Pf Inj) 1 mg IV.PUSH Q3H PRN PRN Reason: BREAKTHROUGH PAIN Sodium Chloride (Ns Inj) 1,000 mls @ 100 mls/hr IV.CONT .Q10H [place] Last Admin: 02/11/18 21:15 Dose: Not Given Sodium Chloride (Ns Inj) 1,000 mls @ 100 mls/hr IV.CONT .Q10H [facility] Insulin Aspart (Novolog Insulin Correctional Sugar Inj) 0 unit SQ ACHS AND 3AM [place]; Protocol Lactulose (Lactulose Liq) 30 ml PO DAILY PRN PRN Reason: SEVERE CONSITIPATION Levothyroxine Sodium (Synthroid) 88 mcg PO DAILY@0600 [facility] Levothyroxine Sodium (Synthroid) 100 mcg PO DAILY@0600 [facility] Lisinopril (Prinivil) 20 mg PO DAILY [facility] Morphine Sulfate (Morphine Inj) 2 mg IV.PUSH Q3H PRN PRN Reason: PAIN 3-5; IF UABLE TO TAKE PO Naloxone HCl (Narcan Inj) 0.4 mg IV.PUSH UNSCH PRN PRN Reason: SEE LABEL COMMENTS Non-Formulary Medication (Biotin [Biotin]) 1,000 mcg PO DAILY [facility] Non-Formulary Medication (Calcium Carbonate-Vitamin D3 [Calcium 600 + D(3)]) 1 tab PO BID [facility] Non-Formulary Medication (Fesoterodine [Toviaz]) 4 mg PO DAILY [facility] Non-Formulary Medication (Magnesium Oxide [Magnesium Oxide]) 400 mg PO BID [facility] Non-Formulary Medication (Venlafaxine [Effexor Xr]) 150 mg PO DAILY [facility] Ondansetron HCl (Zofran Inj) 4 mg IV.PUSH Q6H PRN PRN Reason: NAUSEA OR VOMITING Oxycodone HCl (Roxicodone) 10 mg PO Q4H PRN PRN Reason: PAIN SCALE 6 TO 10 Oxycodone/Acetaminophen (Percocet 5/325 Mg) 1 tab PO Q6H PRN PRN Reason: PAIN SCALE 3 TO 5 Pantoprazole Sodium (Protonix) 20 mg PO BID [facility] Pravastatin Sodium (Pravachol) 20 mg PO DAILY [facility] Senna/Docusate Sodium ([place]-Colace) 1 tab PO BID [facility] Sennosides (Senokot) 17.2 mg PO Q12H PRN PRN Reason: Moderate Constipation Sodium Bicarbonate (Sodium Bicarbonate) 650 mg PO BID [place] Sucralfate (Carafate) 1 gm PO BID [place] Sulfasalazine (Azulfidine Ec) 1,000 mg PO BID [place] Temazepam (Restoril) 15 mg PO HS PRN PRN Reason: INSOMNIA Vitamin D (Vitamin D3) 2,000 unit PO DAILY [facility] Allergies Allergy/AdvReac Type Severity Reaction Status Date / Time No Known Allergies Allergy Verified 02/11/18 19:55 Home Medications Medication Instructions Recorded Confirmed Type apixaban [Eliquis] 5 mg PO BID 02/11/18 02/11/18 History ascorbic acid (vitamin C) [Vitamin 500 mg PO BID 02/11/18 02/11/18 History C] biotin 1,000 mcg PO DAILY 02/11/18 02/11/18 History calcium carbonate-vitamin D3 1 tab PO BID 02/11/18 02/11/18 History [Calcium 600 + D(3)] cholecalciferol (vitamin D3) 2,000 unit PO DAILY 02/11/18 02/11/18 History [Vitamin D3] cholestyramine-aspartame 4 g PO BID 02/11/18 02/11/18 History [Cholestyramine Light] diazepam 10 mg PO DAILY PRN 02/11/18 02/11/18 History digoxin [Digox] 0.125 mg PO DAILY 02/11/18 02/11/18 History diltiazem HCl 360 mg PO DAILY 02/11/18 02/11/18 History diphenoxylate-atropine 1 tab PO Q6-8H PRN 02/11/18 02/11/18 History fesoterodine [Toviaz] 4 mg PO DAILY 02/11/18 02/11/18 History folic acid 1 mg PO DAILY 02/11/18 02/11/18 History furosemide 20 mg PO DAILY 02/11/18 02/11/18 History gabapentin 300 mg PO BID 02/11/18 02/11/18 History glimepiride 2 mg PO QPM 02/11/18 02/11/18 History glimepiride 4 mg PO QAM 02/11/18 02/11/18 History hydrochlorothiazide 25 mg PO DAILY 02/11/18 02/11/18 History hydrocodone-acetaminophen 1 tab PO Q12H PRN 02/11/18 02/11/18 History levothyroxine 100 mcg PO DAILY 02/11/18 02/11/18 History levothyroxine [Levoxyl] 88 mcg PO DAILY 02/11/18 02/11/18 History lisinopril 20 mg PO DAILY 02/11/18 02/11/18 History magnesium oxide 400 mg PO BID 02/11/18 02/11/18 History metformin 1,000 mg PO BID 02/11/18 02/11/18 History metoprolol tartrate 50 mg PO BID 02/11/18 02/11/18 History omeprazole 20 mg PO BID 02/11/18 02/11/18 History potassium 99 mg PO DAILY 02/11/18 02/11/18 History pravastatin 20 mg PO DAILY 02/11/18 02/11/18 History sodium bicarbonate 650 mg PO BID 02/11/18 02/11/18 History sucralfate 1 g PO BID 02/11/18 02/11/18 History sulfasalazine 1 g PO BID 02/11/18 02/11/18 History venlafaxine [Effexor XR] 150 mg PO DAILY 02/11/18 02/11/18 History Exam Vital signs: Vital Signs 02/11/18 16:50 02/11/18 16:56 02/11/18 19:00 Temperature 97.8 F 97 F L Pulse Rate 104 H 87 114 H Respiratory Rate 18 18 18 Blood Pressure 141/94 H 141/90 H 194/91 H Pulse Oximetry 97 99 96 02/11/18 19:27 02/11/18 19:28 02/11/18 19:30 Temperature Pulse Rate 118 H Respiratory Rate 18 18 18 Blood Pressure 181/96 H Pulse Oximetry 93 L 10/21/18 20:00 02/11/18 20:30 02/11/18 21:00 Temperature Pulse Rate 118 H 120 H 114 H Respiratory Rate 18 18 18 Blood Pressure 188/103 H 199/94 H 177/85 H Pulse Oximetry 96 97 95 Intake & Output 02/11/18 02/11/18 02/12/18 06:59 18:59 06:59 Weight 83.915 kg - Constitutional no acute distress - Routine HEENT Exam Head: Present: normocephalic - Routine Neck Exam Present: supple - Routine Respiratory Exam Absent: accessory muscle use - Routine Cardiovascular Exam Present: RRR - Routine Extremities Exam Comments: right lower extremity with some swelling about the knee. She has tenderness to palpation about the distal femur. 2+DP pulse. motor and sensory intact distally. left lower extremity and bilateral upper extremities unremarkable. - Routine Neurological Exam Present: alert, oriented X3 Results - Labs Result Diagrams: 02/11/18 17:37 02/11/18 17:37 Labs: Laboratory Results - last 24 hr 02/11/18 02/11/18 02/11/18 17:37 17:37 17:37 WBC 17.6 H RBC 4.26 Hgb 12.4 Hct 38.0 MCV 89.1 MCH 29.1 MCHC 32.6 RDW 16.7 Plt Count 308 MPV 7.1 Neut % (Auto) 85.5 H Lymph % (Auto) 8.1 L [place] % (Auto) 5.2 Eos % (Auto) 1.1 Baso % (Auto) 0.1 Neut # (Auto) 15.0 H Lymph # (Auto) 1.4 [place] # (Auto) 0.9 Eos # (Auto) 0.2 Baso # (Auto) 0.0 WBC Differential . Differential Comment Auto diff final PT 9.6 L INR 0.9 APTT 26.6 Sodium 140 Potassium 3.6 Chloride 103 Carbon Dioxide 30.3 Anion Gap 7 BUN 30 H Creatinine 1.11 H Estimated GFR 49 L POC Glucose Random Glucose 125 H Calcium 8.2 L Total Bilirubin 0.3 AST 19 ALT 37 Alkaline Phosphatase 130 H Total Protein 7.1 Albumin 3.2 L Blood Type Antibody Screen 02/11/18 02/11/18 17:37 18:28 WBC RBC Hgb Hct MCV MCH MCHC RDW Plt Count MPV Neut % (Auto) Lymph % (Auto) [place] % (Auto) Eos % (Auto) Baso % (Auto) Neut # (Auto) Lymph # (Auto) [place] # (Auto) Eos # (Auto) Baso # (Auto) WBC Differential Differential Comment PT INR APTT Sodium Potassium Chloride Carbon Dioxide Anion Gap BUN Creatinine Estimated GFR POC Glucose 133 H Random Glucose Calcium Total Bilirubin AST ALT Alkaline Phosphatase Total Protein Albumin Blood Type O Positive Antibody Screen Negative - Diagnostic results Imaging: Impressions Chest X-Ray 02/11/18 17:02 CONCLUSION: 1. No acute abnormality or significant interval change. Knee X-Ray 02/11/18 17:02 CONCLUSION: 1. Right knee arthroplasty with complex impacted comminuted fracture of the distal femur extending to the femoral component, as above. Knee x-ray: image reviewed (periprosthetic distal femur fracture, no evidence for pathologic fracture, arthroplasty components appear well fixed) Assessment and Plan - Problem List (1) Fracture of femur, right, closed Code(s): S72.91XA - Unspecified fracture of right femur, initial encounter for closed fracture Status: Acute Qualifiers: Encounter type: initial encounter Femur location: distal epiphysis Fracture alignment: displaced Qualified Code(s): S72.441A - Displaced fracture of lower epiphysis (separation) of right femur, initial encounter for closed fracture - Assessment and Plan 68 year old female with a right distal femur fracture above a total knee arthroplasty Plan: I recommended operative fixation of her fracture with one of my collegues , Dr. Guo. I discussed this with her and she would like to proceed with surgery. He will tentatively plan to do this tomorrow. NPO after midnight. Please hold elisergeiis in preparation for surgery. She is nonweightbearing on this extremity at this time.
[2018-02-11] MEDS ORDERED: Sodium Chloride 0.9% 2 ML Flush PRN IV.FLUSH (22:22)
[2018-02-11] MEDS: HYDROmorphone PF Inj 2 MG/ML Vial IV.PUSH PRN (23:15)
[2018-02-11] MEDS: Sod Chloride 0.9% Inj 1,000 ML IV.CONT SCH (23:15)
[2018-02-12] MEDS ORDERED: Chlorhexidine Gluconate 2% 1 Pack (2 Cloths) TOPICAL ONE (02:26)
[2018-02-12] MEDS ORDERED: Sodium Chlor 0.9% Inj 500 ML IV.SIG SCH (03:00)
[2018-02-12] MEDS: HYDROmorphone PF Inj 2 MG/ML Vial IV.PUSH PRN (03:17)
[2018-02-12] MEDS: Insulin NovoLOG Aspart Correctional Sugar Inj SQ SCH ×5 (03:34→21:11)
[2018-02-12] MEDS ORDERED: Sodium Chlor 0.9% Inj 250 ML ONE (06:26)
[2018-02-12 06:32] LABS: Baso % (Auto) 0.3 % (0.0-2.0); Eos # (Auto) 0.2 th/mm3 (0.0-0.4); Eos % (Auto) 1.7 % (0.0-4.0); Hematocrit 35.9 % (35.0-46.0); Hemoglobin 11.4 gm/dL (11.6-15.3); Lymph # (Auto) 1.9 th/mm3 (1.0-4.8); Lymph % (Auto) 16.9 % (9.0-44.0); Mean Corpuscular HGB Conc 31.8 % (32.0-36.0); Mean Corpuscular Hemoglobin 28.6 pg (27.0-34.0); Mean Platelet Volume 7.3 fL (7.0-11.0); Mono # (Auto) 0.8 th/mm3 (0.0-0.9); Mono % (Auto) 7.3 % (0.0-8.0); Neut # (Auto) 8.5 th/mm3 (1.8-7.7); Neut % (Auto) 73.8 % (16.0-70.0); Platelet Count 264 th/mm3 (150-450); Red Blood Count 3.99 mil/mm3 (4.00-5.30); Red Cell Distribution Width 16.5 % (11.6-17.2); White Blood Count 11.5 th/mm3 (4.0-11.0)
--- NOTE | 2018-02-12 06:37 | P.PNOP ---
Subjective Interval history: Patient has a history of bilateral total knees. She had a slip and fall at home with fracture to the right distal femur. She has no other associated injuries. She has a history of A. fib. Physical Exam Vital signs: Vital Signs 02/11/18 16:50 02/11/18 16:56 02/11/18 19:00 Temperature 97.8 F 97 F L Pulse Rate 104 H 87 114 H Respiratory Rate 18 18 18 Blood Pressure 141/94 H 141/90 H 194/91 H Pulse Oximetry 97 99 96 02/11/18 19:27 02/11/18 19:28 02/11/18 19:30 Temperature Pulse Rate 118 H Respiratory Rate 18 18 18 Blood Pressure 181/96 H Pulse Oximetry 93 L 02/11/18 20:00 02/11/18 20:30 02/11/18 21:00 Temperature Pulse Rate 118 H 120 H 114 H Respiratory Rate 18 18 18 Blood Pressure 188/103 H 199/94 H 177/85 H Pulse Oximetry 96 97 95 02/11/18 22:00 02/12/18 00:00 02/12/18 04:45 Temperature 98.9 F 98.6 F 98.6 F Pulse Rate 111 H 120 H 93 H Respiratory Rate 15 16 16 Blood Pressure 168/98 H 170/84 H 176/84 H Pulse Oximetry 94 L 94 L 94 L Intake & Output 02/11/18 02/11/18 02/12/18 06:59 18:59 06:59 Output Total 3000 / 3000 Balance -3000 / -3000 Weight 83.915 kg 91 kg Output: Urine Amount (Catheter) 3000 / 3000 Indwelling Urethral Catheter 3000 / 3000 Other: Date of Last Bowel Movement 02/11/18 Narrative: Bilateral upper extremities: Full range of motion neurovascular intact Left lower extremity: Full range of motion and neurovascularly intact Right lower extremity: No pain with hip or ankle range of motion. She has the immobilizer in place. Moderate swelling. Intact sensation distally with active dorsiflexion and plantarflexion of the foot. - Urinary Catheter Management Indwelling Urethral Catheter Cath placed during this visit: yes Reason for continuing: Hourly intake/output Insertion date: 02/11/18 Insertion time: 17:57 Results - Labs CBC & Chem 7: 02/12/18 05:54 02/11/18 17:37 Laboratory Results - last 24 hr 02/11/18 02/11/18 02/11/18 17:37 17:37 17:37 WBC 17.6 H RBC 4.26 Hgb 12.4 Hct 38.0 MCV 89.1 MCH 29.1 MCHC 32.6 RDW 16.7 Plt Count 308 MPV 7.1 Neut % (Auto) 85.5 H Lymph % (Auto) 8.1 L [place] % (Auto) 5.2 Eos % (Auto) 1.1 Baso % (Auto) 0.1 Neut # (Auto) 15.0 H Lymph # (Auto) 1.4 [place] # (Auto) 0.9 Eos # (Auto) 0.2 Baso # (Auto) 0.0 WBC Differential . Differential Comment Auto diff final PT 9.6 L INR 0.9 APTT 26.6 Sodium 140 Potassium 3.6 Chloride 103 Carbon Dioxide 30.3 Anion Gap 7 BUN 30 H Creatinine 1.11 H Estimated GFR 49 L POC Glucose Random Glucose 125 H Calcium 8.2 L Total Bilirubin 0.3 AST 19 ALT 37 Alkaline Phosphatase 130 H Total Protein 7.1 Albumin 3.2 L Blood Type Antibody Screen 02/11/18 02/11/18 02/11/18 17:37 18:28 22:18 WBC RBC Hgb Hct MCV MCH MCHC RDW Plt Count MPV Neut % (Auto) Lymph % (Auto) [place] % (Auto) Eos % (Auto) Baso % (Auto) Neut # (Auto) Lymph # (Auto) [place] # (Auto) Eos # (Auto) Baso # (Auto) WBC Differential Differential Comment PT INR APTT Sodium Potassium Chloride Carbon Dioxide Anion Gap BUN Creatinine Estimated GFR POC Glucose 133 H 265 H Random Glucose Calcium Total Bilirubin AST ALT Alkaline Phosphatase Total Protein Albumin Blood Type O Positive Antibody Screen Negative 02/12/18 02/12/18 02/12/18 03:31 05:54 06:25 WBC 11.5 H RBC 3.99 L Hgb 11.4 L Hct 35.9 MCV 90.0 MCH 28.6 MCHC 31.8 L RDW 16.5 Plt Count 264 MPV 7.3 Neut % (Auto) 73.8 H Lymph % (Auto) 16.9 [place] % (Auto) 7.3 Eos % (Auto) 1.7 Baso % (Auto) 0.3 Neut # (Auto) 8.5 H Lymph # (Auto) 1.9 [place] # (Auto) 0.8 Eos # (Auto) 0.2 Baso # (Auto) 0.0 WBC Differential . Differential Comment Auto diff final PT INR APTT Sodium Potassium Chloride Carbon Dioxide Anion Gap BUN Creatinine Estimated GFR POC Glucose 231 H 215 H Random Glucose Calcium Total Bilirubin AST ALT Alkaline Phosphatase Total Protein Albumin Blood Type Antibody Screen - Imaging Impressions Chest X-Ray 02/11/18 17:02 CONCLUSION: 1. No acute abnormality or significant interval change. Knee X-Ray 02/11/18 17:02 CONCLUSION: 1. Right knee arthroplasty with complex impacted comminuted fracture of the distal femur extending to the femoral component, as above. Assessment and Plan - Problem List (1) Fracture of femur, right, closed Code(s): S72.91XA - Unspecified fracture of right femur, initial encounter for closed fracture Status: Acute Qualifiers: Encounter type: initial encounter Femur location: distal epiphysis Fracture alignment: displaced Qualified Code(s): S72.441A - Displaced fracture of lower epiphysis (separation) of right femur, initial encounter for closed fracture - Assessment and Plan Right periprosthetic distal femur fracture N.p.o. Surgery this morning with Dr. Guo for open reduction internal fixation of the right distal femur Sign consents
[2018-02-12 07:00] LABS: Calcium 8.4 mg/dL (8.5-10.1); Carbon Dioxide 29.3 meq/L (21.0-32.0); Potassium 4.2 meq/L (3.5-5.1)
[2018-02-12] MEDS ORDERED: Neostigmine Inj 5 MG/5 ML Syringe IV.PUSH ONE (07:25)
[2018-02-12] MEDS ORDERED: Glycopyrrolate Inj 1 MG/5 ML Syringe IV.PUSH ONE (07:25)
[2018-02-12] MEDS ORDERED: Lidocaine PF 1% Inj 5 ML Syringe OTHER ONE (07:25)
[2018-02-12] MEDS ORDERED: Metoprolol Inj 5 MG/5 ML Vial IV.PUSH ONE (07:25)
[2018-02-12] MEDS: Levothyroxine 88 MCG Tablet PO SCH (07:40)
[2018-02-12] MEDS: Levothyroxine 100 MCG Tablet PO SCH (07:40)
[2018-02-12] MEDS ORDERED: TRANEXAMIC ACID IV.SIG SCH (08:00)
[2018-02-12] MEDS ORDERED: SODIUM CHLOR 0.9% IV.SIG SCH (08:00)
[2018-02-12] MEDS ORDERED: Post-op Orders (for Pharmacy) OTHER STA (08:47)
--- NOTE | 2018-02-12 08:55 | P.OP ---
- Preoperative Diagnosis (1) Fracture of femur, right, closed Date of procedure: 02/12/18 Procedure: Open reduction internal fixation right distal femur periprosthetic fracture Anesthesia: GETA Surgeon: Glenn Blanco MD Career Technical Counselor: KENA Correa PA-C The surgical procedure was assisted by my physician assistant professor in family studies. My P.A. presence was necessary throughout this case for the manipulation and positioning of the surgical extremity. My P.A. was assisting me throughout the duration of this procedure. The skill set of a physician assistant professor in family studies was medically necessary to complete this procedure. During the surgical case the ophthalmology surgical technician was working at the back table and the physician assistant professor in family studies was directly assisting me. Operation and Findings: Implants used: ITS Plan of activity: Nonweightbearing, passive range of motion of knee Details of procedure: Informed consent was obtained, operative site was marked. Patient was brought to the OR, placed on OR table, and given IV sedation with GETA. IV antibiotics were administered and timeout procedure was performed. The operative leg was prepped with alcohol, followed with Hibiclens, draped in usual sterile fashion. A timeout procedure was performed. Clean air suite was utilized for this procedure secondary to patient's total knee arthroscopy. The procedure began with a 5-inch incision over the lateral aspect of the right distal femur. Subcutaneous tissue was dissected with Bovie. Iliotibial band was split in line with fibers. At this point the fracture was visualized. Traction was applied. Fracture was manipulated. The fracture reduced into excellent alignment. Steinmann pins were used to hold provisional fixation. At this point attention was turned to plate placement. A lateral condylar plate was selected and attached to the insertion handle jig. The plate was placed underneath the vastus lateralis. Steinmann pins were used to hold the plate to bone. Multiplanar fluoroscopy confirmed appropriate placement of plate. Multiple 4.5 cortical screws were now placed in percutaneous fashion through the plate. The plate was compressed to bone. Multiple locking screws were now placed in the distal segment of the distal femur. Additional screws were placed into the femoral shaft. There was medial cortical fragment. This was reduced with a fracture tenaculum. Additional lag screws were used to capture and compress this fragment. All screws were predrilled and premeasured for appropriate length. Final fluoroscopy revealed excellent alignment of fracture with well-placed hardware. Wound was thoroughly irrigated. Fascia was closed with #1 Vicryl. Subcutaneous tissue was closed with 3-0 Vicryl. Skin was closed with travis. Sterile dressings were applied. The patient was placed into a knee immobilizer and transferred to recovery in stable condition. Needle and sponge counts were correct.
[2018-02-12] MEDS ORDERED: fentaNYL Citrate Inj 100 MCG/2 ML Ampul ONE (09:14)
[2018-02-12] MEDS ORDERED: *morphine SULFATE 4 MG/ML PERIprocedure ONLY ONE ×2 (09:28→10:04)
[2018-02-12] MEDS ORDERED: NORMOSOL R PH IV.CONT PRN (09:28)
[2018-02-12] MEDS ORDERED: Bupivacaine PF 0.5% Inj 30 ML Vial ONE (09:29)
[2018-02-12] MEDS ORDERED: *Meperidine Inj 25 MG/ML Vial PERIprocedural Use ONLY ONE (09:51)
--- NOTE | 2018-02-12 10:30 | XR ---
EXAM DATE: 02/12/2018 12:00 AM EDT AGE/SEX: 68 years / Female INDICATIONS: ORIF right distal femur fracture. CLINICAL DATA: This is the patient's subsequent encounter. Patient reports that signs and symptoms h ave been present for 2 days and indicates a pain score of Nonresponsive. MEDICAL/SURGICAL HISTORY: Non-responsive. Non-responsive. [place] [facility] [place] 4[place]. . FINDINGS: Fluoroscopic images demonstrate interval plate and screw fixation of comminuted distal right femoral fracture. Hardware appears intact and well-positioned. There is near-anatomic alignment of the fractu re fragments. CONCLUSION: 1. Right distal femoral ORIF, as above. Electronically signed by: Pedro Rangel MD 02/12/2018 10:28 AM EDT
[2018-02-12] MEDS: Sod Chloride 0.9% Inj 1,000 ML IV.CONT SCH ×2 (11:09→18:17)
[2018-02-12] MEDS: Sucralfate 1 GM Tablet PO SCH ×2 (11:11→21:13)
[2018-02-12] MEDS: Folic Acid 1 MG Tablet PO SCH (11:11)
[2018-02-12] MEDS: sulfaSALAzine EC 500 MG Tablet PO SCH ×2 (11:11→21:09)
[2018-02-12] MEDS: Sodium Chloride 0.9% 2 ML Flush BID IV.FLUSH SCH ×2 (11:12→21:12)
--- NOTE | 2018-02-12 11:47 | P.HPIM ---
History of Present Illness Primary Care Physician: Urban Carrera MD Chief Complaint: Right knee pain History of Present Illness: Mrs. Bueno is a 68 y/o female with HTN, atrial fibrillation, diabetes mellitus , hypothyroidism and hx of bilateral TKA [place] [address] Hughes. She presented to the ED at [facility] on 02/11/18 after a fall at home. She states she was walking and heard a "pop" in the right knee and the knee gave out and she fell to the ground. Patient states that the right leg was angulated at the knee. EMS was called. In the ED Xray of the femur revealed a right distal femur fracture. She reports hearing the knee pop several times in the past, and recently saw Dr. Hughes about a month ago for this. She is on Eliquis 5mg BID for a-fib. Pt was taken to the OR today for ORIF of the right distal femur periprosthetic fracture. Pt is seen post-operatively. Past Medical History HTN Atrial fibrillation Hyperlipidemia Diabetes, Hgb A1C 7.1% on 10/20/17 Diabetic nephropathy/neuropathy Atherosclerosis of the aorta Fatty liver CKD, stage 3 Thrombocytosis GERD Gastroparesis Hypothyroidism Anxiety/Depression Osteoarthritis Colitis Asymmetric polyarticular inflammation on Sulfasalazine Hx of Ulcerative colitis Past Surgical History Appendectomy Bilateral knee arthroplasties in 2008 Bladder surgery Breast biopsy Cholecystectomy Ventral hernia repair Carpal tunnel release BRANDON EGD/colonoscopies Family History Noncontributory Social History Denies any alcohol, tobacco or illicit drug use - Diagnosis (1) Fracture of femur, right, closed (2) A-fib (3) HTN (hypertension) (4) Diabetes (5) CKD stage 3 secondary to diabetes (6) Hypothyroidism Inpatient Certification: I certify that the inpatient services were ordered in accordance with Medicare regulations governing the order. This includes certification that hospital inpatient services are reasonable and necessary and in the case of services not specified as inpatient-only under 42 CFR 419.22(n), that they are appropriately provided as inpatient services in accordance to with the 2-midnight benchmark under 43 CFR 412.3(e) Estimated Total Length of Stay (Days): 4 Plans for Post Hospital Care: SNF [facility] - History History Provided By: Patient - Medical History Medical History: Medical History (Last Reviewed 02/13/18 @ 07:55 by Souleymane Ríos) Afib Afib Anxiety Colitis Diabetes Edema GERD (gastroesophageal reflux disease) H/O: hysterectomy Hypertension Hypothyroid - Surgical History Surgical History: Surgical History (Last Reviewed 02/12/18 @ 15:37 by Marian Cheng PT) H/O knee surgery History of mandibular surgery - Tobacco History Second Hand Smoke Exposure: No Smoking Status: Never smoker - Alcohol History How Often Do You Have a Drink Containing Alcohol: Monthly or less - Substance Use History Substance History: No History of Abuse - Travel History Recent Travel in the [place] Within the Last 8 Weeks: No Recent Travel Out of the Country Within the Last 8 Weeks: No - Immunization History Tetanus Immunization: Unsure Hx Influenza Vaccine This Season: Yes Medications and Allergies Allergies Allergy/AdvReac Type Severity Reaction Status Date / Time No Known Allergies Allergy Verified 02/11/18 19:55 Home Medications Medication Instructions Recorded Confirmed Type apixaban [Eliquis] 5 mg PO DAILY 02/11/18 02/12/18 History ascorbic acid (vitamin C) [Vitamin 500 mg PO DAILY 02/11/18 02/12/18 History C] biotin 1,000 mcg PO DAILY 02/11/18 02/11/18 History calcium carbonate-vitamin D3 1 tab PO DAILY 02/11/18 02/12/18 History [Calcium 600 + D(3)] cholecalciferol (vitamin D3) 2,000 unit PO DAILY 02/11/18 02/11/18 History [Vitamin D3] cholestyramine-aspartame 4 g PO BID 02/11/18 02/11/18 History [Cholestyramine Light] digoxin [Digox] 0.125 mg PO DAILY 02/11/18 02/11/18 History diltiazem HCl 360 mg PO DAILY 02/11/18 02/11/18 History fesoterodine [Toviaz] 4 mg PO DAILY 02/11/18 02/11/18 History gabapentin 300 mg PO BID 02/11/18 02/11/18 History glimepiride 4 mg PO QAM 02/11/18 02/11/18 History levothyroxine 100 mcg PO DAILY 02/11/18 02/11/18 History lisinopril 20 mg PO DAILY 02/11/18 02/11/18 History magnesium oxide 400 mg PO DAILY 02/11/18 02/12/18 History metformin 1,000 mg PO HS 02/11/18 02/12/18 History omeprazole 20 mg PO BID 02/11/18 02/11/18 History sodium bicarbonate 650 mg PO HS 02/11/18 02/12/18 History sulfasalazine 1 g PO HS 02/11/18 02/12/18 History venlafaxine [Effexor XR] 150 mg PO DAILY 02/11/18 02/11/18 History docusate sodium [Stool Softener] 100 mg PO DAILY 02/12/18 02/12/18 History isosorbide mononitrate 30 mg PO QAM 02/12/18 02/12/18 History rosuvastatin 20 mg PO DAILY 02/12/18 02/12/18 History venlafaxine 75 mg PO HS 02/12/18 02/12/18 History Active Medications: Active Medications Acetaminophen (Tylenol) 650 mg PO Q4H PRN PRN Reason: Temp > 100.4 Acetaminophen (Tylenol) 650 mg PO Q6HR PRN PRN Reason: PAIN SCALE 1 TO 2 Hydrocodone Bitart/Acetaminophen (Robinson 7.5/325) 1 tab PO Q3H PRN PRN Reason: Pain Scale 3-10 Al Hydroxide/Mg Hydroxide (Milk Of [place] Cab[place]q) 30 ml PO Q12H PRN PRN Reason: Mild Constipation Apixaban (Eliquis) 5 mg PO BID [place] Ascorbic Acid (Vitamin C) 500 mg PO BID [place] Bisacodyl (Dulcolax Supp) 10 mg RECTAL DAILY PRN PRN Reason: SEVERE CONSITIPATION Calcium/Vitamin D (Oscal With D 250/125 Mg) 2 tab PO BID [place] Cholestyramine Resin (Questran Light 4 Gm Pkt) 4 gm PO BID [place] Clonidine HCl (Catapres) 0.1 mg PO Q4H PRN PRN Reason: SEE LABEL COMMENTS Dextrose (D50w Vial) 50 ml IV.PUSH UNSCH PRN PRN Reason: PER HYPOGLYCEMIA PROTOCOL Diazepam (Valium) 10 mg PO DAILY PRN PRN Reason: Anxiety Digoxin (Lanoxin) 125 mcg PO DAILY [place] Diltiazem HCl (Cardizem Cd 24hr) 360 mg PO DAILY [place] Diphenhydramine HCl (Benadryl) 25 mg PO Q6H PRN PRN Reason: ITCHING Diphenoxylate HCl/Atropine (Lomotil) 1 tab PO Q6H PRN PRN Reason: Diarrhea Folic Acid (Folic Acid) 1 mg PO DAILY [place] Glucagon (Glucagon Inj) 1 mg OTHER PRN PRN PRN Reason: for Hypoglycemia Protocol Hydrochlorothiazide (Hydrodiuril) 25 mg PO DAILY [place] Hydromorphone HCl (Dilaudid Pf Inj) 1 mg IV.PUSH Q3H PRN PRN Reason: BREAKTHROUGH PAIN Last Admin: 02/12/18 03:17 Dose: 1 mg Sodium Chloride (Ns Inj) 1,000 mls @ 100 mls/hr IV.CONT .Q10H [place] Last Admin: 02/11/18 23:15 Dose: 100 mls/hr Lactated Ringer's (Lr 1000 Ml Inj) 1,000 mls @ 30 mls/hr IV.SIG .Q24H [place] Stop: 02/13/18 02:29 Last Admin: 02/12/18 07:10 Dose: 30 mls/hr Sodium Chloride (Ns Inj) 500 mls @ 30 mls/hr IV.SIG .Q10H [place] Tranexamic Acid 1,365 mg/ (Sodium Chloride) 113.65 mls @ 200 mls/hr IV.SIG ONCE [place] Cefazolin Sodium/Dextrose (Ancef 2 Gm Premix Inj) 2 gm in 50 mls @ 100 mls/hr IV.SIG Q8H [place] Stop: 02/14/18 08:29 Lactated Ringer's (Lr 1000 Ml Inj) 1,000 mls @ 80 mls/hr IV.CONT .[id number] [place] Last Admin: 02/12/18 09:59 Dose: 80 mls/hr Vancomycin HCl 1,000 mg/ (Sodium Chloride) 250 mls @ 200 mls/hr IV.SIG Q12H [place] Stop: 02/13/18 09:14 Parenteral Electrolytes (Normosol-R Ph 7.4 Inj) 250 mls @ 0 mls/hr IV.CONT .Q0M PRN PRN Reason: SEE LABEL COMMENTS Insulin Aspart (Novolog Insulin Correctional Sugar Inj) 0 unit SQ ACHS AND 3AM [place]; Protocol Last Admin: 02/12/18 03:34 Dose: Not Given Lactulose (Lactulose Liq) 30 ml PO DAILY PRN PRN Reason: SEVERE CONSITIPATION Levothyroxine Sodium (Synthroid) 88 mcg PO DAILY@0600 [facility] Last Admin: 02/12/18 07:40 Dose: Not Given Levothyroxine Sodium (Synthroid) 100 mcg PO DAILY@0600 [facility] Last Admin: 02/12/18 07:40 Dose: Not Given Lisinopril (Prinivil) 20 mg PO DAILY [facility] Magnesium Oxide (Mag-Ox) 400 mg PO BID [facility] Miscellaneous Information ([facility] 1 each OTHER UNSCH PRN PRN Reason: SEE LABEL COMMENTS Stop: 02/13/18 08:59 Miscellaneous Information ([facility] 0 each OTHER UNSCH PRN PRN Reason: SEE LABEL COMMENTS Stop: 02/13/18 09:08 Morphine Sulfate (Morphine Inj) 2 mg IV.PUSH Q3H PRN PRN Reason: PAIN 3-5; IF UABLE TO TAKE PO Morphine Sulfate (Morphine Inj) 4 mg IV.PUSH Q3H PRN PRN Reason: BREAKTHROUGH PAIN Naloxone HCl (Narcan Inj) 0.4 mg IV.PUSH UNSCH PRN PRN Reason: SEE LABEL COMMENTS Ondansetron HCl (Zofran Inj) 4 mg IV.PUSH Q6H PRN PRN Reason: NAUSEA OR VOMITING Ondansetron HCl (Zofran Odt) 4 mg PO Q6H PRN PRN Reason: NAUSEA OR VOMITING Pantoprazole Sodium (Protonix) 20 mg PO BID [facility] Pravastatin Sodium (Pravachol) 20 mg PO DAILY [facility] Senna/Docusate Sodium ([place]aine-Colace) 1 tab PO BID [facility] Last Admin: 02/11/18 22:19 Dose: Not Given Sennosides (Senokot) 17.2 mg PO Q12H PRN PRN Reason: Moderate Constipation Sodium Bicarbonate (Sodium Bicarbonate) 650 mg PO BID [facility] Sodium Chloride (Ns Flush) 2 ml IV.FLUSH BID [facility] Sodium Chloride (Ns Flush) 2 ml IV.FLUSH PRN PRN PRN Reason: FLUSH AFTER USING IV ACCESS Sodium Chloride (Ns Flush) 2 ml IV.FLUSH BID [facility] Sodium Chloride (Ns Flush) 2 ml IV.FLUSH PRN PRN PRN Reason: FLUSH AFTER USING IV ACCESS Sucralfate (Carafate) 1 gm PO BID [facility] Sulfasalazine (Azulfidine Ec) 1,000 mg PO BID [facility] Temazepam (Restoril) 15 mg PO HS PRN PRN Reason: INSOMNIA Tolterodine Tartrate (Detrol La) 4 mg PO DAILY [facility] Venlafaxine HCl (Effexor Xr) 150 mg PO DAILY [facility] Vitamin D (Vitamin D3) 2,000 unit PO DAILY [facility] Vitamin D (Vitamin D3) 5,000 unit PO DAILY [place] Exam Vital signs: Vital Signs 02/11/18 16:50 02/11/18 16:56 02/11/18 19:00 Temperature 97.8 F 97 F L Pulse Rate 104 H 87 114 H Respiratory Rate 18 18 18 Blood Pressure 141/94 H 141/90 H 194/91 H Pulse Oximetry 97 99 96 02/11/18 19:27 02/11/18 19:28 02/11/18 19:30 Temperature Pulse Rate 118 H Respiratory Rate 18 18 18 Blood Pressure 181/96 H Pulse Oximetry 93 L 02/11/18 20:00 02/11/18 20:30 02/11/18 21:00 Temperature Pulse Rate 118 H 120 H 114 H Respiratory Rate 18 18 18 Blood Pressure 188/103 H 199/94 H 177/85 H Pulse Oximetry 96 97 95 02/11/18 22:00 02/12/18 00:00 02/12/18 04:45 Temperature 98.9 F 98.6 F 98.6 F Pulse Rate 111 H 120 H 93 H Respiratory Rate 15 16 16 Blood Pressure 168/98 H 170/84 H 176/84 H Pulse Oximetry 94 L 94 L 94 L 02/12/18 08:00 02/12/18 09:08 02/12/18 09:15 Temperature 98.2 F 98.4 F Pulse Rate 79 89 85 Respiratory Rate 18 18 18 Blood Pressure 149/75 H 147/67 H 159/75 H Pulse Oximetry 92 L 93 L 93 L 02/12/18 09:30 02/12/18 09:32 02/12/18 09:45 Temperature Pulse Rate 84 79 Respiratory Rate 20 12 14 Blood Pressure 164/75 H 150/69 H Pulse Oximetry 96 98 02/12/18 10:00 02/12/18 10:15 Temperature Pulse Rate 83 84 Respiratory Rate 13 14 Blood Pressure 119/69 123/65 Pulse Oximetry 97 97 Intake & Output 02/11/18 02/12/18 02/12/18 18:59 06:59 18:59 Intake Total 800 / 800 Output Total 3000 / 3000 1000 / 1000 Balance -3000 / -3000 -200 / -200 Weight 83.915 kg 91 kg Intake: Anesthesia Amount 800 / 800 Output: Estimated Blood Loss 200 / 200 Urine Amount (Catheter) 3000 / 3000 800 / 800 Indwelling Urethral Catheter 3000 / 3000 800 / 800 Other: Date of Last Bowel Movement 02/11/18 Narrative: GENERAL: NAD, AAOx3 SKIN: Warm and dry. HEENT: Atraumatic. Normocephalic. Pupils equal and round. No scleral icterus. No injection or drainage. No nasal bleeding or discharge. Mucous membranes pink and moist. NECK: Trachea midline. No JVD. CARDIO: Regular rate and rhythm. RESP: No accessory muscle use. CTA bilaterally. ABD: +BS, soft, non-tender, nondistended. EXT: Right knee bandages are c/d/i NEURO: Awake and alert. No obvious cranial nerve deficits. Motor grossly within normal limits. Five out of 5 muscle strength in the arms and legs. Normal speech. PSYCH: Appropriate mood and affect; insight and judgment normal. Results - Labs CBC & Chem 7: 02/13/18 06:30 02/13/18 06:30 Labs: Short CBC 02/11/18 02/12/18 Range/Units 17:37 05:54 WBC 17.6 H 11.5 H (4.0-11.0) th/mm3 Hgb 12.4 11.4 L (11.6-15.3) gm/dL Hct 38.0 35.9 (35.0-46.0) % Plt Count 308 264 (150-450) th/mm3 [facility] 02/11/18 02/12/18 17:37 05:44 Sodium 140 138 Potassium 3.6 4.2 Chloride 103 102 Carbon Dioxide 30.3 29.3 BUN 30 H 27 H Creatinine 1.11 H 1.13 H Calcium 8.2 L 8.4 L Liver Function 02/11/18 Range/Units 17:37 Total Bilirubin 0.3 (0.2-1.0) mg/dL AST 19 (15-37) U/L ALT 37 (10-53) U/L Alkaline Phosphatase 130 H (45-117) U/L Albumin 3.2 L (3.4-5.0) g/dL - Imaging Impressions Chest X-Ray 02/11/18 17:02 CONCLUSION: 1. No acute abnormality or significant interval change. Knee X-Ray 02/11/18 17:02 CONCLUSION: 1. Right knee arthroplasty with complex impacted comminuted fracture of the distal femur extending to the femoral component, as above. Femur X-Ray 02/12/18 00:00 CONCLUSION: 1. Right distal femoral ORIF, as above. Caprini VTE Risk Assessment Caprini VTE Risk Assessment: Moderate/High Risk (score >= 2) Caprini Risk Assessment Model: Point Value = 1 Point Value = 2 Point Value = 3 Point Value = 5 Age 41-60 Minor surgery BMI > 25 kg/m2 Swollen legs Varicose veins or History of unexplained or recurrent spontaneous Oral contraceptives or hormone replacement Sepsis (< 1 month) Serious lung disease, including pneumonia (< 1 month) Abnormal pulmonary function Acute myocardial infarction Congestive heart failure (< 1 month) History of inflammatory bowel disease Medical patient at bed rest Age 61-74 Arthroscopic surgery Major open surgery (> 45 min) Laparoscopic surgery (> 45 min) Malignancy Confined to bed (> 72 hours) Immobilizing plaster cast Central venous access Age >= 75 History of VTE Family history of VTE Factor V Leiden Prothrombin [id number] Lupus anticoagulant Anticardiolipin antibodies Elevated serum homocysteine Heparin-induced thrombocytopenia Other congenital or acquired thrombophilia Stroke (< 1 month) Elective arthroplasty Hip, pelvis, or leg fracture Acute spinal cord injury (< 1 month) Prophylaxis Regimen: Total Risk Factor Score Risk Level Prophylaxis Regimen 0-1 Low Early ambulation 2 Moderate Order ONE of the following: *Sequential Compression Device (SCD) *Heparin 5000 units SQ BID 3-4 Higher Order ONE of the following medications: *Heparin 5000 units SQ TID *Enoxaparin/Lovenox 40 mg SQ daily (WT < 150 kg, CrCl > 30 mL/min) *Enoxaparin/Lovenox 30 mg SQ daily (WT < 150 kg, CrCl > 10-29 mL/min) *Enoxaparin/Lovenox 30 mg SQ BID (WT < 150 kg, CrCl > 30 mL/min) AND/OR *Sequential Compression Device (SCD) 5 or more Highest Order ONE of the following medications: *Heparin 5000 units SQ TID (Preferred with Epidurals) *Enoxaparin/Lovenox 40 mg SQ daily (WT < 150 kg, CrCl > 30 mL/min) *Enoxaparin/Lovenox 30 mg SQ daily (WT < 150 kg, CrCl > 10-29 mL/min) *Enoxaparin/Lovenox 30 mg SQ BID (WT < 150 kg, CrCl > 30 mL/min) AND *Sequential Compression Device (SCD) Assessment and Plan - Assessment (1) Fracture of femur, right, closed Code(s): S72.91XA - Unspecified fracture of right femur, initial encounter for closed fracture Status: Acute Plan: Right maine-prosthetic distal femur fracture - Pt is a 68 y/o female with HTN, atrial fibrillation, diabetes mellitus, hypothyroidism and hx of bilateral [place] [address] Hughes. She presented to the ED at [facility] on 02/11/18 after a fall at home. - Xray of the femur revealed a right distal femur fracture. - Pt was taken to the OR today for ORIF of the right distal femur periprosthetic fracture by Dr. Guo. - Post-op pain control per Ortho - Antiemetics PRN - PT daily - Pt will likely need SNF at the conclusion of this hospitalization - Constipation precautions - Supportive care - DVT prophylaxis A. fib - Cont. Digoxin 0.125mg daily and Cardizem 360mg daily - Pts is ot bring in an updated list of meds for clarification. - Eliquis 5mg BID - Telemetry Diabetes mellitus, Hgb A1C 7.1% on 10/20/17 - NovoLog SSI - Accu checks Hypothyroidism - Cont. home meds Inflammatory polyarthritis - Pt takes Sulfasalazine daily (2) A-fib Code(s): I48.91 - Unspecified atrial fibrillation Status: Chronic (3) HTN (hypertension) Code(s): I10 - Essential (primary) hypertension Status: Chronic (4) Diabetes Code(s): E11.9 - Type 2 diabetes mellitus without complications Status: Chronic (5) CKD stage 3 secondary to diabetes Code(s): E11.22 - Type 2 diabetes mellitus with diabetic chronic kidney disease ; N18.3 - Chronic kidney disease, stage 3 (moderate) Status: Chronic (6) Hypothyroidism Code(s): E03.9 - Hypothyroidism, unspecified Status: Chronic - Attending Attestation Patient examined. Assessment and plan formulated with Marlene Nuñez PA-C. I agree with the above. H&P: Quality - VTE Deep Vein Thrombosis/Pulmonary Embolism Present on Admission: No (1) Fracture of femur, right, closed Qualifiers: Encounter type: initial encounter Femur location: distal epiphysis Fracture alignment: displaced Qualified Code(s): S72.441A - Displaced fracture of lower epiphysis (separation) of right femur, initial encounter for closed fracture
[2018-02-12] MEDS: dilTIAZem CD 180 MG Capsule PO SCH (11:48)
[2018-02-12] MEDS: hydroCHLOROthiazide 25 MG Tablet PO SCH (11:48)
[2018-02-12] MEDS: Digoxin 125 MCG Tablet PO SCH (11:49)
[2018-02-12] MEDS: Magnesium Oxide 400 MG Tablet PO SCH ×2 (11:51→21:08)
[2018-02-12] MEDS: Venlafaxine XR 75 MG Capsule PO SCH (11:51)
[2018-02-12] MEDS: Tolterodine Tartrate LA 4 MG Capsule PO SCH (11:51)
[2018-02-12] MEDS: Calcium/Vitamin D 250/125 MG Tablet PO SCH ×2 (11:51→21:08)
[2018-02-12] MEDS: Sodium Bicarbonate 650 MG Tablet PO SCH ×2 (11:52→21:11)
[2018-02-12] MEDS: Lisinopril 20 MG Tablet PO SCH (11:52)
[2018-02-12] MEDS: Pantoprazole Sodium 20 MG DR Tablet PO SCH ×2 (11:52→21:09)
[2018-02-12] MEDS: Ascorbic Acid 500 MG Tablet PO SCH ×2 (11:52→21:09)
[2018-02-12] MEDS: Senna/Docusate Sodium 8.6/50 MG Tablet PO SCH ×2 (11:52→21:11)
[2018-02-12] MEDS: Cholestyramine Light 4 GM Packet PO SCH ×2 (11:52→21:12)
[2018-02-12] MEDS: Morphine Inj 4 MG/ML Vial IV.PUSH PRN ×2 (16:01→18:57)
--- NOTE | 2018-02-12 16:41 | ECG ---
Date Performed: 02/11/2018 Time Performed: 18:27:05 PTAGE: 68 years EKG: ATRIAL FIBRILLATION WITH RAPID VENTRICULAR RESPONSE NONSPECIFIC ST & T-WAVE ABNORMALITY Sin ce the previous tracing, no significant change noted ABNORMAL RHYTHM ECG PREVIOUS TRACING : 12/18/2016 11.08 DOCTOR: Susan Sandoval Interpretating Date/Time 02/12/2018 16:38:08
[2018-02-12] MEDS: ceFAZolin 2 GM Premix Inj 2 GM/50 ML PIGGYBACK IV.SIG SCH (16:58)
[2018-02-12] MEDS: Vancomycin Inj 1,000 MG in Sodium Chlor 0.9% Inj 250 ML IV.SIG SCH (21:05)
[2018-02-12] MEDS ORDERED: Metoprolol Tartrate 50 MG Tablet PO SCH (22:15)
[2018-02-13] MEDS: ceFAZolin 2 GM Premix Inj 2 GM/50 ML PIGGYBACK IV.SIG SCH ×3 (00:23→18:09)
[2018-02-13] MEDS: Metoprolol Tartrate 50 MG Tablet PO SCH ×4 (00:24→16:28)
[2018-02-13] MEDS: Insulin NovoLOG Aspart Correctional Sugar Inj SQ SCH ×5 (03:21→21:11)
[2018-02-13] MEDS: Sod Chloride 0.9% Inj 1,000 ML IV.CONT SCH ×2 (03:23→17:30)
[2018-02-13] MEDS: Levothyroxine 100 MCG Tablet PO SCH (05:27)
[2018-02-13] MEDS: Levothyroxine 88 MCG Tablet PO SCH (05:27)
--- NOTE | 2018-02-13 06:38 | P.PNOP ---
Subjective Interval history: Resting comfortably with no new complaints Physical Exam Vital signs: Vital Signs 02/12/18 08:00 02/12/18 09:08 02/12/18 09:15 Temperature 98.2 F 98.4 F Pulse Rate 79 89 85 Respiratory Rate 18 18 18 Blood Pressure 149/75 H 147/67 H 159/75 H Pulse Oximetry 92 L 93 L 93 L 02/12/18 09:30 02/12/18 09:32 02/12/18 09:45 Temperature Pulse Rate 84 79 Respiratory Rate 20 12 14 Blood Pressure 164/75 H 150/69 H Pulse Oximetry 96 98 02/12/18 10:00 02/12/18 10:15 02/12/18 12:00 Temperature 97.7 F Pulse Rate 83 84 79 Respiratory Rate 13 14 20 Blood Pressure 119/69 123/65 122/59 L Pulse Oximetry 97 97 95 02/12/18 16:00 02/12/18 16:34 02/12/18 16:41 Temperature 98.5 F Pulse Rate 93 H Respiratory Rate 18 16 Blood Pressure 190/84 H Pulse Oximetry 98 95 02/12/18 19:33 02/12/18 20:00 02/12/18 21:40 Temperature 101.8 F H Pulse Rate 118 H Respiratory Rate 16 18 18 Blood Pressure 182/80 H Pulse Oximetry 96 02/12/18 22:26 02/13/18 00:00 02/13/18 00:30 Temperature 100.0 F H Pulse Rate 115 H Respiratory Rate 18 Blood Pressure 136/59 L Pulse Oximetry 94 L 91 L 93 L 02/13/18 04:00 Temperature 98.8 F Pulse Rate 66 Respiratory Rate 16 Blood Pressure 114/55 L Pulse Oximetry 90 L Intake & Output 02/12/18 02/12/18 02/13/18 06:59 18:59 06:59 Intake Total 3240 / 3240 4500 / 4500 Output Total 3000 / 3000 2500 / 2500 4400 / 4400 Balance -3000 / -3000 740 / 740 100 / 100 Weight 91 kg 91 kg Intake: IV 1800 / 1800 2300 / 2300 NS Inj 250 ML @ 0 mls/hr .ROUTE 250 / 250 .STK-MED ONE Rx#:[id number] LR 1000 mL Inj 1,000 ML @ 80 1000 / 1000 mls/hr IV.CONT .[id number] [place] Rx# :[id number] NS Inj 1,000 ML @ 100 mls/hr IV 1000 / 1000 1000 / 1000 .CONT .Q10H [place] Rx#:[id number] LR 1000 mL Inj 1,000 ML @ 30 500 / 500 mls/hr IV.SIG .Q24H [place] Rx#: [id number] Vancomycin Inj 1,000 MG In NS 250 / 250 Inj 250 ML @ 200 mls/hr IV.SIG Q12H [place] Rx#:[id number] Ancef 2 GM Premix Inj 2 gm In 50 / 50 50 / 50 50 ml @ 100 mls/hr IV.SIG Q8H [place] Rx#:[id number] Oral 640 / 640 2200 / 2200 Anesthesia Amount 800 / 800 Output: Urine 1500 / 1500 4400 / 4400 Estimated Blood Loss 200 / 200 Urine Amount (Catheter) 3000 / 3000 800 / 800 Indwelling Urethral Catheter 3000 / 3000 800 / 800 Other: Date of Last Bowel Movement 02/11/18 02/11/18 # Bowel Movements 0 Narrative: Left lower extremity:clean dry dressings intact. Knee immobilizer in place. Distally intact sensation good capillary refills with active dorsiflexion plantarflexion of foot. - Urinary Catheter Management Indwelling Urethral Catheter Cath placed during this visit: yes Reason for continuing: Hourly intake/output Insertion date: 02/11/18 Insertion time: 17:57 Results - Labs CBC & Chem 7: 02/12/18 05:54 02/12/18 05:44 Laboratory Results - last 24 hr 02/12/18 02/12/18 02/12/18 05:44 08:44 09:16 Sodium 138 Potassium 4.2 Chloride 102 Carbon Dioxide 29.3 Anion Gap 7 BUN 27 H Creatinine 1.13 H Estimated GFR 48 L POC Glucose 162 H 211 H Random Glucose 207 H Calcium 8.4 L 02/12/18 02/12/18 02/12/18 11:50 18:39 20:13 Sodium Potassium Chloride Carbon Dioxide Anion Gap BUN Creatinine Estimated GFR POC Glucose 186 H 172 H 166 H Random Glucose Calcium 02/13/18 03:10 Sodium Potassium Chloride Carbon Dioxide Anion Gap BUN Creatinine Estimated GFR POC Glucose 200 H Random Glucose Calcium - Imaging Impressions Femur X-Ray 02/12/18 00:00 CONCLUSION: 1. Right distal femoral ORIF, as above. Assessment and Plan - Problem List (1) Fracture of femur, right, closed Code(s): S72.91XA - Unspecified fracture of right femur, initial encounter for closed fracture Status: Acute Qualifiers: Encounter type: initial encounter Femur location: distal epiphysis Fracture alignment: displaced Qualified Code(s): S72.441A - Displaced fracture of lower epiphysis (separation) of right femur, initial encounter for closed fracture - Assessment and Plan Right periprosthetic distal femur fracture ORIF POD 1 Nonweightbearing right lower extremity with no active leg lifts or quad sets. Passive range of motion of knee Daily dressing changes beginning POD 2 Immobilizer at all times except for PT Eliquis Case management for rehab placement Incentive spirometry Follow-up with Dr. Guo or PA in 2 weeks
[2018-02-13 06:55] LABS: Baso # (Auto) 0.1 th/mm3 (0.0-0.2); Baso % (Auto) 0.4 % (0.0-2.0); Eos # (Auto) 0.2 th/mm3 (0.0-0.4); Eos % (Auto) 1.2 % (0.0-4.0); Hematocrit 30.3 % (35.0-46.0); Hemoglobin 9.8 gm/dL (11.6-15.3); Lymph # (Auto) 2.2 th/mm3 (1.0-4.8); Lymph % (Auto) 15.1 % (9.0-44.0); Mean Corpuscular HGB Conc 32.3 % (32.0-36.0); Mean Corpuscular Hemoglobin 28.7 pg (27.0-34.0); Mean Platelet Volume 7.1 fL (7.0-11.0); Mono # (Auto) 1.3 th/mm3 (0.0-0.9); Mono % (Auto) 8.9 % (0.0-8.0); Neut # (Auto) 11.1 th/mm3 (1.8-7.7); Neut % (Auto) 74.4 % (16.0-70.0); Platelet Count 239 th/mm3 (150-450); Red Blood Count 3.41 mil/mm3 (4.00-5.30); Red Cell Distribution Width 16.8 % (11.6-17.2); White Blood Count 14.9 th/mm3 (4.0-11.0)
[2018-02-13 07:21] LABS: Calcium 8.5 mg/dL (8.5-10.1); Carbon Dioxide 30.8 meq/L (21.0-32.0); Potassium 3.8 meq/L (3.5-5.1)
[2018-02-13] MEDS: dilTIAZem CD 180 MG Capsule PO SCH (08:32)
[2018-02-13] MEDS: Vancomycin Inj 1,000 MG in Sodium Chlor 0.9% Inj 250 ML IV.SIG SCH (08:32)
[2018-02-13] MEDS: Sodium Bicarbonate 650 MG Tablet PO SCH ×2 (08:33→20:36)
[2018-02-13] MEDS: Sucralfate 1 GM Tablet PO SCH ×2 (08:33→20:35)
[2018-02-13] MEDS: Folic Acid 1 MG Tablet PO SCH (08:33)
[2018-02-13] MEDS: sulfaSALAzine EC 500 MG Tablet PO SCH ×2 (08:33→20:33)
[2018-02-13] MEDS: Tolterodine Tartrate LA 4 MG Capsule PO SCH (08:34)
[2018-02-13] MEDS: Pantoprazole Sodium 20 MG DR Tablet PO SCH ×2 (08:34→20:32)
[2018-02-13] MEDS: Digoxin 125 MCG Tablet PO SCH (08:35)
[2018-02-13] MEDS: Lisinopril 20 MG Tablet PO SCH (08:36)
[2018-02-13] MEDS: hydroCHLOROthiazide 25 MG Tablet PO SCH (08:36)
[2018-02-13] MEDS: Ascorbic Acid 500 MG Tablet PO SCH ×2 (08:36→20:33)
[2018-02-13] MEDS: Calcium/Vitamin D 250/125 MG Tablet PO SCH ×2 (08:36→20:32)
[2018-02-13] MEDS: Senna/Docusate Sodium 8.6/50 MG Tablet PO SCH ×2 (08:36→20:32)
[2018-02-13] MEDS: Venlafaxine XR 75 MG Capsule PO SCH (08:36)
[2018-02-13] MEDS: Magnesium Oxide 400 MG Tablet PO SCH ×2 (08:37→20:33)
[2018-02-13] MEDS: Sodium Chloride 0.9% 2 ML Flush BID IV.FLUSH SCH ×2 (08:39→22:48)
[2018-02-13] MEDS: Cholestyramine Light 4 GM Packet PO SCH ×2 (08:40→20:34)
--- NOTE | 2018-02-13 16:35 | P.PNIM ---
Subjective Interval history: No new complaints. Pt's pain is controlled. Physical Exam Vital signs: 02/13/18 08:00 02/13/18 11:55 02/13/18 12:00 Temperature 98.6 F 100.1 F H Pulse Rate 80 103 H 91 H Respiratory Rate 16 18 Blood Pressure 110/62 125/64 Pulse Oximetry 95 92 L Narrative: GENERAL: This is a well-nourished, well-developed patient, in no apparent distress. CARDIOVASCULAR: Regular rate and rhythm without murmurs, gallops, or rubs. RESPIRATORY: Clear to auscultation. Breath sounds equal bilaterally. No wheezes , rales, or rhonchi. GASTROINTESTINAL: Abdomen soft, non-tender, nondistended. Normal active bowel sounds MUSCULOSKELETAL: Extremities without clubbing, cyanosis, or edema. NEURO: Alert & Oriented x4 to person, place, time, situation. Moves all ext x4 - Urinary Catheter Management Indwelling Urethral Catheter Cath placed during this visit: yes Reason for continuing: Hourly intake/output Insertion date: 02/11/18 Insertion time: 17:57 Results - Labs CBC & Chem 7: 02/13/18 06:30 02/13/18 06:30 Assessment and Plan - Assessment (1) Fracture of femur, right, closed Code(s): S72.91XA - Unspecified fracture of right femur, initial encounter for closed fracture Status: Acute Plan: Right aby-prosthetic distal femur fracture - Pt is a 68 y/o female with HTN, atrial fibrillation, diabetes mellitus, hypothyroidism and hx of bilateral T[place] [address] Hughes. She presented to the ED at [facility] [place] on 02/11/18 after a fall at home. - Xray of the femur revealed a right distal femur fracture. - Pt was taken to the OR today for ORIF of the right distal femur periprosthetic fracture by Dr. Guo. - Post-op pain control per Ortho - Antiemetics PRN - PT daily - Pt will likely need SNF at the conclusion of this hospitalization - Pt to remain non-Weight bearing on right hip x 3 months per Orthopedic Service - Constipation precautions - Supportive care - DVT prophylaxis 02/13/18 - Pt interviewed and examined. - continue current treatment plan as outlined above - awaiting home medication list from family - Case Management working on safe discharge arrangements. A. fib - Cont. Digoxin 0.125mg daily and Cardizem 360mg daily - Pts is ot bring in an updated list of meds for clarification. - Eliquis 5mg BID - Telemetry Diabetes mellitus, Hgb A1C 7.1% on 10/20/17 - NovoLog SSI - Accu checks Hypothyroidism - Cont. home meds Inflammatory polyarthritis - Pt takes Sulfasalazine daily (2) A-fib Code(s): I48.91 - Unspecified atrial fibrillation Status: Chronic (3) HTN (hypertension) Code(s): I10 - Essential (primary) hypertension Status: Chronic (4) Diabetes Code(s): E11.9 - Type 2 diabetes mellitus without complications Status: Chronic (5) CKD stage 3 secondary to diabetes Code(s): E11.22 - Type 2 diabetes mellitus with diabetic chronic kidney disease ; N18.3 - Chronic kidney disease, stage 3 (moderate) Status: Chronic (6) Hypothyroidism Code(s): E03.9 - Hypothyroidism, unspecified Status: Chronic (1) Fracture of femur, right, closed Qualifiers: Encounter type: initial encounter Femur location: distal epiphysis Fracture alignment: displaced Qualified Code(s): S72.441A - Displaced fracture of lower epiphysis (separation) of right femur, initial encounter for closed fracture
[2018-02-13] MEDS: ceFAZolin Inj 2,000 MG in Sodium Chlor 0.9% Inj 100 ML IV.SIG SCH (17:30)
[2018-02-14] MEDS: ceFAZolin Inj 2,000 MG in Sodium Chlor 0.9% Inj 100 ML IV.SIG SCH ×2 (00:13→08:55)
[2018-02-14] MEDS: Metoprolol Tartrate 50 MG Tablet PO SCH ×4 (00:15→12:50)
[2018-02-14] MEDS: Sod Chloride 0.9% Inj 1,000 ML IV.CONT SCH ×2 (01:53→11:18)
[2018-02-14] MEDS: Insulin NovoLOG Aspart Correctional Sugar Inj SQ SCH ×3 (03:52→12:51)
[2018-02-14] MEDS: Levothyroxine 88 MCG Tablet PO SCH (06:59)
[2018-02-14] MEDS: Levothyroxine 100 MCG Tablet PO SCH (06:59)
--- NOTE | 2018-02-14 07:48 | P.PNOP ---
Subjective Interval history: Pain controlled and progressing slowly Physical Exam Vital signs: Vital Signs 02/13/18 08:00 02/13/18 11:55 02/13/18 12:00 Temperature 98.6 F 100.1 F H Pulse Rate 80 103 H 91 H Respiratory Rate 16 18 Blood Pressure 110/62 125/64 Pulse Oximetry 95 92 L 02/13/18 16:00 02/13/18 19:17 02/13/18 23:03 Temperature 98.3 F 98.9 F 98.6 F Pulse Rate 94 H 86 88 Respiratory Rate 20 18 18 Blood Pressure 139/60 138/74 152/83 H Pulse Oximetry 100 97 97 02/14/18 03:46 Temperature 97.9 F Pulse Rate 91 H Respiratory Rate 18 Blood Pressure 134/67 Pulse Oximetry 92 L Intake & Output 02/13/18 02/14/18 02/14/18 18:59 06:59 18:59 Intake Total 2380 / 2380 600 / 600 Output Total 2550 / 2550 Balance -170 / -170 600 / 600 Weight 91 kg Intake: IV 1420 / 1420 120 / 120 NS Inj 1,000 ML @ 100 mls/hr IV 1000 / 1000 .CONT .Q10H [place] Rx#:[id number] Vancomycin Inj 1,000 MG In NS 250 / 250 Inj 250 ML @ 200 mls/hr IV.SIG Q12H [place] Rx#:[id number] Ancef 2 GM Premix Inj 2 gm In 50 / 50 50 ml @ 100 mls/hr IV.SIG Q8H [place] Rx#:[id number] Ancef Inj 2,000 MG In NS Inj 120 / 120 120 / 120 100 ML @ 240 mls/hr IV.SIG Q8H [place] Rx#:[id number] Oral 960 / 960 480 / 480 Output: Urine 2550 / 2550 Other: # Voids 5 Date of Last Bowel Movement 02/11/18 02/13/18 # Bowel Movements 0 0 Narrative: Right lower extremity: Clean dry dressings intact. Knee immobilizer readjusted. Intact sensation distally with active dorsiflexion and plantarflexion of foot - Urinary Catheter Management Indwelling Urethral Catheter Cath placed during this visit: yes, but has since been removed by the nurse Reason for continuing: Decision to DC catheter Insertion date: 02/11/18 Insertion time: 17:57 Removal date: 02/13/18 Removal time: 18:00 Results - Labs CBC & Chem 7: 02/13/18 06:30 02/13/18 06:30 Laboratory Results - last 24 hr 02/13/18 02/13/18 02/13/18 11:03 16:34 21:05 POC Glucose 198 H 227 H 300 H Digoxin 02/14/18 02/14/18 03:45 04:45 POC Glucose 215 H Digoxin 0.7 L Assessment and Plan - Problem List (1) Fracture of femur, right, closed Code(s): S72.91XA - Unspecified fracture of right femur, initial encounter for closed fracture Status: Acute Qualifiers: Encounter type: initial encounter Femur location: distal epiphysis Fracture alignment: displaced Qualified Code(s): S72.441A - Displaced fracture of lower epiphysis (separation) of right femur, initial encounter for closed fracture - Assessment and Plan Right periprosthetic distal femur fracture ORIF POD 2 Nonweightbearing right lower extremity with no active leg lifts or quad sets. Passive range of motion of knee Daily dressing changes beginning POD 2 Immobilizer at all times except for PT Eliquis Case management for rehab placement Incentive spirometry Follow-up with Dr. Guo or PA in 2 weeks
[2018-02-14] MEDS: Sucralfate 1 GM Tablet PO SCH (08:46)
[2018-02-14] MEDS: Venlafaxine XR 75 MG Capsule PO SCH (08:47)
[2018-02-14] MEDS: Tolterodine Tartrate LA 4 MG Capsule PO SCH (08:47)
[2018-02-14] MEDS: dilTIAZem CD 180 MG Capsule PO SCH (08:47)
[2018-02-14] MEDS: Digoxin 125 MCG Tablet PO SCH (08:48)
[2018-02-14] MEDS: Folic Acid 1 MG Tablet PO SCH (08:48)
[2018-02-14] MEDS: hydroCHLOROthiazide 25 MG Tablet PO SCH (08:48)
[2018-02-14] MEDS: Cholestyramine Light 4 GM Packet PO SCH (08:50)
[2018-02-14] MEDS: Ascorbic Acid 500 MG Tablet PO SCH (08:50)
[2018-02-14] MEDS: Senna/Docusate Sodium 8.6/50 MG Tablet PO SCH (08:51)
[2018-02-14] MEDS: Calcium/Vitamin D 250/125 MG Tablet PO SCH (08:51)
[2018-02-14] MEDS: Magnesium Oxide 400 MG Tablet PO SCH (09:00)
[2018-02-14] MEDS: sulfaSALAzine EC 500 MG Tablet PO SCH (09:00)
[2018-02-14] MEDS: Sodium Chloride 0.9% 2 ML Flush BID IV.FLUSH SCH (09:00)
[2018-02-14] MEDS: Lisinopril 20 MG Tablet PO SCH (09:05)
[2018-02-14] MEDS: Sodium Bicarbonate 650 MG Tablet PO SCH (09:05)
[2018-02-14] MEDS: Pantoprazole Sodium 20 MG DR Tablet PO SCH (09:05)
[2018-02-14 09:35] VITALS: RESP 16
--- NOTE | 2018-02-14 11:00 | P.DS ---
<Phoebe Hathaway W - Last Filed: 02/14/18 12:38> Date of admission: 02/11/18 19:26 Primary care physician: Urban Carrera MD Attending physician on discharge: Rolo Nassar Anticipated date of discharge: 02/14/18 Brief History from admission: Mrs. Bueno is a 68 y/o female with HTN, atrial fibrillation, diabetes mellitus , hypothyroidism and hx of bilateral TKA [place] [address] Hughes. She presented to the ED at [facility] [place] on 02/11/18 after a fall at home. She states she was walking and heard a "pop" in the right knee and the knee gave out and she fell to the ground. Patient states that the right leg was angulated at the knee. EMS was called. In the ED Xray of the femur revealed a right distal femur fracture. She reports hearing the knee pop several times in the past, and recently saw Dr. Hughes about a month ago for this. She is on Eliquis 5mg BID for a-fib. Pt was taken to the OR today for ORIF of the right distal femur periprosthetic fracture. Pt is seen post-operatively. Past Medical History HTN Atrial fibrillation Hyperlipidemia Diabetes, Hgb A1C 7.1% on 10/20/17 Diabetic nephropathy/neuropathy Atherosclerosis of the aorta Fatty liver CKD, stage 3 Thrombocytosis GERD Gastroparesis Hypothyroidism Anxiety/Depression Osteoarthritis Colitis Asymmetric polyarticular inflammation on Sulfasalazine Hx of Ulcerative colitis Past Surgical History Appendectomy Bilateral knee arthroplasties in 2008 Bladder surgery Breast biopsy Cholecystectomy Ventral hernia repair Carpal tunnel release BRANDON EGD/colonoscopies Family History Noncontributory Social History Denies any alcohol, tobacco or illicit drug use Patient update on day of discharge: Patient doing well Offers no new complaints, looking forward to DC to rehab DS: Diagnosis - Discharge Diagnosis (1) Fracture of femur, right, closed Status: Acute DS: Medications - Discharge Medications Prescriptions: hydrocodone-acetaminophen [[place]] 1 tab PO Q4-6H PRN #42 tab PRN Reason: Acute Pain metoprolol tartrate [Lopressor] 50 mg PO Q8H 30 Days #90 tab DS: Summary Hospital Course: Right aby-prosthetic distal femur fracture - Pt is a 68 y/o female with HTN, atrial fibrillation, diabetes mellitus, hypothyroidism and hx of bilateral [place] [address] Hughes. She presented to the ED at [facility] [place] on 02/11/18 after a fall at home. - Xray of the femur revealed a right distal femur fracture. - Pt was taken to the OR today for ORIF of the right distal femur periprosthetic fracture by Dr. Guo. - Post-op pain control per Ortho - Antiemetics PRN - PT daily - Pt will likely need SNF at the conclusion of this hospitalization - Pt to remain non-Weight bearing on right hip x 3 months per Orthopedic Service - Constipation precautions - Supportive care - DVT prophylaxis 02/13/18 - Pt interviewed and examined. - continue current treatment plan as outlined above - awaiting home medication list from family - Case Management working on safe discharge arrangements. 02/14/18 - cleared for DC per orthopedic surgery - Pt interviewed and examined. - continue current treatment plan as outlined above - Patient authorized to go to [facility] A. fib- rate controlled - Cont. Digoxin 0.125mg daily and Cardizem 360mg daily - metoprolol 50 mg added for rate control - Pts brought - Eliquis 5mg BID - Telemetry Diabetes mellitus, Hgb A1C 7.1% on 10/20/17 - NovoLog SSI - Accu checks Hypothyroidism - Cont. home meds Inflammatory polyarthritis - Pt takes Sulfasalazine daily - Time Spent with Patient Total time spent providing and/or coordinating discharge services: Greater than 30 minutes - Quality: VTE Deep Vein Thrombosis/Pulmonary Embolism Present on Admission: No Exam Vital signs: Vital Signs 02/13/18 11:55 02/13/18 12:00 02/13/18 16:00 Temperature 100.1 F H 98.3 F Pulse Rate 103 H 91 H 94 H Respiratory Rate 18 20 Blood Pressure 125/64 139/60 Pulse Oximetry 92 L 100 02/13/18 19:17 02/13/18 23:03 02/14/18 03:46 Temperature 98.9 F 98.6 F 97.9 F Pulse Rate 86 88 91 H Respiratory Rate 18 18 18 Blood Pressure 138/74 152/83 H 134/67 Pulse Oximetry 97 97 92 L 02/14/18 08:00 Temperature 97.8 F Pulse Rate 98 H Respiratory Rate 16 Blood Pressure 149/71 H Pulse Oximetry 94 L Intake & Output 02/13/18 02/14/18 02/14/18 18:59 06:59 18:59 Intake Total 2380 / 2380 1600 / 1600 Output Total 2550 / 2550 Balance -170 / -170 1600 / 1600 Weight 91 kg Intake: IV 1420 / 1420 1120 / 1120 NS Inj 1,000 ML @ 100 mls/hr IV 1000 / 1000 1000 / 1000 .CONT .Q10H [place] Rx#:[id number] Vancomycin Inj 1,000 MG In NS 250 / 250 Inj 250 ML @ 200 mls/hr IV.SIG Q12H [place] Rx#:[id number] Ancef 2 GM Premix Inj 2 gm In 50 / 50 50 ml @ 100 mls/hr IV.SIG Q8H [place] Rx#:[id number] Ancef Inj 2,000 MG In NS Inj 120 / 120 120 / 120 100 ML @ 240 mls/hr IV.SIG Q8H [place] Rx#:[id number] Oral 960 / 960 480 / 480 Output: Urine 2550 / 2550 Other: # Voids 5 Date of Last Bowel Movement 02/11/18 02/13/18 # Bowel Movements 0 0 Narrative: GENERAL: This is a well-nourished, well-developed patient, in no apparent distress. CARDIOVASCULAR: irregularly regular RESPIRATORY: Clear to auscultation. Breath sounds equal bilaterally. GASTROINTESTINAL: Abdomen soft, non-tender, nondistended. Normal active bowel sounds MUSCULOSKELETAL: Extremities without clubbing, cyanosis, or edema. NEURO: Alert & Oriented x4 to person, place, time, situation. Moves all ext x4 Results Procedures completed during hospitalization: ORIF of the right distal femur periprosthetic fracture by Dr. Guo Labs on day of discharge: Labs from last 24 hours 02/14/18 02/14/18 02/14/18 08:44 04:45 03:45 POC Glucose 206 H 215 H Digoxin 0.7 L 02/13/18 02/13/18 02/13/18 21:05 16:34 11:03 POC Glucose 300 H 227 H 198 H Digoxin - Impressions ITS Impressions Chest X-Ray 02/11/18 17:02 CONCLUSION: 1. No acute abnormality or significant interval change. Knee X-Ray 02/11/18 17:02 CONCLUSION: 1. Right knee arthroplasty with complex impacted comminuted fracture of the distal femur extending to the femoral component, as above. Femur X-Ray 02/12/18 00:00 CONCLUSION: 1. Right distal femoral ORIF, as above. <Rolo Nassar - Last Filed: 02/18/18 07:51> Date of admission: 02/11/18 19:26 Primary care physician: Urban Carrera MD DS: Diagnosis - Discharge Diagnosis (1) Fracture of femur, right, closed Status: Acute (2) A-fib Status: Chronic (3) HTN (hypertension) Status: Chronic (4) Diabetes Status: Chronic (5) CKD stage 3 secondary to diabetes Status: Chronic (6) Hypothyroidism Status: Chronic DS: Summary Hospital Course: The exam, history, and the medical decision-making described in the above note were completed with the assistance of the mid-level provider. I reviewed and agree with the findings presented. I attest that I had a [id number] encounter with the patient on the same day, and personally performed and documented my assessment and findings in the medical record. Patient examined. Assessment and plan formulated with Phoebe Hathaway PA-C. I agree with the above. - Time Spent with Patient Total time spent providing and/or coordinating discharge services: Greater than 30 minutes Results - Impressions ITS Impressions Chest X-Ray 02/11/18 17:02 CONCLUSION: 1. No acute abnormality or significant interval change. Knee X-Ray 02/11/18 17:02 CONCLUSION: 1. Right knee arthroplasty with complex impacted comminuted fracture of the distal femur extending to the femoral component, as above. Femur X-Ray 02/12/18 00:00 CONCLUSION: 1. Right distal femoral ORIF, as above. Discharge Plan - Discharge Order Discharge Orders: Discharge Order (Routine); Ordered 02/14/18 Ordered By: Phoebe Hathaway Orthopedic Clear for Discharge (Routine); Ordered 02/14/18 Ordered By: Lavon Chavez - Discharge Details Anticipated Discharge Date: 02/14/18 - Physicians Team Primary Care Provider: Urban Carrera Attending Provider: oRlo Nassar Other Providers: Riley Carter MD ; Glenn Guo MD
[2018-02-14 12:18] VITALS: BP 117/68; PULSE 88; TEMP 98.3; O2SAT 16
--- NOTE | 2018-02-15 01:37 | ECG ---
Date Performed: 02/12/2018 Time Performed: 22:18:22 PTAGE: 68 years EKG: ATRIAL FIBRILLATION WITH RAPID VENTRICULAR RESPONSE POSSIBLE REVERSAL OF ARM LEADS PREVIOUS TRACING : 02/11/2018 UNABLE TO COMPARE DUE TO REVERSAL OF ARM LEADS DOCTOR: Dieter Hernandez Interpretating Date/Time 02/15/2018 01:37:00
== END 2018-02-14 15:17 ==
LOC: NEPE 16:41 → NEDA 19:26 → N06 21:49 → NEDA 22:12
PROVIDERS: ADMIT Hospitalist; ATTEND Hospitalist